=== PATIENT | male | born 1950 ===

== ENCOUNTER 2017-06-14 20:45 | Inpatient (IN) | payer OTHER ==
[2017-06-14 20:45] VITALS: BMI 34.4
--- NOTE | 2017-06-14 21:20 | C.PDOC ---
History Of Present Illness Patient presents to the ER with a complaint of intermittent abdominal pain for the past 3-4 days with no bowel movements in 3 days. Patient initially stated he has not voided all day but was able to void 250cc of clear urine in the ER. Patient is currently on narcotics for back and leg pain and uses a walker to ambulate. Denies fever, chills, nausea, or vomiting. Time Seen by Provider: 06/14/17 21:19 Chief Complaint (Nursing): Abdominal Pain History Per: Patient History/Exam Limitations: no limitations Onset/Duration Of Symptoms: Days, Intermittent Episodes Current Symptoms Are (Timing): Still Present Severity: Mild Pain Scale Rating Of: 4 Location Of Pain/Discomfort: Diffuse Radiation Of Pain To:: None Quality Of Discomfort: Unable To Describe Associated Symptoms: Constipation. denies: Fever, Chills, Nausea, Vomiting Exacerbating Factors: None Alleviating Factors: None Recent travel outside of the [place]: No Additional History Per: Family Past Medical History Reviewed: Historical Data, Nursing Documentation, Vital Signs Vital Signs: Last Vital Signs Temp 98.4 F 06/14/17 20:53 Pulse 108 H 06/14/17 20:53 Resp 16 06/14/17 20:53 BP Pulse Ox 98 06/14/17 21:53 - Medical History PMH: Diabetes, HTN, Hypercholesterolemia, Hypothyroidism, Chronic Kidney Disease Surgical History: No Surg Hx - [facility] Procedures INSERT INDWELLING CATH (01/23/13) Family History: States: Unknown Family Hx - Social History Hx Tobacco Use: No Hx Alcohol Use: No Hx Substance Use: No - Immunization History Hx Tetanus Toxoid Vaccination: No Hx Influenza Vaccination: Yes Hx Pneumococcal Vaccination: Yes Review Of Systems Constitutional: Negative for: Fever, Chills ENT: Negative for: Throat Pain Cardiovascular: Negative for: Chest Pain Respiratory: Negative for: Shortness of Breath Gastrointestinal: Positive for: Abdominal Pain, Constipation. Negative for: Nausea, Vomiting Genitourinary: Negative for: Dysuria Musculoskeletal: Negative for: Back Pain Skin: Negative for: Rash, Lesions, Jaundice Neurological: Negative for: Weakness Psych: Negative for: Anxiety Physical Exam - Physical Exam Appears: Non-toxic, No Acute Distress Skin: Warm, Dry Head: Normacephalic Eye(s): bilateral: Normal Inspection Oral Mucosa: Moist Neck: Supple Chest: Symmetrical Cardiovascular: Rhythm Regular Respiratory: No Rales, No Rhonchi, No Wheezing Gastrointestinal/Abdominal: Soft, No Tenderness, Other (Tympanic to percussion) Back: Normal Inspection Extremity: No Pedal Edema Extremity: Bilateral: Atraumatic Pulses: Left Dorsalis Pedis: Normal, Right Dorsalis Pedis: Normal Neurological/Psych: Oriented x3, Normal Speech, Normal Cognition Gait: With Assistance ED Course And Treatment - Laboratory Results Result Diagrams: 06/14/17 21:50 06/14/17 21:50 O2 Sat by Pulse Oximetry: 98 (Room air) Pulse Ox Interpretation: Normal Progress Note: Blood work, EKG, obstructive series x-ray, and urinalysis ordered. IV fluids and toradol administered. Disposition Discussed With Dr.: Vick Escobar Comment: accepted the pt on his service and took over the care at 11:11PM Doctor Will See Patient In The: Hospital Counseled Patient/Family Regarding: Studies Performed, Diagnosis - Disposition Disposition: HOSPITALIZED Disposition Time: 21:19 Condition: FAIR Forms: [facility] (Niuean) - POA Present On Arrival: Poor Glycemic Control - Clinical Impression Clinical Impression: Abdominal pain, Constipation, Renal insufficiency, Hyperglycemia, HHNC ( hyperglycemic hyperosmolar nonketotic coma) - Scribe Statement The provider has reviewed the documentation as recorded by the Scribe Weston Shelby All medical record entries made by the Scribe were at my direction and personally dictated by me. I have reviewed the chart and agree that the record accurately reflects my personal performance of the history, physical exam, medical decision making, and the department course for this patient. I have also personally directed, reviewed, and agree with the discharge instructions and disposition. Decision To Admit - Pt Status Changed To: Hospital Disposition Of: Inpatient - Admit Certification Admit to Inpatient:: After my assessment, the patient will require hospitalization for at least two midnights. This is because of the severity of symptoms shown, intensity of services needed, and/or the medical risk in this patient being treated as an outpatient. - InPatient: Physician Admission Certification:: After my assessment, the patient will require hospitalization for at least two midnights. This is because of the severity of symptoms shown, intensity of services needed, and/or the medical risk in this patient being treated as an outpatient. - . Bed Request Type: Regular Admitting Physician: Vick Escobar Patient Diagnosis: Abdominal pain, Constipation, Renal insufficiency, Hyperglycemia, HHNC ( hyperglycemic hyperosmolar nonketotic coma)
[2017-06-14] MEDS ORDERED: Sodium Chloride 0.9% 1,000 ML IV ONE ×2 (21:41→22:56)
[2017-06-14 21:56] LABS: BASO # 0.1 K/uL (0.0-0.2); EOS # 0.1 K/uL (0.0-0.7); EOS % 1.1 % (0.0-4.0); MONO # 0.9 K/uL (0.0-0.8); RED CELL DISTRIBUTION WIDTH 14.1 % (11.5-14.5)
[2017-06-14 22:02] LABS: BASO % 0.8 % (0.0-2.0); HEMATOCRIT 40.9 % (35.0-51.0); LYMPH % 10.3 % (20.0-40.0); MEAN CELL VOLUME 91.1 fL (80.0-94.0); MEAN CORPUSCULAR HEMOGLOBIN 29.4 pg (27.0-31.0); MEAN CORPUSCULAR HGB CONC 32.3 g/dL (33.0-37.0); MEAN PLATELET VOLUME 9.3 fL (7.2-11.7); WHITE BLOOD COUNT 9.5 K/uL (4.8-10.8)
[2017-06-14 22:04] LABS: CHLORIDE 90 mmol/L (98-107)
[2017-06-14 22:05] LABS: POTASSIUM 5.2 mmol/L (3.6-5.2); SODIUM 127 mmol/L (132-148)
[2017-06-14 22:07] LABS: ALB/GLOB RATIO 1.5 (1.0-2.1); CARBON DIOXIDE 23 mmol/L (22-30); GFR AFRICAN-AMERICAN 30; TOTAL PROTEIN 7.5 g/dL (6.3-8.3)
[2017-06-14 22:08] LABS: ALKALINE PHOSPHATASE 132 U/L (38-126); ALT/SGPT 46 U/L (21-72); AST/SGOT 27 U/L (17-59); BLOOD UREA NITROGEN 48 mg/dL (9-20); CALCIUM 9.3 mg/dl (8.6-10.4); RBC URINE 5 /hpf (0-3); URINE BACTERIA RARE (<OCC); URINE BILIRUBIN NEGATIVE (NEGATIVE); URINE BLOOD 1+ (NEGATIVE); URINE COLOR Straw (YELLOW); URINE GLUCOSE (UA) 3+ mg/dL (Normal); URINE KETONE TRACE mg/dL (NEGATIVE); URINE LEUKOCYTE ESTERASE NEG Leu/uL (Negative); URINE PROTEIN 2+ mg/dL (NEGATIVE); URINE UROBILINOGEN NORMAL mg/dL (0.2-1.0); WBC URINE < 1 /hpf (0-5)
[2017-06-14 22:09] LABS: INR 0.9
[2017-06-14 22:22] LABS: GLUCOSE,RANDOM 801 mg/dL (75-110)
[2017-06-14] MEDS ORDERED: (Novolin R) Insulin Human Regular 100 units/ml vial IV STA ×2 (22:23→23:35)
[2017-06-14] MEDS ORDERED: (Novolin R) Insulin Human Regular 100 units/ml vial ONE (22:32)
[2017-06-14 22:41] LABS: VENOUS BLOOD GAS PCO2 47 mmHg (40-60); VENOUS BLOOD PH 7.38 (7.32-7.43)
[2017-06-14] MEDS ORDERED: HYDROmorphone 0.5 mg/0.5 ml ISec IVP STA (22:58)
[2017-06-14] MEDS ORDERED: HYDROmorphone 0.5 mg/0.5 ml ISec ONE (23:04)
--- NOTE | 2017-06-14 23:38 | CP.PCM.HP ---
History of Present Illness - History of Present Illness History of Present Illness: A 67-year-old male with PMHdiabetes, HTN, hypercholesterolemia, hypothyroidism and CKD presents to the ER with C/Oabdominal pain. C/Oabdominal pain for 2-4 days. Insidious in onset, progressive, diffuse, generalized, all over the abdomen, vague, dull aching type, intensity of 3/10, not associated with meals, nonradiating, no aggravating or relieving factors. C/Oconstipation for 3 days. Patient has not passed stool since last 3 days. C/Oinability to pass urine for 1 day. In the ER patient passed around 150 mL of urine. Patient is currently on narcotic medication for back and neck pain. No C/Ofever, abdominal distention, yellowish discoloration of urine sclera, hematemesis, melena, hiccups. Present on Admission - Present on Admission Any Indicators Present on Admission: No Past Patient History - Infectious Disease Hx of Infectious Diseases: None - Past Social History Smoking Status: Never Smoked - CARDIAC Hx Hypercholesterolemia: Yes Hx Hypertension: Yes - RENAL Hx Chronic Kidney Disease: Yes - ENDOCRINE/METABOLIC Hx Hypothyroidism: Yes - HEMATOLOGICAL/ONCOLOGICAL Hx Blood Disorders: Yes Hx Cancer: Yes (prostatic 7 yrs ago) - GENITOURINARY/GYNECOLOGICAL Hx Genitourinary Disorders: Yes Hx Prostate Cancer: Yes (7 years ago) - PSYCHIATRIC Hx Substance Use: No - SURGICAL HISTORY Hx Surgeries: No - ANESTHESIA Hx Anesthesia: No Meds Allergies/Adverse Reactions: Allergies Allergy/AdvReac Type Severity Reaction Status Date / Time No Known Allergies Allergy Verified 06/14/17 21:01 Results - Vital Signs Recent Vital Signs: Last Vital Signs Temp 98.4 F 06/14/17 20:53 Pulse 108 H 06/14/17 20:53 Resp 16 06/14/17 20:53 BP Pulse Ox 98 06/14/17 23:13 - Labs Result Diagrams: 06/20/17 07:57 06/20/17 07:57 Labs: Laboratory Results - last 24 hr 06/14/17 06/14/17 06/14/17 21:45 21:50 21:50 WBC 9.5 RBC 4.49 Hgb 13.2 Hct 40.9 MCV 91.1 MCH 29.4 MCHC 32.3 L RDW 14.1 Plt Count 245 MPV 9.3 Neut % (Auto) 78.8 H Lymph % (Auto) 10.3 L Dale % (Auto) 9.0 Eos % (Auto) 1.1 Baso % (Auto) 0.8 Neut # 7.5 H Lymph # 1.0 Dale # 0.9 H Eos # 0.1 Baso # 0.1 PT 10.4 INR 0.9 pO2 VBG pH VBG pCO2 VBG HCO3 VBG Total CO2 VBG O2 Sat (Calc) VBG Base Excess VBG Potassium Glucose Lactate Crit Value Called To Crit Value Called By Crit Value Read Back Blood Gas Notified Time Sodium Potassium Chloride Carbon Dioxide Anion Gap BUN Creatinine Est GFR ( Amer) Est GFR (Non-Af Amer) POC Glucose (mg/dL) > 500 H* Random Glucose Calcium Total Bilirubin AST ALT Alkaline Phosphatase Total Protein Albumin Globulin Albumin/Globulin Ratio Lipase Venous Blood Potassium Urine Color Urine Clarity Urine pH Ur Specific [place] Urine Protein Urine Glucose (UA) Urine Ketones Urine Blood Urine Nitrate Urine Bilirubin Urine Urobilinogen Ur Leukocyte Esterase Urine WBC (Auto) Urine RBC (Auto) Ur Squamous Epith Cells Urine Bacteria Serum Ketones 06/14/17 06/14/17 06/14/17 21:50 21:50 22:35 WBC RBC Hgb Hct MCV MCH MCHC RDW Plt Count MPV Neut % (Auto) Lymph % (Auto) Dale % (Auto) Eos % (Auto) Baso % (Auto) Neut # Lymph # Dale # Eos # Baso # PT INR pO2 19 L VBG pH 7.38 VBG pCO2 47 VBG HCO3 24.6 VBG Total CO2 29.2 H VBG O2 Sat (Calc) 32.8 L VBG Base Excess 2.0 VBG Potassium 6.6 H* Glucose 681 H* Lactate 2.3 H Crit Value Called To Dr. torres Crit Value Called By Amy montiel rcp Crit Value Read Back Y Blood Gas Notified Time 2240 Sodium 127 L 130.0 L Potassium 5.2 Chloride 90 L 98.0 Carbon Dioxide 23 Anion Gap 19 BUN 48 H Creatinine 2.6 H Est GFR ( Amer) 30 Est GFR (Non-Af Amer) 25 POC Glucose (mg/dL) Random Glucose 801 H* D Calcium 9.3 Total Bilirubin 1.0 AST 27 ALT 46 Alkaline Phosphatase 132 H D Total Protein 7.5 Albumin 4.5 Globulin 3.0 Albumin/Globulin Ratio 1.5 Lipase 251 Venous Blood Potassium 6.6 H* Urine Color Straw Urine Clarity Clear Urine pH 6.0 Ur Specific [place] 1.021 Urine Protein 2+ H Urine Glucose (UA) 3+ H Urine Ketones Trace Urine Blood 1+ H Urine Nitrate Negative Urine Bilirubin Negative Urine Urobilinogen Normal Ur Leukocyte Esterase Neg Urine WBC (Auto) < 1 Urine RBC (Auto) 5 H Ur Squamous Epith Cells < 1 Urine Bacteria Rare Serum Ketones Small 06/14/17 23:18 WBC RBC Hgb Hct MCV MCH MCHC RDW Plt Count MPV Neut % (Auto) Lymph % (Auto) Dale % (Auto) Eos % (Auto) Baso % (Auto) Neut # Lymph # Dale # Eos # Baso # PT INR pO2 VBG pH VBG pCO2 VBG HCO3 VBG Total CO2 VBG O2 Sat (Calc) VBG Base Excess VBG Potassium Glucose Lactate Crit Value Called To Crit Value Called By Crit Value Read Back Blood Gas Notified Time Sodium Potassium Chloride Carbon Dioxide Anion Gap BUN Creatinine Est GFR ( Amer) Est GFR (Non-Af Amer) POC Glucose (mg/dL) > 500 H* Random Glucose Calcium Total Bilirubin AST ALT Alkaline Phosphatase Total Protein Albumin Globulin Albumin/Globulin Ratio Lipase Venous Blood Potassium Urine Color Urine Clarity Urine pH Ur Specific [place] Urine Protein Urine Glucose (UA) Urine Ketones Urine Blood Urine Nitrate Urine Bilirubin Urine Urobilinogen Ur Leukocyte Esterase Urine WBC (Auto) Urine RBC (Auto) Ur Squamous Epith Cells Urine Bacteria Serum Ketones
[2017-06-15] MEDS: Sodium Chloride 0.9% 1,000 ML IV SCH ×3 (00:03→19:00)
[2017-06-15] MEDS ORDERED: (Novolin R) Insulin Human Regular 100 units/ml vial IV STA (00:21)
[2017-06-15] MEDS: Oxycodone/Acetaminophen 5/325 mg Tab PO PRN ×3 (01:11→22:21)
[2017-06-15] MEDS ORDERED: (Novolin R) Insulin Human Regular 100 units/ml vial ONE (02:23)
[2017-06-15] MEDS: Levothyroxine 175 MCG TAB PO SCH (06:31)
[2017-06-15 06:45] LABS: BASO # 0.1 K/uL (0.0-0.2); EOS # 0.3 K/uL (0.0-0.7); EOS % 2.8 % (0.0-4.0); MONO # 1.1 K/uL (0.0-0.8)
[2017-06-15 06:51] LABS: HEMATOCRIT 32.4 % (35.0-51.0); LYMPH # 1.4 K/uL (1.0-4.3); LYMPH % 15.2 % (20.0-40.0); MEAN CELL VOLUME 89.5 fL (80.0-94.0); MEAN CORPUSCULAR HGB CONC 33.5 g/dL (33.0-37.0); MEAN PLATELET VOLUME 9.5 fL (7.2-11.7); RED CELL DISTRIBUTION WIDTH 13.9 % (11.5-14.5); WHITE BLOOD COUNT 9.1 K/uL (4.8-10.8)
[2017-06-15 07:01] LABS: MAGNESIUM 1.9 mg/dL (1.6-2.3); PHOSPHOROUS 2.9 mg/dL (2.5-4.5)
--- NOTE | 2017-06-15 07:24 | RAD ---
PROCEDURE: Radiographs of the chest and abdomen (obstructive series) HISTORY: abd pain COMPARISON: Abdomen obstructive series dated 06/20/2014 TECHNIQUE: AP radiograph of the chest, with upright and supine radiographs of the abdomen. FINDINGS: CHEST: Lungs: Clear. Cardiovascular: Normal size heart. No pulmonary vascular congestion. Pleura: No pleural fluid. No pneumothorax. Other findings: None. ABDOMEN AND PELVIS: Bowel: There is a nonobstructive bowel gas pattern appreciated. No air-fluid levels are identified. Relatively prominent retained fecal material is identified at the large-bowel though also mild volume is seen in the rectum. Free air: None. Bones: Unremarkable. Other findings: No abnormal intra-abdominal calcifications identified. Instill note is made of radiation seed implants in the region of prostate gland once again. IMPRESSION: Nonobstructive bowel gas pattern. Potential constipation. No abnormal intra-abdominal calcifications. No interval acute cardiopulmonary findings.
[2017-06-15] MEDS ORDERED: Bisacodyl 5mg EC Tab PO ONE (08:00)
[2017-06-15] MEDS: (Novolin R) Insulin Human Regular 100 units/ml vial SC SCH ×4 (08:07→22:38)
[2017-06-15] MEDS: POLYETHYLENE GLYCOL 3350 17 GM/Dose PACKET PO SCH ×2 (09:28→17:43)
[2017-06-15] MEDS: Pantoprazole 40 mg EC Tab PO SCH (09:28)
[2017-06-15] MEDS: (Lantus) Insulin Glargine, Recombinant SC SCH ×2 (09:31→17:43)
[2017-06-15] MEDS ORDERED: HYDROCHLOROTHIAZIDE PO SCH (10:00)
[2017-06-15] MEDS ORDERED: Home Med 1 UNIT (Sitagliptin Phos/Metformin Hcl [Janumet 50-1,000 Mg Tablet] 1 EACH) PO SCH (10:00)
[2017-06-15] MEDS ORDERED: VALSARTAN PO SCH (10:00)
--- NOTE | 2017-06-15 10:27 | CP.PCM.PN ---
<BuzzDanitza H - Last Filed: 06/15/17 10:20> Subjective - Date & Time of Evaluation Date of Evaluation: 06/15/17 Time of Evaluation: 08:30 - Subjective Subjective: PGY3 Medicine Note - Dr. Santana Escobar's service: Patient seen and examined at bedside this AM. Patient reports no BM for 4 days. He says this is causing abdominal pain. Patient also reports intermittent knee pain for over a year. Patient denies fever, chills, chest pain, nausea, vomiting. Objective - Vital Signs/Intake and Output Vital Signs (last 24 hours): Temp Pulse Resp BP Pulse Ox 98.4 F 101 H 20 164/85 H 99 06/15/17 00:45 06/15/17 00:45 06/15/17 00:45 06/15/17 00:45 06/15/17 00:45 Intake and Output: 06/15/17 06/15/17 06:59 18:59 Output Total 250 Balance -250 - Medications Medications: Current Medications Amlodipine Besylate (Norvasc) 5 mg PO DAILY [facility] Last Admin: 06/15/17 09:25 Dose: 5 mg Apixaban (Eliquis) 5 mg PO BID [facility] Last Admin: 06/15/17 09:34 Dose: 5 mg Hydrochlorothiazide (Hydrodiuril) 25 mg PO DAILY [facility] Last Admin: 06/15/17 09:25 Dose: 25 mg Sodium Chloride (Sodium Chloride 0.9%) 1,000 mls @ 100 mls/hr IV .Q10H [facility] Last Admin: 06/15/17 00:03 Dose: 100 mls/hr Insulin Glargine (Lantus) 20 unit SC BID [facility] Last Admin: 06/15/17 09:31 Dose: 20 units Insulin Human Regular (Novolin R) 0 unit SC ACHS [facility] PRN Reason: Protocol Last Admin: 06/15/17 08:07 Dose: 6 unit Levothyroxine Sodium (Synthroid) 175 mcg PO DAILY@0630 [facility] Last Admin: 06/15/17 06:31 Dose: 175 mcg Losartan Potassium (Cozaar) 100 mg PO DAILY [facility] Last Admin: 06/15/17 09:28 Dose: 100 mg Metformin HCl (Glucophage) 1,000 mg PO BIDCC [facility] Last Admin: 06/15/17 08:05 Dose: 1,000 mg Oxycodone/Acetaminophen (Percocet 5/325 Mg Tab) 1 tab PO Q6 PRN PRN Reason: Pain, moderate (4-7) Stop: 06/17/17 23:42 Last Admin: 06/15/17 09:25 Dose: 1 tab Pantoprazole Sodium (Protonix Ec Tab) 40 mg PO DAILY [facility] Last Admin: 06/15/17 09:28 Dose: 40 mg Polyethylene Glycol (Miralax) 17 gm PO BID [facility] Last Admin: 06/15/17 09:28 Dose: 17 gm Rosuvastatin Calcium (Crestor) 10 mg PO HS [facility] Sitagliptin Phosphate (Januvia) 50 mg PO BID [facility] Last Admin: 06/15/17 09:28 Dose: 50 mg - Labs Labs: 06/15/17 06:37 06/14/17 23:53 PT 10.4 SECONDS (9.7-12.2) 06/14/17 21:50 INR 0.9 06/14/17 21:50 - Constitutional Appears: Non-toxic, No Acute Distress - Head Exam Head Exam: NORMAL INSPECTION - Eye Exam Eye Exam: EOMI - ENT Exam ENT Exam: Mucous Membranes Moist - Respiratory Exam Respiratory Exam: Clear to Ausculation Bilateral, NORMAL BREATHING PATTERN. absent: Rales, Rhonchi, Wheezes - Cardiovascular Exam Cardiovascular Exam: REGULAR RHYTHM, +S1, +S2. absent: Gallop, Rubs - GI/Abdominal Exam GI & Abdominal Exam: Distended, Soft, Normal Bowel Sounds. absent: Firm, Guarding, Tenderness - Extremities Exam Extremities Exam: absent: Pedal Edema Additional comments: right quadriceps tenderness - Neurological Exam Neurological Exam: Alert, Awake, Oriented x3 - Psychiatric Exam Psychiatric exam: Normal Affect, Normal Mood - Skin Skin Exam: Normal Color, Warm Assessment and Plan - Assessment and Plan (Free Text) Assessment: Uncontrolled DM Patient does not take insulin at home Lantus 20 U SC BID RISS Continue home Metformin 1000mg PO BIDCC and Januvia 50mg PO BID Monitor accuchecks (improving) Constipation Abdominal Obstructive series: nonobstructive bowel gas pattern. potential constipation (please see full report) GI consult - Dr. Liz - help appreciated Enema planned for today Miralax 17gm PO BID Right Knee Pain Ibuprofen 600mg PO TID PRN pain, mild Percocet 5/325mg PO Q6 PRN pain, moderate Warm compresses No DVT on work up in May 2017 05/27/17 Knee X ray - moderate tricompartmental degenerative osteoarthritis, worse in the medial compartment. (please see full report) F/U outpatient History of DVT 2-3 years ago Eliquis 5mg PO BID HTN Cozaar 100mg PO caily Norvasc 5mg PO daily HCTZ 25mg PO daily Hyperlipidemia Crestor 10mg PO HS Hypothyroidism Synthroid 175 mcg PO daily F/U TSH Acute on chronic CKD Monitor F/U outpatient Prophylaxis Protonix 40mg PO daily Eliquid 5mg PO BID All medical management per Dr. Santana Escobar <Vick Escobar S - Last Filed: 06/21/17 13:21> Objective - Vital Signs/Intake and Output Vital Signs (last 24 hours): Temp Pulse Resp BP Pulse Ox 98.7 F 105 H 20 172/98 H 99 06/20/17 15:00 06/20/17 15:00 06/20/17 15:00 06/20/17 15:00 06/20/17 15:00 - Labs Labs: 06/20/17 07:57 06/20/17 07:57 PT 10.4 SECONDS (9.7-12.2) 06/14/17 21:50 INR 0.9 06/14/17 21:50 Attending/Attestation - Attestation I have personally seen and examined this patient.: Yes I have fully participated in the care of the patient.: Yes I have reviewed all pertinent clinical information, including history, physical exam and plan: Yes Notes (Text): 06/21/17 13:21 Patient examined. No bowel movement still today. Abdominal pain patient. EKG done was normal. Abdominal x-ray obstructive pattern was done. It was suggestive of nonobstructive bowel gas pattern. Constipation. Laboratory investigation shows raised blood glucose, increased potassium. Serum ketones to be trace. Continue apixaban. Continue insulin sliding scale Continue antihypertensive, antidiabetic medications and levothyroxine. Continue supportive care.
--- NOTE | 2017-06-15 10:57 | CP.PCM.CON ---
<Jorge Reed - Last Filed: 06/15/17 10:33> History of Present Illness - History of Present Illness History of Present Illness: Jorge Reed DO PGY1 - GI Consult Note for Dr. Arellano Consultation for abdominal pain and constipation 67 yo M with PMH of DM and hypothyroidism presents complaining of 3 days of right leg pain, 3 days of constipation, and 1 day of difficulty urinating. Patient was able to urinate normally while in the ER. He reportedly has had intermittent right leg pain for the past three years, lasts days-months at a time, and has had multiple visits to the ER for that problem. Patient denies taking any narcotic pain medications, and reportedly only takes naproxen for pain relief. Though chart review shows that the patient takes oxycontin at home for back and leg pain. He does not take a bowel regimen at home. His abdominal pain is intermittent, only when he feels the urge to defecate. He denies diarrhea, hematochezia, melena, weight loss, fevers, chills, night sweats, dysuria. He endorses a normal appetite. He reports that he previously had constipation, and had an enema which helped, and is now requesting the same. Throughout the encounter, patient appeared uncomfortable and was irritated that we were not directly addressing his leg pain, and were instead focused on his constipation. Patient reportedly had colonoscopy 5 years ago, and was advised to have repeat colonoscopy after 5 years, but did not recall the findings 12-point ROS was obtained and was negative except as in HPI PMH: DM, HTN, Hypercholesterolemia, Hypothyroidism, CKD, BPH, DVT (Per chart review; patient only endorsed DM and hypothyroidism during encounter) PSH: None Soc: Denies tobacco, alcohol, or illicits FHx: Unknown All: NKDA Past Patient History - Infectious Disease Hx of Infectious Diseases: None - Past Medical History & Family History Past Medical History?: Yes - Past Social History Smoking Status: Never Smoked - CARDIAC Hx Hypercholesterolemia: Yes Hx Hypertension: Yes - RENAL Hx Chronic Kidney Disease: Yes - ENDOCRINE/METABOLIC Hx Hypothyroidism: Yes - HEMATOLOGICAL/ONCOLOGICAL Hx Blood Disorders: Yes Hx Cancer: Yes (prostatic 7 yrs ago) - MUSCULOSKELETAL/RHEUMATOLOGICAL Hx Falls: No - GENITOURINARY/GYNECOLOGICAL Hx Genitourinary Disorders: Yes Hx Prostate Cancer: Yes (7 years ago) - PSYCHIATRIC Hx Substance Use: No - SURGICAL HISTORY Hx Surgeries: No - ANESTHESIA Hx Anesthesia: No Meds Allergies/Adverse Reactions: Allergies Allergy/AdvReac Type Severity Reaction Status Date / Time No Known Allergies Allergy Verified 06/14/17 21:01 - Medications Medications: Current Medications Albuterol/Ipratropium (Duoneb 3 Mg/0.5 Mg (3 Ml) Ud) [address] [facility] Amlodipine Besylate (Norvasc) [address] [facility] Last Admin: 06/15/17 09:25 Dose: 5 mg Apixaban (Eliquis) [address] [facility] Last Admin: 06/15/17 09:34 Dose: 5 mg Hydrochlorothiazide (Hydrodiuril) [address] [facility] Last Admin: 06/15/17 09:25 Dose: 25 mg Sodium Chloride (Sodium Chloride 0.9%) 1,000 mls @ 100 mls/hr IV .Q10H [facility] Last Admin: 06/15/17 00:03 Dose: 100 mls/hr Ibuprofen (Motrin Tab) 600 mg PO TID PRN PRN Reason: Pain, MILD(1-3) Insulin Glargine (Lantus) [address] [facility] Last Admin: 06/15/17 09:31 Dose: 20 units Insulin Human Regular (Novolin R) [address] [facility] PRN Reason: Protocol Last Admin: 06/15/17 08:07 Dose: 6 unit Levothyroxine Sodium (Synthroid) 175 mcg PO DAILY@0630 [facility] Last Admin: 06/15/17 06:31 Dose: 175 mcg Losartan Potassium (Cozaar) [address] [facility] Last Admin: 06/15/17 09:28 Dose: 100 mg [facility] Last Admin: 06/15/17 08:05 Dose: 1,000 mg Oxycodone/Acetaminophen (Percocet 5/325 Mg Tab) 1 tab PO Q6 PRN PRN Reason: Pain, moderate (4-7) Stop: 06/17/17 23:42 Last Admin: 06/15/17 09:25 Dose: 1 tab Pantoprazole Sodium (Protonix Ec Tab) [address] [facility] Last Admin: 06/15/17 09:28 Dose: 40 mg Polyethylene Glycol (Miralax) [address] [facility] Last Admin: 06/15/17 09:28 Dose: 17 gm Rosuvastatin Calcium (Crestor) [address] [facility] Sitagliptin Phosphate (Januvia) [address] [facility] Last Admin: 06/15/17 09:28 Dose: 50 mg Physical Exam - Constitutional Appears: Non-toxic, No Acute Distress - Head Exam Head Exam: ATRAUMATIC, NORMOCEPHALIC - Eye Exam Eye Exam: EOMI, Normal appearance. absent: Scleral icterus - ENT Exam ENT Exam: Mucous Membranes Moist - Neck Exam Neck exam: Positive for: Normal Inspection - Respiratory Exam Respiratory Exam: Clear to Auscultation Bilateral, NORMAL BREATHING PATTERN - Cardiovascular Exam Cardiovascular Exam: RRR, +S1, +S2 - GI/Abdominal Exam GI & Abdominal Exam: Normal Bowel Sounds, Soft. absent: Distended, Firm, Guarding, Rebound, Rigid, Tenderness - Rectal Exam Additional comments: Small hard stool deep in rectal vault. No impaction. No hemorrhoids. No melena or daniela blood. - Extremities Exam Extremities exam: Positive for: normal inspection. Negative for: calf tenderness, pedal edema - Neurological Exam Neurological exam: Alert, Oriented x3 - Psychiatric Exam Psychiatric exam: Agitated, Normal Affect, Normal Mood - Skin Skin Exam: Dry, Intact, Normal Color Results - Vital Signs Recent Vital Signs: Last Vital Signs Temp 98.4 F 06/15/17 00:45 Pulse 101 H 06/15/17 00:45 Resp 20 06/15/17 00:45 BP 164/85 H 06/15/17 00:45 Pulse Ox 99 06/15/17 00:45 - Labs Result Diagrams: 06/15/17 06:37 06/14/17 23:53 Labs: Laboratory Results - last 24 hr 06/14/17 06/14/17 06/14/17 21:45 21:50 21:50 WBC 9.5 RBC 4.49 Hgb 13.2 Hct 40.9 MCV 91.1 MCH 29.4 MCHC 32.3 L RDW 14.1 Plt Count 245 MPV 9.3 Neut % (Auto) 78.8 H Lymph % (Auto) 10.3 L [place] % (Auto) 9.0 Eos % (Auto) 1.1 Baso % (Auto) 0.8 Neut # 7.5 H Lymph # 1.0 [place] # 0.9 H Eos # 0.1 Baso # 0.1 PT 10.4 INR 0.9 pO2 VBG pH VBG pCO2 VBG HCO3 VBG Total CO2 VBG O2 Sat (Calc) VBG Base Excess VBG Potassium Glucose Lactate Crit Value Called To Crit Value Called By Crit Value Read Back Blood Gas Notified Time Sodium Potassium Chloride Carbon Dioxide Anion Gap BUN Creatinine Est GFR ( Amer) Est GFR (Non-Af Amer) POC Glucose (mg/dL) > 500 H* Random Glucose Calcium Phosphorus Magnesium Total Bilirubin AST ALT Alkaline Phosphatase Total Protein Albumin Globulin Albumin/Globulin Ratio Lipase Venous Blood Potassium Urine Color Urine Clarity Urine pH Ur Specific [place] Urine Protein Urine Glucose (UA) Urine Ketones Urine Blood Urine Nitrate Urine Bilirubin Urine Urobilinogen Ur Leukocyte Esterase Urine WBC (Auto) Urine RBC (Auto) Ur Squamous Epith Cells Urine Bacteria Serum Ketones 06/14/17 06/14/17 06/14/17 21:50 21:50 22:35 WBC RBC Hgb Hct MCV MCH MCHC RDW Plt Count MPV Neut % (Auto) Lymph % (Auto) [place] % (Auto) Eos % (Auto) Baso % (Auto) Neut # Lymph # [place] # Eos # Baso # PT INR pO2 19 L VBG pH 7.38 VBG pCO2 47 VBG HCO3 24.6 VBG Total CO2 29.2 H VBG O2 Sat (Calc) 32.8 L VBG Base Excess 2.0 VBG Potassium 6.6 H* Glucose 681 H* Lactate 2.3 H Crit Value Called To Dr. torres Crit Value Called By Amy montiel rcp Crit Value Read Back Y Blood Gas Notified Time 2240 Sodium 127 L 130.0 L Potassium 5.2 Chloride 90 L 98.0 Carbon Dioxide 23 Anion Gap 19 BUN 48 H Creatinine 2.6 H Est GFR ( Amer) 30 Est GFR (Non-Af Amer) 25 POC Glucose (mg/dL) Random Glucose 801 H* D Calcium 9.3 Phosphorus Magnesium Total Bilirubin 1.0 AST 27 ALT 46 Alkaline Phosphatase 132 H D Total Protein 7.5 Albumin 4.5 Globulin 3.0 Albumin/Globulin Ratio 1.5 Lipase 251 Venous Blood Potassium 6.6 H* Urine Color Straw Urine Clarity Clear Urine pH 6.0 Ur Specific [place] 1.021 Urine Protein 2+ H Urine Glucose (UA) 3+ H Urine Ketones Trace Urine Blood 1+ H Urine Nitrate Negative Urine Bilirubin Negative Urine Urobilinogen Normal Ur Leukocyte Esterase Neg Urine WBC (Auto) < 1 Urine RBC (Auto) 5 H Ur Squamous Epith Cells < 1 Urine Bacteria Rare Serum Ketones Small 06/14/17 06/14/17 06/15/17 23:18 23:53 01:04 WBC RBC Hgb Hct MCV MCH MCHC RDW Plt Count MPV Neut % (Auto) Lymph % (Auto) [place] % (Auto) Eos % (Auto) Baso % (Auto) Neut # Lymph # [place] # Eos # Baso # PT INR pO2 VBG pH VBG pCO2 VBG HCO3 VBG Total CO2 VBG O2 Sat (Calc) VBG Base Excess VBG Potassium Glucose Lactate Crit Value Called To Crit Value Called By Crit Value Read Back Blood Gas Notified Time Sodium Potassium Chloride Carbon Dioxide Anion Gap BUN Creatinine Est GFR ( Amer) Est GFR (Non-Af Amer) POC Glucose (mg/dL) > 500 H* 325 H Random Glucose 482 H* D Calcium Phosphorus Magnesium Total Bilirubin AST ALT Alkaline Phosphatase Total Protein Albumin Globulin Albumin/Globulin Ratio Lipase Venous Blood Potassium Urine Color Urine Clarity Urine pH Ur Specific [place] Urine Protein Urine Glucose (UA) Urine Ketones Urine Blood Urine Nitrate Urine Bilirubin Urine Urobilinogen Ur Leukocyte Esterase Urine WBC (Auto) Urine RBC (Auto) Ur Squamous Epith Cells Urine Bacteria Serum Ketones 06/15/17 06/15/17 06/15/17 01:04 06:35 06:37 WBC 9.1 RBC 3.62 L Hgb 10.9 L D Hct 32.4 L MCV 89.5 MCH 30.0 MCHC 33.5 RDW 13.9 Plt Count 184 MPV 9.5 Neut % (Auto) 69.0 Lymph % (Auto) 15.2 L [place] % (Auto) 12.0 H Eos % (Auto) 2.8 Baso % (Auto) 1.0 Neut # 6.3 Lymph # 1.4 [place] # 1.1 H Eos # 0.3 Baso # 0.1 PT INR pO2 VBG pH VBG pCO2 VBG HCO3 VBG Total CO2 VBG O2 Sat (Calc) VBG Base Excess VBG Potassium Glucose Lactate Crit Value Called To Crit Value Called By Crit Value Read Back Blood Gas Notified Time Sodium Potassium Chloride Carbon Dioxide Anion Gap BUN Creatinine Est GFR ( Amer) Est GFR (Non-Af Amer) POC Glucose (mg/dL) 325 H Random Glucose Calcium Phosphorus 2.9 Magnesium 1.9 Total Bilirubin AST ALT Alkaline Phosphatase Total Protein Albumin Globulin Albumin/Globulin Ratio Lipase Venous Blood Potassium Urine Color Urine Clarity Urine pH Ur Specific [place] Urine Protein Urine Glucose (UA) Urine Ketones Urine Blood Urine Nitrate Urine Bilirubin Urine Urobilinogen Ur Leukocyte Esterase Urine WBC (Auto) Urine RBC (Auto) Ur Squamous Epith Cells Urine Bacteria Serum Ketones 06/15/17 07:09 WBC RBC Hgb Hct MCV MCH MCHC RDW Plt Count MPV Neut % (Auto) Lymph % (Auto) [place] % (Auto) Eos % (Auto) Baso % (Auto) Neut # Lymph # [place] # Eos # Baso # PT INR pO2 VBG pH VBG pCO2 VBG HCO3 VBG Total CO2 VBG O2 Sat (Calc) VBG Base Excess VBG Potassium Glucose Lactate Crit Value Called To Crit Value Called By Crit Value Read Back Blood Gas Notified Time Sodium Potassium Chloride Carbon Dioxide Anion Gap BUN Creatinine Est GFR ( Amer) Est GFR (Non-Af Amer) POC Glucose (mg/dL) 297 H Random Glucose Calcium Phosphorus Magnesium Total Bilirubin AST ALT Alkaline Phosphatase Total Protein Albumin Globulin Albumin/Globulin Ratio Lipase Venous Blood Potassium Urine Color Urine Clarity Urine pH Ur Specific [place] Urine Protein Urine Glucose (UA) Urine Ketones Urine Blood Urine Nitrate Urine Bilirubin Urine Urobilinogen Ur Leukocyte Esterase Urine WBC (Auto) Urine RBC (Auto) Ur Squamous Epith Cells Urine Bacteria Serum Ketones Assessment & Plan - Assessment and Plan (Free Text) Assessment: 67 yo M with PMH of DM, HTN, Hypercholesterolemia, Hypothyroidism, CKD, BPH, prior DVT, complaining of abdominal pain and constipation, as well as right leg pain >Patient with constipation, without impaction, last BM 4 days ago >Abdominal obstructive series shows nonobstructive gas pattern, possible constipation >Start bowel regimen including dulcolax x1, miralax BID, and tap water enema >Ordered urine tox panel on original urine sample to confirm whether or not patient has been taking opoids >Ordered TSH to r/o hypothyroidism as etiology of constipation >Uncontrolled diabetes/HHS, primary team managing >Vitals stable; mild drop in H/H, likely dilutional, no signs of active bleeding ; continue to monitor >YOVANY on CKD, possibly postobstructive in patient with BPH; primary team managing >Will continue to monitor clinical course Patient seen, discussed, and reviewed with attending <Mateus Arellano - Last Filed: 06/15/17 15:36> Meds - Medications Medications: Current Medications Albuterol/Ipratropium (Duoneb 3 Mg/0.5 Mg (3 Ml) Ud) [address] [facility] Last Admin: 06/15/17 13:14 Dose: Not Given Amlodipine Besylate (Norvasc) [address] [facility] Last Admin: 06/15/17 09:25 Dose: 5 mg Apixaban (Eliquis) [address] [facility] Last Admin: 06/15/17 09:34 Dose: 5 mg Hydrochlorothiazide (Hydrodiuril) [address] [facility] Last Admin: 06/15/17 09:25 Dose: 25 mg Sodium Chloride (Sodium Chloride 0.9%) 1,000 mls @ 100 mls/hr IV .Q10H [facility] Last Admin: 06/15/17 11:57 Dose: Not Given Ibuprofen (Motrin Tab) 600 mg PO TID PRN PRN Reason: Pain, MILD(1-3) Insulin Glargine (Lantus) [address] [facility] Last Admin: 06/15/17 09:31 Dose: 20 units Insulin Human Regular (Novolin R) [address] [facility] PRN Reason: Protocol Last Admin: 06/15/17 12:05 Dose: 6 unit Levothyroxine Sodium (Synthroid) 175 mcg PO DAILY@0630 [facility] Last Admin: 06/15/17 06:31 Dose: 175 mcg Losartan Potassium (Cozaar) [address] [facility] Last Admin: 06/15/17 09:28 Dose: 100 mg Metformin HCl (Glucophage) 1,[address] [facility] Last Admin: 06/15/17 08:05 Dose: 1,000 mg Oxycodone/Acetaminophen (Percocet 5/325 Mg Tab) 1 tab PO Q6 PRN PRN Reason: Pain, moderate (4-7) Stop: 06/17/17 23:42 Last Admin: 06/15/17 09:25 Dose: 1 tab Pantoprazole Sodium (Protonix Ec Tab) [address] [facility] Last Admin: 06/15/17 09:28 Dose: 40 mg Polyethylene Glycol (Miralax) [address] [facility] Last Admin: 06/15/17 09:28 Dose: 17 gm Rosuvastatin Calcium (Crestor) [address] [facility] Sitagliptin Phosphate (Januvia) [address] [facility] Last Admin: 06/15/17 09:28 Dose: 50 mg Results - Vital Signs Recent Vital Signs: Last Vital Signs Temp 98.4 F 06/15/17 00:45 Pulse 101 H 06/15/17 00:45 Resp 20 06/15/17 00:45 BP 164/85 H 06/15/17 00:45 Pulse Ox 99 06/15/17 00:45 - Labs Result Diagrams: 06/15/17 06:37 06/15/17 11:33 Labs: Laboratory Results - last 24 hr 06/14/17 06/14/17 06/14/17 21:45 21:50 21:50 WBC 9.5 RBC 4.49 Hgb 13.2 Hct 40.9 MCV 91.1 MCH 29.4 MCHC 32.3 L RDW 14.1 Plt Count 245 MPV 9.3 Neut % (Auto) 78.8 H Lymph % (Auto) 10.3 L [place] % (Auto) 9.0 Eos % (Auto) 1.1 Baso % (Auto) 0.8 Neut # 7.5 H Lymph # 1.0 [place] # 0.9 H Eos # 0.1 Baso # 0.1 PT 10.4 INR 0.9 pO2 VBG pH VBG pCO2 VBG HCO3 VBG Total CO2 VBG O2 Sat (Calc) VBG Base Excess VBG Potassium Glucose Lactate Crit Value Called To Crit Value Called By Crit Value Read Back Blood Gas Notified Time Sodium Potassium Chloride Carbon Dioxide Anion Gap BUN Creatinine Est GFR ( Amer) Est GFR (Non-Af Amer) POC Glucose (mg/dL) > 500 H* Random Glucose Calcium Phosphorus Magnesium Total Bilirubin AST ALT Alkaline Phosphatase Total Protein Albumin Globulin Albumin/Globulin Ratio Lipase TSH 3rd Generation Venous Blood Potassium Urine Color Urine Clarity Urine pH Ur Specific [place] Urine Protein Urine Glucose (UA) Urine Ketones Urine Blood Urine Nitrate Urine Bilirubin Urine Urobilinogen Ur Leukocyte Esterase Urine WBC (Auto) Urine RBC (Auto) Ur Squamous Epith Cells Urine Bacteria Urine Opiates Screen Urine Methadone Screen Ur Barbiturates Screen Ur Phencyclidine Scrn Ur Amphetamines Screen U Benzodiazepines Scrn U Oth Cocaine Metabols U Cannabinoids Screen Serum Ketones 06/14/17 06/14/17 06/14/17 21:50 21:50 22:35 WBC RBC Hgb Hct MCV MCH MCHC RDW Plt Count MPV Neut % (Auto) Lymph % (Auto) [place] % (Auto) Eos % (Auto) Baso % (Auto) Neut # Lymph # [place] # Eos # Baso # PT INR pO2 19 L VBG pH 7.38 VBG pCO2 47 VBG HCO3 24.6 VBG Total CO2 29.2 H VBG O2 Sat (Calc) 32.8 L VBG Base Excess 2.0 VBG Potassium 6.6 H* Glucose 681 H* Lactate 2.3 H Crit Value Called To Dr. torres Crit Value Called By Amy montiel rcp Crit Value Read Back Y Blood Gas Notified Time 2240 Sodium 127 L 130.0 L Potassium 5.2 Chloride 90 L 98.0 Carbon Dioxide 23 Anion Gap 19 BUN 48 H Creatinine 2.6 H Est GFR ( Amer) 30 Est GFR (Non-Af Amer) 25 POC Glucose (mg/dL) Random Glucose 801 H* D Calcium 9.3 Phosphorus Magnesium Total Bilirubin 1.0 AST 27 ALT 46 Alkaline Phosphatase 132 H D Total Protein 7.5 Albumin 4.5 Globulin 3.0 Albumin/Globulin Ratio 1.5 Lipase 251 TSH 3rd Generation Venous Blood Potassium 6.6 H* Urine Color Straw Urine Clarity Clear Urine pH 6.0 Ur Specific [place] 1.021 Urine Protein 2+ H Urine Glucose (UA) 3+ H Urine Ketones Trace Urine Blood 1+ H Urine Nitrate Negative Urine Bilirubin Negative Urine Urobilinogen Normal Ur Leukocyte Esterase Neg Urine WBC (Auto) < 1 Urine RBC (Auto) 5 H Ur Squamous Epith Cells < 1 Urine Bacteria Rare Urine Opiates Screen Urine Methadone Screen Ur Barbiturates Screen Ur Phencyclidine Scrn Ur Amphetamines Screen U Benzodiazepines Scrn U Oth Cocaine Metabols U Cannabinoids Screen Serum Ketones Small 06/14/17 06/14/17 06/15/17 23:18 23:53 01:04 WBC RBC Hgb Hct MCV MCH MCHC RDW Plt Count MPV Neut % (Auto) Lymph % (Auto) [place] % (Auto) Eos % (Auto) Baso % (Auto) Neut # Lymph # [place] # Eos # Baso # PT INR pO2 VBG pH VBG pCO2 VBG HCO3 VBG Total CO2 VBG O2 Sat (Calc) VBG Base Excess VBG Potassium Glucose Lactate Crit Value Called To Crit Value Called By Crit Value Read Back Blood Gas Notified Time Sodium Potassium Chloride Carbon Dioxide Anion Gap BUN Creatinine Est GFR ( Amer) Est GFR (Non-Af Amer) POC Glucose (mg/dL) > 500 H* 325 H Random Glucose 482 H* D Calcium Phosphorus Magnesium Total Bilirubin AST ALT Alkaline Phosphatase Total Protein Albumin Globulin Albumin/Globulin Ratio Lipase TSH 3rd Generation Venous Blood Potassium Urine Color Urine Clarity Urine pH Ur Specific [place] Urine Protein Urine Glucose (UA) Urine Ketones Urine Blood Urine Nitrate Urine Bilirubin Urine Urobilinogen Ur Leukocyte Esterase Urine WBC (Auto) Urine RBC (Auto) Ur Squamous Epith Cells Urine Bacteria Urine Opiates Screen Urine Methadone Screen Ur Barbiturates Screen Ur Phencyclidine Scrn Ur Amphetamines Screen U Benzodiazepines Scrn U Oth Cocaine Metabols U Cannabinoids Screen Serum Ketones 06/15/17 06/15/17 06/15/17 01:04 06:35 06:37 WBC 9.1 RBC 3.62 L Hgb 10.9 L D Hct 32.4 L MCV 89.5 MCH 30.0 MCHC 33.5 RDW 13.9 Plt Count 184 MPV 9.5 Neut % (Auto) 69.0 Lymph % (Auto) 15.2 L [place] % (Auto) 12.0 H Eos % (Auto) 2.8 Baso % (Auto) 1.0 Neut # 6.3 Lymph # 1.4 [place] # 1.1 H Eos # 0.3 Baso # 0.1 PT INR pO2 VBG pH VBG pCO2 VBG HCO3 VBG Total CO2 VBG O2 Sat (Calc) VBG Base Excess VBG Potassium Glucose Lactate Crit Value Called To Crit Value Called By Crit Value Read Back Blood Gas Notified Time Sodium Potassium Chloride Carbon Dioxide Anion Gap BUN Creatinine Est GFR ( Amer) Est GFR (Non-Af Amer) POC Glucose (mg/dL) 325 H Random Glucose Calcium Phosphorus 2.9 Magnesium 1.9 Total Bilirubin AST ALT Alkaline Phosphatase Total Protein Albumin Globulin Albumin/Globulin Ratio Lipase TSH 3rd Generation Venous Blood Potassium Urine Color Urine Clarity Urine pH Ur Specific [place] Urine Protein Urine Glucose (UA) Urine Ketones Urine Blood Urine Nitrate Urine Bilirubin Urine Urobilinogen Ur Leukocyte Esterase Urine WBC (Auto) Urine RBC (Auto) Ur Squamous Epith Cells Urine Bacteria Urine Opiates Screen Urine Methadone Screen Ur Barbiturates Screen Ur Phencyclidine Scrn Ur Amphetamines Screen U Benzodiazepines Scrn U Oth Cocaine Metabols U Cannabinoids Screen Serum Ketones 06/15/17 06/15/17 06/15/17 07:09 10:54 11:13 WBC RBC Hgb Hct MCV MCH MCHC RDW Plt Count MPV Neut % (Auto) Lymph % (Auto) [place] % (Auto) Eos % (Auto) Baso % (Auto) Neut # Lymph # [place] # Eos # Baso # PT INR pO2 VBG pH VBG pCO2 VBG HCO3 VBG Total CO2 VBG O2 Sat (Calc) VBG Base Excess VBG Potassium Glucose Lactate Crit Value Called To Crit Value Called By Crit Value Read Back Blood Gas Notified Time Sodium Potassium Chloride Carbon Dioxide Anion Gap BUN Creatinine Est GFR ( Amer) Est GFR (Non-Af Amer) POC Glucose (mg/dL) 297 H 295 H Random Glucose Calcium Phosphorus Magnesium Total Bilirubin AST ALT Alkaline Phosphatase Total Protein Albumin Globulin Albumin/Globulin Ratio Lipase TSH 3rd Generation Venous Blood Potassium Urine Color Urine Clarity Urine pH Ur Specific [place] Urine Protein Urine Glucose (UA) Urine Ketones Urine Blood Urine Nitrate Urine Bilirubin Urine Urobilinogen Ur Leukocyte Esterase Urine WBC (Auto) Urine RBC (Auto) Ur Squamous Epith Cells Urine Bacteria Urine Opiates Screen Negative Urine Methadone Screen Negative Ur Barbiturates Screen Negative Ur Phencyclidine Scrn Negative Ur Amphetamines Screen Negative U Benzodiazepines Scrn Negative U Oth Cocaine Metabols Positive U Cannabinoids Screen Negative Serum Ketones 06/15/17 11:33 WBC RBC Hgb Hct MCV MCH MCHC RDW Plt Count MPV Neut % (Auto) Lymph % (Auto) [place] % (Auto) Eos % (Auto) Baso % (Auto) Neut # Lymph # [place] # Eos # Baso # PT INR pO2 VBG pH VBG pCO2 VBG HCO3 VBG Total CO2 VBG O2 Sat (Calc) VBG Base Excess VBG Potassium Glucose Lactate Crit Value Called To Crit Value Called By Crit Value Read Back Blood Gas Notified Time Sodium 134 Potassium 3.7 Chloride 100 Carbon Dioxide 25 Anion Gap 13 BUN 38 H Creatinine 2.2 H Est GFR ( Amer) 37 Est GFR (Non-Af Amer) 30 POC Glucose (mg/dL) Random Glucose 253 H Calcium 8.7 Phosphorus Magnesium Total Bilirubin 0.7 AST 27 ALT 41 Alkaline Phosphatase 97 Total Protein 6.3 Albumin 3.8 Globulin 2.6 Albumin/Globulin Ratio 1.5 Lipase TSH 3rd Generation 1.99 Venous Blood Potassium Urine Color Urine Clarity Urine pH Ur Specific [place] Urine Protein Urine Glucose (UA) Urine Ketones Urine Blood Urine Nitrate Urine Bilirubin Urine Urobilinogen Ur Leukocyte Esterase Urine WBC (Auto) Urine RBC (Auto) Ur Squamous Epith Cells Urine Bacteria Urine Opiates Screen Urine Methadone Screen Ur Barbiturates Screen Ur Phencyclidine Scrn Ur Amphetamines Screen U Benzodiazepines Scrn U Oth Cocaine Metabols U Cannabinoids Screen Serum Ketones Attending/Attestation - Attestation I have personally seen and examined this patient.: Yes I have fully participated in the care of the patient.: Yes I have reviewed all pertinent clinical information: Yes Notes (Text): 06/15/17 15:34 67 year old male with h/o DM, HTN, HLD, CKD, BPH, DVT a/w leg pain, also with constipation. 1. Chronic constipation 2. Abdominal pain Plan: -recommend bowel regimen as above -obstructive series unremarkable -enemas and oral laxatives ordered -diet as tolerated
[2017-06-15] MEDS: Albuterol-Ipratrop 3 mg / 0.5 (3 ml) UD INH SCH ×3 (11:00→20:07)
[2017-06-15 12:04] LABS: POTASSIUM 3.7 mmol/L (3.6-5.2)
[2017-06-15 12:06] LABS: ALB/GLOB RATIO 1.5 (1.0-2.1); BILIRUBIN,TOTAL 0.7 mg/dL (0.2-1.3); TOTAL PROTEIN 6.3 g/dL (6.3-8.3)
[2017-06-15 12:07] LABS: CALCIUM 8.7 mg/dl (8.6-10.4)
[2017-06-15 12:36] LABS: THYROID STIMULATING HORMONE 1.99 mIU/L (0.46-4.68)
--- NOTE | 2017-06-15 20:05 | CP.PCM.PN ---
Subjective - Date & Time of Evaluation Date of Evaluation: 06/15/17 Time of Evaluation: 08:00 - Subjective Subjective: clinically same Objective - Vital Signs/Intake and Output Vital Signs (last 24 hours): Temp Pulse Resp BP Pulse Ox 98.2 F 81 18 157/74 H 97 06/15/17 16:00 06/15/17 16:00 06/15/17 16:00 06/15/17 16:00 06/15/17 16:00 Intake and Output: 06/15/17 06/16/17 18:59 06:59 Intake Total 400 Balance 400 - Medications Medications: Current Medications Albuterol/Ipratropium (Duoneb 3 Mg/0.5 Mg (3 Ml) Ud) 3 ml INH RQ6 [facility] Last Admin: 06/15/17 13:14 Dose: Not Given Amlodipine Besylate (Norvasc) 5 mg PO DAILY [facility] Last Admin: 06/15/17 09:25 Dose: 5 mg Apixaban (Eliquis) 5 mg PO BID [facility] Last Admin: 06/15/17 17:43 Dose: 5 mg Hydrochlorothiazide (Hydrodiuril) 25 mg PO DAILY [facility] Last Admin: 06/15/17 09:25 Dose: 25 mg Sodium Chloride (Sodium Chloride 0.9%) 1,000 mls @ 100 mls/hr IV .Q10H [facility] Last Admin: 06/15/17 11:57 Dose: Not Given Ibuprofen (Motrin Tab) 600 mg PO TID PRN PRN Reason: Pain, MILD(1-3) Insulin Glargine (Lantus) 20 unit SC BID [facility] Last Admin: 06/15/17 17:43 Dose: 20 units Insulin Human Regular (Novolin R) 0 unit SC ACHS [facility] PRN Reason: Protocol Last Admin: 06/15/17 17:30 Dose: 6 unit Levothyroxine Sodium (Synthroid) 175 mcg PO DAILY@0630 [facility] Last Admin: 06/15/17 06:31 Dose: 175 mcg Losartan Potassium (Cozaar) 100 mg PO DAILY [facility] Last Admin: 06/15/17 09:28 Dose: 100 mg Metformin HCl (Glucophage) 1,000 mg PO BIDCC [facility] Last Admin: 06/15/17 16:32 Dose: 1,000 mg Oxycodone/Acetaminophen (Percocet 5/325 Mg Tab) 1 tab PO Q6 PRN PRN Reason: Pain, moderate (4-7) Stop: 06/17/17 23:42 Last Admin: 06/15/17 09:25 Dose: 1 tab Pantoprazole Sodium (Protonix Ec Tab) 40 mg PO DAILY [facility] Last Admin: 06/15/17 09:28 Dose: 40 mg Polyethylene Glycol (Miralax) 17 gm PO BID [facility] Last Admin: 06/15/17 17:43 Dose: 17 gm Rosuvastatin Calcium (Crestor) 10 mg PO [facility] Sitagliptin Phosphate (Januvia) 50 mg PO BID [facility] Last Admin: 06/15/17 17:43 Dose: 50 mg - Labs Labs: 06/15/17 06:37 06/15/17 11:33 PT 10.4 SECONDS (9.7-12.2) 06/14/17 21:50 INR 0.9 06/14/17 21:50 - Constitutional Appears: Well - Head Exam Head Exam: ATRAUMATIC, NORMAL INSPECTION, NORMOCEPHALIC - Eye Exam Eye Exam: EOMI, Normal appearance, PERRL Pupil Exam: NORMAL ACCOMODATION, PERRL - ENT Exam ENT Exam: Mucous Membranes Moist, Normal Exam - Neck Exam Neck Exam: Full ROM, Normal Inspection. absent: Lymphadenopathy - Respiratory Exam Respiratory Exam: Decreased Breath Sounds - Cardiovascular Exam Cardiovascular Exam: REGULAR RHYTHM, +S1, +S2 - GI/Abdominal Exam GI & Abdominal Exam: Soft, Diminished Bowel Sounds - Rectal Exam Rectal Exam: Deferred Assessment and Plan (1) Abdominal pain Status: Acute (2) Constipation Status: Acute (3) HHNC (hyperglycemic hyperosmolar nonketotic coma) Status: Acute (4) Hyperglycemia Status: Acute (5) Hypertension Status: Acute (6) Knee pain, chronic Status: Acute (7) Renal insufficiency Status: Acute (8) Sciatica Status: Acute (9) Uncontrolled hypertension Status: Acute - Assessment and Plan (Free Text) Plan: Patient examined. Patient clinically the same. Continue apixaban. Continue antidiabetic, antihypertensive and levothyroxine medications. Continue supportive care. Bronchodilators.
[2017-06-16 00:05] VITALS: RESP 20
[2017-06-16] MEDS: Albuterol-Ipratrop 3 mg / 0.5 (3 ml) UD INH SCH ×4 (01:22→19:41)
[2017-06-16] MEDS: Oxycodone/Acetaminophen 5/325 mg Tab PO PRN ×2 (05:41→22:52)
[2017-06-16] MEDS: Levothyroxine 175 MCG TAB PO SCH (05:41)
[2017-06-16] MEDS: Sodium Chloride 0.9% 1,000 ML IV SCH ×2 (06:41→16:09)
[2017-06-16] MEDS: (Novolin R) Insulin Human Regular 100 units/ml vial SC SCH ×4 (08:04→21:34)
[2017-06-16 08:40] LABS: BASO # 0.1 K/uL (0.0-0.2); BASO % 0.7 % (0.0-2.0); EOS # 0.3 K/uL (0.0-0.7); EOS % 3.5 % (0.0-4.0); HEMATOCRIT 32.8 % (35.0-51.0); LYMPH % 11.3 % (20.0-40.0); MEAN CELL VOLUME 90.2 fL (80.0-94.0); MEAN CORPUSCULAR HEMOGLOBIN 30.8 pg (27.0-31.0); MEAN CORPUSCULAR HGB CONC 34.2 g/dL (33.0-37.0); MEAN PLATELET VOLUME 9.5 fL (7.2-11.7); MONO # 0.9 K/uL (0.0-0.8); MONO % 9.5 % (0.0-10.0); WHITE BLOOD COUNT 9.2 K/uL (4.8-10.8)
[2017-06-16 09:02] LABS: POTASSIUM 3.8 mmol/L (3.6-5.2)
[2017-06-16 09:05] LABS: ALB/GLOB RATIO 1.4 (1.0-2.1); BILIRUBIN,TOTAL 0.6 mg/dL (0.2-1.3); TOTAL PROTEIN 5.8 g/dL (6.3-8.3)
[2017-06-16 09:06] LABS: CALCIUM 8.3 mg/dl (8.6-10.4)
--- NOTE | 2017-06-16 09:22 | CP.PCM.PN ---
<Jorge Reed - Last Filed: 06/16/17 09:20> Subjective - Date & Time of Evaluation Date of Evaluation: 06/16/17 Time of Evaluation: 07:30 - Subjective Subjective: Jorge Rede DO PGY1 - GI Progress Note for Dr. Liz Patient seen and examined at bedside. No events overnight. Patient reports feeling better overall. Reports 2 bowel movements yesterday (EMR shows 3 BM documented), with resolution of his abdominal discomfort and constipation. He endorses a normal appetite, and denies nausea, vomiting, diarrhea, hematochezia , melena. Objective - Vital Signs/Intake and Output Vital Signs (last 24 hours): Temp Pulse Resp BP Pulse Ox 98 F 87 20 173/83 H 98 06/16/17 08:00 06/16/17 08:00 06/16/17 08:00 06/16/17 08:00 06/16/17 08:00 Intake and Output: 06/16/17 06/16/17 06:59 18:59 Intake Total 1920 Output Total 300 Balance 1620 - Medications Medications: Current Medications Albuterol/Ipratropium (Duoneb 3 Mg/0.5 Mg (3 Ml) Ud) 3 ml INH RQ6 [facility] Last Admin: 06/16/17 07:16 Dose: 3 ml Amlodipine Besylate (Norvasc) 5 mg PO DAILY [facility] Last Admin: 06/15/17 09:25 Dose: 5 mg Apixaban (Eliquis) 5 mg PO BID [facility] Last Admin: 06/15/17 17:43 Dose: 5 mg Hydrochlorothiazide (Hydrodiuril) 25 mg PO DAILY [facility] Last Admin: 06/15/17 09:25 Dose: 25 mg Sodium Chloride (Sodium Chloride 0.9%) 1,000 mls @ 100 mls/hr IV .Q10H [facility] Last Admin: 06/16/17 06:41 Dose: Not Given Ibuprofen (Motrin Tab) 600 mg PO TID PRN PRN Reason: Pain, MILD(1-3) Insulin Glargine (Lantus) 20 unit SC BID [facility] Last Admin: 06/15/17 17:43 Dose: 20 units Insulin Human Regular (Novolin R) 0 unit SC ACHS [facility] PRN Reason: Protocol Last Admin: 06/16/17 08:04 Dose: 6 unit Levothyroxine Sodium (Synthroid) 175 mcg PO DAILY@0630 [facility] Last Admin: 06/16/17 05:41 Dose: 175 mcg Losartan Potassium (Cozaar) 100 mg PO DAILY [facility] Last Admin: 06/15/17 09:28 Dose: 100 mg [facility] Last Admin: 06/16/17 08:06 Dose: 1,000 mg Oxycodone/Acetaminophen (Percocet 5/325 Mg Tab) 1 tab PO Q6 PRN PRN Reason: Pain, moderate (4-7) Stop: 06/17/17 23:42 Last Admin: 06/16/17 05:41 Dose: 1 tab Pantoprazole Sodium (Protonix Ec Tab) 40 mg PO DAILY [facility] Last Admin: 06/15/17 09:28 Dose: 40 mg Polyethylene Glycol (Miralax) 17 gm PO BID [facility] Last Admin: 06/15/17 17:43 Dose: 17 gm Rosuvastatin Calcium (Crestor) 10 mg PO HS [facility] Last Admin: 06/15/17 21:35 Dose: 10 mg Sitagliptin Phosphate (Januvia) 50 mg PO BID [facility] Last Admin: 06/15/17 17:43 Dose: 50 mg - Labs Labs: 06/16/17 08:27 06/16/17 08:27 PT 10.4 SECONDS (9.7-12.2) 06/14/17 21:50 INR 0.9 06/14/17 21:50 - Constitutional Appears: Non-toxic, No Acute Distress - Head Exam Head Exam: ATRAUMATIC, NORMOCEPHALIC - Eye Exam Eye Exam: EOMI, Normal appearance - Neck Exam Neck Exam: Normal Inspection - Respiratory Exam Respiratory Exam: Clear to Ausculation Bilateral, NORMAL BREATHING PATTERN - Cardiovascular Exam Cardiovascular Exam: RRR, +S1, +S2 - GI/Abdominal Exam GI & Abdominal Exam: Soft, Normal Bowel Sounds. absent: Distended, Firm, Guarding, Rigid, Tenderness, Organomegaly, Rebound - Extremities Exam Extremities Exam: absent: Calf Tenderness, Pedal Edema - Neurological Exam Neurological Exam: Alert, Awake, Oriented x3 - Psychiatric Exam Psychiatric exam: Normal Affect, Normal Mood - Skin Skin Exam: Dry, Intact, Normal Color Assessment and Plan - Assessment and Plan (Free Text) Assessment: 67 yo M with PMH of DM, HTN, Hypercholesterolemia, Hypothyroidism, CKD, BPH, prior DVT, complaining of abdominal pain and constipation, as well as right leg pain; on bowel regimen, with resolution of constipation >Patient had 3 documented bowel movements yesterday >Continue miralax BID as routine bowel regimen to avoid chronic constipation >Utox negative for opioids; TSH normal >Uncontrolled diabetes/HHS, primary team managing >Vitals stable; H/H improved on AM labs, initial drop likely dilutional >YOVANY on CKD, improving; primary team managing >Patient reportedly had screening colonoscopy 5 years ago which was normal, but was advised to repeat in 5 years; patient should follow up with us, or with his established fan engine engineer for routine screening colonoscopy after resolution of acute symptoms Patient seen, discussed, and reviewed with attending <Toan Liz - Last Filed: 06/16/17 11:12> Objective - Vital Signs/Intake and Output Vital Signs (last 24 hours): Temp Pulse Resp BP Pulse Ox 98 F 87 20 173/83 H 98 06/16/17 08:00 06/16/17 08:00 06/16/17 08:00 06/16/17 08:00 06/16/17 08:00 Intake and Output: 06/16/17 06/16/17 06:59 18:59 Intake Total 1920 Output Total 300 Balance 1620 - Medications Medications: Current Medications Albuterol/Ipratropium (Duoneb 3 Mg/0.5 Mg (3 Ml) Ud) 3 ml INH RQ6 [facility] Last Admin: 06/16/17 07:16 Dose: 3 ml Amlodipine Besylate (Norvasc) 5 mg PO DAILY [facility] Last Admin: 06/16/17 09:48 Dose: 5 mg Apixaban (Eliquis) 5 mg PO BID [facility] Last Admin: 06/16/17 09:49 Dose: 5 mg Hydrochlorothiazide (Hydrodiuril) 25 mg PO DAILY [facility] Last Admin: 06/16/17 09:48 Dose: 25 mg Sodium Chloride (Sodium Chloride 0.9%) 1,000 mls @ 100 mls/hr IV .Q10H [facility] Last Admin: 06/16/17 06:41 Dose: Not Given Ibuprofen (Motrin Tab) 600 mg PO TID PRN PRN Reason: Pain, MILD(1-3) Insulin Glargine (Lantus) 20 unit SC BID [facility] Last Admin: 06/16/17 09:48 Dose: 20 units Insulin Human Regular (Novolin R) 0 unit SC ACHS [facility] PRN Reason: Protocol Last Admin: 06/16/17 08:04 Dose: 6 unit Levothyroxine Sodium (Synthroid) 175 mcg PO DAILY@0630 [facility] Last Admin: 06/16/17 05:41 Dose: 175 mcg Losartan Potassium (Cozaar) 100 mg PO DAILY [facility] Last Admin: 06/16/17 09:48 Dose: 100 mg Metformin HCl (Glucophage) 1,000 mg PO BIDCC [facility] Last Admin: 06/16/17 08:06 Dose: 1,000 mg Oxycodone/Acetaminophen (Percocet 5/325 Mg Tab) 1 tab PO Q6 PRN PRN Reason: Pain, moderate (4-7) Stop: 06/17/17 23:42 Last Admin: 06/16/17 05:41 Dose: 1 tab Pantoprazole Sodium (Protonix Ec Tab) 40 mg PO DAILY [facility] Last Admin: 06/16/17 09:48 Dose: 40 mg Polyethylene Glycol (Miralax) 17 gm PO BID [facility] Last Admin: 06/16/17 09:49 Dose: 17 gm Rosuvastatin Calcium (Crestor) 10 mg PO HS [facility] Last Admin: 06/15/17 21:35 Dose: 10 mg Sitagliptin Phosphate (Januvia) 50 mg PO BID [facility] Last Admin: 06/16/17 09:48 Dose: 50 mg - Labs Labs: 06/16/17 08:27 06/16/17 08:27 PT 10.4 SECONDS (9.7-12.2) 06/14/17 21:50 INR 0.9 06/14/17 21:50 Attending/Attestation - Attestation I have personally seen and examined this patient.: Yes I have fully participated in the care of the patient.: Yes I have reviewed all pertinent clinical information, including history, physical exam and plan: Yes Notes (Text): 06/16/17 11:09 I have seen and examined patient with GI fellow and medical scientific officer. No acute events overnight, he is seen sitting at bedside eating breakfast, appears quite comfortable. He denies abdominal pain, nausea, vomiting, fever/chills. He had two bowel movements following enema use yesterday. Review of vitals from today shows elevated BP. DM / HTN CKD Abdominal pain - resolved Chronic constipation - Diet as tolerated - Maintain bowel regimen in order to prevent recurrent constipation - Counseled patient regarding importance of increased PO water and fiber intake - Patient would benefit from elective outpatient colonoscopy - From GI standpoint ok to discharge patient home with subsequent outpatient follow up. Will sign off case, please reconsult as necessary, thank you.
[2017-06-16] MEDS: Pantoprazole 40 mg EC Tab PO SCH (09:48)
[2017-06-16] MEDS: (Lantus) Insulin Glargine, Recombinant SC SCH ×2 (09:48→17:37)
[2017-06-16] MEDS: POLYETHYLENE GLYCOL 3350 17 GM/Dose PACKET PO SCH ×2 (09:49→17:37)
--- NOTE | 2017-06-16 14:55 | CP.PCM.PN ---
Subjective - Date & Time of Evaluation Date of Evaluation: 06/16/17 Time of Evaluation: 07:20 - Subjective Subjective: clinically same Objective - Vital Signs/Intake and Output Vital Signs (last 24 hours): Temp Pulse Resp BP Pulse Ox 98 F 87 20 163/83 H 98 06/16/17 08:00 06/16/17 13:30 06/16/17 08:00 06/16/17 13:30 06/16/17 13:30 Intake and Output: 06/16/17 06/16/17 06:59 18:59 Intake Total 1920 Output Total 300 Balance 1620 - Medications Medications: Current Medications Albuterol/Ipratropium (Duoneb 3 Mg/0.5 Mg (3 Ml) Ud) 3 ml INH RQ6 [facility] Last Admin: 06/16/17 13:14 Dose: Not Given Amlodipine Besylate (Norvasc) 5 mg PO DAILY [facility] Last Admin: 06/16/17 09:48 Dose: 5 mg Apixaban (Eliquis) 5 mg PO BID [facility] Last Admin: 06/16/17 09:49 Dose: 5 mg Hydrochlorothiazide (Hydrodiuril) 25 mg PO DAILY [facility] Last Admin: 06/16/17 09:48 Dose: 25 mg Sodium Chloride (Sodium Chloride 0.9%) 1,000 mls @ 100 mls/hr IV .Q10H [facility] Last Admin: 06/16/17 06:41 Dose: Not Given Ibuprofen (Motrin Tab) 600 mg PO TID PRN PRN Reason: Pain, MILD(1-3) Last Admin: 06/16/17 11:47 Dose: 600 mg Insulin Glargine (Lantus) 20 unit SC BID [facility] Last Admin: 06/16/17 09:48 Dose: 20 units Insulin Human Regular (Novolin R) 0 unit SC ACHS [facility] PRN Reason: Protocol Last Admin: 06/16/17 11:44 Dose: 10 unit Levothyroxine Sodium (Synthroid) 175 mcg PO DAILY@0630 [facility] Last Admin: 06/16/17 05:41 Dose: 175 mcg Losartan Potassium (Cozaar) 100 mg PO DAILY [facility] Last Admin: 06/16/17 09:48 Dose: 100 mg Metformin HCl (Glucophage) 1,000 mg PO BIDCC [facility] Last Admin: 06/16/17 08:06 Dose: 1,000 mg Oxycodone/Acetaminophen (Percocet 5/325 Mg Tab) 1 tab PO Q6 PRN PRN Reason: Pain, moderate (4-7) Stop: 06/17/17 23:42 Last Admin: 06/16/17 05:41 Dose: 1 tab Pantoprazole Sodium (Protonix Ec Tab) 40 mg PO DAILY [facility] Last Admin: 06/16/17 09:48 Dose: 40 mg Polyethylene Glycol (Miralax) 17 gm PO BID [facility] Last Admin: 06/16/17 09:49 Dose: 17 gm Rosuvastatin Calcium (Crestor) 10 mg PO HS [facility] Last Admin: 06/15/17 21:35 Dose: 10 mg Sitagliptin Phosphate (Januvia) 50 mg PO BID [facility] Last Admin: 06/16/17 09:48 Dose: 50 mg - Labs Labs: 06/16/17 08:27 06/16/17 08:27 PT 10.4 SECONDS (9.7-12.2) 06/14/17 21:50 INR 0.9 06/14/17 21:50 - Constitutional Appears: Well - Head Exam Head Exam: ATRAUMATIC, NORMAL INSPECTION, NORMOCEPHALIC - Eye Exam Eye Exam: EOMI, Normal appearance, PERRL Pupil Exam: NORMAL ACCOMODATION, PERRL - ENT Exam ENT Exam: Mucous Membranes Moist, Normal Exam - Neck Exam Neck Exam: Full ROM, Normal Inspection. absent: Lymphadenopathy - Respiratory Exam Respiratory Exam: Decreased Breath Sounds - Cardiovascular Exam Cardiovascular Exam: REGULAR RHYTHM, +S1, +S2 - GI/Abdominal Exam GI & Abdominal Exam: Soft, Diminished Bowel Sounds - Rectal Exam Rectal Exam: Deferred Assessment and Plan (1) Abdominal pain Status: Acute (2) Constipation Status: Acute (3) HHNC (hyperglycemic hyperosmolar nonketotic coma) Status: Acute (4) Hyperglycemia Status: Acute (5) Hypertension Status: Acute (6) Knee pain, chronic Status: Acute (7) Renal insufficiency Status: Acute (8) Sciatica Status: Acute (9) Uncontrolled hypertension Status: Acute - Assessment and Plan (Free Text) Plan: Patient examined. Patient had 2 bowel movements yesterday. Abdominal pain constipation resolved. GI consult done. Potassium reduced to 3.8. Continue apixaban. Continue antihypertensive, antidiabetic medications and levothyroxine. Continue supportive care.
--- NOTE | 2017-06-16 15:10 | CP.PCM.PN ---
<Gerry Fisher - Last Filed: 06/16/17 15:16> Subjective - Date & Time of Evaluation Date of Evaluation: 06/16/17 Time of Evaluation: 15:00 - Subjective Subjective: Progress note. Attending: Dr. Escobar Pt seen and examined at bedside. No acute distress. No events overnight. No fevers, chills, vomiting, diarrhea. Had BM yesterday with use of enema. Objective - Vital Signs/Intake and Output Vital Signs (last 24 hours): Temp Pulse Resp BP Pulse Ox 98 F 87 20 163/83 H 98 06/16/17 08:00 06/16/17 13:30 06/16/17 08:00 06/16/17 13:30 06/16/17 13:30 Intake and Output: 06/16/17 06/16/17 06:59 18:59 Intake Total 1920 Output Total 300 Balance 1620 - Medications Medications: Current Medications Albuterol/Ipratropium (Duoneb 3 Mg/0.5 Mg (3 Ml) Ud) 3 ml INH RQ6 [facility] Last Admin: 06/16/17 13:14 Dose: Not Given Amlodipine Besylate (Norvasc) 5 mg PO DAILY [facility] Last Admin: 06/16/17 09:48 Dose: 5 mg Apixaban (Eliquis) 5 mg PO BID [facility] Last Admin: 06/16/17 09:49 Dose: 5 mg Hydrochlorothiazide (Hydrodiuril) 25 mg PO DAILY [facility] Last Admin: 06/16/17 09:48 Dose: 25 mg Sodium Chloride (Sodium Chloride 0.9%) 1,000 mls @ 100 mls/hr IV .Q10H [facility] Last Admin: 06/16/17 06:41 Dose: Not Given Ibuprofen (Motrin Tab) 600 mg PO TID PRN PRN Reason: Pain, MILD(1-3) Last Admin: 06/16/17 11:47 Dose: 600 mg Insulin Glargine (Lantus) 20 unit SC BID [facility] Last Admin: 06/16/17 09:48 Dose: 20 units Insulin Human Regular (Novolin R) 0 unit SC ACHS [facility] PRN Reason: Protocol Last Admin: 06/16/17 11:44 Dose: 10 unit Levothyroxine Sodium (Synthroid) 175 mcg PO DAILY@0630 [facility] Last Admin: 06/16/17 05:41 Dose: 175 mcg Losartan Potassium (Cozaar) 100 mg PO DAILY [facility] Last Admin: 06/16/17 09:48 Dose: 100 mg Metformin HCl (Glucophage) 1,000 mg PO BIDCC [facility] Last Admin: 06/16/17 08:06 Dose: 1,000 mg Oxycodone/Acetaminophen (Percocet 5/325 Mg Tab) 1 tab PO Q6 PRN PRN Reason: Pain, moderate (4-7) Stop: 06/17/17 23:42 Last Admin: 06/16/17 05:41 Dose: 1 tab Pantoprazole Sodium (Protonix Ec Tab) 40 mg PO DAILY [facility] Last Admin: 06/16/17 09:48 Dose: 40 mg Polyethylene Glycol (Miralax) 17 gm PO BID [facility] Last Admin: 06/16/17 09:49 Dose: 17 gm Rosuvastatin Calcium (Crestor) 10 mg PO HS [facility] Last Admin: 06/15/17 21:35 Dose: 10 mg Sitagliptin Phosphate (Januvia) 50 mg PO BID [facility] Last Admin: 06/16/17 09:48 Dose: 50 mg - Labs Labs: 06/16/17 08:27 06/16/17 08:27 PT 10.4 SECONDS (9.7-12.2) 06/14/17 21:50 INR 0.9 06/14/17 21:50 - Constitutional Appears: Non-toxic, No Acute Distress - Head Exam Head Exam: ATRAUMATIC, NORMAL INSPECTION, NORMOCEPHALIC - Eye Exam Eye Exam: EOMI - ENT Exam ENT Exam: Mucous Membranes Moist - Neck Exam Neck Exam: Full ROM, Normal Inspection - Respiratory Exam Respiratory Exam: NORMAL BREATHING PATTERN. absent: Respiratory Distress - Cardiovascular Exam Cardiovascular Exam: +S1, +S2 - GI/Abdominal Exam GI & Abdominal Exam: Soft, Normal Bowel Sounds. absent: Tenderness - Extremities Exam Extremities Exam: Full ROM, Normal Inspection - Neurological Exam Neurological Exam: Alert, Awake, Oriented x3 - Psychiatric Exam Psychiatric exam: Normal Affect, Normal Mood - Skin Skin Exam: Dry, Intact, Normal Color, Warm Assessment and Plan - Assessment and Plan (Free Text) Assessment: This is a 67 yo male with past medical hx of DM and hypothyroidism presenting with abdominal pain, constipation, difficulty urinating 1. Uncontrolled DM -patient is not on any home insulin -Lantus 20 U SC BID -Insulin sliding scale -Continue home Metformin 1000mg PO BIDCC -continue Januvia 50mg PO BID -accuchecks -will order HGB a1C 2. hx of constipation -Abdominal Obstructive series: nonobstructive bowel gas pattern. potential constipation (please see full report) -GI consult - Dr. Liz - help appreciated -pt did have BM yesterday -GI has signed off -Miralax 17gm PO BID 3. Right Knee Pain - Ibuprofen 600 mg PO TID PRN pain, mild - Percocet 5/325mg PO Q6 PRN pain, moderate - Warm compresses - No DVT on work up in May 2017 -05/27/17 Knee X ray - moderate tricompartmental degenerative osteoarthritis, worse in the medial compartment. (please see full report) -will most likely need outpatient follow up. 3. History of DVT -continue eliquis 5 mg PO BID 4. HTN -Cozaar 100 mg PO caily - Norvasc 5mg PO daily - HCTZ 25mg PO daily 5. Hx of Hyperlipidemia Crestor 10mg PO HS 6. Hypothyroidism Synthroid 175 mcg PO daily TSH 1.99 within normal limits 7. Acute on chronic CKD -avoid nephrotoxic agents -continue to monitor 8. GI/DVT ppx -Protonix 40mg PO daily -eliquis 5 mg po bid All medical management per Dr. Santana Escobar <Vick Escobar S - Last Filed: 06/21/17 13:24> Objective - Vital Signs/Intake and Output Vital Signs (last 24 hours): Temp Pulse Resp BP Pulse Ox 98.7 F 105 H 20 172/98 H 99 06/20/17 15:00 06/20/17 15:00 06/20/17 15:00 06/20/17 15:00 06/20/17 15:00 - Labs Labs: 06/20/17 07:57 06/20/17 07:57 PT 10.4 SECONDS (9.7-12.2) 06/14/17 21:50 INR 0.9 06/14/17 21:50 Assessment and Plan (1) Abdominal pain Status: Acute (2) Constipation Status: Acute (3) HHNC (hyperglycemic hyperosmolar nonketotic coma) Status: Acute (4) Hyperglycemia Status: Acute (5) Hypertension Status: Acute (6) Knee pain, chronic Status: Acute (7) Renal insufficiency Status: Acute (8) Sciatica Status: Acute (9) Uncontrolled hypertension Status: Acute Attending/Attestation - Attestation I have personally seen and examined this patient.: Yes I have fully participated in the care of the patient.: Yes I have reviewed all pertinent clinical information, including history, physical exam and plan: Yes Notes (Text): Patient examined. No acute distress. Patient had a bowel movements with edema. Continue apixaban. Continue antihypertensive, antidiabetic and thyroxine medications. Continue supportive care.
[2017-06-17] MEDS: Sodium Chloride 0.9% 1,000 ML IV SCH ×3 (01:09→22:36)
[2017-06-17] MEDS: Albuterol-Ipratrop 3 mg / 0.5 (3 ml) UD INH SCH ×4 (02:00→19:28)
[2017-06-17] MEDS: Levothyroxine 175 MCG TAB PO SCH (05:56)
[2017-06-17 07:05] LABS: BILIRUBIN,TOTAL 0.3 mg/dL (0.2-1.3); CALCIUM 8.1 mg/dl (8.6-10.4); MAGNESIUM 1.6 mg/dL (1.6-2.3); PHOSPHOROUS 2.9 mg/dL (2.5-4.5); POTASSIUM 3.8 mmol/L (3.6-5.2); TOTAL PROTEIN 6.8 g/dL (6.3-8.3)
[2017-06-17 07:21] LABS: BASO # 0.1 K/uL (0.0-0.2); EOS # 0.4 K/uL (0.0-0.7); EOS % 4.7 % (0.0-4.0); HEMATOCRIT 32.2 % (35.0-51.0); LYMPH # 1.3 K/uL (1.0-4.3); LYMPH % 16.6 % (20.0-40.0); MEAN CELL VOLUME 89.9 fL (80.0-94.0); MEAN CORPUSCULAR HGB CONC 33.3 g/dL (33.0-37.0); MEAN PLATELET VOLUME 9.3 fL (7.2-11.7); MONO % 12.6 % (0.0-10.0); RED CELL DISTRIBUTION WIDTH 14.3 % (11.5-14.5); WHITE BLOOD COUNT 8.1 K/uL (4.8-10.8)
[2017-06-17] MEDS: (Novolin R) Insulin Human Regular 100 units/ml vial SC SCH ×4 (08:09→21:45)
[2017-06-17] MEDS: Pantoprazole 40 mg EC Tab PO SCH (09:00)
[2017-06-17] MEDS: POLYETHYLENE GLYCOL 3350 17 GM/Dose PACKET PO SCH ×2 (09:00→17:21)
[2017-06-17] MEDS: Oxycodone/Acetaminophen 5/325 mg Tab PO PRN (11:08)
[2017-06-17] MEDS: (Lantus) Insulin Glargine, Recombinant SC SCH ×2 (11:08→17:21)
--- NOTE | 2017-06-17 11:23 | CP.PCM.PN ---
<Gerry Fisher - Last Filed: 06/17/17 11:26> Subjective - Date & Time of Evaluation Date of Evaluation: 06/17/17 Time of Evaluation: 11:20 - Subjective Subjective: Progress note. Attending: Dr. Escobar Pt seen and examined at bedside. No acute distress. No events overnight. GI has signed off. No fevers, chills, vomiting, diarrhea. Objective - Vital Signs/Intake and Output Vital Signs (last 24 hours): Temp Pulse Resp BP Pulse Ox 98.4 F 74 20 137/79 98 06/17/17 07:58 06/17/17 07:58 06/17/17 07:58 06/17/17 07:58 06/17/17 07:58 Intake and Output: 06/17/17 06/17/17 06:59 18:59 Intake Total 2290 Output Total 700 Balance 1590 - Medications Medications: Current Medications Albuterol/Ipratropium (Duoneb 3 Mg/0.5 Mg (3 Ml) Ud) 3 ml INH RQ6 [facility] Last Admin: 06/17/17 08:15 Dose: 3 ml Amlodipine Besylate (Norvasc) 5 mg PO DAILY [facility] Last Admin: 06/17/17 09:00 Dose: 5 mg Apixaban (Eliquis) 5 mg PO BID [facility] Last Admin: 06/17/17 11:08 Dose: 5 mg Hydrochlorothiazide (Hydrodiuril) 25 mg PO DAILY [facility] Last Admin: 06/17/17 09:00 Dose: 25 mg Sodium Chloride (Sodium Chloride 0.9%) 1,000 mls @ 100 mls/hr IV .Q10H [facility] Last Admin: 06/17/17 01:09 Dose: 100 mls/hr Ibuprofen (Motrin Tab) 600 mg PO TID PRN PRN Reason: Pain, MILD(1-3) Last Admin: 06/16/17 11:47 Dose: 600 mg Insulin Glargine (Lantus) 20 unit SC BID [facility] Last Admin: 06/17/17 11:08 Dose: 20 units Insulin Human Regular (Novolin R) 0 unit SC ACHS [facility] PRN Reason: Protocol Last Admin: 06/17/17 08:09 Dose: 2 unit Levothyroxine Sodium (Synthroid) 175 mcg PO DAILY@0630 [facility] Last Admin: 06/17/17 05:56 Dose: 175 mcg Losartan Potassium (Cozaar) 100 mg PO DAILY [facility] Last Admin: 06/17/17 09:00 Dose: 100 mg Metformin HCl (Glucophage) 1,000 mg PO BIDCC [facility] Last Admin: 06/17/17 08:09 Dose: 1,000 mg Oxycodone/Acetaminophen (Percocet 5/325 Mg Tab) 1 tab PO Q6 PRN PRN Reason: Pain, moderate (4-7) Stop: 06/17/17 23:42 Last Admin: 06/17/17 11:08 Dose: 1 tab Pantoprazole Sodium (Protonix Ec Tab) 40 mg PO DAILY [facility] Last Admin: 06/17/17 09:00 Dose: 40 mg Polyethylene Glycol (Miralax) 17 gm PO BID [facility] Last Admin: 06/17/17 09:00 Dose: 17 gm Rosuvastatin Calcium (Crestor) 10 mg PO HS [facility] Last Admin: 06/16/17 21:32 Dose: 10 mg Sitagliptin Phosphate (Januvia) 50 mg PO BID [facility] Last Admin: 06/17/17 09:00 Dose: 50 mg - Labs Labs: 06/17/17 06:31 06/17/17 06:31 PT 10.4 SECONDS (9.7-12.2) 06/14/17 21:50 INR 0.9 06/14/17 21:50 - Constitutional Appears: Non-toxic, No Acute Distress - Head Exam Head Exam: ATRAUMATIC, NORMAL INSPECTION, NORMOCEPHALIC - Eye Exam Eye Exam: EOMI - ENT Exam ENT Exam: Mucous Membranes Moist - Neck Exam Neck Exam: Full ROM, Normal Inspection - Respiratory Exam Respiratory Exam: NORMAL BREATHING PATTERN. absent: Respiratory Distress - Cardiovascular Exam Cardiovascular Exam: +S1, +S2 - GI/Abdominal Exam GI & Abdominal Exam: Soft, Normal Bowel Sounds. absent: Tenderness - Extremities Exam Extremities Exam: Full ROM, Normal Inspection - Neurological Exam Neurological Exam: Alert, Awake, Oriented x3 - Psychiatric Exam Psychiatric exam: Normal Affect, Normal Mood - Skin Skin Exam: Dry, Intact, Normal Color, Warm Assessment and Plan - Assessment and Plan (Free Text) Assessment: This is a 67 yo male, originally from [place], with past medical hx of DM and hypothyroidism, presenting with abdominal pain, constipation, difficulty urinating 1. Uncontrolled DM -patient is not on any home insulin -Lantus 20 U SC BID -Insulin sliding scale -Continue home Metformin 1000mg PO BIDCC -continue sitagliptin 50mg PO BID -accuchecks -HGB A1C 10 2. hx of constipation -Abdominal Obstructive series: nonobstructive bowel gas pattern. potential constipation (please see full report) -GI consult - Dr. Liz - help appreciated -pt has been having bowel movement -GI has signed off -Miralax 17gm PO BID 3. Right Knee Pain - Ibuprofen 600 mg PO TID PRN pain, mild - Percocet 5/325mg PO Q6 PRN pain, moderate - Warm compresses - No DVT on work up in May 2017 -05/27/17 Knee X ray - moderate tricompartmental degenerative osteoarthritis, worse in the medial compartment. (please see full report) -will most likely need outpatient follow up. 3. History of DVT -continue eliquis 5 mg PO BID 4. HTN -losartan 100 mg PO caily - Norvasc 5mg PO daily - HCTZ 25mg PO daily 5. Hx of Hyperlipidemia Crestor 10mg PO HS 6. Hypothyroidism Synthroid 175 mcg PO daily TSH 1.99 within normal limits 7. Acute on chronic CKD -avoid nephrotoxic agents -continue to monitor 8. GI/DVT ppx -Protonix 40mg PO daily -eliquis 5 mg po bid Dispo: PT is recommending TCU. In progress. All medical management per Dr. Santana Escobar <Vick Escobar - Last Filed: 06/21/17 13:25> Objective - Vital Signs/Intake and Output Vital Signs (last 24 hours): Temp Pulse Resp BP Pulse Ox 98.7 F 105 H 20 172/98 H 99 06/20/17 15:00 06/20/17 15:00 06/20/17 15:00 06/20/17 15:00 06/20/17 15:00 - Labs Labs: 06/20/17 07:57 06/20/17 07:57 PT 10.4 SECONDS (9.7-12.2) 06/14/17 21:50 INR 0.9 06/14/17 21:50 Assessment and Plan (1) Abdominal pain Status: Acute (2) Constipation Status: Acute (3) HHNC (hyperglycemic hyperosmolar nonketotic coma) Status: Acute (4) Hyperglycemia Status: Acute (5) Hypertension Status: Acute (6) Knee pain, chronic Status: Acute (7) Renal insufficiency Status: Acute (8) Sciatica Status: Acute (9) Uncontrolled hypertension Status: Acute Attending/Attestation - Attestation I have personally seen and examined this patient.: Yes I have fully participated in the care of the patient.: Yes I have reviewed all pertinent clinical information, including history, physical exam and plan: Yes Notes (Text): Patient examined. No acute distress. Continue up examined. Continue antidiabetic, antihypertensive and levothyroxine medications. Continue supportive care.
--- NOTE | 2017-06-17 21:06 | CP.PCM.PN ---
Subjective - Date & Time of Evaluation Date of Evaluation: 06/17/17 Time of Evaluation: 21:30 - Subjective Subjective: clinically same. Objective - Vital Signs/Intake and Output Vital Signs (last 24 hours): Temp Pulse Resp BP Pulse Ox 98.0 F 74 20 135/70 98 06/17/17 15:00 06/17/17 15:37 06/17/17 15:00 06/17/17 15:37 06/17/17 15:37 Intake and Output: 06/17/17 06/18/17 18:59 06:59 Intake Total 600 Output Total 600 Balance 0 - Medications Medications: Current Medications Albuterol/Ipratropium (Duoneb 3 Mg/0.5 Mg (3 Ml) Ud) 3 ml INH RQ6 [facility] Last Admin: 06/17/17 19:28 Dose: 3 ml Amlodipine Besylate (Norvasc) 5 mg PO DAILY [facility] Last Admin: 06/17/17 09:00 Dose: 5 mg Apixaban (Eliquis) 5 mg PO BID [facility] Last Admin: 06/17/17 18:25 Dose: 5 mg Hydrochlorothiazide (Hydrodiuril) 25 mg PO DAILY [facility] Last Admin: 06/17/17 09:00 Dose: 25 mg Sodium Chloride (Sodium Chloride 0.9%) 1,000 mls @ 100 mls/hr IV .Q10H [facility] Last Admin: 06/17/17 12:37 Dose: 100 mls/hr Ibuprofen (Motrin Tab) 600 mg PO TID PRN PRN Reason: Pain, MILD(1-3) Last Admin: 06/17/17 18:30 Dose: 600 mg Insulin Glargine (Lantus) 20 unit SC BID [facility] Last Admin: 06/17/17 17:21 Dose: 20 units Insulin Human Regular (Novolin R) 0 unit SC ACHS [facility] PRN Reason: Protocol Last Admin: 06/17/17 17:23 Dose: 4 unit Levothyroxine Sodium (Synthroid) 175 mcg PO DAILY@0630 [facility] Last Admin: 06/17/17 05:56 Dose: 175 mcg Losartan Potassium (Cozaar) 100 mg PO DAILY [facility] Last Admin: 06/17/17 09:00 Dose: 100 mg Metformin HCl (Glucophage) 1,000 mg PO BIDCC [facility] Last Admin: 06/17/17 18:25 Dose: 1,000 mg Oxycodone/Acetaminophen (Percocet 5/325 Mg Tab) 1 tab PO Q6 PRN PRN Reason: Pain, moderate (4-7) Stop: 06/17/17 23:42 Last Admin: 06/17/17 11:08 Dose: 1 tab Pantoprazole Sodium (Protonix Ec Tab) 40 mg PO DAILY [facility] Last Admin: 06/17/17 09:00 Dose: 40 mg Polyethylene Glycol (Miralax) 17 gm PO BID [facility] Last Admin: 06/17/17 17:21 Dose: 17 gm Rosuvastatin Calcium (Crestor) 10 mg PO HS [facility] Last Admin: 06/16/17 21:32 Dose: 10 mg Sitagliptin Phosphate (Januvia) 50 mg PO BID [facility] Last Admin: 06/17/17 17:21 Dose: 50 mg - Labs Labs: 06/17/17 06:31 06/17/17 06:31 PT 10.4 SECONDS (9.7-12.2) 06/14/17 21:50 INR 0.9 06/14/17 21:50 - Constitutional Appears: Well - Head Exam Head Exam: ATRAUMATIC, NORMAL INSPECTION, NORMOCEPHALIC - Eye Exam Eye Exam: EOMI, Normal appearance, PERRL Pupil Exam: NORMAL ACCOMODATION, PERRL - ENT Exam ENT Exam: Mucous Membranes Moist, Normal Exam - Neck Exam Neck Exam: Full ROM, Normal Inspection. absent: Lymphadenopathy - Respiratory Exam Respiratory Exam: Decreased Breath Sounds - Cardiovascular Exam Cardiovascular Exam: REGULAR RHYTHM, +S1, +S2. absent: Murmur - GI/Abdominal Exam GI & Abdominal Exam: Soft, Normal Bowel Sounds. absent: Tenderness - Rectal Exam Rectal Exam: Deferred Assessment and Plan (1) Abdominal pain Status: Acute (2) Constipation Status: Acute (3) HHNC (hyperglycemic hyperosmolar nonketotic coma) Status: Acute (4) Hyperglycemia Status: Acute (5) Hypertension Status: Acute (6) Knee pain, chronic Status: Acute (7) Renal insufficiency Status: Acute (8) Sciatica Status: Acute (9) Uncontrolled hypertension Status: Acute - Assessment and Plan (Free Text) Plan: Patient examined. Patient clinically better. Continue up examined. Continue antidiabetic antihypertensive and levothyroxine medications. Continue supportive care.
[2017-06-18] MEDS: Albuterol-Ipratrop 3 mg / 0.5 (3 ml) UD INH SCH ×4 (01:31→19:25)
[2017-06-18] MEDS: Levothyroxine 175 MCG TAB PO SCH (06:52)
[2017-06-18 07:46] LABS: BASO # 0.1 K/uL (0.0-0.2); BASO % 0.6 % (0.0-2.0); EOS # 0.2 K/uL (0.0-0.7); EOS % 2.4 % (0.0-4.0); HEMATOCRIT 33.9 % (35.0-51.0); LYMPH # 1.6 K/uL (1.0-4.3); LYMPH % 16.7 % (20.0-40.0); MEAN CELL VOLUME 89.8 fL (80.0-94.0); MEAN CORPUSCULAR HEMOGLOBIN 30.4 pg (27.0-31.0); MEAN CORPUSCULAR HGB CONC 33.9 g/dL (33.0-37.0); MONO # 1.2 K/uL (0.0-0.8); MONO % 11.8 % (0.0-10.0); RED CELL DISTRIBUTION WIDTH 14.2 % (11.5-14.5); WHITE BLOOD COUNT 9.8 K/uL (4.8-10.8)
[2017-06-18] MEDS: (Novolin R) Insulin Human Regular 100 units/ml vial SC SCH ×4 (08:27→21:23)
--- NOTE | 2017-06-18 08:28 | CARD ---
APPROVED REPORT EKG Measurement Heart [id number] MA [id number] <Conclusion> Sinus tachycardia Possible Left atrial enlargement Inferior infarct, age undetermined Abnormal ECG
[2017-06-18 08:39] LABS: POTASSIUM 3.8 mmol/L (3.6-5.2)
[2017-06-18 08:41] LABS: ALB/GLOB RATIO 1.3 (1.0-2.1); BILIRUBIN,TOTAL 0.6 mg/dL (0.2-1.3); TOTAL PROTEIN 6.7 g/dL (6.3-8.3)
[2017-06-18 08:42] LABS: CALCIUM 8.7 mg/dl (8.6-10.4); MAGNESIUM 1.7 mg/dL (1.6-2.3); PHOSPHOROUS 2.8 mg/dL (2.5-4.5)
[2017-06-18] MEDS: Pantoprazole 40 mg EC Tab PO SCH (10:21)
[2017-06-18] MEDS: (Lantus) Insulin Glargine, Recombinant SC SCH ×2 (10:22→17:57)
[2017-06-18] MEDS: POLYETHYLENE GLYCOL 3350 17 GM/Dose PACKET PO SCH ×2 (10:22→17:46)
--- NOTE | 2017-06-18 18:04 | CP.PCM.CON ---
Past Patient History - Infectious Disease Hx of Infectious Diseases: None - Past Medical History & Family History Past Medical History?: Yes - Past Social History Smoking Status: Never Smoked - CARDIAC Hx Hypercholesterolemia: Yes Hx Hypertension: Yes - RENAL Hx Chronic Kidney Disease: Yes - ENDOCRINE/METABOLIC Hx Hypothyroidism: Yes - HEMATOLOGICAL/ONCOLOGICAL Hx Blood Disorders: Yes Hx Cancer: Yes (prostatic 7 yrs ago) - MUSCULOSKELETAL/RHEUMATOLOGICAL Hx Arthritis: Yes (back pain, r knee pain) - GENITOURINARY/GYNECOLOGICAL Hx Genitourinary Disorders: Yes Hx Prostate Cancer: Yes (7 years ago) - PSYCHIATRIC Hx Substance Use: No - SURGICAL HISTORY Hx Surgeries: No - ANESTHESIA Hx Anesthesia: No Meds Allergies/Adverse Reactions: Allergies Allergy/AdvReac Type Severity Reaction Status Date / Time No Known Allergies Allergy Verified 06/14/17 21:01 - Medications Medications: Current Medications Albuterol/Ipratropium (Duoneb 3 Mg/0.5 Mg (3 Ml) Ud) 3 ml INH RQ6 [facility] Last Admin: 06/18/17 13:33 Dose: Not Given Amlodipine Besylate (Norvasc) 5 mg PO DAILY [facility] Last Admin: 06/18/17 10:21 Dose: 5 mg Apixaban (Eliquis) 5 mg PO BID [facility] Last Admin: 06/18/17 17:46 Dose: 5 mg Bisacodyl (Dulcolax) 5 mg PO [facility] Hydrochlorothiazide (Hydrodiuril) 25 mg PO DAILY [facility] Last Admin: 06/17/17 09:00 Dose: 25 mg Ibuprofen (Motrin Tab) 600 mg PO TID PRN PRN Reason: Pain, MILD(1-3) Last Admin: 06/18/17 14:12 Dose: 600 mg Insulin Glargine (Lantus) 20 unit SC BID [facility] Last Admin: 06/18/17 17:57 Dose: 20 units Insulin Human Regular (Novolin R) 0 unit SC ACHS [facility] PRN Reason: Protocol Last Admin: 06/18/17 17:47 Dose: 4 unit Levothyroxine Sodium (Synthroid) 175 mcg PO DAILY@0630 [facility] Last Admin: 06/18/17 06:52 Dose: 175 mcg Losartan Potassium (Cozaar) 100 mg PO DAILY [facility] Last Admin: 06/18/17 10:21 Dose: 100 mg Metformin HCl (Glucophage) 1,000 mg PO BIDCC [facility] Last Admin: 06/18/17 17:46 Dose: 1,000 mg Pantoprazole Sodium (Protonix Ec Tab) 40 mg PO DAILY [facility] Last Admin: 06/18/17 10:21 Dose: 40 mg Polyethylene Glycol (Miralax) 17 gm PO BID [facility] Last Admin: 06/18/17 17:46 Dose: 17 gm Rosuvastatin Calcium (Crestor) 10 mg PO HS [facility] Last Admin: 06/17/17 21:41 Dose: 10 mg Sitagliptin Phosphate (Januvia) 50 mg PO BID [facility] Last Admin: 06/18/17 17:46 Dose: 50 mg Results - Vital Signs Recent Vital Signs: Last Vital Signs Temp 98.3 F 06/18/17 15:15 Pulse 90 06/18/17 15:15 Resp 20 06/18/17 15:15 BP 154/89 H 06/18/17 15:15 Pulse Ox 96 06/18/17 15:15 - Labs Result Diagrams: 06/18/17 07:14 06/18/17 07:14 Labs: Laboratory Results - last 24 hr 06/17/17 06/18/17 06/18/17 21:01 07:03 07:14 WBC 9.8 RBC 3.77 L Hgb 11.5 L Hct 33.9 L MCV 89.8 MCH 30.4 MCHC 33.9 RDW 14.2 Plt Count 235 MPV 9.0 Neut % (Auto) 68.5 Lymph % (Auto) 16.7 L [place] % (Auto) 11.8 H Eos % (Auto) 2.4 Baso % (Auto) 0.6 Neut # 6.7 Lymph # 1.6 [place] # 1.2 H Eos # 0.2 Baso # 0.1 Sodium Potassium Chloride Carbon Dioxide Anion Gap BUN Creatinine Est GFR ( Amer) Est GFR (Non-Af Amer) POC Glucose (mg/dL) 205 H 75 Random Glucose Calcium Phosphorus Magnesium Total Bilirubin AST ALT Alkaline Phosphatase Total Protein Albumin Globulin Albumin/Globulin Ratio 06/18/17 06/18/17 06/18/17 07:14 11:07 16:10 WBC RBC Hgb Hct MCV MCH MCHC RDW Plt Count MPV Neut % (Auto) Lymph % (Auto) [place] % (Auto) Eos % (Auto) Baso % (Auto) Neut # Lymph # [place] # Eos # Baso # Sodium 138 Potassium 3.8 Chloride 103 Carbon Dioxide 24 Anion Gap 15 BUN 20 Creatinine 1.8 H Est GFR ( Amer) 46 Est GFR (Non-Af Amer) 38 POC Glucose (mg/dL) 136 H 230 H Random Glucose 75 Calcium 8.7 Phosphorus 2.8 Magnesium 1.7 Total Bilirubin 0.6 AST 37 ALT 45 Alkaline Phosphatase 90 Total Protein 6.7 Albumin 3.8 Globulin 2.9 Albumin/Globulin Ratio 1.3
--- NOTE | 2017-06-18 18:23 | CP.PCM.PN ---
Subjective - Date & Time of Evaluation Date of Evaluation: 06/18/17 Time of Evaluation: 07:40 - Subjective Subjective: clinically same Objective - Vital Signs/Intake and Output Vital Signs (last 24 hours): Temp Pulse Resp BP Pulse Ox 98.3 F 90 20 154/89 H 96 06/18/17 15:15 06/18/17 15:15 06/18/17 15:15 06/18/17 15:15 06/18/17 15:15 Intake and Output: 06/18/17 06/18/17 06:59 18:59 Intake Total 1300 1280 Output Total 1600 Balance 1300 -320 - Medications Medications: Current Medications Albuterol/Ipratropium (Duoneb 3 Mg/0.5 Mg (3 Ml) Ud) 3 ml INH RQ6 [facility] Last Admin: 06/18/17 13:33 Dose: Not Given Amlodipine Besylate (Norvasc) 5 mg PO DAILY [facility] Last Admin: 06/18/17 10:21 Dose: 5 mg Apixaban (Eliquis) 5 mg PO BID [facility] Last Admin: 06/18/17 17:46 Dose: 5 mg Bisacodyl (Dulcolax) 5 mg PO [facility] Hydrochlorothiazide (Hydrodiuril) 25 mg PO DAILY [facility] Last Admin: 06/17/17 09:00 Dose: 25 mg Ibuprofen (Motrin Tab) 600 mg PO TID PRN PRN Reason: Pain, MILD(1-3) Last Admin: 06/18/17 14:12 Dose: 600 mg Insulin Glargine (Lantus) 20 unit SC BID [facility] Last Admin: 06/18/17 17:57 Dose: 20 units Insulin Human Regular (Novolin R) 0 unit SC ACHS [facility] PRN Reason: Protocol Last Admin: 06/18/17 17:47 Dose: 4 unit Levothyroxine Sodium (Synthroid) 175 mcg PO DAILY@0630 [facility] Last Admin: 06/18/17 06:52 Dose: 175 mcg Losartan Potassium (Cozaar) 100 mg PO DAILY [facility] Last Admin: 06/18/17 10:21 Dose: 100 mg Metformin HCl (Glucophage) 1,000 mg PO BIDCC [facility] Last Admin: 06/18/17 17:46 Dose: 1,000 mg Pantoprazole Sodium (Protonix Ec Tab) 40 mg PO DAILY [facility] Last Admin: 06/18/17 10:21 Dose: 40 mg Polyethylene Glycol (Miralax) 17 gm PO BID [facility] Last Admin: 06/18/17 17:46 Dose: 17 gm Rosuvastatin Calcium (Crestor) 10 mg PO HS [facility] Last Admin: 06/17/17 21:41 Dose: 10 mg Sitagliptin Phosphate (Januvia) 50 mg PO BID [facility] Last Admin: 06/18/17 17:46 Dose: 50 mg - Labs Labs: 06/18/17 07:14 06/18/17 07:14 PT 10.4 SECONDS (9.7-12.2) 06/14/17 21:50 INR 0.9 06/14/17 21:50 - Constitutional Appears: Well - Head Exam Head Exam: ATRAUMATIC, NORMAL INSPECTION, NORMOCEPHALIC - Eye Exam Eye Exam: EOMI, Normal appearance, PERRL Pupil Exam: NORMAL ACCOMODATION, PERRL - ENT Exam ENT Exam: Mucous Membranes Moist, Normal Exam - Neck Exam Neck Exam: Full ROM, Normal Inspection. absent: Lymphadenopathy - Respiratory Exam Respiratory Exam: Decreased Breath Sounds - Cardiovascular Exam Cardiovascular Exam: REGULAR RHYTHM, +S1, +S2. absent: Murmur - GI/Abdominal Exam GI & Abdominal Exam: Soft, Normal Bowel Sounds. absent: Tenderness - Rectal Exam Rectal Exam: Deferred Assessment and Plan (1) Abdominal pain Status: Acute (2) Constipation Status: Acute (3) HHNC (hyperglycemic hyperosmolar nonketotic coma) Status: Acute (4) Hyperglycemia Status: Acute (5) Hypertension Status: Acute (6) Knee pain, chronic Status: Acute (7) Renal insufficiency Status: Acute (8) Sciatica Status: Acute (9) Uncontrolled hypertension Status: Acute - Assessment and Plan (Free Text) Plan: Patient examined. Patient clinically better. Continue up examined. Continue antihypertensive, antidiabetic and levothyroxine.
[2017-06-18] MEDS: Bisacodyl 5mg EC Tab PO SCH (21:23)
[2017-06-19] MEDS: Albuterol-Ipratrop 3 mg / 0.5 (3 ml) UD INH SCH ×4 (01:04→20:05)
[2017-06-19] MEDS: Levothyroxine 175 MCG TAB PO SCH (05:43)
[2017-06-19] MEDS: (Novolin R) Insulin Human Regular 100 units/ml vial SC SCH ×4 (08:42→21:40)
[2017-06-19] MEDS: POLYETHYLENE GLYCOL 3350 17 GM/Dose PACKET PO SCH ×2 (11:21→17:24)
[2017-06-19] MEDS: Pantoprazole 40 mg EC Tab PO SCH (11:21)
[2017-06-19] MEDS: (Lantus) Insulin Glargine, Recombinant SC SCH ×2 (11:24→17:29)
--- NOTE | 2017-06-19 13:46 | CP.PCM.PN ---
Subjective - Date & Time of Evaluation Date of Evaluation: 06/19/17 Time of Evaluation: 07:40 - Subjective Subjective: clinically same Objective - Vital Signs/Intake and Output Vital Signs (last 24 hours): Temp Pulse Resp BP Pulse Ox 98.4 F 86 20 153/87 H 98 06/19/17 07:59 06/19/17 07:59 06/19/17 07:59 06/19/17 07:59 06/19/17 07:59 Intake and Output: 06/19/17 06/19/17 06:59 18:59 Intake Total 640 Balance 640 - Medications Medications: Current Medications Albuterol/Ipratropium (Duoneb 3 Mg/0.5 Mg (3 Ml) Ud) 3 ml INH RQ6 [facility] Last Admin: 06/19/17 13:22 Dose: Not Given Amlodipine Besylate (Norvasc) 5 mg PO DAILY [facility] Last Admin: 06/19/17 11:21 Dose: 5 mg Apixaban (Eliquis) 5 mg PO BID [facility] Last Admin: 06/19/17 11:21 Dose: 5 mg Bisacodyl (Dulcolax) 5 mg PO HS [facility] Last Admin: 06/18/17 21:23 Dose: 5 mg Hydrochlorothiazide (Hydrodiuril) 25 mg PO DAILY [facility] Last Admin: 06/17/17 09:00 Dose: 25 mg Ibuprofen (Motrin Tab) 600 mg PO TID PRN PRN Reason: Pain, MILD(1-3) Last Admin: 06/19/17 11:44 Dose: 600 mg Insulin Glargine (Lantus) 20 unit SC BID [facility] Last Admin: 06/19/17 11:24 Dose: Not Given Insulin Human Regular (Novolin R) 0 unit SC ACHS [facility] PRN Reason: Protocol Last Admin: 06/19/17 13:25 Dose: 4 unit Levothyroxine Sodium (Synthroid) 175 mcg PO DAILY@0630 [facility] Last Admin: 06/19/17 05:43 Dose: 175 mcg Losartan Potassium (Cozaar) 100 mg PO DAILY [facility] Last Admin: 06/19/17 11:21 Dose: 100 mg Metformin HCl (Glucophage) 1,000 mg PO BIDCC [facility] Last Admin: 06/19/17 08:43 Dose: Not Given Pantoprazole Sodium (Protonix Ec Tab) 40 mg PO DAILY [facility] Last Admin: 06/19/17 11:21 Dose: 40 mg Polyethylene Glycol (Miralax) 17 gm PO BID [facility] Last Admin: 06/19/17 11:21 Dose: 17 gm Rosuvastatin Calcium (Crestor) 10 mg PO HS [facility] Last Admin: 06/18/17 21:22 Dose: 10 mg Sitagliptin Phosphate (Januvia) 50 mg PO BID [facility] Last Admin: 06/19/17 11:24 Dose: Not Given - Labs Labs: 06/18/17 07:14 06/18/17 07:14 PT 10.4 SECONDS (9.7-12.2) 06/14/17 21:50 INR 0.9 06/14/17 21:50 - Constitutional Appears: Well - Head Exam Head Exam: ATRAUMATIC, NORMAL INSPECTION, NORMOCEPHALIC - Eye Exam Eye Exam: EOMI, Normal appearance, PERRL Pupil Exam: NORMAL ACCOMODATION, PERRL - ENT Exam ENT Exam: Mucous Membranes Moist, Normal Exam - Neck Exam Neck Exam: Full ROM, Normal Inspection. absent: Lymphadenopathy - Respiratory Exam Respiratory Exam: Decreased Breath Sounds - Cardiovascular Exam Cardiovascular Exam: REGULAR RHYTHM, +S1, +S2 - GI/Abdominal Exam GI & Abdominal Exam: Soft, Diminished Bowel Sounds - Rectal Exam Rectal Exam: Deferred Assessment and Plan (1) Abdominal pain Status: Acute (2) Constipation Status: Acute (3) HHNC (hyperglycemic hyperosmolar nonketotic coma) Status: Acute (4) Hyperglycemia Status: Acute (5) Hypertension Status: Acute (6) Knee pain, chronic Status: Acute (7) Renal insufficiency Status: Acute (8) Sciatica Status: Acute (9) Uncontrolled hypertension Status: Acute - Assessment and Plan (Free Text) Plan: Patient examined. Patient clinically better. A second examined. Continue antihypertensive and antidiabetic medications. Continue levothyroxine. Continue supportive care.
[2017-06-19] MEDS: Bisacodyl 5mg EC Tab PO SCH (21:40)
[2017-06-20] MEDS: Albuterol-Ipratrop 3 mg / 0.5 (3 ml) UD INH SCH ×2 (02:03→07:47)
[2017-06-20] MEDS: Levothyroxine 175 MCG TAB PO SCH (05:56)
[2017-06-20] MEDS: (Novolin R) Insulin Human Regular 100 units/ml vial SC SCH ×2 (08:01→11:50)
[2017-06-20 08:07] LABS: BASO # 0.1 K/uL (0.0-0.2); BASO % 1.1 % (0.0-2.0); EOS # 0.3 K/uL (0.0-0.7); EOS % 3.7 % (0.0-4.0); HEMATOCRIT 36.4 % (35.0-51.0); LYMPH # 1.9 K/uL (1.0-4.3); MEAN CELL VOLUME 90.1 fL (80.0-94.0); MEAN CORPUSCULAR HEMOGLOBIN 30.1 pg (27.0-31.0); MEAN CORPUSCULAR HGB CONC 33.4 g/dL (33.0-37.0); MEAN PLATELET VOLUME 8.6 fL (7.2-11.7); MONO % 11.4 % (0.0-10.0); RED CELL DISTRIBUTION WIDTH 13.9 % (11.5-14.5); WHITE BLOOD COUNT 9.2 K/uL (4.8-10.8)
[2017-06-20 08:27] LABS: POTASSIUM 4.1 mmol/L (3.6-5.2)
[2017-06-20 08:29] LABS: ALB/GLOB RATIO 1.4 (1.0-2.1); BILIRUBIN,TOTAL 0.7 mg/dL (0.2-1.3); TOTAL PROTEIN 7.3 g/dL (6.3-8.3)
[2017-06-20 08:30] LABS: CALCIUM 9.1 mg/dl (8.6-10.4)
[2017-06-20] MEDS: Pantoprazole 40 mg EC Tab PO SCH (09:47)
[2017-06-20] MEDS: POLYETHYLENE GLYCOL 3350 17 GM/Dose PACKET PO SCH (09:48)
[2017-06-20] MEDS: (Lantus) Insulin Glargine, Recombinant SC SCH (09:51)
--- NOTE | 2017-06-20 11:41 | CP.PCM.PN ---
Addendum entered and electronically signed by Danitza Gerber DO 06/20/17 15: 24: Patient left against medical advice. Patient was made aware of risks of falling , truama, cancer, respiratory failure and . I had a long discussion with patient about how he would benefit from getting the MRI and chest CT and staying here one more night. Patient refused to stay. I also discussed going to rehab with the patient. Patient says he wants to sleep in his own bed with his family at his house. Patient was AAOx3, aware of all the risks and signed out against medical advice. Patient was not given any prescriptions. The plan was to get a Chest CT with and without contrast to see how the scattered lung nodules on a [place] Chest CT from March 2016 have progressed. We also wanted to get a lumbo-sacral MRI with and without contrast to see if the spinal stenosis had worsened or if he had any spread of prostate cancer into his back causing his knee pain and decreased ability to walk. Original Note: <Danitza Gerber - Last Filed: 06/20/17 11:38> Subjective - Date & Time of Evaluation Date of Evaluation: 06/20/17 Time of Evaluation: 08:50 - Subjective Subjective: PGY3 Medicine Note - Dr. Santana Escobar's service: Patient seen and examined at bedside this AM. Patient reports constant right knee pain. Patient denies fever, chills, chest pain, SOB, abdominal pain, nausea, vomiting, diarrhea, constipation. Patient has no knowledge of having a lung nodule. Objective - Vital Signs/Intake and Output Vital Signs (last 24 hours): Temp Pulse Resp BP Pulse Ox 98.3 F 82 20 156/82 H 98 06/20/17 07:36 06/20/17 07:36 06/20/17 07:36 06/20/17 07:36 06/20/17 07:36 Intake and Output: 06/20/17 06/20/17 06:59 18:59 Intake Total 640 Output Total 400 Balance 240 - Medications Medications: Current Medications Albuterol/Ipratropium (Duoneb 3 Mg/0.5 Mg (3 Ml) Ud) 3 ml INH RQ6 [facility] Last Admin: 06/20/17 07:47 Dose: Not Given Amlodipine Besylate (Norvasc) 10 mg PO DAILY [facility] Last Admin: 06/20/17 09:48 Dose: 10 mg Apixaban (Eliquis) 5 mg PO BID [facility] Last Admin: 06/20/17 09:47 Dose: 5 mg Bisacodyl (Dulcolax) 5 mg PO HS [facility] Last Admin: 06/19/17 21:40 Dose: 5 mg Hydrochlorothiazide (Hydrodiuril) 25 mg PO DAILY [facility] Last Admin: 06/17/17 09:00 Dose: 25 mg Ibuprofen (Motrin Tab) 600 mg PO TID PRN PRN Reason: Pain, MILD(1-3) Last Admin: 06/20/17 08:05 Dose: 600 mg Insulin Glargine (Lantus) 20 unit SC BID [facility] Last Admin: 06/20/17 09:51 Dose: 20 units Insulin Human Regular (Novolin R) 0 unit SC ACHS [facility] PRN Reason: Protocol Last Admin: 06/20/17 08:01 Dose: 4 unit Levothyroxine Sodium (Synthroid) 175 mcg PO DAILY@0630 [facility] Last Admin: 06/20/17 05:56 Dose: 175 mcg Losartan Potassium (Cozaar) 100 mg PO DAILY [facility] Last Admin: 06/20/17 09:48 Dose: 100 mg Metformin HCl (Glucophage) 1,000 mg PO BIDCC [facility] Last Admin: 06/20/17 08:01 Dose: 1,000 mg Pantoprazole Sodium (Protonix Ec Tab) 40 mg PO DAILY [facility] Last Admin: 06/20/17 09:47 Dose: 40 mg Polyethylene Glycol (Miralax) 17 gm PO BID [facility] Last Admin: 06/20/17 09:48 Dose: 17 gm Rosuvastatin Calcium (Crestor) 10 mg PO HS [facility] Last Admin: 06/19/17 21:40 Dose: 10 mg Sitagliptin Phosphate (Januvia) 50 mg PO BID [facility] Last Admin: 06/20/17 09:47 Dose: 50 mg - Labs Labs: 06/20/17 07:57 06/20/17 07:57 PT 10.4 SECONDS (9.7-12.2) 06/14/17 21:50 INR 0.9 06/14/17 21:50 - Constitutional Appears: Non-toxic, No Acute Distress - Head Exam Head Exam: NORMAL INSPECTION - Eye Exam Eye Exam: EOMI - ENT Exam ENT Exam: Mucous Membranes Moist - Respiratory Exam Respiratory Exam: Clear to Ausculation Bilateral, NORMAL BREATHING PATTERN. absent: Rales, Rhonchi, Wheezes - Cardiovascular Exam Cardiovascular Exam: REGULAR RHYTHM, +S1, +S2. absent: Gallop, Rubs, Murmur - GI/Abdominal Exam GI & Abdominal Exam: Soft, Normal Bowel Sounds. absent: Tenderness - Extremities Exam Extremities Exam: absent: Pedal Edema Additional comments: jones right knee - Neurological Exam Neurological Exam: Alert, Awake, Oriented x3 - Skin Skin Exam: Normal Color, Warm Assessment and Plan - Assessment and Plan (Free Text) Assessment: 1. Uncontrolled DM -patient is not on any home insulin -Lantus 20 U SC BID -Insulin sliding scale -Continue home Metformin 1000mg PO BIDCC -continue sitagliptin 50mg PO BID -accuchecks -HGB A1C 10 2. hx of constipation -Abdominal Obstructive series: nonobstructive bowel gas pattern. potential constipation (please see full report) -GI consult - Dr. Liz - help appreciated -pt has been having bowel movement -GI has signed off -Miralax 17gm PO BID 3. Right Knee Pain - Ibuprofen 600 mg PO TID PRN pain, mild - Percocet 5/325mg PO Q6 PRN pain, moderate - Warm compresses - No DVT on work up in May 2017 -05/27/17 Knee X ray - moderate tricompartmental degenerative osteoarthritis, worse in the medial compartment. (please see full report) -will most likely need outpatient follow up. 3. History of DVT -continue eliquis 5 mg PO BID 4. HTN -losartan 100 mg PO caily - Norvasc 5mg PO daily - HCTZ 25mg PO daily 5. Hx of Hyperlipidemia Crestor 10mg PO HS 6. Hypothyroidism Synthroid 175 mcg PO daily TSH 1.99 within normal limits 7. Acute on chronic CKD -avoid nephrotoxic agents -continue to monitor 8. GI/DVT ppx -Protonix 40mg PO daily -eliquis 5 mg po bid Dispo: PT is recommending TCU. Patient wants to go home. Will get [facility]. Dr. Watt and Dr. Mejias were consulted for a lung nodule I do not see any record of. Will follow up on this with Dr. Santana Escobar All medical management per Dr. Santana Escobar <Vick Escobar - Last Filed: 06/21/17 13:29> Objective - Vital Signs/Intake and Output Vital Signs (last 24 hours): Temp Pulse Resp BP Pulse Ox 98.7 F 105 H 20 172/98 H 99 06/20/17 15:00 06/20/17 15:00 06/20/17 15:00 06/20/17 15:00 06/20/17 15:00 - Labs Labs: 06/20/17 07:57 06/20/17 07:57 PT 10.4 SECONDS (9.7-12.2) 06/14/17 21:50 INR 0.9 06/14/17 21:50 Assessment and Plan (1) Abdominal pain Status: Acute (2) Constipation Status: Acute (3) HHNC (hyperglycemic hyperosmolar nonketotic coma) Status: Acute (4) Hyperglycemia Status: Acute (5) Hypertension Status: Acute (6) Knee pain, chronic Status: Acute (7) Renal insufficiency Status: Acute (8) Sciatica Status: Acute (9) Uncontrolled hypertension Status: Acute Attending/Attestation - Attestation I have personally seen and examined this patient.: Yes I have fully participated in the care of the patient.: Yes I have reviewed all pertinent clinical information, including history, physical exam and plan: Yes Notes (Text): Patient examined. Patient has right knee pain. Continue apixaban. Continue antidiabetic, antihypertensive and chemotherapy medications. Continue supportive care.
[2017-06-20] MEDS ORDERED: Lidocaine 5% Patch TD SCH (13:30)
[2017-06-20 16:46] VITALS: BP 172/98; PULSE 105; TEMP 98.7; O2SAT 99
== END 2017-06-20 16:45 | disposition left against medical advice (07) | DRG 689 ==
LOC: C.ER 20:45 → C.9E 23:10 → C.3T 23:43
PROVIDERS: ADMIT Internal Medicine Nephrology; ATTEND Internal Medicine Nephrology
DX: N39.0 Urinary tract infection, site not specified (principal); E11.00 Type 2 diabetes mellitus with hyperosmolarity without nonketotic hyperglycemic-hyperosmolar coma (NKHHC); N17.9 Acute kidney failure, unspecified; E11.22 Type 2 diabetes mellitus with diabetic chronic kidney disease; E03.9 Hypothyroidism, unspecified; E78.00 Pure hypercholesterolemia, unspecified; E78.5 Hyperlipidemia, unspecified; G89.29 Other chronic pain; I12.9 Hypertensive chronic kidney disease with stage 1 through stage 4 chronic kidney disease, or unspecified chronic kidney disease; M19.90 Unspecified osteoarthritis, unspecified site; K59.09 Other constipation; M54.30 Sciatica, unspecified side; N18.9 Chronic kidney disease, unspecified; N40.0 Benign prostatic hyperplasia without lower urinary tract symptoms; Z79.01 Long term (current) use of anticoagulants; Z79.4 Long term (current) use of insulin; Z85.46 Personal history of malignant neoplasm of prostate; Z86.718 Personal history of other venous thrombosis and embolism

== ENCOUNTER 2017-12-30 10:10 | Inpatient (IN) | payer MEDICARE, OTHER ==
[2017-12-30 10:10] VITALS: BMI 34.4
[2017-12-30] MEDS ORDERED: Dextrose 50% SYRINGE Inj (50 ml) IVP STA (10:42)
--- NOTE | 2017-12-30 10:45 | C.PDOC ---
Time Seen by Provider: 12/30/17 10:30 Chief Complaint (Nursing): Back Pain Past Medical History Vital Signs: Last Vital Signs Temp 97.9 F 12/30/17 10:21 Pulse 103 H 12/30/17 10:21 Resp 18 12/30/17 10:21 BP 152/65 H 12/30/17 10:21 Pulse Ox 99 12/30/17 10:21 - Medical History PMH: Anemia, Arthritis, Diabetes, Deep Vein Thrombosis, HTN, Hypercholesterolemia, Hypothyroidism, Chronic Kidney Disease Denies: HIV Surgical History: Hernia Repair - [facility] Procedures INSERT INDWELLING CATH (01/23/13) INTRODUCTION OF SERUM/TOX/VACCINE INTO MUSCLE, PERC APPROACH (11/18/17) MAGNETIC RESONANCE IMAGING (MRI) OF SPINAL CORD (11/18/17) Family History: States: Unknown Family Hx - Social History Hx Tobacco Use: No Hx Alcohol Use: No Hx Substance Use: No - Immunization History Hx Tetanus Toxoid Vaccination: No Hx Influenza Vaccination: Yes Hx Pneumococcal Vaccination: Yes ED Course And Treatment O2 Sat by Pulse Oximetry: 99 Disposition - Disposition
--- NOTE | 2017-12-30 10:46 | C.PDOC ---
History Of Present Illness 67 y/o male with history of DM, CKD, Chronic back pain and Prostate cancer brought to ED by BLS with complaints of worsening back pain for 2 months. As per daughter at bedside patient has been "saying things that done make sense" for two months. Or example pt would where the bathroom is in his own home. Also notes patient has not had bowel movement for 5 days. Pt is wheel chair bound. Pt was evaluated 2 weeks ago, diagnosed with UTI and discharged home the following day. Denies fever, chills, chest pain, sob, vomiting, headache, change in sensation or any other complaints at this time. Time Seen by Provider: 12/30/17 10:30 Chief Complaint (Nursing): Back Pain History Per: Patient History/Exam Limitations: no limitations Onset/Duration Of Symptoms: Days Current Symptoms Are (Timing): Still Present Quality Of Discomfort: "Pain" Past Medical History Reviewed: Historical Data, Nursing Documentation, Vital Signs Vital Signs: Last Vital Signs Temp 97.2 F L 01/03/18 15:00 Pulse 110 H 01/03/18 15:00 Resp 20 01/03/18 15:00 BP 156/86 H 01/03/18 15:00 Pulse Ox 99 01/03/18 16:42 - Medical History PMH: Anemia, Arthritis, Diabetes, Deep Vein Thrombosis, HTN, Hypercholesterolemia, Hypothyroidism, Chronic Kidney Disease Surgical History: Hernia Repair - [facility] Procedures INSERT INDWELLING CATH (01/23/13) INTRODUCTION OF SERUM/TOX/VACCINE INTO MUSCLE, PERC APPROACH (11/18/17) MAGNETIC RESONANCE IMAGING (MRI) OF SPINAL CORD (11/18/17) Family History: States: No Known Family Hx - Social History Hx Tobacco Use: No Hx Alcohol Use: No Hx Substance Use: No - Immunization History Hx Tetanus Toxoid Vaccination: No Hx Influenza Vaccination: Yes Hx Pneumococcal Vaccination: Yes Review Of Systems Constitutional: Negative for: Fever, Chills Gastrointestinal: Positive for: Constipation. Negative for: Nausea, Vomiting Musculoskeletal: Positive for: Back Pain Skin: Negative for: Rash Physical Exam - Physical Exam Appears: Non-toxic, No Acute Distress (pt is smiling and talkative) Skin: Warm, Dry, No Rash Head: Atraumatic, Normacephalic Eye(s): bilateral: Normal Inspection, EOMI Nose: Normal Oral Mucosa: Moist Neck: Normal ROM, Supple Chest: Symmetrical Cardiovascular: Rhythm Regular Respiratory: Decreased Breath Sounds, No Rales, No Rhonchi, No Wheezing Gastrointestinal/Abdominal: No Bowel Sounds (diminished bowel sounds), No Tenderness, Distention, No Guarding, No Rebound, Hernia (umbilical) Back: No Paraspinal Tenderness, Other (right sided paralumbar tenderness) Extremity: Pedal Edema, No Deformity Neurological/Psych: No Oriented x3 (AAOx2), Normal Speech, Normal Motor, Normal Sensation Gait: With Assistance (wheel chair) ED Course And Treatment - Laboratory Results Result Diagrams: 01/03/18 07:25 01/03/18 07:25 Lab Interpretation: No Changes Compared To Prior Results Interpretation Of Abnormal: H&H: 9 & 28 - baseline Anemia. BUN: 37 and Creatinine: 2 - baseline CKD ECG: Interpreted By Me, Viewed By Me ECG Rhythm: Sinus Tachycardia, PVC Rate From EC (BPM) O2 Sat by Pulse Oximetry: 99 (RA) Pulse Ox Interpretation: Normal Progress Note: CT head w/o contrast, Blood work and UA ordered. Dextrose administered. CT Head cancelled, patient seen at [place] on 12/23 for AMS and had negative CT head. CAse discussed with Dr Escobar, agreed upon plan and admission. Disposition - Disposition Disposition: HOSPITALIZED Disposition Time: 17:00 Condition: STABLE - Clinical Impression Clinical Impression: Constipation, Hyperglycemia, Prostate cancer metastatic to bone, Intractable low back pain, Change in mental state - PA / SOIL SCIENTIST / Resident Statement MD/DO has reviewed & agrees with the documentation as recorded. - Scribe Statement The provider has reviewed the documentation as recorded by the Gallo Gomez All medical record entries made by the Gallo were at my direction and personally dictated by me. I have reviewed the chart and agree that the record accurately reflects my personal performance of the history, physical exam, medical decision making, and the department course for this patient. I have also personally directed, reviewed, and agree with the discharge instructions and disposition.
[2017-12-30] MEDS ORDERED: Dextrose 50% SYRINGE Inj (50 ml) ONE (11:07)
[2017-12-30 11:10] LABS: VENOUS BLOOD GAS BASE EXCESS 2.8 mmol/L (0.0-2.0); VENOUS BLOOD GAS PCO2 47 mmHg (40-60); VENOUS BLOOD GAS PO2 17 mm/Hg (30-55); VENOUS BLOOD PH 7.39 (7.32-7.43)
[2017-12-30 11:11] LABS: BASO # 0.1 K/uL (0.0-0.2); BASO % 0.6 % (0.0-2.0); EOS # 0.1 K/uL (0.0-0.7); EOS % 1.2 % (0.0-4.0); HEMOGLOBIN 9.6 g/dL (12.0-18.0); LYMPH # 0.6 K/uL (1.0-4.3); LYMPH % 6.8 % (20.0-40.0); MEAN CELL VOLUME 89.3 fL (80.0-94.0); MEAN CORPUSCULAR HEMOGLOBIN 29.8 pg (27.0-31.0); MEAN CORPUSCULAR HGB CONC 33.4 g/dL (33.0-37.0); MONO # 1.1 K/uL (0.0-0.8); MONO % 13.6 % (0.0-10.0); NEUT # 6.5 K/uL (1.8-7.0); NEUT % 77.8 % (50.0-75.0); NRBC % 0.1 % (0.0-2.0); PLATELET COUNT 309 K/uL (130-400); RED CELL DISTRIBUTION WIDTH 16.4 % (11.5-14.5); WHITE BLOOD COUNT 8.3 K/uL (4.8-10.8)
[2017-12-30 11:19] LABS: INR 1.4; PROTHROMBIN TIME 15.3 SECONDS (9.7-12.2)
[2017-12-30 11:20] LABS: ALBUMIN 3.6 g/dL (3.5-5.0); CALCIUM 9.4 mg/dl (8.6-10.4)
[2017-12-30 11:36] LABS: ANISOCYTOSIS SLIGHT; BANDS 3 % (0-2); EOSINOPHIL 1 % (0-4); LYMPHOCYTE 5 % (20-40); MONOCYTE 12 % (0-10); NEUTROPHIL 79 % (50-75); PLATELET ESTIMATE NORMAL (NORMAL); TOTAL CELLS COUNTED 100
[2017-12-30 11:37] LABS: HYPOCHROMIC SLIGHT; POLYCHROMIC SLIGHT; TOXIC GRANULATION PRESENT
[2017-12-30 12:15] LABS: SQUAMOUS EPITHIAL < 1 /hpf (0-5); URINE BACTERIA OCC (<OCC); URINE BILIRUBIN NEGATIVE (NEGATIVE); URINE BLOOD 2+ (NEGATIVE); URINE CLARITY Clear (Clear); URINE COLOR Yellow (YELLOW); URINE GLUCOSE (UA) NORMAL (Normal); URINE LEUKOCYTE ESTERASE 2+ Leu/uL (Negative); URINE PROTEIN 2+ mg/dL (NEGATIVE); URINE UROBILINOGEN NORMAL mg/dL (0.2-1.0)
[2017-12-30] MEDS ORDERED: Morphine 4 MG/ML VIAL ONE (12:16)
--- NOTE | 2017-12-30 12:40 | RAD ---
PROCEDURE: Radiographs of the chest and abdomen (obstructive series) HISTORY: pain COMPARISON: No prior. TECHNIQUE: AP radiograph of the chest, with upright and supine radiographs of the abdomen. FINDINGS: CHEST: Lungs: Clear. Cardiovascular: Normal size heart. No pulmonary vascular congestion. Pleura: Possible small right pleural effusion. No left pleural effusion. No pneumothorax. Other findings: None. ABDOMEN AND PELVIS: Bowel: Unremarkable bowel gas pattern. No evidence of mechanical obstruction. Free air: None. Bones: Unremarkable. Other findings: None. IMPRESSION: Possible small right pleural effusion. No infiltrate. No evidence of bowel obstruction.
[2017-12-30] MEDS: Sodium Chloride 0.9% 1,000 ML IV SCH (16:05)
--- NOTE | 2017-12-30 18:11 | CP.PCM.HP ---
Past Patient History - Infectious Disease Hx of Infectious Diseases: None - Past Medical History & Family History Past Medical History?: Yes - Past Social History Smoking Status: Never Smoked - CARDIAC Hx Hypercholesterolemia: Yes Hx Hypertension: Yes - PULMONARY Hx Respiratory Disorders: No - NEUROLOGICAL Hx Neurological Disorder: No - HEENT Hx HEENT Problems: No - RENAL Hx Chronic Kidney Disease: Yes - ENDOCRINE/METABOLIC Hx Hypothyroidism: Yes - HEMATOLOGICAL/ONCOLOGICAL Hx Anemia: Yes - INTEGUMENTARY Hx Dermatological Problems: No - MUSCULOSKELETAL/RHEUMATOLOGICAL Hx Arthritis: Yes - GASTROINTESTINAL Hx Gastrointestinal Disorders: No - GENITOURINARY/GYNECOLOGICAL Hx Genitourinary Disorders: Yes (prostate ca) Hx Prostate Cancer: Yes Other/Comment: Renal Cancer. Spinal Cancer - PSYCHIATRIC Hx Substance Use: No - SURGICAL HISTORY Hx Surgeries: No Other/Comment: Umbilical hernia repair - ANESTHESIA Hx Anesthesia: Yes Hx Anesthesia Reactions: No Meds Allergies/Adverse Reactions: Allergies Allergy/AdvReac Type Severity Reaction Status Date / Time No Known Allergies Allergy Verified 12/30/17 10:30 Physical Exam - Constitutional Appears: Well - Head Exam Head Exam: ATRAUMATIC, NORMAL INSPECTION, NORMOCEPHALIC - Eye Exam Eye Exam: EOMI, Normal appearance, PERRL Pupil Exam: NORMAL ACCOMODATION, PERRL - ENT Exam ENT Exam: Mucous Membranes Moist, Normal Exam - Neck Exam Neck exam: Positive for: Normal Inspection - Respiratory Exam Respiratory Exam: Decreased Breath Sounds - Cardiovascular Exam Cardiovascular Exam: REGULAR RHYTHM, +S1, +S2 - GI/Abdominal Exam GI & Abdominal Exam: Diminished Bowel Sounds, Soft - Rectal Exam Rectal Exam: Deferred Results - Vital Signs Recent Vital Signs: Last Vital Signs Temp 98.6 F 12/30/17 16:16 Pulse 109 H 12/30/17 16:16 Resp 20 12/30/17 16:16 BP 149/80 12/30/17 16:16 Pulse Ox 98 12/30/17 16:16 - Labs Result Diagrams: 12/30/17 11:04 12/30/17 11:04 Labs: Laboratory Results - last 24 hr 12/30/17 12/30/17 12/30/17 10:36 10:39 11:02 WBC RBC Hgb Hct MCV MCH MCHC RDW Plt Count MPV Neut % (Auto) Lymph % (Auto) [place] % (Auto) Eos % (Auto) Baso % (Auto) Neut # (Auto) Lymph # (Auto) [place] # (Auto) Eos # (Auto) Baso # (Auto) Neutrophils % (Manual) Band Neutrophils % Lymphocytes % (Manual) Monocytes % (Manual) Eosinophils % (Manual) Toxic Granulation Platelet Estimate Polychromasia Hypochromasia (manual) Anisocytosis (manual) PT INR APTT pO2 VBG pH VBG pCO2 VBG HCO3 VBG Total CO2 VBG O2 Sat (Calc) VBG Base Excess VBG Potassium Sodium Chloride Glucose Lactate Crit Value Called To Crit Value Called By Crit Value Read Back Blood Gas Notified Time Potassium Carbon Dioxide Anion Gap BUN Creatinine Est GFR ( Amer) Est GFR (Non-Af Amer) POC Glucose (mg/dL) 43 L 52 L 46 L Random Glucose Calcium Total Bilirubin AST ALT Alkaline Phosphatase Ammonia NT-Pro-B Natriuret Pep Total Protein Albumin Globulin Albumin/Globulin Ratio Venous Blood Potassium Urine Color Urine Clarity Urine pH Ur Specific [place] Urine Protein Urine Glucose (UA) Urine Ketones Urine Blood Urine Nitrate Urine Bilirubin Urine Urobilinogen Ur Leukocyte Esterase Urine WBC (Auto) Urine RBC (Auto) Ur Squamous Epith Cells Urine Bacteria 12/30/17 12/30/17 12/30/17 11:03 11:04 11:04 WBC 8.3 RBC 3.20 L Hgb 9.6 L D Hct 28.6 L MCV 89.3 MCH 29.8 MCHC 33.4 RDW 16.4 H Plt Count 309 MPV 8.0 Neut % (Auto) 77.8 H Lymph % (Auto) 6.8 L [place] % (Auto) 13.6 H Eos % (Auto) 1.2 Baso % (Auto) 0.6 Neut # (Auto) 6.5 Lymph # (Auto) 0.6 L [place] # (Auto) 1.1 H Eos # (Auto) 0.1 Baso # (Auto) 0.1 Neutrophils % (Manual) 79 H Band Neutrophils % 3 H Lymphocytes % (Manual) 5 L Monocytes % (Manual) 12 H Eosinophils % (Manual) 1 Toxic Granulation Present Platelet Estimate Normal Polychromasia Slight Hypochromasia (manual) Slight Anisocytosis (manual) Slight PT 15.3 H INR 1.4 APTT 29 pO2 17 L VBG pH 7.39 VBG pCO2 47 VBG HCO3 25.1 VBG Total CO2 29.9 H VBG O2 Sat (Calc) 31.7 L VBG Base Excess 2.8 H VBG Potassium 4.5 Sodium 138.0 Chloride 106.0 Glucose 40 L D Lactate 0.9 Crit Value Called To Dr moody Crit Value Called By [facility] Crit Value Read Back Y Blood Gas Notified Time 1110 Potassium Carbon Dioxide Anion Gap BUN Creatinine Est GFR ( Amer) Est GFR (Non-Af Amer) POC Glucose (mg/dL) Random Glucose Calcium Total Bilirubin AST ALT Alkaline Phosphatase Ammonia NT-Pro-B Natriuret Pep Total Protein Albumin Globulin Albumin/Globulin Ratio Venous Blood Potassium 4.5 Urine Color Urine Clarity Urine pH Ur Specific [place] Urine Protein Urine Glucose (UA) Urine Ketones Urine Blood Urine Nitrate Urine Bilirubin Urine Urobilinogen Ur Leukocyte Esterase Urine WBC (Auto) Urine RBC (Auto) Ur Squamous Epith Cells Urine Bacteria 12/30/17 12/30/17 12/30/17 11:04 11:04 11:51 WBC RBC Hgb Hct MCV MCH MCHC RDW Plt Count MPV Neut % (Auto) Lymph % (Auto) [place] % (Auto) Eos % (Auto) Baso % (Auto) Neut # (Auto) Lymph # (Auto) [place] # (Auto) Eos # (Auto) Baso # (Auto) Neutrophils % (Manual) Band Neutrophils % Lymphocytes % (Manual) Monocytes % (Manual) Eosinophils % (Manual) Toxic Granulation Platelet Estimate Polychromasia Hypochromasia (manual) Anisocytosis (manual) PT INR APTT pO2 VBG pH VBG pCO2 VBG HCO3 VBG Total CO2 VBG O2 Sat (Calc) VBG Base Excess VBG Potassium Sodium 139 Chloride 101 Glucose Lactate Crit Value Called To Crit Value Called By Crit Value Read Back Blood Gas Notified Time Potassium 4.9 Carbon Dioxide 28 Anion Gap 15 BUN 37 H Creatinine 2.0 H Est GFR ( Amer) 41 Est GFR (Non-Af Amer) 34 POC Glucose (mg/dL) 89 Random Glucose 42 L Calcium 9.4 Total Bilirubin 0.5 AST 46 ALT 34 Alkaline Phosphatase 114 Ammonia < 9 L NT-Pro-B Natriuret Pep 224 Total Protein 7.3 Albumin 3.6 Globulin 3.7 Albumin/Globulin Ratio 1.0 Venous Blood Potassium Urine Color Urine Clarity Urine pH Ur Specific [place] Urine Protein Urine Glucose (UA) Urine Ketones Urine Blood Urine Nitrate Urine Bilirubin Urine Urobilinogen Ur Leukocyte Esterase Urine WBC (Auto) Urine RBC (Auto) Ur Squamous Epith Cells Urine Bacteria 12/30/17 12:00 WBC RBC Hgb Hct MCV MCH MCHC RDW Plt Count MPV Neut % (Auto) Lymph % (Auto) [place] % (Auto) Eos % (Auto) Baso % (Auto) Neut # (Auto) Lymph # (Auto) [place] # (Auto) Eos # (Auto) Baso # (Auto) Neutrophils % (Manual) Band Neutrophils % Lymphocytes % (Manual) Monocytes % (Manual) Eosinophils % (Manual) Toxic Granulation Platelet Estimate Polychromasia Hypochromasia (manual) Anisocytosis (manual) PT INR APTT pO2 VBG pH VBG pCO2 VBG HCO3 VBG Total CO2 VBG O2 Sat (Calc) VBG Base Excess VBG Potassium Sodium Chloride Glucose Lactate Crit Value Called To Crit Value Called By Crit Value Read Back Blood Gas Notified Time Potassium Carbon Dioxide Anion Gap BUN Creatinine Est GFR ( Amer) Est GFR (Non-Af Amer) POC Glucose (mg/dL) Random Glucose Calcium Total Bilirubin AST ALT Alkaline Phosphatase Ammonia NT-Pro-B Natriuret Pep Total Protein Albumin Globulin Albumin/Globulin Ratio Venous Blood Potassium Urine Color Yellow Urine Clarity Clear Urine pH 7.0 Ur Specific [place] 1.011 Urine Protein 2+ H Urine Glucose (UA) Normal Urine Ketones Negative Urine Blood 2+ H Urine Nitrate Negative Urine Bilirubin Negative Urine Urobilinogen Normal Ur Leukocyte Esterase 2+ H Urine WBC (Auto) 13 H Urine RBC (Auto) 44 H Ur Squamous Epith Cells < 1 Urine Bacteria Occ H
[2017-12-31] MEDS: Sodium Chloride 0.9% 1,000 ML IV SCH ×3 (05:10→17:46)
[2017-12-31 08:44] LABS: BASO % 0.4 % (0.0-2.0); EOS # 0.1 K/uL (0.0-0.7); EOS % 0.8 % (0.0-4.0); HEMOGLOBIN 9.5 g/dL (12.0-18.0); LYMPH # 1.3 K/uL (1.0-4.3); LYMPH % 12.1 % (20.0-40.0); MEAN CELL VOLUME 88.2 fL (80.0-94.0); MEAN PLATELET VOLUME 7.6 fL (7.2-11.7); MONO # 1.6 K/uL (0.0-0.8); MONO % 14.7 % (0.0-10.0); NEUT # 7.6 K/uL (1.8-7.0); RBC 3.18 Mil/uL (4.40-5.90); RED CELL DISTRIBUTION WIDTH 15.7 % (11.5-14.5); WHITE BLOOD COUNT 10.6 K/uL (4.8-10.8)
[2017-12-31 09:00] LABS: ALBUMIN 3.7 g/dL (3.5-5.0); ALT/SGPT 19 U/L (21-72); AST/SGOT 40 U/L (17-59); BLOOD UREA NITROGEN 30 mg/dL (9-20); CALCIUM 8.8 mg/dl (8.6-10.4); GFR AFRICAN-AMERICAN 43; GFR NON-AFRICAN AMERICAN 36
[2017-12-31] MEDS: Enoxaparin 40 mg Syringe SC SCH (09:29)
[2017-12-31] MEDS: POLYETHYLENE GLYCOL 3350 17 GM/Dose PACKET PO SCH ×3 (09:29→17:46)
[2017-12-31] MEDS: Levothyroxine 175 MCG TAB PO SCH (10:00)
[2017-12-31] MEDS: Ciprofloxacin 200mg/100ml D5W 100 ML IVPB SCH ×2 (10:11→21:39)
[2017-12-31] MEDS: (Novolin R) Insulin Human Regular 100 units/ml vial SC SCH ×3 (11:30→21:43)
--- NOTE | 2017-12-31 15:43 | CP.PCM.PN ---
Subjective - Date & Time of Evaluation Date of Evaluation: 12/31/17 Time of Evaluation: 09:20 - Subjective Subjective: clinically same Objective - Vital Signs/Intake and Output Vital Signs (last 24 hours): Temp Pulse Resp BP Pulse Ox 98.6 F 121 H 20 139/74 97 12/31/17 07:05 12/31/17 07:05 12/31/17 07:05 12/31/17 07:05 12/31/17 07:05 Intake and Output: 12/31/17 12/31/17 06:59 18:59 Intake Total 1400 Balance 1400 - Medications Medications: Current Medications Amlodipine Besylate (Norvasc) 5 mg PO DAILY [facility] Last Admin: 12/31/17 09:29 Dose: 5 mg Enoxaparin Sodium (Lovenox) 40 mg SC DAILY [facility] Last Admin: 12/31/17 09:29 Dose: 40 mg Gabapentin (Neurontin) 300 mg PO TID [facility] Last Admin: 12/31/17 13:55 Dose: 300 mg Sodium Chloride (Sodium Chloride 0.9%) 1,000 mls @ 80 mls/hr IV .[id number] [facility] Last Admin: 12/31/17 05:34 Dose: 80 mls/hr Ciprofloxacin (Cipro 200mg/100ml D5w) 100 mls @ 67 mls/hr IVPB Q12H [facility] PRN Reason: Protocol Last Admin: 12/31/17 10:11 Dose: 67 mls/hr Insulin Human Regular (Novolin R) 0 unit SC ACHS [facility] PRN Reason: Protocol Last Admin: 12/31/17 11:30 Dose: Not Given Lactulose (Enulose) 20 gm PO BID [facility] Last Admin: 12/31/17 09:29 Dose: 20 gm Levothyroxine Sodium (Synthroid) 175 mcg PO DAILY@0630 [facility] Lorazepam (Ativan) 0.5 mg IVP Q6H PRN PRN Reason: Anxiety Last Admin: 12/31/17 10:42 Dose: 0.5 mg Oxycodone HCl (Oxycodone Immediate Release Tab) 10 mg PO Q12 PRN PRN Reason: Pain, severe (8-10) Polyethylene Glycol (Miralax) 17 gm PO TID [facility] Last Admin: 12/31/17 13:55 Dose: 17 gm Rosuvastatin Calcium (Crestor) 10 mg PO HS [facility] Tamsulosin HCl (Flomax) 0.4 mg PO DAILY [facility] Last Admin: 12/31/17 09:29 Dose: 0.4 mg - Labs Labs: 12/31/17 08:33 12/31/17 08:33 PT 15.3 SECONDS (9.7-12.2) H 12/30/17 11:04 INR 1.4 12/30/17 11:04 APTT 29 SECONDS (21-34) 12/30/17 11:04 - Constitutional Appears: Well - Head Exam Head Exam: ATRAUMATIC, NORMAL INSPECTION, NORMOCEPHALIC - Eye Exam Eye Exam: EOMI, Normal appearance, PERRL Pupil Exam: NORMAL ACCOMODATION, PERRL - ENT Exam ENT Exam: Mucous Membranes Moist, Normal Exam - Neck Exam Neck Exam: Full ROM, Normal Inspection. absent: Lymphadenopathy - Respiratory Exam Respiratory Exam: Decreased Breath Sounds - Cardiovascular Exam Cardiovascular Exam: REGULAR RHYTHM, +S1, +S2 - GI/Abdominal Exam GI & Abdominal Exam: Soft, Diminished Bowel Sounds - Rectal Exam Rectal Exam: Deferred
--- NOTE | 2017-12-31 16:39 | NM ---
PROCEDURE: Whole Body Bone Scan HISTORY: r/o mets COMPARISON: None available. TECHNIQUE: Following administration of 26.2 mCi of Tc MDP multiplanar whole body images were obtained. FINDINGS: Evidence for bony metastatic disease: Widespread metastases are identified throughout the thoracolumbar spine multiple left greater than right ribs, bilateral shoulders the left ischium, right lesser trochanter and potentially the inferior cervical spine as well. Degenerative uptake: Right knee, left foot Physiologic uptake: Normal physiologic activity in the kidneys. Other findings: None. IMPRESSION: Right spared axial and upper appendicular metastases identified.
[2017-12-31] MEDS: oxyCODONE 10 mg Immediate Release Tab PO PRN (17:52)
[2018-01-01] MEDS: Sodium Chloride 0.9% 1,000 ML IV SCH ×2 (06:15→17:54)
[2018-01-01] MEDS: Levothyroxine 175 MCG TAB PO SCH (06:18)
[2018-01-01 08:18] LABS: BASO % 0.4 % (0.0-2.0); EOS # 0.2 K/uL (0.0-0.7); EOS % 1.6 % (0.0-4.0); HEMOGLOBIN 9.2 g/dL (12.0-18.0); LYMPH # 1.5 K/uL (1.0-4.3); LYMPH % 14.6 % (20.0-40.0); MEAN CELL VOLUME 89.1 fL (80.0-94.0); MEAN CORPUSCULAR HGB CONC 33.7 g/dL (33.0-37.0); MEAN PLATELET VOLUME 7.8 fL (7.2-11.7); MONO # 1.5 K/uL (0.0-0.8); MONO % 14.3 % (0.0-10.0); NEUT # 7.2 K/uL (1.8-7.0); NEUT % 69.1 % (50.0-75.0); RBC 3.06 Mil/uL (4.40-5.90); RED CELL DISTRIBUTION WIDTH 16.3 % (11.5-14.5); WHITE BLOOD COUNT 10.5 K/uL (4.8-10.8)
[2018-01-01] MEDS: (Novolin R) Insulin Human Regular 100 units/ml vial SC SCH ×4 (08:23→21:24)
[2018-01-01 08:29] LABS: ALBUMIN 3.5 g/dL (3.5-5.0); CALCIUM 8.5 mg/dl (8.6-10.4)
[2018-01-01] MEDS: Ciprofloxacin 200mg/100ml D5W 100 ML IVPB SCH ×2 (11:00→21:24)
[2018-01-01] MEDS: oxyCODONE 10 mg Immediate Release Tab PO PRN (11:07)
[2018-01-01] MEDS: Enoxaparin 40 mg Syringe SC SCH (11:11)
[2018-01-01] MEDS: POLYETHYLENE GLYCOL 3350 17 GM/Dose PACKET PO SCH ×3 (11:13→17:54)
--- NOTE | 2018-01-01 18:09 | CP.PCM.PN ---
Subjective - Date & Time of Evaluation Date of Evaluation: 01/01/18 Time of Evaluation: 09:20 - Subjective Subjective: clinically same Objective - Vital Signs/Intake and Output Vital Signs (last 24 hours): Temp Pulse Resp BP Pulse Ox 97.3 F L 105 H 20 160/82 H 96 01/01/18 15:42 01/01/18 15:42 01/01/18 15:42 01/01/18 15:42 01/01/18 15:42 Intake and Output: 01/01/18 01/01/18 06:59 18:59 Intake Total 740 Balance 740 - Medications Medications: Current Medications Amlodipine Besylate (Norvasc) 5 mg PO DAILY [facility] Last Admin: 01/01/18 11:08 Dose: 5 mg Enoxaparin Sodium (Lovenox) 40 mg SC DAILY [facility] Last Admin: 01/01/18 11:11 Dose: 40 mg Gabapentin (Neurontin) 300 mg PO TID [facility] Last Admin: 01/01/18 17:54 Dose: 300 mg Sodium Chloride (Sodium Chloride 0.9%) 1,000 mls @ 80 mls/hr IV .[id number] [facility] Last Admin: 01/01/18 17:54 Dose: 80 mls/hr Ciprofloxacin (Cipro 200mg/100ml D5w) 100 mls @ 67 mls/hr IVPB Q12H [facility] PRN Reason: Protocol Last Admin: 01/01/18 11:00 Dose: 67 mls/hr Insulin Human Regular (Novolin R) 0 unit SC ACHS [facility] PRN Reason: Protocol Last Admin: 01/01/18 17:54 Dose: 5 unit Lactulose (Enulose) 20 gm PO BID [facility] Last Admin: 01/01/18 17:54 Dose: 20 gm Levothyroxine Sodium (Synthroid) 175 mcg PO DAILY@0630 [facility] Last Admin: 01/01/18 06:18 Dose: 175 mcg Lorazepam (Ativan) 0.5 mg IVP Q6H PRN PRN Reason: Anxiety Last Admin: 01/01/18 07:45 Dose: 0.5 mg Oxycodone HCl (Oxycodone Immediate Release Tab) 10 mg PO Q12 PRN PRN Reason: Pain, severe (8-10) Last Admin: 01/01/18 11:07 Dose: 10 mg Polyethylene Glycol (Miralax) 17 gm PO TID [facility] Last Admin: 01/01/18 17:54 Dose: 17 gm Rosuvastatin Calcium (Crestor) 10 mg PO HS [facility] Last Admin: 12/31/17 21:39 Dose: 10 mg Tamsulosin HCl (Flomax) 0.4 mg PO DAILY [facility] Last Admin: 01/01/18 11:09 Dose: 0.4 mg - Labs Labs: 01/01/18 08:01 01/01/18 08:01 PT 15.3 SECONDS (9.7-12.2) H 12/30/17 11:04 INR 1.4 12/30/17 11:04 APTT 29 SECONDS (21-34) 12/30/17 11:04 - Constitutional Appears: Well - Head Exam Head Exam: ATRAUMATIC, NORMAL INSPECTION, NORMOCEPHALIC - Eye Exam Eye Exam: EOMI, Normal appearance, PERRL Pupil Exam: NORMAL ACCOMODATION, PERRL - ENT Exam ENT Exam: Mucous Membranes Moist, Normal Exam - Neck Exam Neck Exam: Full ROM, Normal Inspection. absent: Lymphadenopathy - Respiratory Exam Respiratory Exam: Decreased Breath Sounds - Cardiovascular Exam Cardiovascular Exam: REGULAR RHYTHM, +S1, +S2 - GI/Abdominal Exam GI & Abdominal Exam: Soft, Diminished Bowel Sounds - Rectal Exam Rectal Exam: Deferred Assessment and Plan (1) ARF (acute renal failure) Status: Acute (2) Abdominal pain Status: Acute (3) Acute on chronic renal failure Status: Acute (4) Anasarca Status: Acute (5) Bone lesion Status: Acute (6) Constipation Status: Acute (7) Fecal impaction Status: Acute (8) HHNC (hyperglycemic hyperosmolar nonketotic coma) Status: Acute (9) History of prostate cancer Status: Acute (10) Hyperglycemia Status: Acute (11) Hyperkalemia Status: Acute (12) Knee pain, chronic Status: Acute (13) Lactic acidosis Status: Acute (14) Lung nodule Status: Acute (15) Obstructive uropathy Status: Acute (16) Prostate cancer Status: Acute (17) Prostate cancer metastatic to bone Status: Acute (18) Renal insufficiency Status: Acute (19) Sciatica Status: Acute (20) Tachycardia Status: Acute (21) UTI (urinary tract infection) Status: Acute (22) Uncontrolled hypertension Status: Acute (23) Anemia Status: Chronic (24) DM type 2 (diabetes mellitus, type 2) Status: Chronic (25) History of DVT (deep vein thrombosis) Status: Chronic (26) Hypertension Status: Chronic (27) Intractable low back pain Status: Chronic (28) Renal mass Status: Suspected - Assessment and Plan (Free Text) Plan: Patient is a pain patient is getting a pain medicine patient is a toxic metabolic encephalopathy Continue IV Cipro Continue gabapentin Continue Percocet Blood culture negative Urine culture no growth Follow-up with urology for prostate cancer Continue same
[2018-01-02] MEDS: Levothyroxine 175 MCG TAB PO SCH (06:47)
[2018-01-02] MEDS: Sodium Chloride 0.9% 1,000 ML IV SCH (06:55)
--- NOTE | 2018-01-02 07:28 | PCM.URO ---
Urology Progress Note - Objective Lab Studies: Reviewed (gu dx; uti gu plans: to be discussed and full note to be dictated thanks for gu consult) Lab Results Last 24 Hours: Laboratory Results - last 24 hr 01/01/18 01/01/18 01/01/18 06:43 08:01 08:01 WBC 10.5 RBC 3.06 L Hgb 9.2 L Hct 27.2 L MCV 89.1 MCH 30.0 MCHC 33.7 RDW 16.3 H Plt Count 386 MPV 7.8 Neut % (Auto) 69.1 Lymph % (Auto) 14.6 L [place] % (Auto) 14.3 H Eos % (Auto) 1.6 Baso % (Auto) 0.4 Neut # (Auto) 7.2 H Lymph # (Auto) 1.5 [place] # (Auto) 1.5 H Eos # (Auto) 0.2 Baso # (Auto) 0.0 Sodium 143 Potassium 4.6 Chloride 106 Carbon Dioxide 22 Anion Gap 20 BUN 31 H Creatinine 1.8 H Est GFR ( Amer) 46 Est GFR (Non-Af Amer) 38 POC Glucose (mg/dL) 271 H Random Glucose 268 H Calcium 8.5 L Total Bilirubin 0.5 AST 27 ALT 17 L Alkaline Phosphatase 108 Total Protein 7.0 Albumin 3.5 Globulin 3.5 Albumin/Globulin Ratio 1.0 01/01/18 01/01/18 01/01/18 11:40 16:08 21:07 WBC RBC Hgb Hct MCV MCH MCHC RDW Plt Count MPV Neut % (Auto) Lymph % (Auto) [place] % (Auto) Eos % (Auto) Baso % (Auto) Neut # (Auto) Lymph # (Auto) [place] # (Auto) Eos # (Auto) Baso # (Auto) Sodium Potassium Chloride Carbon Dioxide Anion Gap BUN Creatinine Est GFR ( Amer) Est GFR (Non-Af Amer) POC Glucose (mg/dL) 367 H 357 H 433 H* Random Glucose Calcium Total Bilirubin AST ALT Alkaline Phosphatase Total Protein Albumin Globulin Albumin/Globulin Ratio 01/01/18 01/02/18 01/02/18 22:40 02:32 06:19 WBC RBC Hgb Hct MCV MCH MCHC RDW Plt Count MPV Neut % (Auto) Lymph % (Auto) [place] % (Auto) Eos % (Auto) Baso % (Auto) Neut # (Auto) Lymph # (Auto) [place] # (Auto) Eos # (Auto) Baso # (Auto) Sodium Potassium Chloride Carbon Dioxide Anion Gap BUN Creatinine Est GFR ( Amer) Est GFR (Non-Af Amer) POC Glucose (mg/dL) 381 H 364 H 385 H Random Glucose Calcium Total Bilirubin AST ALT Alkaline Phosphatase Total Protein Albumin Globulin Albumin/Globulin Ratio Intake & Output: Intake & Output 01/01/18 01/02/18 01/02/18 18:59 06:59 18:59 Intake Total 1680 Balance 1680 Intake: Intake, IV Amount 1280 Right Antecubital 1280 Oral 400 Other: # Bowel Movements 0 Vital Signs: Vital Signs - 24 hr 01/01/18 01/01/18 01/02/18 08:53 15:42 00:23 Temperature 97.3 F L 98.6 F Pulse Rate 105 H 100 H Respiratory 20 20 Rate Blood Pressure 160/82 H 150/82 O2 Sat by Pulse 97 96 97 Oximetry
[2018-01-02] MEDS: (Novolin R) Insulin Human Regular 100 units/ml vial SC SCH ×4 (07:48→21:46)
[2018-01-02 08:06] LABS: BASO # 0.1 K/uL (0.0-0.2); BASO % 0.7 % (0.0-2.0); EOS # 0.4 K/uL (0.0-0.7); EOS % 4.1 % (0.0-4.0); HEMOGLOBIN 9.1 g/dL (12.0-18.0); LYMPH # 1.4 K/uL (1.0-4.3); MEAN CELL VOLUME 90.1 fL (80.0-94.0); MEAN CORPUSCULAR HEMOGLOBIN 29.9 pg (27.0-31.0); MEAN CORPUSCULAR HGB CONC 33.2 g/dL (33.0-37.0); MONO # 1.1 K/uL (0.0-0.8); MONO % 13.1 % (0.0-10.0); NEUT # 5.7 K/uL (1.8-7.0); NEUT % 66.1 % (50.0-75.0); NRBC % 0.1 % (0.0-2.0); RBC 3.04 Mil/uL (4.40-5.90); RED CELL DISTRIBUTION WIDTH 15.9 % (11.5-14.5); WHITE BLOOD COUNT 8.7 K/uL (4.8-10.8)
[2018-01-02 08:17] LABS: ALB/GLOB RATIO 0.9 (1.0-2.1); ALBUMIN 3.3 g/dL (3.5-5.0); CALCIUM 8.5 mg/dl (8.6-10.4)
[2018-01-02] MEDS: Enoxaparin 40 mg Syringe SC SCH ×2 (09:13→09:25)
[2018-01-02] MEDS: POLYETHYLENE GLYCOL 3350 17 GM/Dose PACKET PO SCH ×3 (09:13→17:35)
[2018-01-02] MEDS: Ciprofloxacin 200mg/100ml D5W 100 ML IVPB SCH ×2 (09:56→20:59)
[2018-01-02] MEDS: oxyCODONE 10 mg Immediate Release Tab PO PRN (11:17)
--- NOTE | 2018-01-02 13:46 | CP.PCM.PN ---
Subjective - Date & Time of Evaluation Date of Evaluation: 01/02/18 Time of Evaluation: 09:20 - Subjective Subjective: clinically same Objective - Vital Signs/Intake and Output Vital Signs (last 24 hours): Temp Pulse Resp BP Pulse Ox 99.0 F 138 H 20 124/90 96 01/02/18 07:20 01/02/18 07:20 01/02/18 07:20 01/02/18 07:20 01/02/18 08:00 Intake and Output: 01/02/18 01/02/18 06:59 18:59 Intake Total 1680 Balance 1680 - Medications Medications: Current Medications Amlodipine Besylate (Norvasc) 5 mg PO DAILY [facility] Last Admin: 01/02/18 09:14 Dose: Not Given Enoxaparin Sodium (Lovenox) 40 mg SC DAILY [facility] Last Admin: 01/02/18 09:25 Dose: Not Given Gabapentin (Neurontin) 300 mg PO TID [facility] Last Admin: 01/02/18 09:13 Dose: 300 mg Sodium Chloride (Sodium Chloride 0.9%) 1,000 mls @ 80 mls/hr IV .[id number] [facility] Last Admin: 01/02/18 06:55 Dose: Not Given Ciprofloxacin (Cipro 200mg/100ml D5w) 100 mls @ 67 mls/hr IVPB Q12H [facility] PRN Reason: Protocol Last Admin: 01/02/18 09:56 Dose: 67 mls/hr Insulin Human Regular (Novolin R) 0 unit SC ACHS [facility] PRN Reason: Protocol Last Admin: 01/02/18 12:51 Dose: 4 unit Lactulose (Enulose) 20 gm PO BID [facility] Last Admin: 01/02/18 09:13 Dose: 20 gm Levothyroxine Sodium (Synthroid) 175 mcg PO DAILY@0630 [facility] Last Admin: 01/02/18 06:47 Dose: 175 mcg Lorazepam (Ativan) 0.5 mg IVP Q6H PRN PRN Reason: Anxiety Last Admin: 01/01/18 07:45 Dose: 0.5 mg Oxycodone HCl (Oxycodone Immediate Release Tab) 10 mg PO Q12 PRN PRN Reason: Pain, severe (8-10) Last Admin: 01/02/18 11:17 Dose: 10 mg Polyethylene Glycol (Miralax) 17 gm PO TID [facility] Last Admin: 01/02/18 09:13 Dose: 17 gm Rosuvastatin Calcium (Crestor) 10 mg PO HS [facility] Last Admin: 01/01/18 21:24 Dose: 10 mg Tamsulosin HCl (Flomax) 0.4 mg PO DAILY [facility] Last Admin: 01/02/18 09:13 Dose: 0.4 mg - Labs Labs: 01/02/18 07:50 01/02/18 07:50 PT 15.3 SECONDS (9.7-12.2) H 12/30/17 11:04 INR 1.4 12/30/17 11:04 APTT 29 SECONDS (21-34) 12/30/17 11:04 - Constitutional Appears: Well - Head Exam Head Exam: ATRAUMATIC, NORMAL INSPECTION, NORMOCEPHALIC - Eye Exam Eye Exam: EOMI, Normal appearance, PERRL Pupil Exam: NORMAL ACCOMODATION, PERRL - ENT Exam ENT Exam: Mucous Membranes Moist, Normal Exam - Neck Exam Neck Exam: Full ROM, Normal Inspection. absent: Lymphadenopathy - Respiratory Exam Respiratory Exam: Decreased Breath Sounds - Cardiovascular Exam Cardiovascular Exam: REGULAR RHYTHM, +S1, +S2 - GI/Abdominal Exam GI & Abdominal Exam: Soft, Diminished Bowel Sounds - Rectal Exam Rectal Exam: Deferred Assessment and Plan (1) ARF (acute renal failure) Status: Acute (2) Abdominal pain Status: Acute (3) Acute on chronic renal failure Status: Acute (4) Anasarca Status: Acute (5) Bone lesion Status: Acute (6) Constipation Status: Acute (7) Fecal impaction Status: Acute (8) HHNC (hyperglycemic hyperosmolar nonketotic coma) Status: Acute (9) History of prostate cancer Status: Acute (10) Hyperglycemia Status: Acute (11) Hyperkalemia Status: Acute (12) Knee pain, chronic Status: Acute (13) Lactic acidosis Status: Acute (14) Lung nodule Status: Acute (15) Obstructive uropathy Status: Acute (16) Prostate cancer Status: Acute (17) Prostate cancer metastatic to bone Status: Acute (18) Renal insufficiency Status: Acute (19) Sciatica Status: Acute (20) Tachycardia Status: Acute (21) UTI (urinary tract infection) Status: Acute (22) Uncontrolled hypertension Status: Acute (23) Anemia Status: Chronic (24) DM type 2 (diabetes mellitus, type 2) Status: Chronic (25) History of DVT (deep vein thrombosis) Status: Chronic (26) Hypertension Status: Chronic (27) Intractable low back pain Status: Chronic (28) Renal mass Status: Suspected
[2018-01-03] MEDS: Levothyroxine 175 MCG TAB PO SCH (05:55)
--- NOTE | 2018-01-03 07:10 | CON ---
DATE: REQUESTING PHYSICIAN: Dr. Escobar. HISTORY OF PRESENT ILLNESS: UTI. See below urine cultures. Mr. Sanchez is about to be 68-year-old gentleman who is admitted to the hospital under GI doctor, Dr. Escobar. He has metastatic cancer. He is also complaining of abdominal pain. Urology is consulted for further recommendations. PAST MEDICAL AND SURGICAL HISTORY: As listed on the chart. MEDICATIONS: See chart. ALLERGIES: SEE CHART. PHYSICAL EXAMINATION: GENERAL: A well-nourished male currently resting comfortably. ABDOMEN: Difficult to evaluate secondary to body habitus. See the plan listed below. RECTAL: Deferred at this point. LABORATORY DATA: See chart. Urine cultures noted to be negative. The bone scan with metastatic disease noted. 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 PLAN: The plan will be as follows: We will order a bladder scan and further plans will follow depending on the findings clinically and then we will discuss other recommendations. Thank you for the urology consultation. Justin Brown MD
[2018-01-03 07:40] LABS: BASO % 0.6 % (0.0-2.0); EOS # 0.4 K/uL (0.0-0.7); EOS % 5.2 % (0.0-4.0); HEMOGLOBIN 8.7 g/dL (12.0-18.0); LYMPH # 0.9 K/uL (1.0-4.3); LYMPH % 11.1 % (20.0-40.0); MEAN CELL VOLUME 88.5 fL (80.0-94.0); MEAN CORPUSCULAR HEMOGLOBIN 30.2 pg (27.0-31.0); MEAN CORPUSCULAR HGB CONC 34.2 g/dL (33.0-37.0); MEAN PLATELET VOLUME 7.6 fL (7.2-11.7); MONO # 1.1 K/uL (0.0-0.8); MONO % 13.6 % (0.0-10.0); NEUT # 5.5 K/uL (1.8-7.0); NEUT % 69.5 % (50.0-75.0); RBC 2.87 Mil/uL (4.40-5.90); RED CELL DISTRIBUTION WIDTH 15.6 % (11.5-14.5)
[2018-01-03] MEDS: (Novolin R) Insulin Human Regular 100 units/ml vial SC SCH ×4 (07:47→21:30)
[2018-01-03 07:57] LABS: ALBUMIN 3.3 g/dL (3.5-5.0); CALCIUM 8.6 mg/dl (8.6-10.4)
[2018-01-03] MEDS: POLYETHYLENE GLYCOL 3350 17 GM/Dose PACKET PO SCH ×3 (10:14→17:20)
[2018-01-03] MEDS: Enoxaparin 40 mg Syringe SC SCH (10:14)
[2018-01-03] MEDS: Ciprofloxacin 200mg/100ml D5W 100 ML IVPB SCH ×2 (10:15→21:24)
--- NOTE | 2018-01-03 14:37 | CARD ---
APPROVED REPORT EKG Measurement Heart [id number] CT [id number] <Conclusion> Sinus tachycardia Possible Left atrial enlargement Inferior infarct, age undetermined Abnormal ECG
--- NOTE | 2018-01-03 15:08 | CP.PCM.CON ---
History of Present Illness - History of Present Illness History of Present Illness: Reason for Consult - Lung Nodule Patient is a 67 year old male with a past medical history of diabetes mellitus, CKD, prostate cancer and chronic back pain who presented to [facility] on 12/30 with complaints of worsening low back pain and constipation without bowel movement for 5 days. Bone scan done 12/30 due to history of prostate cancer and revealed widely disseminated metastatic disease throughout the spine, ribs, bilateral shoulder and left ischium. Abdominal obstructive x- ray series ordered due to constipation revealed a small right pleural effusion incidentally. Patient denies shortness of breath, cough and chest pain and is saturating at 95% on room air. Assessment/Plan 1. Lung nodule No evidence of lung nodule on most recent CXR ordered during a previous admission at [facility] on 12/13/17. Follow-up with CT scan of chest. Past Patient History - Infectious Disease Hx of Infectious Diseases: None - Past Medical History & Family History Past Medical History?: Yes - Past Social History Smoking Status: Never Smoked - CARDIAC Hx Hypercholesterolemia: Yes Hx Hypertension: Yes - PULMONARY Hx Respiratory Disorders: No - NEUROLOGICAL Hx Neurological Disorder: No - HEENT Hx HEENT Problems: No - RENAL Hx Chronic Kidney Disease: Yes - ENDOCRINE/METABOLIC Hx Hypothyroidism: Yes - HEMATOLOGICAL/ONCOLOGICAL Hx Blood Disorders: Yes Hx Anemia: Yes - INTEGUMENTARY Hx Dermatological Problems: No - MUSCULOSKELETAL/RHEUMATOLOGICAL Hx Arthritis: Yes - GASTROINTESTINAL Hx Gastrointestinal Disorders: No - GENITOURINARY/GYNECOLOGICAL Hx Genitourinary Disorders: Yes (prostate ca) Hx Prostate Cancer: Yes Other/Comment: Renal Cancer. Spinal Cancer - PSYCHIATRIC Hx Psychophysiologic Disorder: No Hx Substance Use: No - SURGICAL HISTORY Hx Surgeries: Yes Other/Comment: Umbilical hernia repair - ANESTHESIA Hx Anesthesia: Yes Hx Anesthesia Reactions: No Meds Allergies/Adverse Reactions: Allergies Allergy/AdvReac Type Severity Reaction Status Date / Time No Known Allergies Allergy Verified 12/30/17 10:30 - Medications Medications: Current Medications Amlodipine Besylate (Norvasc) 5 mg PO DAILY [facility] Last Admin: 01/03/18 10:14 Dose: 5 mg Enoxaparin Sodium (Lovenox) 40 mg SC DAILY [facility] Last Admin: 01/03/18 10:14 Dose: 40 mg Gabapentin (Neurontin) 300 mg PO TID [facility] Last Admin: 01/03/18 14:26 Dose: 300 mg Ciprofloxacin (Cipro 200mg/100ml D5w) 100 mls @ 67 mls/hr IVPB Q12H [facility] PRN Reason: Protocol Last Admin: 01/03/18 10:15 Dose: 67 mls/hr Insulin Human Regular (Novolin R) 0 unit SC ACHS [facility] PRN Reason: Protocol Last Admin: 01/03/18 12:12 Dose: 5 unit Lactulose (Enulose) 20 gm PO BID [facility] Last Admin: 01/03/18 10:14 Dose: 20 gm Levothyroxine Sodium (Synthroid) 175 mcg PO DAILY@0630 [facility] Last Admin: 01/03/18 05:55 Dose: Not Given Lorazepam (Ativan) 0.5 mg IVP Q6H PRN PRN Reason: Anxiety Last Admin: 01/03/18 14:37 Dose: 0.5 mg Oxycodone HCl (Oxycodone Immediate Release Tab) 10 mg PO Q12 PRN PRN Reason: Pain, severe (8-10) Last Admin: 01/02/18 11:17 Dose: 10 mg Polyethylene Glycol (Miralax) 17 gm PO TID [facility] Last Admin: 01/03/18 14:26 Dose: 17 gm Rosuvastatin Calcium (Crestor) 10 mg PO HS [facility] Last Admin: 01/02/18 20:59 Dose: 10 mg Tamsulosin HCl (Flomax) 0.4 mg PO DAILY [facility] Last Admin: 01/03/18 10:14 Dose: 0.4 mg Results - Vital Signs Recent Vital Signs: Last Vital Signs Temp 98.2 F 01/03/18 08:00 Pulse 107 H 01/03/18 08:00 Resp 20 01/03/18 08:00 BP 152/87 H 01/03/18 08:00 Pulse Ox 95 01/03/18 13:35 - Labs Result Diagrams: 01/03/18 07:25 01/03/18 07:25 Labs: Laboratory Results - last 24 hr 01/02/18 01/02/18 01/03/18 15:59 21:34 03:26 WBC RBC Hgb Hct MCV MCH MCHC RDW Plt Count MPV Neut % (Auto) Lymph % (Auto) [place] % (Auto) Eos % (Auto) Baso % (Auto) Neut # (Auto) Lymph # (Auto) [place] # (Auto) Eos # (Auto) Baso # (Auto) Sodium Potassium Chloride Carbon Dioxide Anion Gap BUN Creatinine Est GFR ( Amer) Est GFR (Non-Af Amer) POC Glucose (mg/dL) 343 H 379 H 295 H Random Glucose Calcium Total Bilirubin AST ALT Alkaline Phosphatase Total Protein Albumin Globulin Albumin/Globulin Ratio 01/03/18 01/03/18 01/03/18 06:24 07:25 07:25 WBC 8.0 RBC 2.87 L Hgb 8.7 L Hct 25.4 L MCV 88.5 MCH 30.2 MCHC 34.2 RDW 15.6 H Plt Count 433 H MPV 7.6 Neut % (Auto) 69.5 Lymph % (Auto) 11.1 L [place] % (Auto) 13.6 H Eos % (Auto) 5.2 H Baso % (Auto) 0.6 Neut # (Auto) 5.5 Lymph # (Auto) 0.9 L [place] # (Auto) 1.1 H Eos # (Auto) 0.4 Baso # (Auto) 0.0 Sodium 144 Potassium 4.4 Chloride 109 H Carbon Dioxide 27 Anion Gap 13 BUN 21 H Creatinine 1.5 Est GFR ( Amer) 57 Est GFR (Non-Af Amer) 47 POC Glucose (mg/dL) 268 H Random Glucose 240 H Calcium 8.6 Total Bilirubin 0.4 AST 23 ALT 14 L D Alkaline Phosphatase 114 Total Protein 6.7 Albumin 3.3 L Globulin 3.4 Albumin/Globulin Ratio 1.0 01/03/18 11:33 WBC RBC Hgb Hct MCV MCH MCHC RDW Plt Count MPV Neut % (Auto) Lymph % (Auto) [place] % (Auto) Eos % (Auto) Baso % (Auto) Neut # (Auto) Lymph # (Auto) [place] # (Auto) Eos # (Auto) Baso # (Auto) Sodium Potassium Chloride Carbon Dioxide Anion Gap BUN Creatinine Est GFR ( Amer) Est GFR (Non-Af Amer) POC Glucose (mg/dL) 360 H Random Glucose Calcium Total Bilirubin AST ALT Alkaline Phosphatase Total Protein Albumin Globulin Albumin/Globulin Ratio
--- NOTE | 2018-01-03 15:15 | CP.PCM.PN ---
Subjective - Date & Time of Evaluation Date of Evaluation: 01/03/18 Time of Evaluation: 09:00 - Subjective Subjective: clinically same Objective - Vital Signs/Intake and Output Vital Signs (last 24 hours): Temp Pulse Resp BP Pulse Ox 98.2 F 107 H 20 152/87 H 95 01/03/18 08:00 01/03/18 08:00 01/03/18 08:00 01/03/18 08:00 01/03/18 13:35 Intake and Output: 01/03/18 01/03/18 06:59 18:59 Intake Total 600 Balance 600 - Medications Medications: Current Medications Amlodipine Besylate (Norvasc) 5 mg PO DAILY [facility] Last Admin: 01/03/18 10:14 Dose: 5 mg Enoxaparin Sodium (Lovenox) 40 mg SC DAILY [facility] Last Admin: 01/03/18 10:14 Dose: 40 mg Gabapentin (Neurontin) 300 mg PO TID [facility] Last Admin: 01/03/18 14:26 Dose: 300 mg Ciprofloxacin (Cipro 200mg/100ml D5w) 100 mls @ 67 mls/hr IVPB Q12H [facility] PRN Reason: Protocol Last Admin: 01/03/18 10:15 Dose: 67 mls/hr Insulin Human Regular (Novolin R) 0 unit SC ACHS [facility] PRN Reason: Protocol Last Admin: 01/03/18 12:12 Dose: 5 unit Lactulose (Enulose) 20 gm PO BID [facility] Last Admin: 01/03/18 10:14 Dose: 20 gm Levothyroxine Sodium (Synthroid) 175 mcg PO DAILY@0630 [facility] Last Admin: 01/03/18 05:55 Dose: Not Given Lorazepam (Ativan) 0.5 mg IVP Q6H PRN PRN Reason: Anxiety Last Admin: 01/03/18 14:37 Dose: 0.5 mg Oxycodone HCl (Oxycodone Immediate Release Tab) 10 mg PO Q12 PRN PRN Reason: Pain, severe (8-10) Last Admin: 01/02/18 11:17 Dose: 10 mg Polyethylene Glycol (Miralax) 17 gm PO TID [facility] Last Admin: 01/03/18 14:26 Dose: 17 gm Rosuvastatin Calcium (Crestor) 10 mg PO HS [facility] Last Admin: 01/02/18 20:59 Dose: 10 mg Tamsulosin HCl (Flomax) 0.4 mg PO DAILY [facility] Last Admin: 01/03/18 10:14 Dose: 0.4 mg - Labs Labs: 01/03/18 07:25 01/03/18 07:25 PT 15.3 SECONDS (9.7-12.2) H 12/30/17 11:04 INR 1.4 12/30/17 11:04 APTT 29 SECONDS (21-34) 12/30/17 11:04 - Constitutional Appears: Well - Head Exam Head Exam: ATRAUMATIC, NORMAL INSPECTION, NORMOCEPHALIC - Eye Exam Eye Exam: EOMI, Normal appearance, PERRL Pupil Exam: NORMAL ACCOMODATION, PERRL - ENT Exam ENT Exam: Mucous Membranes Moist, Normal Exam - Neck Exam Neck Exam: Full ROM, Normal Inspection. absent: Lymphadenopathy - Respiratory Exam Respiratory Exam: Decreased Breath Sounds - Cardiovascular Exam Cardiovascular Exam: REGULAR RHYTHM, +S1, +S2 - GI/Abdominal Exam GI & Abdominal Exam: Soft, Diminished Bowel Sounds - Rectal Exam Rectal Exam: Deferred Assessment and Plan (1) ARF (acute renal failure) Status: Acute (2) Abdominal pain Status: Acute (3) Acute on chronic renal failure Status: Acute (4) Anasarca Status: Acute (5) Bone lesion Status: Acute (6) Constipation Status: Acute (7) Fecal impaction Status: Acute (8) HHNC (hyperglycemic hyperosmolar nonketotic coma) Status: Acute (9) History of prostate cancer Status: Acute (10) Hyperglycemia Status: Acute (11) Hyperkalemia Status: Acute (12) Knee pain, chronic Status: Acute (13) Lactic acidosis Status: Acute (14) Lung nodule Status: Acute (15) Obstructive uropathy Status: Acute (16) Prostate cancer Status: Acute (17) Prostate cancer metastatic to bone Status: Acute (18) Renal insufficiency Status: Acute (19) Sciatica Status: Acute (20) Tachycardia Status: Acute (21) UTI (urinary tract infection) Status: Acute (22) Uncontrolled hypertension Status: Acute (23) Anemia Status: Chronic (24) DM type 2 (diabetes mellitus, type 2) Status: Chronic (25) History of DVT (deep vein thrombosis) Status: Chronic (26) Hypertension Status: Chronic (27) Intractable low back pain Status: Chronic (28) Renal mass Status: Suspected
--- NOTE | 2018-01-03 17:00 | CT ---
PROCEDURE: CT Chest without contrast HISTORY: POSS LUNG NODULE COMPARISON: None. TECHNIQUE: Contiguous axial images were obtained through the chest without intravenous contrast enhancement. Sagittal and coronal reconstructions were performed. Radiation dose (DLP): 627.43 mGy-cm. This CT exam was performed using one or more of the following dose reduction techniques: Automated exposure control, adjustment of the mA and/or kV according to patient size, and/or use of iterative reconstruction technique. FINDINGS: LUNGS: There are numerous scattered bilateral upper and lower lobe pulmonary nodules, the vast majority of which are under 1 cm size. Nonenlarged and the largest appears to measure at the right apex subpleural laterally measuring 1.3 cm with an additional subpleural nodule at the upper right upper lobe and image 45 series 3 measuring 1.3 cm. Bilateral basilar dependent and compression atelectasis identified which may obscure other lesions. The central airways appear clear. The appearance these nodules nonspecific within apparent ptosis broadly consisting of infectious or inflammatory or neoplastic etiologies. However, given bony findings for described below which may indicate bony metastasis, neoplasm is favored. MEDIASTINUM: The thoracic inlet is unremarkable with the thoracic aorta normal in caliber. The main pulmonary artery appears normal in caliber. Cardiomegaly is mild with relatively extensive coronary artery atherosclerosis appreciated. Trace pericardial thickening or effusion is identified. No pulmonary vascular congestion. Mild mediastinal lymphadenopathy is appreciate including an aortopulmonary window lymph node measure 1.8 x 2.4 cm. No gross hilar adenopathy. PLEURA: Mild bilateral pleural effusion identified greater the right than left sides. BONES: Sclerotic foci are seen at the right humeral head, left 5th rib and multiple thoracic vertebral bodies suspicious for metastatic disease. UPPER ABDOMEN: Grossly unremarkable. OTHER FINDINGS: Bilateral gynecomastia. IMPRESSION: Evidence suggesting metastatic disease in the lungs, mediastinum and bony thorax. Given sclerotic foci, consider prostate cancer. Further clinical correlation is advised. Mild bilateral pleural effusions [id number].
[2018-01-04] MEDS: oxyCODONE 10 mg Immediate Release Tab PO PRN (03:20)
[2018-01-04] MEDS: Levothyroxine 175 MCG TAB PO SCH (05:41)
--- NOTE | 2018-01-04 07:29 | CP.PCM.CON ---
History of Present Illness - History of Present Illness History of Present Illness: consult dictated ENCEPHALOPATHY TOXIC/ELECTROLYTES/MELEGNANT PROCESS/ICTAL PROCESS PARAPARESIS R/O CORD COMPRESSION MRI/BLADDER SONO EEG CONTINUE PER ORDERS Past Patient History - Infectious Disease Hx of Infectious Diseases: None - Past Medical History & Family History Past Medical History?: Yes - Past Social History Smoking Status: Never Smoked - CARDIAC Hx Hypercholesterolemia: Yes Hx Hypertension: Yes - PULMONARY Hx Respiratory Disorders: No - NEUROLOGICAL Hx Neurological Disorder: No - HEENT Hx HEENT Problems: No - RENAL Hx Chronic Kidney Disease: Yes - ENDOCRINE/METABOLIC Hx Hypothyroidism: Yes - HEMATOLOGICAL/ONCOLOGICAL Hx Anemia: Yes - INTEGUMENTARY Hx Dermatological Problems: No - MUSCULOSKELETAL/RHEUMATOLOGICAL Hx Arthritis: Yes - GASTROINTESTINAL Hx Gastrointestinal Disorders: No - GENITOURINARY/GYNECOLOGICAL Hx Genitourinary Disorders: Yes (prostate ca) Hx Prostate Cancer: Yes Other/Comment: Renal Cancer. Spinal Cancer - PSYCHIATRIC Hx Substance Use: No - SURGICAL HISTORY Hx Surgeries: Yes Other/Comment: Umbilical hernia repair - ANESTHESIA Hx Anesthesia: Yes Hx Anesthesia Reactions: No Meds Allergies/Adverse Reactions: Allergies Allergy/AdvReac Type Severity Reaction Status Date / Time No Known Allergies Allergy Verified 12/30/17 10:30 - Medications Medications: Current Medications Amlodipine Besylate (Norvasc) 5 mg PO DAILY [facility] Last Admin: 01/03/18 10:14 Dose: 5 mg Enoxaparin Sodium (Lovenox) 40 mg SC DAILY [facility] Last Admin: 01/03/18 10:14 Dose: 40 mg Gabapentin (Neurontin) 300 mg PO TID [facility] Last Admin: 01/03/18 17:20 Dose: 300 mg Ciprofloxacin (Cipro 200mg/100ml D5w) 100 mls @ 67 mls/hr IVPB Q12H [facility] PRN Reason: Protocol Last Admin: 01/03/18 21:24 Dose: 67 mls/hr Insulin Human Regular (Novolin R) 0 unit SC ACHS [facility] PRN Reason: Protocol Last Admin: 01/03/18 21:30 Dose: Not Given Lactulose (Enulose) 20 gm PO BID [facility] Last Admin: 01/03/18 17:20 Dose: 20 gm Levothyroxine Sodium (Synthroid) 175 mcg PO DAILY@0630 [facility] Last Admin: 01/04/18 05:41 Dose: 175 mcg Lorazepam (Ativan) 0.5 mg IVP Q6H PRN PRN Reason: Anxiety Last Admin: 01/03/18 21:23 Dose: 0.5 mg Oxycodone HCl (Oxycodone Immediate Release Tab) 10 mg PO Q12 PRN PRN Reason: Pain, severe (8-10) Last Admin: 01/04/18 03:20 Dose: 10 mg Polyethylene Glycol (Miralax) 17 gm PO TID [facility] Last Admin: 01/03/18 17:20 Dose: 17 gm Rosuvastatin Calcium (Crestor) 10 mg PO HS [facility] Last Admin: 01/03/18 21:24 Dose: 10 mg Sodium Phosphate (Fleet Enema) 135 ml [place] ONCE PRN PRN Reason: Constipation Last Admin: 01/03/18 19:51 Dose: 135 ml Tamsulosin HCl (Flomax) 0.4 mg PO DAILY [facility] Last Admin: 01/03/18 10:14 Dose: 0.4 mg Results - Vital Signs Recent Vital Signs: Last Vital Signs Temp 98.1 F 01/03/18 23:05 Pulse 118 H 01/03/18 23:05 Resp 20 01/03/18 23:05 BP 164/94 H 01/03/18 23:05 Pulse Ox 97 01/03/18 23:05 - Labs Result Diagrams: 01/03/18 07:25 01/03/18 07:25 Labs: Laboratory Results - last 24 hr 01/03/18 01/03/18 01/03/18 07:25 07:25 11:33 WBC 8.0 RBC 2.87 L Hgb 8.7 L Hct 25.4 L MCV 88.5 MCH 30.2 MCHC 34.2 RDW 15.6 H Plt Count 433 H MPV 7.6 Neut % (Auto) 69.5 Lymph % (Auto) 11.1 L [place] % (Auto) 13.6 H Eos % (Auto) 5.2 H Baso % (Auto) 0.6 Neut # (Auto) 5.5 Lymph # (Auto) 0.9 L [place] # (Auto) 1.1 H Eos # (Auto) 0.4 Baso # (Auto) 0.0 Sodium 144 Potassium 4.4 Chloride 109 H Carbon Dioxide 27 Anion Gap 13 BUN 21 H Creatinine 1.5 Est GFR ( Amer) 57 Est GFR (Non-Af Amer) 47 POC Glucose (mg/dL) 360 H Random Glucose 240 H Calcium 8.6 Total Bilirubin 0.4 AST 23 ALT 14 L D Alkaline Phosphatase 114 Total Protein 6.7 Albumin 3.3 L Globulin 3.4 Albumin/Globulin Ratio 1.0 01/03/18 01/03/18 01/04/18 15:59 21:30 06:19 WBC RBC Hgb Hct MCV MCH MCHC RDW Plt Count MPV Neut % (Auto) Lymph % (Auto) [place] % (Auto) Eos % (Auto) Baso % (Auto) Neut # (Auto) Lymph # (Auto) [place] # (Auto) Eos # (Auto) Baso # (Auto) Sodium Potassium Chloride Carbon Dioxide Anion Gap BUN Creatinine Est GFR ( Amer) Est GFR (Non-Af Amer) POC Glucose (mg/dL) 378 H 230 H 328 H Random Glucose Calcium Total Bilirubin AST ALT Alkaline Phosphatase Total Protein Albumin Globulin Albumin/Globulin Ratio
[2018-01-04 08:10] LABS: BASO # 0.1 K/uL (0.0-0.2); BASO % 0.7 % (0.0-2.0); EOS # 0.4 K/uL (0.0-0.7); EOS % 3.3 % (0.0-4.0); HEMOGLOBIN 9.4 g/dL (12.0-18.0); LYMPH % 18.9 % (20.0-40.0); MEAN CELL VOLUME 88.8 fL (80.0-94.0); MEAN CORPUSCULAR HEMOGLOBIN 29.9 pg (27.0-31.0); MEAN CORPUSCULAR HGB CONC 33.6 g/dL (33.0-37.0); MEAN PLATELET VOLUME 7.6 fL (7.2-11.7); MONO # 1.1 K/uL (0.0-0.8); MONO % 10.3 % (0.0-10.0); NEUT # 7.1 K/uL (1.8-7.0); NEUT % 66.8 % (50.0-75.0); NRBC % 0.1 % (0.0-2.0); RBC 3.13 Mil/uL (4.40-5.90); RED CELL DISTRIBUTION WIDTH 16.1 % (11.5-14.5); WHITE BLOOD COUNT 10.6 K/uL (4.8-10.8)
[2018-01-04 08:33] LABS: ALB/GLOB RATIO 0.9 (1.0-2.1); ALBUMIN 3.2 g/dL (3.5-5.0); ALT/SGPT 15 U/L (21-72); AST/SGOT 26 U/L (17-59); BLOOD UREA NITROGEN 17 mg/dL (9-20); CALCIUM 9.1 mg/dl (8.6-10.4); GFR AFRICAN-AMERICAN > 60; GFR NON-AFRICAN AMERICAN 51
[2018-01-04 08:40] LABS: FREE T4 2.29 ng/dL (0.78-2.19)
[2018-01-04] MEDS: (Novolin R) Insulin Human Regular 100 units/ml vial SC SCH ×4 (08:46→22:15)
[2018-01-04] MEDS: Ciprofloxacin 200mg/100ml D5W 100 ML IVPB SCH ×2 (10:03→22:13)
[2018-01-04] MEDS: Enoxaparin 40 mg Syringe SC SCH (10:04)
[2018-01-04] MEDS: POLYETHYLENE GLYCOL 3350 17 GM/Dose PACKET PO SCH ×3 (10:04→18:30)
--- NOTE | 2018-01-04 10:49 | PCM.URO ---
Urology Progress Note - General General: Tolerating Diet - Subjective Abdominal Pain: Yes Flank Pain: No Nausea: No Vomiting: No Voiding Well: No (urinary retention this AM) Hematuria: No Weak Stream: Yes Chest Pain: No Fever & Chills: No - Objective Lab Results Last 24 Hours: Laboratory Results - last 24 hr 01/03/18 01/03/18 01/03/18 11:33 15:59 21:30 WBC RBC Hgb Hct MCV MCH MCHC RDW Plt Count MPV Neut % (Auto) Lymph % (Auto) [place] % (Auto) Eos % (Auto) Baso % (Auto) Neut # (Auto) Lymph # (Auto) [place] # (Auto) Eos # (Auto) Baso # (Auto) ESR Sodium Potassium Chloride Carbon Dioxide Anion Gap BUN Creatinine Est GFR ( Amer) Est GFR (Non-Af Amer) POC Glucose (mg/dL) 360 H 378 H 230 H Random Glucose Hemoglobin A1c Calcium Total Bilirubin AST ALT Alkaline Phosphatase Ammonia C-React Prot High Sens Total Protein Albumin Globulin Albumin/Globulin Ratio Prostate Specific Ag Free T4 TSH 3rd Generation 01/04/18 01/04/18 01/04/18 06:19 08:02 08:02 WBC 10.6 RBC 3.13 L Hgb 9.4 L Hct 27.8 L MCV 88.8 MCH 29.9 MCHC 33.6 RDW 16.1 H Plt Count 492 H MPV 7.6 Neut % (Auto) 66.8 Lymph % (Auto) 18.9 L [place] % (Auto) 10.3 H Eos % (Auto) 3.3 Baso % (Auto) 0.7 Neut # (Auto) 7.1 H Lymph # (Auto) 2.0 [place] # (Auto) 1.1 H Eos # (Auto) 0.4 Baso # (Auto) 0.1 ESR Sodium 143 Potassium 4.5 Chloride 105 Carbon Dioxide 27 Anion Gap 16 BUN 17 Creatinine 1.4 Est GFR ( Amer) > 60 Est GFR (Non-Af Amer) 51 POC Glucose (mg/dL) 328 H Random Glucose 317 H Hemoglobin A1c Calcium 9.1 Total Bilirubin 0.5 AST 26 ALT 15 L Alkaline Phosphatase 145 H D Ammonia C-React Prot High Sens Total Protein 6.9 Albumin 3.2 L Globulin 3.7 Albumin/Globulin Ratio 0.9 L Prostate Specific Ag Free T4 TSH 3rd Generation 01/04/18 01/04/18 01/04/18 08:02 08:02 08:02 WBC RBC Hgb Hct MCV MCH MCHC RDW Plt Count MPV Neut % (Auto) Lymph % (Auto) [place] % (Auto) Eos % (Auto) Baso % (Auto) Neut # (Auto) Lymph # (Auto) [place] # (Auto) Eos # (Auto) Baso # (Auto) ESR 116 H Sodium Potassium Chloride Carbon Dioxide Anion Gap BUN Creatinine Est GFR ( Amer) Est GFR (Non-Af Amer) POC Glucose (mg/dL) Random Glucose Hemoglobin A1c Calcium Total Bilirubin AST ALT Alkaline Phosphatase 147 H Ammonia < 9 L C-React Prot High Sens Total Protein Albumin Globulin Albumin/Globulin Ratio Prostate Specific Ag > 1000 H Free T4 TSH 3rd Generation 01/04/18 01/04/18 08:02 08:02 WBC RBC Hgb Hct MCV MCH MCHC RDW Plt Count MPV Neut % (Auto) Lymph % (Auto) [place] % (Auto) Eos % (Auto) Baso % (Auto) Neut # (Auto) Lymph # (Auto) [place] # (Auto) Eos # (Auto) Baso # (Auto) ESR Sodium Potassium Chloride Carbon Dioxide Anion Gap BUN Creatinine Est GFR ( Amer) Est GFR (Non-Af Amer) POC Glucose (mg/dL) Random Glucose Hemoglobin A1c 8.8 H Calcium Total Bilirubin AST ALT Alkaline Phosphatase Ammonia C-React Prot High Sens > 15.00 H Total Protein Albumin Globulin Albumin/Globulin Ratio Prostate Specific Ag Free T4 2.29 H TSH 3rd Generation 5.68 H Intake & Output: Intake & Output 01/03/18 01/04/18 01/04/18 18:59 06:59 18:59 Output Total 1700 Balance -1700 Output: Urine 1700 Urethral ([place]) 1200 Urine, Voided 500 Other: # Voids Urine, Voided 3 # Bowel Movements 1 Vital Signs: Vital Signs - 24 hr 01/03/18 01/03/18 01/03/18 13:35 15:00 16:45 Temperature 97.2 F L Pulse Rate 110 H Respiratory 20 Rate Blood Pressure 156/86 H O2 Sat by Pulse 95 96 99 Oximetry 01/03/18 01/04/18 23:05 07:20 Temperature 98.1 F 97.6 F Pulse Rate 118 H 105 H Respiratory 20 20 Rate Blood Pressure 164/94 H 149/83 O2 Sat by Pulse 97 97 Oximetry - Physical Exam Abdominal Exam: Soft, Non-Tender. absent: Non-Distended Back: No CVA Tenderness Genitalia: Without Inflammation Urinary Catheter Draining Well: Yes Urine Color: Clear, Yellow - Male Phallus: Normal - Plan Catheter Care: Yes Intake & Output: Yes Additional Information: IMP: prostate cancer. urinary retention. Rec: PSA, Testosterone. Catheter in place. Poss further rx t/f - Date & Time of Note Date: 01/04/18 Time: 10:49
[2018-01-04] MEDS ORDERED: DiphenhydrAMINE 50 mg/ml Inj IVP STA (13:30)
--- NOTE | 2018-01-04 14:15 | CP.PCM.PN ---
Subjective - Date & Time of Evaluation Date of Evaluation: 01/04/18 Time of Evaluation: 09:40 - Subjective Subjective: clinically same Objective - Vital Signs/Intake and Output Vital Signs (last 24 hours): Temp Pulse Resp BP Pulse Ox 97.6 F 105 H 20 149/83 97 01/04/18 07:20 01/04/18 07:20 01/04/18 07:20 01/04/18 07:20 01/04/18 07:20 Intake and Output: 01/04/18 01/04/18 06:59 18:59 Output Total 1700 Balance -1700 - Medications Medications: Current Medications Amlodipine Besylate (Norvasc) 5 mg PO DAILY [facility] Last Admin: 01/04/18 10:02 Dose: 5 mg Enoxaparin Sodium (Lovenox) 40 mg SC DAILY [facility] Last Admin: 01/04/18 10:04 Dose: 40 mg Gabapentin (Neurontin) 300 mg PO TID [facility] Last Admin: 01/04/18 13:18 Dose: 300 mg Ciprofloxacin (Cipro 200mg/100ml D5w) 100 mls @ 67 mls/hr IVPB Q12H [facility] [place] PRN Reason: Protocol Last Admin: 01/04/18 10:03 Dose: 67 mls/hr Insulin Human Regular (Novolin R) 0 unit SC ACHS [facility] [place] PRN Reason: Protocol Last Admin: 01/04/18 12:44 Dose: 6 unit Lactulose (Enulose) 20 gm PO BID [facility] Last Admin: 01/04/18 10:02 Dose: 20 gm Levothyroxine Sodium (Synthroid) 175 mcg PO DAILY@0630 [facility] [place] Last Admin: 01/04/18 05:41 Dose: 175 mcg Lorazepam (Ativan) 0.5 mg IVP Q6H PRN PRN Reason: Anxiety Last Admin: 01/03/18 21:23 Dose: 0.5 mg Polyethylene Glycol (Miralax) 17 gm PO TID [facility] Last Admin: 01/04/18 13:18 Dose: 17 gm Rosuvastatin Calcium (Crestor) 10 mg PO HS [facility] Last Admin: 01/03/18 21:24 Dose: 10 mg Sodium Phosphate (Fleet Enema) 135 ml [place] ONCE PRN PRN Reason: Constipation Last Admin: 01/03/18 19:51 Dose: 135 ml Tamsulosin HCl (Flomax) 0.4 mg PO DAILY [facility] [place] Last Admin: 01/04/18 10:08 Dose: 0.4 mg - Labs Labs: 01/04/18 08:02 01/04/18 08:02 PT 15.3 SECONDS (9.7-12.2) H 12/30/17 11:04 INR 1.4 12/30/17 11:04 APTT 29 SECONDS (21-34) 12/30/17 11:04 - Constitutional Appears: Well - Head Exam Head Exam: ATRAUMATIC, NORMAL INSPECTION, NORMOCEPHALIC - Eye Exam Eye Exam: EOMI, Normal appearance, PERRL Pupil Exam: NORMAL ACCOMODATION, PERRL - ENT Exam ENT Exam: Mucous Membranes Moist, Normal Exam - Neck Exam Neck Exam: Full ROM, Normal Inspection. absent: Lymphadenopathy - Respiratory Exam Respiratory Exam: Decreased Breath Sounds - Cardiovascular Exam Cardiovascular Exam: REGULAR RHYTHM, +S1, +S2 - GI/Abdominal Exam GI & Abdominal Exam: Soft, Diminished Bowel Sounds - Rectal Exam Rectal Exam: Deferred Assessment and Plan (1) ARF (acute renal failure) Status: Acute (2) Abdominal pain Status: Acute (3) Acute on chronic renal failure Status: Acute (4) Anasarca Status: Acute (5) Bone lesion Status: Acute (6) Constipation Status: Acute (7) Fecal impaction Status: Acute (8) HHNC (hyperglycemic hyperosmolar nonketotic coma) Status: Acute (9) History of prostate cancer Status: Acute (10) Hyperglycemia Status: Acute (11) Hyperkalemia Status: Acute (12) Knee pain, chronic Status: Acute (13) Lactic acidosis Status: Acute (14) Lung nodule Status: Acute (15) Obstructive uropathy Status: Acute (16) Prostate cancer Status: Acute (17) Prostate cancer metastatic to bone Status: Acute (18) Renal insufficiency Status: Acute (19) Sciatica Status: Acute (20) Tachycardia Status: Acute (21) UTI (urinary tract infection) Status: Acute (22) Uncontrolled hypertension Status: Acute (23) Anemia Status: Chronic (24) DM type 2 (diabetes mellitus, type 2) Status: Chronic (25) History of DVT (deep vein thrombosis) Status: Chronic (26) Hypertension Status: Chronic (27) Intractable low back pain Status: Chronic (28) Renal mass Status: Suspected
--- NOTE | 2018-01-04 16:44 | MRI ---
PROCEDURE: MRI BRAIN WITHOUT CONTRAST HISTORY: Metastasis. COMPARISON: None. TECHNIQUE: Multiplanar, multisequence MR images of the brain were obtained without intravenous contrast enhancement. Note the examination is limited by motion artifact. FINDINGS: HEMORRHAGE: No acute parenchymal, subarachnoid or extra-axial hemorrhage. . There is a discrete rounded focus of very dark T2 signal in the left posterior frontal cortex at ingested above the level of the lateral ventricles which could represent a calcification or possibly a hemosiderin deposit. Followup noncontrast CT scan of the brain could be performed to further characterize this area. DWI: No evidence of an acute or early subacute infarction seen on diffusion imaging. BRAIN PARENCHYMA: . No obvious parenchymal nor extra-axial mass or collection seen on this limited noncontrast study further degraded by motion artifact. Suspect minor chronic periventricular white matter ischemic changes. Moderate generalized volume loss. VENTRICLES: No obstructive hydrocephalus. CRANIUM: No definitive evidence of skull metastases so far as can be seen on this very limited study. ORBITS: Orbits and contents grossly unremarkable. PARANASAL SINUSES/MASTOIDS: Mild mucosal thickening within the sphenoid sinus with minimal mucosal thickening within several ethmoid air cells. VASCULAR SYSTEM: The visualized major vascular flow voids at skull base patent. OTHER FINDINGS: None. IMPRESSION: Very limited motion degraded study. No evidence of acute intracranial hemorrhage. Questionable cortical calcification and/or hemosiderin deposit left posterior frontal region. Followup CT scan recommended. . Suspect minor chronic periventricular white matter ischemic changes. Moderate generalized volume loss. No obvious on parenchymal nor extra-axial masses or collections seen on this limited noncontrast study further degraded by motion artifact.
--- NOTE | 2018-01-04 16:53 | MRI ---
PROCEDURE: MRI lumbar spine dated 01/04/2018 HISTORY: Cauda equina syndrome. COMPARISON: Correlation made with bone scan 12/31/2017. TECHNIQUE: Multiecho multiplanar sequences were performed through the lumbar spine without the use of intravenous contrast. FINDINGS: The at current study reveals multiple on focal areas of prolonged T1 and T2 signal scattered throughout the lumbar and sacral segments consistent with metastasis. . There is a pathologic fracture of the L3 segment with retropulsion of the posterior cortex that results in very severe canal stenosis and compression of the thecal sac and intrathecal nerve roots of the cauda equina. . There is tumor involvement of the posterior elements of this vertebral body segment and with less significant infiltration changes in additional segments. . There is also a mild canal narrowing at the L2-L3 and L3-L4 disc space levels due to disc space narrowing attributed to the to the aforementioned compression deformity. The remaining vertebral bodies otherwise exhibit normal stature. Mild multilevel degenerative spondylosis. Changes include varying degrees of mild age related disc desiccation. Remaining disc space heights are relatively maintained dome minor broad-based bulging of the posterior annuli seen at several levels extending into the proximal inferior margins of both exit foramina. . The facet joints are mildly hypertrophic. The overall central bony canal at the remaining levels appear adequate. Varying degrees of bilateral foraminal stenosis due to the aforementioned disc bulging and facet overgrowth. IMPRESSION: Diffuse metastatic disease with complete compression fracture of the L3 segment resulting in severe central canal stenosis and compression of the thecal sac/ intrathecal nerve roots of the cauda equina. Note these findings were discussed with Dr. Witt at approximately 4:44 p.m. with written down and read back verification.
--- NOTE | 2018-01-04 17:01 | MRI ---
PROCEDURE: MRI thoracic spine dated 01/04/2018 HISTORY: Cord compression COMPARISON: Comparison made with CT scan of the chest 01/03/2018 which also imaged the thoracic spine in 3 planes. TECHNIQUE: Multiecho multiplanar sequences were performed through the thoracic spine without the use of intravenous contrast. . Examination is limited by motion artifact FINDINGS: The current study re- demonstrates multiple metastatic lesions throughout the thoracic spine. There are no acute compression fractures the nor retropulsed fragments. No evidence of obvious epidural tumor extension seen on this limited noncontrast on motion degraded study. Multilevel degenerative spondylosis. Changes include disc desiccation, disc space narrowing and varying degrees of disc bulge disc herniation complexes throughout though on more notably involving the mid to lower thoracic segments and the most significant of which occurs at the T9-T10 level where there is mild compression of the ventral surface of the thecal sac and spinal cord. Mild compressive effects along the anterolateral borders of the thecal sac seen at the remaining levels with no other significant cord compression identified. . No definitive intrinsic signal changes are seen within the visualized spinal cord so far as can be seen though the exam is quite limited by motion artifact. OTHER FINDINGS: Note made of bilateral effusions which were described on prior exam. IMPRESSION: There are multiple metastatic lesions throughout the thoracic spine with no definitive evidence of acute compression fractures no retropulsed fragments. No obvious epidural tumor extension seen at this time. Multilevel degenerative spondylosis most notably affecting the T9-T10 level where there is mild focal cord compression by a central and bilateral disc herniation. .
--- NOTE | 2018-01-04 17:54 | CP.PCM.PN ---
Subjective - Date & Time of Evaluation Date of Evaluation: 01/04/18 Time of Evaluation: 11:20 - Subjective Subjective: Reason for Consult - Lung nodule Patient seen and examined at bedside and was in no apparent distress, but markedly confused compared to yesterday. Patient moved to new room with one-to- one monitoring and with head restraints on. Patient not agitated at the time of visit. CT done yesterday (01/03) showed numerous upper/lower lobe pulmonary nodules, likely metastatic from the primary prostate cancer. Patient is still saturating well at 97% on room air. Patient denies chest pain and shortness of breath. Assessment/Plan 1. Lung metastases/Pleural effusion Patient currently without pulmonary complaints. Follow-up with oncology recommendations thoracentesis by IR Objective - Vital Signs/Intake and Output Vital Signs (last 24 hours): Temp Pulse Resp BP Pulse Ox 98.1 F 91 H 21 166/95 H 97 01/04/18 16:00 01/04/18 16:00 01/04/18 16:00 01/04/18 16:00 01/04/18 16:00 Intake and Output: 01/04/18 01/04/18 06:59 18:59 Output Total 1700 Balance -1700 - Medications Medications: Current Medications Amlodipine Besylate (Norvasc) 5 mg PO DAILY [facility] Last Admin: 01/04/18 10:02 Dose: 5 mg Enoxaparin Sodium (Lovenox) 40 mg SC DAILY [facility] Last Admin: 01/04/18 10:04 Dose: 40 mg Gabapentin (Neurontin) 300 mg PO TID [facility] Last Admin: 01/04/18 13:18 Dose: 300 mg Ciprofloxacin (Cipro 200mg/100ml D5w) 100 mls @ 67 mls/hr IVPB Q12H [facility] PRN Reason: Protocol Last Admin: 01/04/18 10:03 Dose: 67 mls/hr Insulin Human Regular (Novolin R) 0 unit SC ACHS [facility] PRN Reason: Protocol Last Admin: 01/04/18 12:44 Dose: 6 unit Lactulose (Enulose) 20 gm PO BID [facility] Last Admin: 01/04/18 10:02 Dose: 20 gm Levothyroxine Sodium (Synthroid) 175 mcg PO DAILY@0630 [facility] Last Admin: 01/04/18 05:41 Dose: 175 mcg Lorazepam (Ativan) 0.5 mg IVP Q6H PRN PRN Reason: Anxiety Last Admin: 01/03/18 21:23 Dose: 0.5 mg Pantoprazole Sodium (Protonix Inj) 40 mg IVP DAILY [facility] Polyethylene Glycol (Miralax) 17 gm PO TID [facility] Last Admin: 01/04/18 13:18 Dose: 17 gm Rosuvastatin Calcium (Crestor) 10 mg PO HS [facility] Last Admin: 01/03/18 21:24 Dose: 10 mg Sodium Phosphate (Fleet Enema) [address] ONCE PRN PRN Reason: Constipation Last Admin: 01/03/18 19:51 Dose: 135 ml Tamsulosin HCl (Flomax) 0.4 mg PO DAILY [facility] Last Admin: 01/04/18 10:08 Dose: 0.4 mg - Labs Labs: 01/04/18 08:02 01/04/18 08:02 PT 15.3 SECONDS (9.7-12.2) H 12/30/17 11:04 INR 1.4 12/30/17 11:04 APTT 29 SECONDS (21-34) 12/30/17 11:04
[2018-01-04] MEDS: SODIUM CHLORIDE 0.9% IV SCH (18:29)
[2018-01-04] MEDS: DEXAMETHASONE IV SCH (18:29)
--- NOTE | 2018-01-04 18:57 | CON ---
DATE: 01/04/2018 The patient was admitted with lower back pain, being found with change in mental status. From neurological point of view, I was called in to evaluate him for further management. HISTORY OF PRESENT ILLNESS: Mr. aBkari Sanchez is a 67-year-old right-handed obese male being admitted for his lower back pain, being found with change in mental status. No history of fall. No history of trauma to his head. No history of involuntary movements or loss of consciousness as per the documentation or witness. However, he has a urinary incontinence, being placed with a Escamilla catheter at present. No clear history of baseline activities at home. From the history, the patient was found to be having lower back pain for the last more than two months. No history of headache. No history of visual or bulbar dysfunction, or focal weakness. The patient was found to have urinary tract infection and history of metastatic prostate cancer. PAST MEDICAL HISTORY: Anemia, arthritis, diabetes, deep vein thrombosis, hypertension, hypercholesterolemia, hypothyroidism, chronic kidney disease. PERSONAL HISTORY: He uses alcohol. No history of smoking history. REVIEW OF SYSTEMS: A 12-point system being reviewed from neuro, change in mental status. MEDICATIONS: Cipro, Crestor, , Flomax, Lovenox, Neurontin, MiraLAX, Novolin, and Synthroid. PHYSICAL EXAMINATION: VITAL SIGNS: Blood pressure 164/94, mean artery pressure of 117, respiratory rate 18, temperature 98.1, with a pulse rate of 118. NECK: Supple with no carotid bruits. HEART: Heart sounds tachycardic. EXTREMITIES: 1+ pitting edema on both sides. The left leg is externally rotated. NEUROLOGIC EXAMINATION: The patient is awake, alert, oriented to person only. He follows one-step command, significant right and left confusion. Speech is fluent, at times make no sense. He moves all four extremities, arm more than his legs. Cranial nerve examination: Visual field respond to visual threat. Pupils reactive to light. Extraocular movements intact. No facial sensory deficit. No facial asymmetry. Hearing seems to be intact. Tongue is moist. Motor examination: He moves all four extremities, arms more than his legs. Left leg is externally rotated. Deep tendon reflexes absent. Plantars are equivocal response on the right side, left side was upgoing. Sensory examination: He could appreciate pain on both sides equally and position sense is intact. Coordination: He is uncooperative to assess his coordination and gait is deferred at this time because of leg weakness. WORKUP: CT of the chest showed pulmonary nodules with pleural effusion. Bone scan showed multiple bony mets including throughout the spine, pelvis, and scapula. Blood workup; WBC 8, hemoglobin 8.7, hematocrit 25.4, platelets 433. Sodium 144, potassium 4.4, chloride 109, bicarbonate 27, BUN 21, creatinine 1.5, GFR is 47, glucose 328, calcium 8.6, ALT 14. Urinalysis not available. CONCLUSION: 1. Mr. Bakari Sanchez has been as per neurological examination presenting with global cerebral dysfunction manifesting with possible toxic encephalopathy secondary to his underlying malignant process. This could be central nervous system process, rule out any bony metastasis as well as brain metastasis. 2. 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 3. 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 4. Significant peripheral neuropathy related to his underlying diabetes mellitus and kidney disease. RECOMMENDATIONS: 1. Fall precaution, seizure precaution. 2. Proper hydration. 3. Blood workup as per the order. 4. MRI of the brain to rule out any space-occupying lesion. 5. Electroencephalogram to rule out any paroxysmal activities. 6. The patient should have a bladder sonogram to rule out any residual urine. 7. The patient should have MRI of the spine to rule out spinal cord compression. 8. The patient will be given Ativan on a p.r.n. basis with low dose of Haldol for his change in mental status, for combativeness as well as agitation on a p.r.n. basis. The patient will be followed closely with you. Rafal Witt MD
--- NOTE | 2018-01-04 20:00 | CP.PCM.CON ---
History of Present Illness - History of Present Illness History of Present Illness: History from my old records- 68 yo man with a history of prostate cancer, treated with seed implants and ? EBRT several years ago, presented to my office in 2016 with c/o severe pain in the lower back, radiating down left leg, weight loss of 30 lbs, work up including labs, MRI spine and PET scan revealing metastatic prostate cancer to spine, retroperitoneal LN, L3 vertebral body, increased PSa. The patient had difficulty accepting his diagnosis, became paranoid about involvement of family in his care, but eventually agreed to start hormonal therapy with Lupron, Casodex, iv Zometa, with significant and rapid improvement in pain, improved appetite, weight gain and decreased PSA. After 3 months of treatment, he declined any more treatments, said he felt better and wanted to go back to work. There was no follow up since until 2 weeks ago when his and sister came to the office with the patient in a wheelchair after a lengthy hospitalization in [facility], where work up showed severe compression deformity of L3, progressive, extensive bone mets, increased retroperitoneal lymph nodes and a renal mass as well. He also developed a DVT and has been on Eliquis and Decadron along with his other meds. The patient was discharged with the recommendation that he get radiation therapy. Janelle had a lengthy discussion with the patient and family regarding treatments - radiation, hormonal, chemo/antiandrogen therapy, patient initially said he was scared to start any treatment, then agreed. Unclear if the patient has a clear understanding of the advanced/terminal nature of the cancer and that treatments while palliative can prolong survival. Unfortunately because of the most likely irreversible nature of the paraparesis , the QOL from any treatment is poor. Doubt that local RT(no mass lesion) or decompression surgery at this late stage will add any benefit. Past Patient History - Infectious Disease Hx of Infectious Diseases: None - Past Medical History & Family History Past Medical History?: Yes - Past Social History Smoking Status: Never Smoked - CARDIAC Hx Hypercholesterolemia: Yes Hx Hypertension: Yes - PULMONARY Hx Respiratory Disorders: No - NEUROLOGICAL Hx Neurological Disorder: No - HEENT Hx HEENT Problems: No - RENAL Hx Chronic Kidney Disease: Yes - ENDOCRINE/METABOLIC Hx Hypothyroidism: Yes - HEMATOLOGICAL/ONCOLOGICAL Hx Anemia: Yes - INTEGUMENTARY Hx Dermatological Problems: No - MUSCULOSKELETAL/RHEUMATOLOGICAL Hx Arthritis: Yes - GASTROINTESTINAL Hx Gastrointestinal Disorders: No - GENITOURINARY/GYNECOLOGICAL Hx Genitourinary Disorders: Yes (prostate ca) Hx Prostate Cancer: Yes Other/Comment: Renal Cancer. Spinal Cancer - PSYCHIATRIC Hx Substance Use: No - SURGICAL HISTORY Hx Surgeries: Yes Other/Comment: Umbilical hernia repair - ANESTHESIA Hx Anesthesia: Yes Hx Anesthesia Reactions: No Meds Allergies/Adverse Reactions: Allergies Allergy/AdvReac Type Severity Reaction Status Date / Time No Known Allergies Allergy Verified 12/30/17 10:30 - Medications Medications: Current Medications Amlodipine Besylate (Norvasc) 5 mg PO DAILY [facility] Last Admin: 01/04/18 10:02 Dose: 5 mg Dexamethasone (Decadron Inj) 8 mg IV Q6H [facility] Enoxaparin Sodium (Lovenox) 40 mg SC DAILY [facility] Last Admin: 01/04/18 10:04 Dose: 40 mg Gabapentin (Neurontin) 300 mg PO TID [facility] Last Admin: 01/04/18 18:30 Dose: 300 mg Ciprofloxacin (Cipro 200mg/100ml D5w) 100 mls @ 67 mls/hr IVPB Q12H [facility] PRN Reason: Protocol Last Admin: 01/04/18 10:03 Dose: 67 mls/hr Dexamethasone 25 mg/ Sodium (Chloride) 52.5 mls @ 100 mls/hr IV Q6H [facility] Stop: 01/05/18 06:32 Last Admin: 01/04/18 18:29 Dose: 100 mls/hr Insulin Human Regular (Novolin R) 0 unit SC ACHS [facility] PRN Reason: Protocol Last Admin: 01/04/18 18:30 Dose: 3 unit Lactulose (Enulose) 20 gm PO BID [facility] Last Admin: 01/04/18 18:30 Dose: 20 gm Levothyroxine Sodium (Synthroid) 175 mcg PO DAILY@0630 [facility] Last Admin: 01/04/18 05:41 Dose: 175 mcg Lorazepam (Ativan) 0.5 mg IVP Q6H PRN PRN Reason: Anxiety Last Admin: 01/03/18 21:23 Dose: 0.5 mg Pantoprazole Sodium (Protonix Inj) 40 mg IVP DAILY [facility] Polyethylene Glycol (Miralax) 17 gm PO TID [facility] Last Admin: 01/04/18 18:30 Dose: 17 gm Rosuvastatin Calcium (Crestor) 10 mg PO HS [facility] Last Admin: 01/03/18 21:24 Dose: 10 mg Sodium Phosphate (Fleet Enema) 135 ml [place] ONCE PRN PRN Reason: Constipation Last Admin: 01/03/18 19:51 Dose: 135 ml Tamsulosin HCl (Flomax) 0.4 mg PO DAILY [facility] Last Admin: 01/04/18 10:08 Dose: 0.4 mg Results - Vital Signs Recent Vital Signs: Last Vital Signs Temp 98.1 F 01/04/18 16:00 Pulse 91 H 01/04/18 16:00 Resp 21 01/04/18 16:00 BP 166/95 H 01/04/18 16:00 Pulse Ox 97 01/04/18 16:00 - Labs Result Diagrams: 01/04/18 08:02 01/04/18 08:02 Labs: Laboratory Results - last 24 hr 01/03/18 01/04/18 01/04/18 21:30 06:19 08:02 WBC 10.6 RBC 3.13 L Hgb 9.4 L Hct 27.8 L MCV 88.8 MCH 29.9 MCHC 33.6 RDW 16.1 H Plt Count 492 H MPV 7.6 Neut % (Auto) 66.8 Lymph % (Auto) 18.9 L [place] % (Auto) 10.3 H Eos % (Auto) 3.3 Baso % (Auto) 0.7 Neut # (Auto) 7.1 H Lymph # (Auto) 2.0 [place] # (Auto) 1.1 H Eos # (Auto) 0.4 Baso # (Auto) 0.1 ESR Sodium Potassium Chloride Carbon Dioxide Anion Gap BUN Creatinine Est GFR ( Amer) Est GFR (Non-Af Amer) POC Glucose (mg/dL) 230 H 328 H Random Glucose Hemoglobin A1c Calcium Total Bilirubin AST ALT Alkaline Phosphatase Ammonia C-React Prot High Sens Total Protein Albumin Globulin Albumin/Globulin Ratio Prostate Specific Ag Free T4 TSH 3rd Generation RPR 01/04/18 01/04/18 01/04/18 08:02 08:02 08:02 WBC RBC Hgb Hct MCV MCH MCHC RDW Plt Count MPV Neut % (Auto) Lymph % (Auto) [place] % (Auto) Eos % (Auto) Baso % (Auto) Neut # (Auto) Lymph # (Auto) [place] # (Auto) Eos # (Auto) Baso # (Auto) ESR 116 H Sodium 143 Potassium 4.5 Chloride 105 Carbon Dioxide 27 Anion Gap 16 BUN 17 Creatinine 1.4 Est GFR ( Amer) > 60 Est GFR (Non-Af Amer) 51 POC Glucose (mg/dL) Random Glucose 317 H Hemoglobin A1c Calcium 9.1 Total Bilirubin 0.5 AST 26 ALT 15 L Alkaline Phosphatase 145 H D 147 H Ammonia C-React Prot High Sens Total Protein 6.9 Albumin 3.2 L Globulin 3.7 Albumin/Globulin Ratio 0.9 L Prostate Specific Ag > 1000 H Free T4 TSH 3rd Generation RPR 01/04/18 01/04/18 01/04/18 08:02 08:02 08:02 WBC RBC Hgb Hct MCV MCH MCHC RDW Plt Count MPV Neut % (Auto) Lymph % (Auto) [place] % (Auto) Eos % (Auto) Baso % (Auto) Neut # (Auto) Lymph # (Auto) [place] # (Auto) Eos # (Auto) Baso # (Auto) ESR Sodium Potassium Chloride Carbon Dioxide Anion Gap BUN Creatinine Est GFR ( Amer) Est GFR (Non-Af Amer) POC Glucose (mg/dL) Random Glucose Hemoglobin A1c 8.8 H Calcium Total Bilirubin AST ALT Alkaline Phosphatase Ammonia < 9 L C-React Prot High Sens > 15.00 H Total Protein Albumin Globulin Albumin/Globulin Ratio Prostate Specific Ag Free T4 2.29 H TSH 3rd Generation 5.68 H RPR 01/04/18 01/04/18 01/04/18 08:02 11:13 17:14 WBC RBC Hgb Hct MCV MCH MCHC RDW Plt Count MPV Neut % (Auto) Lymph % (Auto) [place] % (Auto) Eos % (Auto) Baso % (Auto) Neut # (Auto) Lymph # (Auto) [place] # (Auto) Eos # (Auto) Baso # (Auto) ESR Sodium Potassium Chloride Carbon Dioxide Anion Gap BUN Creatinine Est GFR ( Amer) Est GFR (Non-Af Amer) POC Glucose (mg/dL) 426 H* 276 H Random Glucose Hemoglobin A1c Calcium Total Bilirubin AST ALT Alkaline Phosphatase Ammonia C-React Prot High Sens Total Protein Albumin Globulin Albumin/Globulin Ratio Prostate Specific Ag Free T4 TSH 3rd Generation RPR Nonreactive
[2018-01-05] MEDS: DEXAMETHASONE IV SCH ×2 (00:02→06:04)
[2018-01-05] MEDS: SODIUM CHLORIDE 0.9% IV SCH ×2 (00:02→06:04)
[2018-01-05] MEDS: Nitroglycerin 2% Ointment Foilpak UD TOP SCH ×5 (00:46→21:44)
[2018-01-05] MEDS ORDERED: Nitroglycerin 2% Ointment Foilpak UD TOP SCH (06:00)
[2018-01-05] MEDS: Levothyroxine 175 MCG TAB PO SCH (06:22)
[2018-01-05 07:09] LABS: EOS # 0.2 K/uL (0.0-0.7); EOS % 1.9 % (0.0-4.0); HEMOGLOBIN 9.6 g/dL (12.0-18.0); LYMPH # 0.7 K/uL (1.0-4.3); LYMPH % 6.9 % (20.0-40.0); MEAN CELL VOLUME 89.2 fL (80.0-94.0); MEAN CORPUSCULAR HEMOGLOBIN 29.4 pg (27.0-31.0); MEAN PLATELET VOLUME 7.5 fL (7.2-11.7); MONO # 0.1 K/uL (0.0-0.8); MONO % 0.8 % (0.0-10.0); NEUT # 9.2 K/uL (1.8-7.0); NEUT % 90.4 % (50.0-75.0); PLATELET COUNT 504 K/uL (130-400); RBC 3.27 Mil/uL (4.40-5.90); RED CELL DISTRIBUTION WIDTH 16.3 % (11.5-14.5); WHITE BLOOD COUNT 10.2 K/uL (4.8-10.8)
[2018-01-05 07:34] LABS: BLOOD UREA NITROGEN 21 mg/dL (9-20); CALCIUM 8.9 mg/dl (8.6-10.4); GFR AFRICAN-AMERICAN > 60; GFR NON-AFRICAN AMERICAN 51
[2018-01-05 07:35] LABS: ALB/GLOB RATIO 0.9 (1.0-2.1); ALT/SGPT 24 U/L (21-72); AST/SGOT 28 U/L (17-59)
[2018-01-05] MEDS: (Novolin R) Insulin Human Regular 100 units/ml vial SC SCH ×4 (08:03→21:42)
[2018-01-05 08:39] LABS: BANDS 4 % (0-2); LYMPHOCYTE 7 % (20-40); MONOCYTE 1 % (0-10); NEUTROPHIL 88 % (50-75); PLATELET ESTIMATE INCREASED (NORMAL); TOTAL CELLS COUNTED 100
[2018-01-05 08:40] LABS: ANISOCYTOSIS SLIGHT; HYPOCHROMIC SLIGHT; POIKILOCYTOSIS SLIGHT; TARGET CELLS SLIGHT
[2018-01-05 08:41] LABS: LARGE PLATELETS PRESENT
--- NOTE | 2018-01-05 09:24 | CP.PCM.PN ---
Subjective - Date & Time of Evaluation Date of Evaluation: 01/05/18 Time of Evaluation: 09:23 - Subjective Subjective: pt sent to [facility] ? returning By EMR has longstanding paresis unlikely to improve with an y tx will f/u tmw if returns Objective - Vital Signs/Intake and Output Vital Signs (last 24 hours): Temp Pulse Resp BP Pulse Ox 98.2 F 104 H 20 165/94 H 97 01/05/18 07:09 01/05/18 07:09 01/05/18 07:09 01/05/18 07:09 01/05/18 07:09 Intake and Output: 01/05/18 01/05/18 06:59 18:59 Intake Total 720 Output Total 900 Balance -180 - Medications Medications: Current Medications Amlodipine Besylate (Norvasc) 5 mg PO DAILY [facility] Last Admin: 01/04/18 10:02 Dose: 5 mg Dexamethasone (Decadron Inj) 8 mg IV Q6H [facility] Enoxaparin Sodium (Lovenox) 40 mg SC DAILY [facility] Last Admin: 01/04/18 10:04 Dose: 40 mg Gabapentin (Neurontin) 300 mg PO TID [facility] Last Admin: 01/04/18 18:30 Dose: 300 mg Ciprofloxacin (Cipro 200mg/100ml D5w) 100 mls @ 67 mls/hr IVPB Q12H [facility] PRN Reason: Protocol Last Admin: 01/04/18 22:13 Dose: 67 mls/hr Insulin Human Regular (Novolin R) 0 unit SC ACHS [facility] PRN Reason: Protocol Last Admin: 01/05/18 08:03 Dose: 8 unit Lactulose (Enulose) 20 gm PO BID [facility] Last Admin: 01/04/18 18:30 Dose: 20 gm Levothyroxine Sodium (Synthroid) 175 mcg PO DAILY@0630 [facility] Last Admin: 01/05/18 06:22 Dose: 175 mcg Lorazepam (Ativan) 0.5 mg IVP Q6H PRN PRN Reason: Anxiety Last Admin: 01/03/18 21:23 Dose: 0.5 mg Nitroglycerin (Nitro-Bid 2% Oint) 1 ea TOP Q6 [facility] Last Admin: 01/05/18 06:16 Dose: 1 ea Pantoprazole Sodium (Protonix Inj) 40 mg IVP DAILY [facility] Last Admin: 01/04/18 22:15 Dose: 40 mg Polyethylene Glycol (Miralax) 17 gm PO TID [facility] Last Admin: 01/04/18 18:30 Dose: 17 gm Rosuvastatin Calcium (Crestor) 10 mg PO HS [facility] Last Admin: 01/04/18 22:14 Dose: Not Given Sodium Phosphate (Fleet Enema) 135 ml [place] ONCE PRN PRN Reason: Constipation Last Admin: 01/03/18 19:51 Dose: 135 ml Tamsulosin HCl (Flomax) 0.4 mg PO DAILY [facility] Last Admin: 01/04/18 10:08 Dose: 0.4 mg - Labs Labs: 01/05/18 07:02 01/05/18 07:02 PT 15.3 SECONDS (9.7-12.2) H 12/30/17 11:04 INR 1.4 12/30/17 11:04 APTT 29 SECONDS (21-34) 12/30/17 11:04
--- NOTE | 2018-01-05 10:43 | CP.PCM.CON ---
History of Present Illness - History of Present Illness History of Present Illness: Mr Sanchez is a 68 year old male with metastatic prostate cancer. He was admitted on December 30, 2017 with increasing lower back pain for 2 months as well as constipation. He is currently wheelchair bound. He had recently been admitted a week prior for similar issues. Of note, he had a CT of the abdomen and pelvis on December 23, 2017 which revealed bulky adenopathy consistent with metastases as well as diffuse bone metastases along with pulmonary metastases. There were multiple seeds in the prostate consistent with his prostate brachytherapy. A bone scan on December 30, 2017 revealed widespread metastases. A CT of the chest on January 03, 2018 revealed metastases to the lung, mediastinum and thorax. There was a right humeral head, left 5 th rib and multiple thoracic vertebral body lesions. A MRI of the brain on January 04, 2018 revealed no intracranial metastases. A MRI of the thoracic and lumbar spine on January 04, 2018 revealed diffuse metastases with compression fracture at L3 resulting in severe canal stenosis. There were multiple thoracic metastases with no fracture or epidural disease. His most recent PSA is >1000ng/ml. Of note, he was last under your care in 2015 when he presented with back pain and increasing PSA. At that point in time, he was started on zometa and ADT. He only received 3 months because after that he declined further therapy. Review of Systems - Constitutional Constitutional: Weakness - Gastrointestinal Gastrointestinal: Constipation - Musculoskeletal Musculoskeletal: Back Pain, Muscle Weakness Past Patient History - Infectious Disease Hx of Infectious Diseases: None - Past Medical History & Family History Past Medical History?: Yes - Past Social History Smoking Status: Never Smoked - CARDIAC Hx Hypercholesterolemia: Yes Hx Hypertension: Yes - PULMONARY Hx Respiratory Disorders: No - NEUROLOGICAL Hx Neurological Disorder: No - HEENT Hx HEENT Problems: No - RENAL Hx Chronic Kidney Disease: Yes - ENDOCRINE/METABOLIC Hx Hypothyroidism: Yes - HEMATOLOGICAL/ONCOLOGICAL Hx Anemia: Yes - INTEGUMENTARY Hx Dermatological Problems: No - MUSCULOSKELETAL/RHEUMATOLOGICAL Hx Arthritis: Yes - GASTROINTESTINAL Hx Gastrointestinal Disorders: No - GENITOURINARY/GYNECOLOGICAL Hx Genitourinary Disorders: Yes (prostate ca) Hx Prostate Cancer: Yes Other/Comment: Renal Cancer. Spinal Cancer - PSYCHIATRIC Hx Substance Use: No - SURGICAL HISTORY Hx Surgeries: Yes Other/Comment: Umbilical hernia repair - ANESTHESIA Hx Anesthesia: Yes Hx Anesthesia Reactions: No Meds Allergies/Adverse Reactions: Allergies Allergy/AdvReac Type Severity Reaction Status Date / Time No Known Allergies Allergy Verified 12/30/17 10:30 - Medications Medications: Current Medications Amlodipine Besylate (Norvasc) 5 mg PO DAILY [facility] Last Admin: 01/04/18 10:02 Dose: 5 mg Dexamethasone (Decadron Inj) 8 mg IV Q6H [facility] Enoxaparin Sodium (Lovenox) 40 mg SC DAILY [facility] Last Admin: 01/04/18 10:04 Dose: 40 mg Gabapentin (Neurontin) 300 mg PO TID [facility] Last Admin: 01/04/18 18:30 Dose: 300 mg Insulin Human Regular (Novolin R) 0 unit SC ACHS [facility] PRN Reason: Protocol Last Admin: 01/05/18 08:03 Dose: 8 unit Lactulose (Enulose) 20 gm PO BID [facility] Last Admin: 01/04/18 18:30 Dose: 20 gm Levothyroxine Sodium (Synthroid) 175 mcg PO DAILY@0630 [facility] Last Admin: 01/05/18 06:22 Dose: 175 mcg Lorazepam (Ativan) 0.5 mg IVP Q6H PRN PRN Reason: Anxiety Last Admin: 01/03/18 21:23 Dose: 0.5 mg Nitroglycerin (Nitro-Bid 2% Oint) 1 ea TOP Q6 [facility] Last Admin: 01/05/18 06:16 Dose: 1 ea Pantoprazole Sodium (Protonix Inj) 40 mg IVP DAILY [facility] Last Admin: 01/04/18 22:15 Dose: 40 mg Polyethylene Glycol (Miralax) 17 gm PO TID [facility] Last Admin: 01/04/18 18:30 Dose: 17 gm Rosuvastatin Calcium (Crestor) 10 mg PO HS [facility] Last Admin: 01/04/18 22:14 Dose: Not Given Sodium Phosphate (Fleet Enema) 135 ml [place] ONCE PRN PRN Reason: Constipation Last Admin: 01/03/18 19:51 Dose: 135 ml Tamsulosin HCl (Flomax) 0.4 mg PO DAILY [facility] Last Admin: 01/04/18 10:08 Dose: 0.4 mg Physical Exam - Eye Exam Eye Exam: EOMI - ENT Exam ENT Exam: Mucous Membranes Moist - Respiratory Exam Respiratory Exam: Clear to Auscultation Bilateral - Cardiovascular Exam Cardiovascular Exam: REGULAR RHYTHM - GI/Abdominal Exam GI & Abdominal Exam: Normal Bowel Sounds - Neurological Exam Neurological exam: Alert, Motor Sensory Deficit Additional comments: confused - not oriented to place and person, lower extremity strength is 4/5 Results - Vital Signs Recent Vital Signs: Last Vital Signs Temp 98.2 F 01/05/18 07:09 Pulse 104 H 01/05/18 07:09 Resp 20 01/05/18 07:09 BP 165/94 H 01/05/18 07:09 Pulse Ox 97 01/05/18 07:09 - Labs Result Diagrams: 01/05/18 07:02 01/05/18 07:02 Labs: Laboratory Results - last 24 hr 01/04/18 01/04/18 01/04/18 08:02 11:13 17:14 WBC RBC Hgb Hct MCV MCH MCHC RDW Plt Count MPV Neut % (Auto) Lymph % (Auto) [place] % (Auto) Eos % (Auto) Baso % (Auto) Neut # (Auto) Lymph # (Auto) [place] # (Auto) Eos # (Auto) Baso # (Auto) Neutrophils % (Manual) Band Neutrophils % Lymphocytes % (Manual) Monocytes % (Manual) Platelet Estimate Large Platelets Hypochromasia (manual) Poikilocytosis (manual Anisocytosis (manual) Target Cells Sodium Potassium Chloride Carbon Dioxide Anion Gap BUN Creatinine Est GFR ( Amer) Est GFR (Non-Af Amer) POC Glucose (mg/dL) 426 H* 276 H Random Glucose Calcium Total Bilirubin AST ALT Alkaline Phosphatase Total Protein Albumin Globulin Albumin/Globulin Ratio RPR Nonreactive 01/04/18 01/05/18 01/05/18 21:22 07:02 07:02 WBC 10.2 RBC 3.27 L Hgb 9.6 L Hct 29.2 L MCV 89.2 MCH 29.4 MCHC 33.0 RDW 16.3 H Plt Count 504 H MPV 7.5 Neut % (Auto) 90.4 H Lymph % (Auto) 6.9 L [place] % (Auto) 0.8 Eos % (Auto) 1.9 Baso % (Auto) 0.0 Neut # (Auto) 9.2 H Lymph # (Auto) 0.7 L [place] # (Auto) 0.1 Eos # (Auto) 0.2 Baso # (Auto) 0.0 Neutrophils % (Manual) 88 H Band Neutrophils % 4 H Lymphocytes % (Manual) 7 L Monocytes % (Manual) 1 Platelet Estimate Increased H Large Platelets Present Hypochromasia (manual) Slight Poikilocytosis (manual Slight Anisocytosis (manual) Slight Target Cells Slight Sodium 141 Potassium 4.9 Chloride 105 Carbon Dioxide 24 Anion Gap 17 BUN 21 H Creatinine 1.4 Est GFR ( Amer) > 60 Est GFR (Non-Af Amer) 51 POC Glucose (mg/dL) 270 H Random Glucose 370 H Calcium 8.9 Total Bilirubin 0.4 AST 28 ALT 24 Alkaline Phosphatase 143 H Total Protein 6.4 Albumin 3.0 L Globulin 3.4 Albumin/Globulin Ratio 0.9 L RPR 01/05/18 07:41 WBC RBC Hgb Hct MCV MCH MCHC RDW Plt Count MPV Neut % (Auto) Lymph % (Auto) [place] % (Auto) Eos % (Auto) Baso % (Auto) Neut # (Auto) Lymph # (Auto) [place] # (Auto) Eos # (Auto) Baso # (Auto) Neutrophils % (Manual) Band Neutrophils % Lymphocytes % (Manual) Monocytes % (Manual) Platelet Estimate Large Platelets Hypochromasia (manual) Poikilocytosis (manual Anisocytosis (manual) Target Cells Sodium Potassium Chloride Carbon Dioxide Anion Gap BUN Creatinine Est GFR ( Amer) Est GFR (Non-Af Amer) POC Glucose (mg/dL) 390 H Random Glucose Calcium Total Bilirubin AST ALT Alkaline Phosphatase Total Protein Albumin Globulin Albumin/Globulin Ratio RPR Assessment & Plan - Assessment and Plan (Free Text) Assessment: Mr Sanchez is a 68 year old male with metastatic prostate cancer with retroperitoneal adenopathy as well as L3 compression fracture. He has been noncompliant with ADT. He has worsening progression of his disease. We would recommend palliative radiation to the spine for pain relief. We spoke to his and daughter about the radiation. They would like to proceed if possible. As we explained to them, there is an issue about feasibility because of his confusion. In our conversation with Dr Haines, she will consider decreasing/stopping the decadron in case this is exacerbating his confusion. We will reschedule the CT sim for tomorrow and will arrange for premedication
[2018-01-05] MEDS: POLYETHYLENE GLYCOL 3350 17 GM/Dose PACKET PO SCH ×3 (11:36→21:46)
[2018-01-05] MEDS: Enoxaparin 40 mg Syringe SC SCH (11:48)
[2018-01-05] MEDS ORDERED: Dexamethasone 4 mg/1 ml IV SCH (12:00)
[2018-01-05] MEDS: Ciprofloxacin 200mg/100ml D5W 100 ML IVPB SCH (12:10)
[2018-01-05] MEDS ORDERED: (Novolin R) Insulin Human Regular 100 units/ml vial SC ONE (15:21)
--- NOTE | 2018-01-05 18:17 | CP.PCM.PN ---
Subjective - Date & Time of Evaluation Date of Evaluation: 01/05/18 Time of Evaluation: 07:40 - Subjective Subjective: clinically same Objective - Vital Signs/Intake and Output Vital Signs (last 24 hours): Temp Pulse Resp BP Pulse Ox 99.2 F 108 H 20 148/81 98 01/05/18 15:30 01/05/18 15:30 01/05/18 15:30 01/05/18 15:30 01/05/18 15:30 Intake and Output: 01/05/18 01/05/18 06:59 18:59 Intake Total 720 Output Total 900 Balance -180 - Medications Medications: Current Medications Amlodipine Besylate (Norvasc) 5 mg PO DAILY [facility] Last Admin: 01/05/18 11:49 Dose: 5 mg Dexamethasone (Decadron Inj) 4 mg IV BID [facility] Enoxaparin Sodium (Lovenox) 40 mg SC DAILY [facility] Last Admin: 01/05/18 11:48 Dose: 40 mg Gabapentin (Neurontin) 300 mg PO TID [facility] Last Admin: 01/05/18 13:37 Dose: 300 mg Insulin Human Regular (Novolin R) 0 unit SC [facility] PRN Reason: Protocol Last Admin: 01/05/18 16:53 Dose: 12 unit Ketorolac Tromethamine (Toradol) 15 mg IVP Q8 PRN PRN Reason: Pain, moderate (4-7) Lactulose (Enulose) 20 gm PO BID [facility] Last Admin: 01/05/18 11:49 Dose: 20 gm Levothyroxine Sodium (Synthroid) 175 mcg PO DAILY@0630 [facility] Last Admin: 01/05/18 06:22 Dose: 175 mcg Lorazepam (Ativan) 0.5 mg IVP Q6H PRN PRN Reason: Anxiety Last Admin: 01/05/18 13:38 Dose: 0.5 mg Lorazepam (Ativan) 1 mg IVP ONCE PRN PRN Reason: Agitation Nitroglycerin (Nitro-Bid 2% Oint) 1 ea TOP Q6 [facility] Last Admin: 01/05/18 12:12 Dose: Not Given Pantoprazole Sodium (Protonix Inj) 40 mg IVP DAILY [facility] Last Admin: 01/05/18 11:49 Dose: 40 mg Polyethylene Glycol (Miralax) 17 gm PO TID [facility] Last Admin: 01/05/18 13:55 Dose: Not Given Rosuvastatin Calcium (Crestor) 10 mg PO HS [facility] Last Admin: 01/04/18 22:14 Dose: Not Given Sodium Phosphate (Fleet Enema) 135 ml [place] ONCE PRN PRN Reason: Constipation Last Admin: 01/03/18 19:51 Dose: 135 ml Tamsulosin HCl (Flomax) 0.4 mg PO DAILY [facility] Last Admin: 01/05/18 11:49 Dose: 0.4 mg - Labs Labs: 01/05/18 07:02 01/05/18 07:02 PT 15.3 SECONDS (9.7-12.2) H 12/30/17 11:04 INR 1.4 12/30/17 11:04 APTT 29 SECONDS (21-34) 12/30/17 11:04 - Constitutional Appears: Well - Head Exam Head Exam: ATRAUMATIC, NORMAL INSPECTION, NORMOCEPHALIC - Eye Exam Eye Exam: EOMI, Normal appearance, PERRL Pupil Exam: NORMAL ACCOMODATION, PERRL - ENT Exam ENT Exam: Mucous Membranes Moist, Normal Exam - Neck Exam Neck Exam: Full ROM, Normal Inspection. absent: Lymphadenopathy - Respiratory Exam Respiratory Exam: Decreased Breath Sounds - Cardiovascular Exam Cardiovascular Exam: REGULAR RHYTHM, +S1, +S2 - GI/Abdominal Exam GI & Abdominal Exam: Soft, Diminished Bowel Sounds - Rectal Exam Rectal Exam: Deferred Assessment and Plan (1) ARF (acute renal failure) Status: Acute (2) Abdominal pain Status: Acute (3) Acute on chronic renal failure Status: Acute (4) Anasarca Status: Acute (5) Bone lesion Status: Acute (6) Constipation Status: Acute (7) Fecal impaction Status: Acute (8) HHNC (hyperglycemic hyperosmolar nonketotic coma) Status: Acute (9) History of prostate cancer Status: Acute (10) Hyperglycemia Status: Acute (11) Hyperkalemia Status: Acute (12) Knee pain, chronic Status: Acute (13) Lactic acidosis Status: Acute (14) Lung nodule Status: Acute (15) Obstructive uropathy Status: Acute (16) Prostate cancer Status: Acute (17) Prostate cancer metastatic to bone Status: Acute (18) Renal insufficiency Status: Acute (19) Sciatica Status: Acute (20) Tachycardia Status: Acute (21) UTI (urinary tract infection) Status: Acute (22) Uncontrolled hypertension Status: Acute (23) Anemia Status: Chronic (24) DM type 2 (diabetes mellitus, type 2) Status: Chronic (25) History of DVT (deep vein thrombosis) Status: Chronic (26) Hypertension Status: Chronic (27) Intractable low back pain Status: Chronic (28) Renal mass Status: Suspected
[2018-01-05] MEDS: Dexamethasone 4 mg/1 ml IV SCH (21:44)
[2018-01-06] MEDS: Nitroglycerin 2% Ointment Foilpak UD TOP SCH ×5 (00:41→23:53)
[2018-01-06] MEDS: Levothyroxine 175 MCG TAB PO SCH (05:53)
[2018-01-06 06:55] LABS: BASO % 0.2 % (0.0-2.0); HEMOGLOBIN 9.2 g/dL (12.0-18.0); MEAN CELL VOLUME 87.4 fL (80.0-94.0); MEAN CORPUSCULAR HEMOGLOBIN 29.3 pg (27.0-31.0); MEAN CORPUSCULAR HGB CONC 33.5 g/dL (33.0-37.0); MEAN PLATELET VOLUME 7.7 fL (7.2-11.7); MONO # 1.3 K/uL (0.0-0.8); MONO % 8.3 % (0.0-10.0); NEUT # 13.8 K/uL (1.8-7.0); NEUT % 85.5 % (50.0-75.0); PLATELET COUNT 525 K/uL (130-400); RBC 3.14 Mil/uL (4.40-5.90); RED CELL DISTRIBUTION WIDTH 16.3 % (11.5-14.5); WHITE BLOOD COUNT 16.1 K/uL (4.8-10.8)
[2018-01-06] MEDS: (Novolin R) Insulin Human Regular 100 units/ml vial SC SCH ×4 (07:42→22:24)
[2018-01-06 08:13] LABS: ALB/GLOB RATIO 0.8 (1.0-2.1); ALBUMIN 2.8 g/dL (3.5-5.0); CALCIUM 8.7 mg/dl (8.6-10.4)
[2018-01-06 08:31] LABS: LYMPHOCYTE 5 % (20-40); MONOCYTE 5 % (0-10); NEUTROPHIL 90 % (50-75); TOTAL CELLS COUNTED 100
[2018-01-06 08:32] LABS: ANISOCYTOSIS SLIGHT; HYPOCHROMIC SLIGHT; PLATELET ESTIMATE INCREASED (NORMAL)
--- NOTE | 2018-01-06 10:23 | PN ---
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 VITAL SIGNS: Blood pressure 164/91, mean arterial pressure of 115, respiratory rate 18, temperature afebrile, pulse rate 84. The patient is more awake, alert, pleasurable to exam. He is on Escamilla catheter. He could able to lift his left leg against gravity with strength of 4/5, right leg is 3/5. He could not able to sustain lifting his leg against the gravity. Rest of the examination is unchanged. The patient has been getting radiation therapy at [facility]. The patient is not a surgical candidate as per the neurosurgical evaluation because of significant distant metastatic process. Continue the present management. The patient can be benefited with SSRI for his underlying depression. DVT prophylaxis should be continued and bedside physical therapy should be given. The patient will be followed while he is in the hospital. Rafal Witt MD
[2018-01-06] MEDS: POLYETHYLENE GLYCOL 3350 17 GM/Dose PACKET PO SCH ×3 (10:53→17:19)
[2018-01-06] MEDS: Enoxaparin 40 mg Syringe SC SCH (10:55)
[2018-01-06] MEDS: Dexamethasone 4 mg/1 ml IV SCH ×2 (10:56→17:17)
--- NOTE | 2018-01-06 11:34 | CP.PCM.PN ---
Subjective - Date & Time of Evaluation Date of Evaluation: 01/06/18 Time of Evaluation: 11:31 - Subjective Subjective: Pt started RT his strength is at least 3+ in L iliopsoas and 3- in Right rest of LE strenth is about 4 to 4+ At this point consider continuing RT and holding off surgery Pt hasn't walked in weeks and unlikly to do so even with surgery We will eval after RT is complete Objective - Vital Signs/Intake and Output Vital Signs (last 24 hours): Temp Pulse Resp BP Pulse Ox 98.4 F 82 19 147/83 98 01/06/18 10:50 01/06/18 10:50 01/06/18 10:50 01/06/18 10:50 01/06/18 10:50 Intake and Output: 01/06/18 01/06/18 06:59 18:59 Intake Total 120 Output Total 1200 Balance -1080 - Medications Medications: Current Medications Amlodipine Besylate (Norvasc) 5 mg PO DAILY [facility] Last Admin: 01/06/18 10:56 Dose: 5 mg Dexamethasone (Decadron Inj) 4 mg IV BID [facility] Last Admin: 01/06/18 10:56 Dose: 4 mg Enoxaparin Sodium (Lovenox) 40 mg SC DAILY [facility] Last Admin: 01/06/18 10:55 Dose: 40 mg Gabapentin (Neurontin) 300 mg PO TID [facility] Last Admin: 01/06/18 10:56 Dose: 300 mg Insulin Human Regular (Novolin R) 0 unit SC [facility] PRN Reason: Protocol Last Admin: 01/06/18 07:42 Dose: 10 unit Ketorolac Tromethamine (Toradol) 15 mg IVP Q8 PRN PRN Reason: Pain, moderate (4-7) Lactulose (Enulose) 20 gm PO BID [facility] Last Admin: 01/06/18 10:57 Dose: 20 gm Levothyroxine Sodium (Synthroid) 175 mcg PO DAILY@0630 [facility] Last Admin: 01/06/18 05:53 Dose: 175 mcg Lorazepam (Ativan) 0.5 mg IVP Q6H PRN PRN Reason: Anxiety Last Admin: 01/06/18 07:35 Dose: 0.5 mg Lorazepam (Ativan) 1 mg IVP ONCE PRN PRN Reason: Agitation Nitroglycerin (Nitro-Bid 2% Oint) 1 ea TOP Q6 [facility] Last Admin: 01/06/18 05:53 Dose: 1 ea Pantoprazole Sodium (Protonix Inj) 40 mg IVP DAILY [facility] Last Admin: 01/06/18 10:56 Dose: 40 mg Polyethylene Glycol (Miralax) 17 gm PO TID [facility] Last Admin: 01/06/18 10:53 Dose: 17 gm Rosuvastatin Calcium (Crestor) 10 mg PO HS [facility] Last Admin: 01/05/18 21:45 Dose: Not Given Sodium Phosphate (Fleet Enema) 135 ml [place] ONCE PRN PRN Reason: Constipation Last Admin: 01/03/18 19:51 Dose: 135 ml Tamsulosin HCl (Flomax) 0.4 mg PO DAILY [facility] Last Admin: 01/06/18 10:55 Dose: 0.4 mg - Labs Labs: 01/06/18 06:44 01/06/18 06:44 PT 15.3 SECONDS (9.7-12.2) H 12/30/17 11:04 INR 1.4 12/30/17 11:04 APTT 29 SECONDS (21-34) 12/30/17 11:04
--- NOTE | 2018-01-06 18:56 | CP.PCM.PN ---
Subjective - Date & Time of Evaluation Date of Evaluation: 01/06/18 Time of Evaluation: 07:20 - Subjective Subjective: clinically same Objective - Vital Signs/Intake and Output Vital Signs (last 24 hours): Temp Pulse Resp BP Pulse Ox 99.0 F 118 H 20 158/82 H 95 01/06/18 16:57 01/06/18 16:57 01/06/18 16:57 01/06/18 16:57 01/06/18 16:57 Intake and Output: 01/06/18 01/06/18 06:59 18:59 Intake Total 120 Output Total 1200 550 Balance -1080 -550 - Medications Medications: Current Medications Amlodipine Besylate (Norvasc) 5 mg PO DAILY [facility] Last Admin: 01/06/18 10:56 Dose: 5 mg Dexamethasone (Decadron Inj) 4 mg IV BID [facility] Last Admin: 01/06/18 17:17 Dose: 4 mg Enoxaparin Sodium (Lovenox) 40 mg SC DAILY [facility] Last Admin: 01/06/18 10:55 Dose: 40 mg Gabapentin (Neurontin) 300 mg PO TID [facility] Last Admin: 01/06/18 17:18 Dose: 300 mg Insulin Human Regular (Novolin R) 0 unit SC [facility] PRN Reason: Protocol Last Admin: 01/06/18 17:20 Dose: 12 unit Ketorolac Tromethamine (Toradol) 15 mg IVP Q8 PRN PRN Reason: Pain, moderate (4-7) Lactulose (Enulose) 20 gm PO BID [facility] Last Admin: 01/06/18 17:18 Dose: 20 gm Levothyroxine Sodium (Synthroid) 175 mcg PO DAILY@0630 [facility] Last Admin: 01/06/18 05:53 Dose: 175 mcg Lorazepam (Ativan) 0.5 mg IVP Q6H PRN PRN Reason: Anxiety Last Admin: 01/06/18 07:35 Dose: 0.5 mg Lorazepam (Ativan) 1 mg IVP ONCE PRN PRN Reason: Agitation Nitroglycerin (Nitro-Bid 2% Oint) 1 ea TOP Q6 [facility] Last Admin: 01/06/18 17:19 Dose: Not Given Pantoprazole Sodium (Protonix Inj) 40 mg IVP DAILY [facility] Last Admin: 01/06/18 10:56 Dose: 40 mg Polyethylene Glycol (Miralax) 17 gm PO TID [facility] Last Admin: 01/06/18 17:19 Dose: Not Given Rosuvastatin Calcium (Crestor) 10 mg PO HS [facility] Last Admin: 01/05/18 21:45 Dose: Not Given Sodium Phosphate (Fleet Enema) 135 ml [place] ONCE PRN PRN Reason: Constipation Last Admin: 01/03/18 19:51 Dose: 135 ml Tamsulosin HCl (Flomax) 0.4 mg PO DAILY [facility] Last Admin: 01/06/18 10:55 Dose: 0.4 mg - Labs Labs: 01/06/18 06:44 01/06/18 06:44 PT 15.3 SECONDS (9.7-12.2) H 12/30/17 11:04 INR 1.4 12/30/17 11:04 APTT 29 SECONDS (21-34) 12/30/17 11:04 - Constitutional Appears: Well - Head Exam Head Exam: ATRAUMATIC, NORMAL INSPECTION, NORMOCEPHALIC - Eye Exam Eye Exam: EOMI, Normal appearance, PERRL Pupil Exam: NORMAL ACCOMODATION, PERRL - ENT Exam ENT Exam: Mucous Membranes Moist, Normal Exam - Neck Exam Neck Exam: Full ROM, Normal Inspection. absent: Lymphadenopathy - Respiratory Exam Respiratory Exam: Decreased Breath Sounds - Cardiovascular Exam Cardiovascular Exam: REGULAR RHYTHM, +S1, +S2 - GI/Abdominal Exam GI & Abdominal Exam: Soft, Diminished Bowel Sounds - Rectal Exam Rectal Exam: Deferred Assessment and Plan (1) ARF (acute renal failure) Status: Acute (2) Abdominal pain Status: Acute (3) Acute on chronic renal failure Status: Acute (4) Anasarca Status: Acute (5) Bone lesion Status: Acute (6) Constipation Status: Acute (7) Fecal impaction Status: Acute (8) HHNC (hyperglycemic hyperosmolar nonketotic coma) Status: Acute (9) History of prostate cancer Status: Acute (10) Hyperglycemia Status: Acute (11) Hyperkalemia Status: Acute (12) Knee pain, chronic Status: Acute (13) Lactic acidosis Status: Acute (14) Lung nodule Status: Acute (15) Obstructive uropathy Status: Acute (16) Prostate cancer Status: Acute (17) Prostate cancer metastatic to bone Status: Acute (18) Renal insufficiency Status: Acute (19) Sciatica Status: Acute (20) Tachycardia Status: Acute (21) UTI (urinary tract infection) Status: Acute (22) Uncontrolled hypertension Status: Acute (23) Anemia Status: Chronic (24) DM type 2 (diabetes mellitus, type 2) Status: Chronic (25) History of DVT (deep vein thrombosis) Status: Chronic (26) Hypertension Status: Chronic (27) Intractable low back pain Status: Chronic (28) Renal mass Status: Suspected
[2018-01-07] MEDS: Nitroglycerin 2% Ointment Foilpak UD TOP SCH ×3 (06:01→21:37)
[2018-01-07] MEDS: Levothyroxine 175 MCG TAB PO SCH (06:02)
[2018-01-07 06:46] LABS: BASO % 0.1 % (0.0-2.0); EOS % 0.1 % (0.0-4.0); HEMOGLOBIN 10.3 g/dL (12.0-18.0); LYMPH # 1.5 K/uL (1.0-4.3); LYMPH % 9.8 % (20.0-40.0); MEAN CELL VOLUME 87.4 fL (80.0-94.0); MEAN CORPUSCULAR HEMOGLOBIN 29.3 pg (27.0-31.0); MEAN CORPUSCULAR HGB CONC 33.5 g/dL (33.0-37.0); MEAN PLATELET VOLUME 7.7 fL (7.2-11.7); MONO # 1.7 K/uL (0.0-0.8); MONO % 10.7 % (0.0-10.0); NEUT # 12.4 K/uL (1.8-7.0); NEUT % 79.3 % (50.0-75.0); NRBC % 0.2 % (0.0-2.0); PLATELET COUNT 578 K/uL (130-400); RED CELL DISTRIBUTION WIDTH 16.2 % (11.5-14.5); WHITE BLOOD COUNT 15.6 K/uL (4.8-10.8)
[2018-01-07 07:02] LABS: ALBUMIN 3.5 g/dL (3.5-5.0); ALT/SGPT 20 U/L (21-72); AST/SGOT 35 U/L (17-59); BLOOD UREA NITROGEN 28 mg/dL (9-20); CALCIUM 9.3 mg/dl (8.6-10.4); GFR AFRICAN-AMERICAN > 60; GFR NON-AFRICAN AMERICAN 51
[2018-01-07] MEDS: (Novolin R) Insulin Human Regular 100 units/ml vial SC SCH ×4 (08:18→21:36)
--- NOTE | 2018-01-07 08:18 | PN ---
DATE: 01/05/2018 TIME OF EVALUATION: 7:05 a.m. NEUROLOGICAL PROBLEM: 1. Change in mental status, probably toxic encephalopathy. 2. 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 PHYSICAL EXAMINATION: VITAL SIGNS: Blood pressure 165/94, mean artery pressure of 117, respiratory rate 18, temperature 98.2, pulse rate 104. NEUROLOGIC: The patient is somewhat alert today. He is oriented to person and place. He moves all 4 upper extremities with no problem. Lower extremities with significant weakness, proximally more than distally noted. He needs hand to lift his both thighs. The weakness is similar on both sides. Sensory examination: No sensory level, however, posterior column is intact. Plantars are upgoing on both sides. The patient had MRI of the thoracic spine. It showed severe degenerative disk disease with spondylosis at T9-T10 with mild cord compression, with significant multiple metastatic lesions in the thoracic spine region. MRI of the lumbosacral spine showed pathological fracture at L3 region with significant thecal sac and lumbar root entrapments. There is significant canal stenosis at L3 level. MRI of the brain, no acute pathology or any metastatic process noted in the parenchyma. The radiological reports are being reviewed and discussed with the radiologist. Following this, the patient was advised to get pulsing dose of dexamethasone. In the meantime, I called in for Neurosurgical, Radiation consult, and Heme-Oncology consult. Heme-Oncology consultation has been reviewed and appreciated as per the note. He is not a candidate for radiation as well as decompression because of extensive metastatic process. RECOMMENDATIONS: Continue the present management. Proper dehydration and electrolyte stabilization. The patient should be kept fall precaution and DVT prophylaxis. The patient will be followed closely with you. Rafal Witt MD
[2018-01-07 08:23] LABS: BANDS 2 % (0-2); LYMPHOCYTE 7 % (20-40); MONOCYTE 6 % (0-10); NEUTROPHIL 85 % (50-75); NUCLEATED RED BLOOD CELL 1 % (0-0); TOTAL CELLS COUNTED 100
[2018-01-07 08:24] LABS: ANISOCYTOSIS SLIGHT; HYPOCHROMIC SLIGHT; PLATELET ESTIMATE INCREASED (NORMAL); POLYCHROMIC SLIGHT
[2018-01-07] MEDS: POLYETHYLENE GLYCOL 3350 17 GM/Dose PACKET PO SCH ×3 (09:58→17:37)
[2018-01-07] MEDS: Dexamethasone 4 mg/1 ml IV SCH ×2 (09:58→17:30)
[2018-01-07] MEDS: Enoxaparin 40 mg Syringe SC SCH (10:00)
--- NOTE | 2018-01-07 11:18 | CP.PCM.PN ---
Subjective - Date & Time of Evaluation Date of Evaluation: 01/07/18 Time of Evaluation: 11:18 - Subjective Subjective: ATTEMPTED TO D/C PT TODAY TO [facility] FOR [facility], HOWEVER, PT'S REQUESTING [facility] IS CLOSE TO HER HOME. SW AWARE OF THIS REQUEST AND WILL REFER. POSS D/C ON TUESDAY PENDING ALL ANIL ARRANGEMENTS APPROVED. SEE BELOW FOR D/C INFORMATION. NO FURTHER ORDERS. DR RUIZ AWARE. -PLACE UNDER THE SERVICE OF DR. Santana RUIZ WHILE AT [facility]---CALL DR. RUIZ UPON ARRIVAL FOR ADMITTING ORDERS AND BED ASSIGNMENT. -CONTINUE MEDICATIONS PER THE MED REC FORM---CHANGES CAN BE MADE BY DR. RUIZ. -PLEASE ENSURE THAT MR. KENNEDY IS TRANSPORTED EVERY TUESDAY THROUGH TUESDAY TO [facility] FOR HIS RADIATION TREATMENT. HE MUST BE THERE AT 9:00 AM ON THOSE DAYS. THIS HAS ALREADY BEEN CONFIRMED BY THE CASE MANAGEMENT DEPARTMENT AT [facility]. -PHYSICAL THERAPY TOLERATED. -FALL RISK PER FACILITY PROTOCOL. -FOR FURTHER ORDERS, CONTACT DR. Santana RUIZ'S OFFICE. Objective - Vital Signs/Intake and Output Vital Signs (last 24 hours): Temp Pulse Resp BP Pulse Ox 98.6 F 95 H 20 167/100 H 98 01/06/18 23:49 01/06/18 23:49 01/06/18 23:49 01/07/18 06:00 01/06/18 23:49 Intake and Output: 01/07/18 01/07/18 06:59 18:59 Intake Total 300 100 Output Total 1000 500 Balance -700 -400 - Medications Medications: Current Medications Amlodipine Besylate (Norvasc) 10 mg PO DAILY [facility] Last Admin: 01/07/18 09:57 Dose: 10 mg Dexamethasone (Decadron Inj) 4 mg IV BID [facility] Last Admin: 01/07/18 09:58 Dose: 4 mg Gabapentin (Neurontin) 300 mg PO TID [facility] Last Admin: 01/07/18 09:58 Dose: 300 mg Hydrochlorothiazide (Hydrodiuril) 25 mg PO DAILY [facility] Last Admin: 01/07/18 09:57 Dose: 25 mg Insulin Human Regular (Novolin R) 0 unit SC [facility] PRN Reason: Protocol Last Admin: 01/07/18 08:18 Dose: 12 unit Ketorolac Tromethamine (Toradol) 15 mg IVP Q8 PRN PRN Reason: Pain, moderate (4-7) Lactulose (Enulose) 20 gm PO BID [facility] Last Admin: 01/07/18 09:59 Dose: 20 gm Levothyroxine Sodium (Synthroid) 175 mcg PO DAILY@0630 [facility] Last Admin: 01/07/18 06:02 Dose: 175 mcg Lorazepam (Ativan) 0.5 mg IVP Q6H PRN PRN Reason: Anxiety Last Admin: 01/07/18 02:45 Dose: 0.5 mg Lorazepam (Ativan) 1 mg IVP ONCE PRN PRN Reason: Agitation Nitroglycerin (Nitro-Bid 2% Oint) 1 ea TOP Q6 [facility] Last Admin: 01/07/18 06:01 Dose: 1 ea Pantoprazole Sodium (Protonix Inj) 40 mg IVP DAILY [facility] Last Admin: 01/07/18 09:58 Dose: 40 mg Polyethylene Glycol (Miralax) 17 gm PO TID [facility] Last Admin: 01/07/18 09:58 Dose: 17 gm Rosuvastatin Calcium (Crestor) 10 mg PO HS [facility] Last Admin: 01/06/18 21:24 Dose: 10 mg Sodium Phosphate (Fleet Enema) 135 ml [place] ONCE PRN PRN Reason: Constipation Last Admin: 01/03/18 19:51 Dose: 135 ml Tamsulosin HCl (Flomax) 0.4 mg PO DAILY [facility] Last Admin: 01/07/18 09:58 Dose: 0.4 mg - Labs Labs: 01/07/18 06:39 01/07/18 06:39 PT 15.3 SECONDS (9.7-12.2) H 12/30/17 11:04 INR 1.4 12/30/17 11:04 APTT 29 SECONDS (21-34) 12/30/17 11:04
[2018-01-07 14:27] VITALS: RESP 20
--- NOTE | 2018-01-07 15:01 | CP.PCM.PN ---
Subjective - Date & Time of Evaluation Date of Evaluation: 01/07/18 Time of Evaluation: 07:00 - Subjective Subjective: clinically same Objective - Vital Signs/Intake and Output Vital Signs (last 24 hours): Temp Pulse Resp BP Pulse Ox 98.1 F 105 H 20 164/94 H 95 01/07/18 14:26 01/07/18 14:26 01/07/18 14:26 01/07/18 14:26 01/07/18 14:26 Intake and Output: 01/07/18 01/07/18 06:59 18:59 Intake Total 300 100 Output Total 1000 1200 Balance -700 -1100 - Medications Medications: Current Medications Amlodipine Besylate (Norvasc) 10 mg PO DAILY [facility] Last Admin: 01/07/18 09:57 Dose: 10 mg Dexamethasone (Decadron Inj) 4 mg IV BID [facility] Last Admin: 01/07/18 09:58 Dose: 4 mg Gabapentin (Neurontin) 300 mg PO TID [facility] Last Admin: 01/07/18 14:05 Dose: 300 mg Hydrochlorothiazide (Hydrodiuril) 25 mg PO DAILY [facility] Last Admin: 01/07/18 09:57 Dose: 25 mg Insulin Human Regular (Novolin R) 0 unit SC [facility] PRN Reason: Protocol Last Admin: 01/07/18 11:25 Dose: 10 unit Ketorolac Tromethamine (Toradol) 15 mg IVP Q8 PRN PRN Reason: Pain, moderate (4-7) Last Admin: 01/07/18 10:15 Dose: 15 mg Lactulose (Enulose) 20 gm PO BID [facility] Last Admin: 01/07/18 09:59 Dose: 20 gm Levothyroxine Sodium (Synthroid) 175 mcg PO DAILY@0630 [facility] Last Admin: 01/07/18 06:02 Dose: 175 mcg Lorazepam (Ativan) 0.5 mg IVP Q6H PRN PRN Reason: Anxiety Last Admin: 01/07/18 14:03 Dose: 0.5 mg Lorazepam (Ativan) 1 mg IVP ONCE PRN PRN Reason: Agitation Nitroglycerin (Nitro-Bid 2% Oint) 1 ea TOP Q6 [facility] Last Admin: 01/07/18 11:25 Dose: 1 ea Pantoprazole Sodium (Protonix Inj) 40 mg IVP DAILY [facility] Last Admin: 01/07/18 09:58 Dose: 40 mg Polyethylene Glycol (Miralax) 17 gm PO TID [facility] Last Admin: 01/07/18 14:04 Dose: 17 gm Rosuvastatin Calcium (Crestor) 10 mg PO HS [facility] Last Admin: 01/06/18 21:24 Dose: 10 mg Sodium Phosphate (Fleet Enema) 135 ml [place] ONCE PRN PRN Reason: Constipation Last Admin: 01/03/18 19:51 Dose: 135 ml Tamsulosin HCl (Flomax) 0.4 mg PO DAILY [facility] Last Admin: 01/07/18 09:58 Dose: 0.4 mg - Labs Labs: 01/07/18 06:39 01/07/18 06:39 PT 15.3 SECONDS (9.7-12.2) H 12/30/17 11:04 INR 1.4 12/30/17 11:04 APTT 29 SECONDS (21-34) 12/30/17 11:04 - Constitutional Appears: Well - Head Exam Head Exam: ATRAUMATIC, NORMAL INSPECTION, NORMOCEPHALIC - Eye Exam Eye Exam: EOMI, Normal appearance, PERRL Pupil Exam: NORMAL ACCOMODATION, PERRL - ENT Exam ENT Exam: Mucous Membranes Moist, Normal Exam - Neck Exam Neck Exam: Full ROM, Normal Inspection. absent: Lymphadenopathy - Respiratory Exam Respiratory Exam: Decreased Breath Sounds - Cardiovascular Exam Cardiovascular Exam: REGULAR RHYTHM, +S1, +S2 - GI/Abdominal Exam GI & Abdominal Exam: Soft, Diminished Bowel Sounds - Rectal Exam Rectal Exam: Deferred Assessment and Plan (1) ARF (acute renal failure) Status: Acute (2) Abdominal pain Status: Acute (3) Acute on chronic renal failure Status: Acute (4) Anasarca Status: Acute (5) Bone lesion Status: Acute (6) Constipation Status: Acute (7) Fecal impaction Status: Acute (8) HHNC (hyperglycemic hyperosmolar nonketotic coma) Status: Acute (9) History of prostate cancer Status: Acute (10) Hyperglycemia Status: Acute (11) Hyperkalemia Status: Acute (12) Knee pain, chronic Status: Acute (13) Lactic acidosis Status: Acute (14) Lung nodule Status: Acute (15) Obstructive uropathy Status: Acute (16) Prostate cancer Status: Acute (17) Prostate cancer metastatic to bone Status: Acute (18) Renal insufficiency Status: Acute (19) Sciatica Status: Acute (20) Tachycardia Status: Acute (21) UTI (urinary tract infection) Status: Acute (22) Uncontrolled hypertension Status: Acute (23) Anemia Status: Chronic (24) DM type 2 (diabetes mellitus, type 2) Status: Chronic (25) History of DVT (deep vein thrombosis) Status: Chronic (26) Hypertension Status: Chronic (27) Intractable low back pain Status: Chronic (28) Renal mass Status: Suspected - Assessment and Plan (Free Text) Plan: The patient eats well patient is more alert and awake patient still has a mittens on the hand medication reviewed lab reviewed continue same awaiting a discharge to the [place]
[2018-01-08] MEDS: Nitroglycerin 2% Ointment Foilpak UD TOP SCH ×4 (05:58→18:09)
[2018-01-08] MEDS: Levothyroxine 175 MCG TAB PO SCH (06:18)
[2018-01-08] MEDS: (Novolin R) Insulin Human Regular 100 units/ml vial SC SCH ×5 (07:43→21:25)
--- NOTE | 2018-01-08 09:34 | CP.PCM.PN ---
Subjective - Date & Time of Evaluation Date of Evaluation: 01/08/18 Time of Evaluation: : - Subjective Subjective: Pulmonary Folow up, Covering Dr. Mejias The patient was Seen and examined by me at the bedside, Events reviewed 68 Years old Male with PMHx of diabetes mellitus, CKD, chronic back pain and history of prostate cancer, treated with seed implants and ? EBRT several years ago, Who presented to [facility] on 12/30 with complaints of worsening low back pain and constipation for 5 days Bone scan done 12/30 due to history of prostate cancer and revealed widely disseminated metastatic disease throughout the spine, ribs, bilateral shoulder and left ischium. Chest CT done (01/03) showed numerous upper/lower lobe pulmonary nodules, likely metastatic from the primary prostate cancer. Today he looks comfortable and no apparent distress, saturating well at 97% on room air. Pt markedly confused and on 1:1 constant observation And PRN Ativan (Will change to Q 4H PRN) Patient denies chest pain and shortness of breath. This morning labs revealed Leucocytosis slightly down to 15.6L (Patient on Decadrone ), improved renal function BUN/Cr down to 28/1.4 Patient afebrile Objective - Vital Signs/Intake and Output Vital Signs (last 24 hours): Temp Pulse Resp BP Pulse Ox 98.5 F 106 H 20 171/92 H 96 01/08/18 00:15 01/08/18 05:57 01/08/18 05:57 01/08/18 05:57 01/08/18 05:57 Intake and Output: 01/08/18 01/08/18 06:59 18:59 Intake Total 490 Output Total 1400 Balance -910 - Medications Medications: Current Medications Amlodipine Besylate (Norvasc) 10 mg PO DAILY [facility] Last Admin: 01/07/18 09:57 Dose: 10 mg Dexamethasone (Decadron Inj) 4 mg IV BID [facility] Last Admin: 01/07/18 17:30 Dose: 4 mg Gabapentin (Neurontin) 300 mg PO TID [facility] Last Admin: 01/07/18 17:31 Dose: 300 mg Hydrochlorothiazide (Hydrodiuril) 25 mg PO DAILY [facility] Last Admin: 01/07/18 09:57 Dose: 25 mg Insulin Human Regular (Novolin R) 0 unit SC ACHS [facility] PRN Reason: Protocol Last Admin: 01/08/18 07:43 Dose: 8 unit Lactulose (Enulose) 20 gm PO BID [facility] Last Admin: 01/07/18 17:31 Dose: 20 gm Levothyroxine Sodium (Synthroid) 175 mcg PO DAILY@0630 [facility] Last Admin: 01/08/18 06:18 Dose: 175 mcg Lorazepam (Ativan) 0.5 mg IVP Q6H PRN PRN Reason: Anxiety Last Admin: 01/08/18 02:45 Dose: 0.5 mg Lorazepam (Ativan) 1 mg IVP ONCE PRN PRN Reason: Agitation Nitroglycerin (Nitro-Bid 2% Oint) 1 ea TOP Q6 [facility] Last Admin: 01/08/18 05:58 Dose: 1 ea Pantoprazole Sodium (Protonix Inj) 40 mg IVP DAILY [facility] Last Admin: 01/07/18 09:58 Dose: 40 mg Polyethylene Glycol (Miralax) 17 gm PO TID [facility] Last Admin: 01/07/18 17:37 Dose: 17 gm Rosuvastatin Calcium (Crestor) 10 mg PO HS [facility] Last Admin: 01/07/18 21:43 Dose: 10 mg Sodium Phosphate (Fleet Enema) 135 ml [place] ONCE PRN PRN Reason: Constipation Last Admin: 01/03/18 19:51 Dose: 135 ml Tamsulosin HCl (Flomax) 0.4 mg PO DAILY [facility] Last Admin: 01/07/18 09:58 Dose: 0.4 mg - Labs Labs: 01/07/18 06:39 01/07/18 06:39 PT 15.3 SECONDS (9.7-12.2) H 12/30/17 11:04 INR 1.4 12/30/17 11:04 APTT 29 SECONDS (21-34) 12/30/17 11:04 Assessment and Plan (1) Lung nodule Assessment & Plan: Chest CT done (01/03) showed numerous upper/lower lobe pulmonary nodules, likely metastatic from the primary prostate cancer. Lung metastases/Pleural effusion from prosatate cancer Today he looks comfortable and no apparent distress, saturating well at 97% on room air. Patient currently without pulmonary complaints. Patient denies chest pain and shortness of breath. Status: Acute (2) Acute on chronic renal failure Status: Acute (3) Change in mental state Assessment & Plan: Pt markedly confused and on 1:1 constant observation Undergooing Radiation therapy And PRN Ativan (Will change to Q 4H PRN) Status: Acute (4) Intractable low back pain Status: Chronic (5) Prostate cancer metastatic to bone Status: Acute (6) History of DVT (deep vein thrombosis) Status: Chronic
[2018-01-08] MEDS: POLYETHYLENE GLYCOL 3350 17 GM/Dose PACKET PO SCH ×3 (11:24→18:08)
[2018-01-08] MEDS: Dexamethasone 4 mg/1 ml IV SCH ×2 (11:50→18:05)
--- NOTE | 2018-01-08 15:44 | CP.PCM.PN ---
Subjective - Date & Time of Evaluation Date of Evaluation: 01/08/18 Time of Evaluation: 07:00 - Subjective Subjective: clinically same Objective - Vital Signs/Intake and Output Vital Signs (last 24 hours): Temp Pulse Resp BP Pulse Ox 98.2 F 105 H 20 172/101 H 95 01/08/18 08:00 01/08/18 08:00 01/08/18 08:00 01/08/18 08:00 01/08/18 08:00 Intake and Output: 01/08/18 01/08/18 06:59 18:59 Intake Total 490 Output Total 1400 1600 Balance -910 -1600 - Medications Medications: Current Medications Amlodipine Besylate (Norvasc) 10 mg PO DAILY [facility] Last Admin: 01/08/18 11:23 Dose: 10 mg Dexamethasone (Decadron Inj) 4 mg IV BID [facility] Last Admin: 01/08/18 11:50 Dose: 4 mg Gabapentin (Neurontin) 300 mg PO TID [facility] Last Admin: 01/08/18 14:28 Dose: 300 mg Hydrochlorothiazide (Hydrodiuril) 25 mg PO DAILY [facility] Last Admin: 01/08/18 11:24 Dose: 25 mg Insulin Human Regular (Novolin R) 0 unit SC ACHS [facility] PRN Reason: Protocol Last Admin: 01/08/18 11:52 Dose: 8 unit Lactulose (Enulose) 20 gm PO BID [facility] Last Admin: 01/08/18 11:25 Dose: 20 gm Levothyroxine Sodium (Synthroid) 175 mcg PO DAILY@0630 [facility] Last Admin: 01/08/18 06:18 Dose: 175 mcg Lorazepam (Ativan) 1 mg IVP ONCE PRN PRN Reason: Agitation Lorazepam (Ativan) 0.5 mg IVP Q4H PRN PRN Reason: Agitation Nitroglycerin (Nitro-Bid 2% Oint) 1 ea TOP Q6 [facility] Last Admin: 01/08/18 11:23 Dose: 1 ea Pantoprazole Sodium (Protonix Inj) 40 mg IVP DAILY [facility] Last Admin: 01/08/18 11:24 Dose: 40 mg Polyethylene Glycol (Miralax) 17 gm PO TID [facility] Last Admin: 01/08/18 14:28 Dose: 17 gm Rosuvastatin Calcium (Crestor) 10 mg PO HS [facility] Last Admin: 01/07/18 21:43 Dose: 10 mg Sodium Phosphate (Fleet Enema) 135 ml [place] ONCE PRN PRN Reason: Constipation Last Admin: 01/03/18 19:51 Dose: 135 ml Tamsulosin HCl (Flomax) 0.4 mg PO DAILY [facility] Last Admin: 01/08/18 11:23 Dose: 0.4 mg - Labs Labs: 01/07/18 06:39 01/07/18 06:39 PT 15.3 SECONDS (9.7-12.2) H 12/30/17 11:04 INR 1.4 12/30/17 11:04 APTT 29 SECONDS (21-34) 12/30/17 11:04 - Constitutional Appears: Well - Head Exam Head Exam: ATRAUMATIC, NORMAL INSPECTION, NORMOCEPHALIC - Eye Exam Eye Exam: EOMI, Normal appearance, PERRL Pupil Exam: NORMAL ACCOMODATION, PERRL - ENT Exam ENT Exam: Mucous Membranes Moist, Normal Exam - Neck Exam Neck Exam: Full ROM, Normal Inspection. absent: Lymphadenopathy - Respiratory Exam Respiratory Exam: Decreased Breath Sounds - Cardiovascular Exam Cardiovascular Exam: REGULAR RHYTHM, +S1, +S2 - GI/Abdominal Exam GI & Abdominal Exam: Soft, Diminished Bowel Sounds - Rectal Exam Rectal Exam: Deferred Assessment and Plan (1) ARF (acute renal failure) Status: Acute (2) Abdominal pain Status: Acute (3) Acute on chronic renal failure Status: Acute (4) Anasarca Status: Acute (5) Bone lesion Status: Acute (6) Constipation Status: Acute (7) Fecal impaction Status: Acute (8) HHNC (hyperglycemic hyperosmolar nonketotic coma) Status: Acute (9) History of prostate cancer Status: Acute (10) Hyperglycemia Status: Acute (11) Hyperkalemia Status: Acute (12) Knee pain, chronic Status: Acute (13) Lactic acidosis Status: Acute (14) Lung nodule Status: Acute (15) Obstructive uropathy Status: Acute (16) Prostate cancer Status: Acute (17) Prostate cancer metastatic to bone Status: Acute (18) Renal insufficiency Status: Acute (19) Sciatica Status: Acute (20) Tachycardia Status: Acute (21) UTI (urinary tract infection) Status: Acute (22) Uncontrolled hypertension Status: Acute (23) Anemia Status: Chronic (24) DM type 2 (diabetes mellitus, type 2) Status: Chronic (25) History of DVT (deep vein thrombosis) Status: Chronic (26) Hypertension Status: Chronic (27) Intractable low back pain Status: Chronic (28) Renal mass Status: Suspected - Assessment and Plan (Free Text) Plan: Brother is bedside 1 Discussed with the family Awaiting discharge to the rehab We will discuss with the delinquency prevention social worker tomorrow Continue same
[2018-01-09] MEDS: Nitroglycerin 2% Ointment Foilpak UD TOP SCH ×4 (00:07→17:47)
[2018-01-09] MEDS: Levothyroxine 175 MCG TAB PO SCH (06:22)
[2018-01-09] MEDS: (Novolin R) Insulin Human Regular 100 units/ml vial SC SCH ×5 (08:07→21:46)
[2018-01-09] MEDS: Dexamethasone 4 mg/1 ml IV SCH ×2 (09:13→17:48)
[2018-01-09] MEDS: POLYETHYLENE GLYCOL 3350 17 GM/Dose PACKET PO SCH ×3 (10:31→18:09)
--- NOTE | 2018-01-09 16:14 | CP.PCM.PN ---
Subjective - Date & Time of Evaluation Date of Evaluation: 01/09/18 Time of Evaluation: 07:00 - Subjective Subjective: clinically same Objective - Vital Signs/Intake and Output Vital Signs (last 24 hours): Temp Pulse Resp BP Pulse Ox 98.5 F 96 H 20 149/90 95 01/09/18 11:30 01/09/18 11:30 01/09/18 11:30 01/09/18 11:30 01/09/18 11:30 Intake and Output: 01/09/18 01/09/18 06:59 18:59 Intake Total 200 350 Output Total 850 1400 Balance -650 -1050 - Medications Medications: Current Medications Amlodipine Besylate (Norvasc) [address] [facility] Last Admin: 01/09/18 09:12 Dose: 10 mg Dexamethasone (Decadron Inj) [address] [facility] Last Admin: 01/09/18 09:13 Dose: 4 mg Gabapentin (Neurontin) [address] [facility] Last Admin: 01/09/18 13:53 Dose: 300 mg Hydrochlorothiazide (Hydrodiuril) [address] [facility] Last Admin: 01/09/18 09:12 Dose: 25 mg Insulin Human Regular (Novolin R) [address] [facility] PRN Reason: Protocol Last Admin: 01/09/18 11:50 Dose: 8 unit Lactulose (Enulose) [address] [facility] Last Admin: 01/09/18 09:21 Dose: 20 gm Levothyroxine Sodium (Synthroid) 175 mcg PO DAILY@0630 [facility] Last Admin: 01/09/18 06:22 Dose: 175 mcg Lorazepam (Ativan) 1 mg IVP ONCE PRN PRN Reason: Agitation Lorazepam (Ativan) 0.5 mg IVP Q4H PRN PRN Reason: Agitation Last Admin: 01/09/18 03:15 Dose: 0.5 mg Nitroglycerin (Nitro-Bid 2% Oint) [address] [facility] Last Admin: 01/09/18 11:28 Dose: 1 ea Pantoprazole Sodium (Protonix Inj) [address] [facility] Last Admin: 01/09/18 11:27 Dose: 40 mg Polyethylene Glycol (Miralax) [address] [facility] Last Admin: 01/09/18 13:39 Dose: 17 gm Rosuvastatin Calcium (Crestor) [address] [facility] Last Admin: 01/07/18 21:43 Dose: 10 mg Sodium Phosphate (Fleet Enema) 135 ml [place] ONCE PRN PRN Reason: Constipation Last Admin: 01/03/18 19:51 Dose: 135 ml Tamsulosin HCl (Flomax) 0.[address] [facility] Last Admin: 01/09/18 09:12 Dose: 0.4 mg - Labs Labs: 01/07/18 06:39 01/07/18 06:39 PT 15.3 SECONDS (9.7-12.2) H 12/30/17 11:04 INR 1.4 12/30/17 11:04 APTT 29 SECONDS (21-34) 12/30/17 11:04 - Constitutional Appears: Well - Head Exam Head Exam: ATRAUMATIC, NORMAL INSPECTION, NORMOCEPHALIC - Eye Exam Eye Exam: EOMI, Normal appearance, PERRL Pupil Exam: NORMAL ACCOMODATION, PERRL - ENT Exam ENT Exam: Mucous Membranes Moist, Normal Exam - Neck Exam Neck Exam: Full ROM, Normal Inspection. absent: Lymphadenopathy - Respiratory Exam Respiratory Exam: Decreased Breath Sounds - Cardiovascular Exam Cardiovascular Exam: REGULAR RHYTHM, +S1, +S2 - GI/Abdominal Exam GI & Abdominal Exam: Soft, Diminished Bowel Sounds - Rectal Exam Rectal Exam: Deferred Assessment and Plan (1) ARF (acute renal failure) Status: Acute (2) Abdominal pain Status: Acute (3) Acute on chronic renal failure Status: Acute (4) Anasarca Status: Acute (5) Bone lesion Status: Acute (6) Constipation Status: Acute (7) Fecal impaction Status: Acute (8) HHNC (hyperglycemic hyperosmolar nonketotic coma) Status: Acute (9) History of prostate cancer Status: Acute (10) Hyperglycemia Status: Acute (11) Hyperkalemia Status: Acute (12) Knee pain, chronic Status: Acute (13) Lactic acidosis Status: Acute (14) Lung nodule Status: Acute (15) Obstructive uropathy Status: Acute (16) Prostate cancer Status: Acute (17) Prostate cancer metastatic to bone Status: Acute (18) Renal insufficiency Status: Acute (19) Sciatica Status: Acute (20) Tachycardia Status: Acute (21) UTI (urinary tract infection) Status: Acute (22) Uncontrolled hypertension Status: Acute (23) Anemia Status: Chronic (24) DM type 2 (diabetes mellitus, type 2) Status: Chronic (25) History of DVT (deep vein thrombosis) Status: Chronic (26) Hypertension Status: Chronic (27) Intractable low back pain Status: Chronic (28) Renal mass Status: Suspected - Assessment and Plan (Free Text) Plan: Discharge planning patient is more awake and alert patient agrees to go to the rehab is bedside History through [facility] Continue same Monitor vital signs and blood pressure Monitor WBC is usually mildly high
[2018-01-10] MEDS: Nitroglycerin 2% Ointment Foilpak UD TOP SCH ×4 (00:28→17:54)
[2018-01-10] MEDS: Levothyroxine 175 MCG TAB PO SCH (05:50)
[2018-01-10] MEDS: (Novolin R) Insulin Human Regular 100 units/ml vial SC SCH ×3 (07:50→16:30)
[2018-01-10 09:05] VITALS: TEMP 98.1
[2018-01-10] MEDS ORDERED: Pantoprazole 40 mg EC Tab PO SCH (10:00)
[2018-01-10] MEDS: Dexamethasone 4 mg/1 ml IV SCH ×2 (10:50→17:46)
[2018-01-10] MEDS: POLYETHYLENE GLYCOL 3350 17 GM/Dose PACKET PO SCH ×3 (10:53→17:45)
[2018-01-10 15:57] VITALS: BP 125/73; PULSE 78; O2SAT 93
--- NOTE | 2018-01-10 16:19 | CP.PCM.PN ---
Subjective - Date & Time of Evaluation Date of Evaluation: 01/10/18 Time of Evaluation: 07:00 - Subjective Subjective: clinically same Objective - Vital Signs/Intake and Output Vital Signs (last 24 hours): Temp Pulse Resp BP Pulse Ox 98.1 F 78 20 125/73 93 L 01/10/18 15:56 01/10/18 15:56 01/10/18 15:56 01/10/18 15:56 01/10/18 15:56 Intake and Output: 01/10/18 01/10/18 06:59 18:59 Intake Total 400 Output Total 1000 Balance -600 - Medications Medications: Current Medications Amlodipine Besylate (Norvasc) 10 mg PO DAILY [facility] Last Admin: 01/10/18 10:49 Dose: 10 mg Dexamethasone (Decadron Inj) 4 mg IV BID [facility] Last Admin: 01/10/18 10:50 Dose: 4 mg Gabapentin (Neurontin) 300 mg PO TID [facility] Last Admin: 01/10/18 13:16 Dose: 300 mg Hydrochlorothiazide (Hydrodiuril) 25 mg PO DAILY [facility] Last Admin: 01/10/18 10:49 Dose: 25 mg Insulin Human Regular (Novolin R) 0 unit SC [facility] PRN Reason: Protocol Last Admin: 01/10/18 11:44 Dose: 6 unit Lactulose (Enulose) 20 gm PO BID [facility] Last Admin: 01/10/18 10:50 Dose: 20 gm Levothyroxine Sodium (Synthroid) 175 mcg PO DAILY@0630 [facility] Last Admin: 01/10/18 05:50 Dose: 175 mcg Lorazepam (Ativan) 1 mg IVP ONCE PRN PRN Reason: Agitation Last Admin: 01/10/18 09:09 Dose: 1 mg Lorazepam (Ativan) 0.5 mg IVP Q4H PRN PRN Reason: Agitation Last Admin: 01/10/18 02:49 Dose: 0.5 mg Nitroglycerin (Nitro-Bid 2% Oint) 1 ea TOP Q6 [facility] Last Admin: 01/10/18 11:45 Dose: 1 ea Pantoprazole Sodium (Protonix Ec Tab) 40 mg PO DAILY [facility] Last Admin: 01/10/18 10:49 Dose: 40 mg Polyethylene Glycol (Miralax) 17 gm PO TID [facility] Last Admin: 01/10/18 13:16 Dose: Not Given Rosuvastatin Calcium (Crestor) 10 mg PO HS [facility] Last Admin: 01/09/18 21:46 Dose: 10 mg Sodium Phosphate (Fleet Enema) 135 ml [place] ONCE PRN PRN Reason: Constipation Last Admin: 01/03/18 19:51 Dose: 135 ml Tamsulosin HCl (Flomax) 0.4 mg PO DAILY [facility] Last Admin: 01/10/18 10:50 Dose: 0.4 mg - Labs Labs: 01/07/18 06:39 01/07/18 06:39 PT 15.3 SECONDS (9.7-12.2) H 12/30/17 11:04 INR 1.4 12/30/17 11:04 APTT 29 SECONDS (21-34) 12/30/17 11:04 - Constitutional Appears: Well - Head Exam Head Exam: ATRAUMATIC, NORMAL INSPECTION, NORMOCEPHALIC - Eye Exam Eye Exam: EOMI, Normal appearance, PERRL Pupil Exam: NORMAL ACCOMODATION, PERRL - ENT Exam ENT Exam: Mucous Membranes Moist, Normal Exam - Neck Exam Neck Exam: Full ROM, Normal Inspection. absent: Lymphadenopathy - Respiratory Exam Respiratory Exam: Decreased Breath Sounds - Cardiovascular Exam Cardiovascular Exam: REGULAR RHYTHM, +S1, +S2 - GI/Abdominal Exam GI & Abdominal Exam: Soft, Diminished Bowel Sounds - Rectal Exam Rectal Exam: Deferred Assessment and Plan (1) ARF (acute renal failure) Status: Acute (2) Abdominal pain Status: Acute (3) Acute on chronic renal failure Status: Acute (4) Anasarca Status: Acute (5) Bone lesion Status: Acute (6) Constipation Status: Acute (7) Fecal impaction Status: Acute (8) HHNC (hyperglycemic hyperosmolar nonketotic coma) Status: Acute (9) History of prostate cancer Status: Acute (10) Hyperglycemia Status: Acute (11) Hyperkalemia Status: Acute (12) Knee pain, chronic Status: Acute (13) Lactic acidosis Status: Acute (14) Lung nodule Status: Acute (15) Obstructive uropathy Status: Acute (16) Prostate cancer Status: Acute (17) Prostate cancer metastatic to bone Status: Acute (18) Renal insufficiency Status: Acute (19) Sciatica Status: Acute (20) Tachycardia Status: Acute (21) UTI (urinary tract infection) Status: Acute (22) Uncontrolled hypertension Status: Acute (23) Anemia Status: Chronic (24) DM type 2 (diabetes mellitus, type 2) Status: Chronic (25) History of DVT (deep vein thrombosis) Status: Chronic (26) Hypertension Status: Chronic (27) Intractable low back pain Status: Chronic (28) Renal mass Status: Suspected
--- NOTE | 2018-01-10 16:24 | CP.PCM.PN ---
Subjective - Date & Time of Evaluation Date of Evaluation: 01/10/18 Time of Evaluation: 16:21 - Subjective Subjective: PT CLEARED FOR D/C TODAY PER DR. RUIZ. PT WAS ACCEPTED TO [facility] PER ; THEY WILL TRANSPORT PT TO [place] FOR RADIATION Q TUE-TUE AT 9 AM. TO ARRANGE TRANSPORTATION TO [facility] TODAY. PT TO BE FOLLOWED BY DR. RUIZ IN [facility]. SEE MY PROGRESS NOTE FROM 01/07/18 FOR FURTHER D/C INSTRUCTIONS. NO FURTHER ORDERS. Objective - Vital Signs/Intake and Output Vital Signs (last 24 hours): Temp Pulse Resp BP Pulse Ox 98.1 F 78 20 125/73 93 L 01/10/18 15:56 01/10/18 15:56 01/10/18 15:56 01/10/18 15:56 01/10/18 15:56 Intake and Output: 01/10/18 01/10/18 06:59 18:59 Intake Total 400 Output Total 1000 Balance -600 - Medications Medications: Current Medications Amlodipine Besylate (Norvasc) 10 mg PO DAILY [facility]S [facility] Last Admin: 01/10/18 10:49 Dose: 10 mg Dexamethasone (Decadron Inj) 4 mg IV BID [facility] Last Admin: 01/10/18 10:50 Dose: 4 mg Gabapentin (Neurontin) 300 mg PO TID [facility] Last Admin: 01/10/18 13:16 Dose: 300 mg Hydrochlorothiazide (Hydrodiuril) 25 mg PO DAILY [facility] Last Admin: 01/10/18 10:49 Dose: 25 mg Insulin Human Regular (Novolin R) 0 unit SC ACHS [facility] PRN Reason: Protocol Last Admin: 01/10/18 11:44 Dose: 6 unit Lactulose (Enulose) 20 gm PO BID [facility] Last Admin: 01/10/18 10:50 Dose: 20 gm Levothyroxine Sodium (Synthroid) 175 mcg PO DAILY@0630 [facility]S [facility] Last Admin: 01/10/18 05:50 Dose: 175 mcg Lorazepam (Ativan) 1 mg IVP ONCE PRN PRN Reason: Agitation Last Admin: 01/10/18 09:09 Dose: 1 mg Lorazepam (Ativan) 0.5 mg IVP Q4H PRN PRN Reason: Agitation Last Admin: 01/10/18 02:49 Dose: 0.5 mg Nitroglycerin (Nitro-Bid 2% Oint) 1 ea TOP Q6 [facility] B[facility]S [facility] Last Admin: 01/10/18 11:45 Dose: 1 ea Pantoprazole Sodium (Protonix Ec Tab) 40 mg PO DAILY [facility] B[facility]S [facility] Last Admin: 01/10/18 10:49 Dose: 40 mg Polyethylene Glycol (Miralax) 17 gm PO TID [facility] 234 B[facility]S [facility] Last Admin: 01/10/18 13:16 Dose: Not Given Rosuvastatin Calcium (Crestor) 10 mg PO HS [facility] 234 BEDS [facility] Last Admin: 01/09/18 21:46 Dose: 10 mg Sodium Phosphate (Fleet Enema) 135 ml [place] ONCE PRN PRN Reason: Constipation Last Admin: 01/03/18 19:51 Dose: 135 ml Tamsulosin HCl (Flomax) 0.4 mg PO DAILY [facility]EDS [facility] Last Admin: 01/10/18 10:50 Dose: 0.4 mg - Labs Labs: 01/07/18 06:39 01/07/18 06:39 PT 15.3 SECONDS (9.7-12.2) H 12/30/17 11:04 INR 1.4 12/30/17 11:04 APTT 29 SECONDS (21-34) 12/30/17 11:04
== END 2018-01-10 19:08 | DRG 542 ==
LOC: C.ER 10:10 → C.9E 12:34 → C.5S 13:28 → OBSVTOIN 01-02 14:47 → C.5S 01-03 06:08 → C.3T 01-04 15:38
PROVIDERS: ADMIT Internal Medicine Nephrology; ATTEND Internal Medicine Nephrology
DX: C79.51 Secondary malignant neoplasm of bone (principal); M48.56XA Collapsed vertebra, not elsewhere classified, lumbar region, initial encounter for fracture; C78.02 Secondary malignant neoplasm of left lung; C78.01 Secondary malignant neoplasm of right lung; E11.01 Type 2 diabetes mellitus with hyperosmolarity with coma; G92 Toxic encephalopathy; J91.0 Malignant pleural effusion; E87.2 Acidosis; G82.20 Paraplegia, unspecified; G83.4 Cauda equina syndrome; N17.9 Acute kidney failure, unspecified; N39.0 Urinary tract infection, site not specified; C61 Malignant neoplasm of prostate; D64.9 Anemia, unspecified; E11.22 Type 2 diabetes mellitus with diabetic chronic kidney disease; E11.42 Type 2 diabetes mellitus with diabetic polyneuropathy; E87.5 Hyperkalemia; G89.29 Other chronic pain; I12.9 Hypertensive chronic kidney disease with stage 1 through stage 4 chronic kidney disease, or unspecified chronic kidney disease; N18.9 Chronic kidney disease, unspecified; N13.9 Obstructive and reflux uropathy, unspecified; E03.9 Hypothyroidism, unspecified; M48.061 Spinal stenosis, lumbar region without neurogenic claudication; M54.42 Lumbago with sciatica, left side; K56.41 Fecal impaction; E78.00 Pure hypercholesterolemia, unspecified; E66.9 Obesity, unspecified; Z85.528 Personal history of other malignant neoplasm of kidney; Z91.19 Patient's noncompliance with other medical treatment and regimen; Z86.718 Personal history of other venous thrombosis and embolism; Z99.3 Dependence on wheelchair; Z79.4 Long term (current) use of insulin

== ENCOUNTER 2018-02-07 12:36 | Inpatient (IN) | payer MEDICARE ==
[2018-02-07 12:39] VITALS: BMI 30.1
--- NOTE | 2018-02-07 13:33 | C.PDOC ---
History Of Present Illness 68 year old male [facility] patient of Dr. Aldo Escobar with a Hx of prostate cancer who was at the hospital for routine chemo when his legs felt weak and gave out. Denies nausea, vomiting, diarrhea, chest pain, SOB, or headache. Time Seen by Provider: 02/07/18 13:16 Chief Complaint (Nursing): Lower Extremity Problem/Injury History Per: Patient History/Exam Limitations: no limitations Onset/Duration Of Symptoms: Hrs Current Symptoms Are (Timing): Still Present Recent travel outside of the [place]: No Past Medical History Reviewed: Historical Data, Nursing Documentation, Vital Signs Vital Signs: Last Vital Signs Temp 99.7 F H 02/07/18 13:08 Pulse 90 02/07/18 15:06 Resp 19 02/07/18 15:06 BP 149/91 H 02/07/18 15:06 Pulse Ox 99 02/07/18 15:26 - Medical History PMH: Anemia, Arthritis, COPD, Diabetes, Deep Vein Thrombosis, Fractures (lower back), HTN, Hypercholesterolemia, Hypothyroidism, Chronic Kidney Disease Surgical History: Hernia Repair - [facility] Procedures INSERT INDWELLING CATH (01/23/13) INTRODUCTION OF SERUM/TOX/VACCINE INTO MUSCLE, PERC APPROACH (11/18/17) MAGNETIC RESONANCE IMAGING (MRI) OF SPINAL CORD (11/18/17) Family History: States: Unknown Family Hx - Social History Hx Tobacco Use: No Hx Alcohol Use: No Hx Substance Use: No - Immunization History Hx Tetanus Toxoid Vaccination: No Hx Influenza Vaccination: Yes Hx Pneumococcal Vaccination: Yes Review Of Systems Except As Marked, All Systems Reviewed And Found Negative. Constitutional: Positive for: Weakness Physical Exam - Physical Exam Appears: Non-toxic Skin: Normal Color, Warm, Dry Head: Atraumatic, Normacephalic Eye(s): bilateral: Conjunctiva Pale Oral Mucosa: Moist Neck: Normal, Supple Chest: Symmetrical, No Tenderness Cardiovascular: Rhythm Regular Respiratory: Normal Breath Sounds, No Rales, No Rhonchi, No Wheezing Gastrointestinal/Abdominal: Soft, No Tenderness, Hernia (Reducible umbilical) Back: No CVA Tenderness Male Genital: Other (Indwelling arnold) Extremity: Normal ROM (x4), No Tenderness, Pedal Edema (3+ pitting), Capillary Refill (<2 seconds) Pulses: Left Dorsalis Pedis: Normal, Right Dorsalis Pedis: Normal Neurological/Psych: Oriented x3, Normal Speech, Normal Motor, Normal Sensation ED Course And Treatment - Laboratory Results Result Diagrams: 02/07/18 14:05 02/07/18 14:05 ECG: Interpreted By Me, Viewed By Me ECG Rhythm: Sinus Rhythm Interpretation Of ECG: Left atrial enlargement, normal interval and axis, no ST/ T wave abnormalities Rate From EC O2 Sat by Pulse Oximetry: 99 (Room air) Pulse Ox Interpretation: Normal - Radiology CXR: Viewed By Me, Read By Radiologist CXR Interpretation: Yes: Other (Prominence of the pulmonary vasculature may be secondary to AP technique and/or pulmonary vascular congestion. No focal consolidation or pleural effusion.) Medical Decision Making Medical Decision Making: Assessment: Weakness Plan: * EKG * Blood work * CXR * Urinalysis Patient admitted to telemetry under Dr. Aldo Escobar's service. Disposition Discussed With : Vick Escobar Doctor Will See Patient In The: Hospital Counseled Patient/Family Regarding: Studies Performed, Diagnosis - Disposition Disposition: HOSPITALIZED Disposition Time: 15:22 Condition: FAIR - Clinical Impression Clinical Impression: CHF (congestive heart failure), UTI (urinary tract infection) - Scribe Statement The provider has reviewed the documentation as recorded by the Scribe Weston Shelby All medical record entries made by the Scribe were at my direction and personally dictated by me. I have reviewed the chart and agree that the record accurately reflects my personal performance of the history, physical exam, medical decision making, and the department course for this patient. I have also personally directed, reviewed, and agree with the discharge instructions and disposition.
--- NOTE | 2018-02-07 14:05 | RAD ---
PROCEDURE: CHEST RADIOGRAPH, 1 VIEW HISTORY: SOB COMPARISON: None available. FINDINGS: LUNGS: Prominence of pulmonary vasculature may be secondary to AP technique and/or pulmonary vascular congestion. No focal consolidation. PLEURA: No pneumothorax or pleural fluid seen. CARDIOVASCULAR: Atherosclerotic aortic calcifications. Cardiomediastinal silhouette enlarged. OSSEOUS STRUCTURES: Degenerative changed. VISUALIZED UPPER ABDOMEN: Normal. OTHER FINDINGS: None. IMPRESSION: Prominence of the pulmonary vasculature may be secondary to AP technique and/or pulmonary vascular congestion. No focal consolidation or pleural effusion.
[2018-02-07 14:15] LABS: BASO # 0.1 K/uL (0.0-0.2); BASO % 0.9 % (0.0-2.0); EOS # 0.3 K/uL (0.0-0.7); HEMOGLOBIN 8.2 g/dL (12.0-18.0); LYMPH # 0.7 K/uL (1.0-4.3); LYMPH % 9.5 % (20.0-40.0); MEAN CELL VOLUME 87.9 fL (80.0-94.0); MEAN CORPUSCULAR HEMOGLOBIN 28.2 pg (27.0-31.0); MEAN CORPUSCULAR HGB CONC 32.1 g/dL (33.0-37.0); MEAN PLATELET VOLUME 7.9 fL (7.2-11.7); MONO % 14.6 % (0.0-10.0); PLATELET COUNT 312 K/uL (130-400); RBC 2.91 Mil/uL (4.40-5.90); RED CELL DISTRIBUTION WIDTH 17.3 % (11.5-14.5)
[2018-02-07 14:25] LABS: URINE BACTERIA MANY (<OCC); URINE BILIRUBIN NEGATIVE (NEGATIVE); URINE BLOOD 3+ (NEGATIVE); URINE CLARITY Hazy (Clear); URINE COLOR Yellow (YELLOW); URINE GLUCOSE (UA) 1+ mg/dL (Normal); URINE LEUKOCYTE ESTERASE 3+ Leu/uL (Negative); URINE PROTEIN 2+ mg/dL (NEGATIVE); URINE UROBILINOGEN NORMAL mg/dL (0.2-1.0); WBC CLUMPS FEW /hpf
[2018-02-07 14:48] LABS: B-TYPE NATRIURETIC PEPTIDE 286 pg/mL (0-900)
[2018-02-07 14:49] LABS: ALB/GLOB RATIO 1.1 (1.0-2.1); ALBUMIN 3.3 g/dL (3.5-5.0); ALT/SGPT 21 U/L (21-72); AST/SGOT 21 U/L (17-59); BLOOD UREA NITROGEN 22 mg/dL (9-20); CALCIUM 8.5 mg/dl (8.6-10.4); GFR AFRICAN-AMERICAN 57; GFR NON-AFRICAN AMERICAN 47
[2018-02-07 15:20] LABS: EOSINOPHIL 4 % (0-4); LYMPHOCYTE 9 % (20-40); MONOCYTE 6 % (0-10); NEUTROPHIL 81 % (50-75); TOTAL CELLS COUNTED 100
[2018-02-07 15:23] LABS: ANISOCYTOSIS SLIGHT; PLATELET ESTIMATE NORMAL (NORMAL)
[2018-02-07 15:24] LABS: HYPOCHROMIC SLIGHT
[2018-02-07] MEDS: (Novolog) Insulin Aspart, Recombinant 100 u/ml 10 ml vial SC SCH (21:40)
[2018-02-08] MEDS: Levothyroxine 175 MCG TAB PO SCH ×2 (05:38→12:30)
[2018-02-08] MEDS: (Novolog) Insulin Aspart, Recombinant 100 u/ml 10 ml vial SC SCH ×4 (07:59→21:38)
--- NOTE | 2018-02-08 09:54 | CP.PCM.CON ---
History of Present Illness - History of Present Illness History of Present Illness: I was asked to see patient by Dr Douglas Christianson Patient is a 68 year old male with PMH HTN who presents with lower extremity edema. The patient has become weak and has fatigue. He was found to be anemic. He is not cooperative with questioning. Review of Systems - Review of Systems Systems not reviewed;Unavailable: Uncooperative Past Patient History - Infectious Disease Hx of Infectious Diseases: None - Past Medical History & Family History Past Medical History?: Yes - Past Social History Smoking Status: Never Smoked - CARDIAC Hx Hypercholesterolemia: Yes Hx Hypertension: Yes - PULMONARY Hx Chronic Obstructive Pulmonary Disease (COPD): Yes - NEUROLOGICAL Hx Neurological Disorder: No - HEENT Hx HEENT Problems: No - RENAL Hx Chronic Kidney Disease: Yes - ENDOCRINE/METABOLIC Hx Hypothyroidism: Yes - HEMATOLOGICAL/ONCOLOGICAL Hx Anemia: Yes - INTEGUMENTARY Hx Dermatological Problems: No - MUSCULOSKELETAL/RHEUMATOLOGICAL Hx Falls: Yes - GASTROINTESTINAL Hx Gastrointestinal Disorders: No - GENITOURINARY/GYNECOLOGICAL Hx Genitourinary Disorders: Yes (prostate ca) Hx Prostate Cancer: Yes Other/Comment: Renal Cancer. Spinal Cancer - PSYCHIATRIC Hx Substance Use: No - SURGICAL HISTORY Hx Surgeries: Yes Hx Herniorrhaphy: Yes Other/Comment: Umbilical hernia repair - ANESTHESIA Hx Anesthesia: Yes Hx Anesthesia Reactions: No Hx Malignant Hyperthermia: No Meds Allergies/Adverse Reactions: Allergies Allergy/AdvReac Type Severity Reaction Status Date / Time No Known Allergies Allergy Verified 02/07/18 13:13 - Medications Medications: Current Medications Amlodipine Besylate (Norvasc) 5 mg PO DAILY [facility] Apixaban (Eliquis) 5 mg PO BID [facility] Cyclobenzaprine HCl (Flexeril) 10 mg PO Q8 PRN PRN Reason: Muscle spasm Last Admin: 02/08/18 04:53 Dose: 10 mg Enoxaparin Sodium (Lovenox) 40 mg SC DAILY [facility] Furosemide (Lasix) 40 mg IVP BID [facility] Gabapentin (Neurontin) 300 mg PO TID [facility] Ceftriaxone Sodium 1 gm/ (Sodium Chloride) 100 mls @ 100 mls/hr IVPB DAILY [facility] PRN Reason: Protocol Azithromycin (Zithromax 500mg In Ns Addvantage) 500 mg in 250 mls @ 167 mls/hr IVPB DAILY [facility] PRN Reason: Protocol Insulin Aspart (Novolog) 0 unit SC ACHS [facility] PRN Reason: Protocol Last Admin: 02/08/18 07:59 Dose: Not Given Levothyroxine Sodium (Synthroid) 175 mcg PO DAILY [facility] Last Admin: 02/08/18 05:38 Dose: 175 mcg Rosuvastatin Calcium (Crestor) 10 mg PO HS [facility] Last Admin: 02/07/18 21:38 Dose: 10 mg Tamsulosin HCl (Flomax) 0.4 mg PO DAILY [facility] Tramadol HCl (Ultram) 50 mg PO Q6H PRN PRN Reason: Pain, severe (8-10) Last Admin: 02/08/18 08:28 Dose: 50 mg Zolpidem Tartrate (Ambien) 5 mg PO HS PRN PRN Reason: Insomnia Physical Exam - Constitutional Appears: Non-toxic - Head Exam Head Exam: NORMAL INSPECTION - Eye Exam Eye Exam: Normal appearance - ENT Exam ENT Exam: Mucous Membranes Moist - Neck Exam Neck exam: Positive for: Full Rom - Respiratory Exam Respiratory Exam: NORMAL BREATHING PATTERN - Cardiovascular Exam Cardiovascular Exam: REGULAR RHYTHM - GI/Abdominal Exam GI & Abdominal Exam: Normal Bowel Sounds - Rectal Exam Rectal Exam: Deferred - Extremities Exam Extremities exam: Positive for: pedal edema - Back Exam Back exam: NORMAL INSPECTION - Neurological Exam Neurological exam: Alert, Oriented x3 - Psychiatric Exam Psychiatric exam: Normal Affect - Skin Skin Exam: Normal Color Results - Vital Signs Recent Vital Signs: Last Vital Signs Temp 99.2 F 02/08/18 07:00 Pulse 95 H 02/08/18 07:00 Resp 20 02/08/18 07:00 BP 179/84 H 02/08/18 07:00 Pulse Ox 99 02/08/18 07:00 - Labs Result Diagrams: 02/07/18 14:05 02/07/18 14:05 Labs: Laboratory Results - last 24 hr 02/07/18 02/07/18 02/07/18 14:05 14:05 14:05 WBC 7.0 RBC 2.91 L Hgb 8.2 L Hct 25.5 L MCV 87.9 MCH 28.2 MCHC 32.1 L RDW 17.3 H Plt Count 312 MPV 7.9 Neut % (Auto) 71.0 Lymph % (Auto) 9.5 L [place] % (Auto) 14.6 H Eos % (Auto) 4.0 Baso % (Auto) 0.9 Neut # (Auto) 5.0 Lymph # (Auto) 0.7 L [place] # (Auto) 1.0 H Eos # (Auto) 0.3 Baso # (Auto) 0.1 Neutrophils % (Manual) 81 H Lymphocytes % (Manual) 9 L Monocytes % (Manual) 6 Eosinophils % (Manual) 4 Platelet Estimate Normal Hypochromasia (manual) Slight Anisocytosis (manual) Slight Sodium 141 Potassium 4.1 Chloride 106 Carbon Dioxide 26 Anion Gap 13 BUN 22 H Creatinine 1.5 Est GFR ( Amer) 57 Est GFR (Non-Af Amer) 47 POC Glucose (mg/dL) Random Glucose 206 H Calcium 8.5 L Magnesium 2.0 Total Bilirubin 0.4 AST 21 ALT 21 D Alkaline Phosphatase 108 Troponin I < 0.0120 NT-Pro-B Natriuret Pep 286 Total Protein 6.5 Albumin 3.3 L Globulin 3.2 Albumin/Globulin Ratio 1.1 TSH 3rd Generation 2.64 Urine Color Yellow Urine Clarity Hazy Urine pH 5.0 Ur Specific [place] 1.014 Urine Protein 2+ H Urine Glucose (UA) 1+ H Urine Ketones Negative Urine Blood 3+ H Urine Nitrate Positive H Urine Bilirubin Negative Urine Urobilinogen Normal Ur Leukocyte Esterase 3+ H Urine WBC (Auto) 683 H Urine RBC (Auto) 755 H Urine WBC Clumps (Auto) Few H Urine Bacteria Many H 02/07/18 21:39 WBC RBC Hgb Hct MCV MCH MCHC RDW Plt Count MPV Neut % (Auto) Lymph % (Auto) [place] % (Auto) Eos % (Auto) Baso % (Auto) Neut # (Auto) Lymph # (Auto) [place] # (Auto) Eos # (Auto) Baso # (Auto) Neutrophils % (Manual) Lymphocytes % (Manual) Monocytes % (Manual) Eosinophils % (Manual) Platelet Estimate Hypochromasia (manual) Anisocytosis (manual) Sodium Potassium Chloride Carbon Dioxide Anion Gap BUN Creatinine Est GFR ( Amer) Est GFR (Non-Af Amer) POC Glucose (mg/dL) 252 H Random Glucose Calcium Magnesium Total Bilirubin AST ALT Alkaline Phosphatase Troponin I NT-Pro-B Natriuret Pep Total Protein Albumin Globulin Albumin/Globulin Ratio TSH 3rd Generation Urine Color Urine Clarity Urine pH Ur Specific [place] Urine Protein Urine Glucose (UA) Urine Ketones Urine Blood Urine Nitrate Urine Bilirubin Urine Urobilinogen Ur Leukocyte Esterase Urine WBC (Auto) Urine RBC (Auto) Urine WBC Clumps (Auto) Urine Bacteria - EKG Data EKG Interpreted by: Myself Assessment & Plan (1) CHF (congestive heart failure) Assessment and Plan: unclear etiology will need echcoardigoram for evaluation of ventricular function. Status: Acute (2) Anemia Assessment and Plan: will monitor. check FOB Status: Chronic (3) Hypertension Assessment and Plan: blood pressure management Status: Chronic
[2018-02-08] MEDS ORDERED: Enoxaparin 40 mg Syringe SC SCH (10:00)
[2018-02-08] MEDS: Azithromycin 500mg/250ML NS 500 MG/250 ML BAG IVPB SCH (10:36)
[2018-02-08 11:44] LABS: HEMOGLOBIN 8.5 g/dL (12.0-18.0); MEAN CORPUSCULAR HEMOGLOBIN 28.9 pg (27.0-31.0); MEAN CORPUSCULAR HGB CONC 33.3 g/dL (33.0-37.0); RBC 2.95 Mil/uL (4.40-5.90); RED CELL DISTRIBUTION WIDTH 17.4 % (11.5-14.5); WHITE BLOOD COUNT 7.1 K/uL (4.8-10.8)
[2018-02-08 12:03] LABS: ALB/GLOB RATIO 1.1 (1.0-2.1); ALBUMIN 3.2 g/dL (3.5-5.0); CALCIUM 8.7 mg/dl (8.6-10.4)
--- NOTE | 2018-02-08 14:42 | CP.PCM.HP ---
Past Patient History - Infectious Disease Hx of Infectious Diseases: None - Past Medical History & Family History Past Medical History?: Yes - Past Social History Smoking Status: Never Smoked - CARDIAC Hx Hypercholesterolemia: Yes Hx Hypertension: Yes - PULMONARY Hx Chronic Obstructive Pulmonary Disease (COPD): Yes - NEUROLOGICAL Hx Neurological Disorder: No - HEENT Hx HEENT Problems: No - RENAL Hx Chronic Kidney Disease: Yes - ENDOCRINE/METABOLIC Hx Hypothyroidism: Yes - HEMATOLOGICAL/ONCOLOGICAL Hx Anemia: Yes - INTEGUMENTARY Hx Dermatological Problems: No - MUSCULOSKELETAL/RHEUMATOLOGICAL Hx Falls: Yes - GASTROINTESTINAL Hx Gastrointestinal Disorders: No - GENITOURINARY/GYNECOLOGICAL Hx Genitourinary Disorders: Yes (prostate ca) Hx Prostate Cancer: Yes Other/Comment: Renal Cancer. Spinal Cancer - PSYCHIATRIC Hx Substance Use: No - SURGICAL HISTORY Hx Surgeries: Yes Hx Herniorrhaphy: Yes Other/Comment: Umbilical hernia repair - ANESTHESIA Hx Anesthesia: Yes Hx Anesthesia Reactions: No Hx Malignant Hyperthermia: No Meds Allergies/Adverse Reactions: Allergies Allergy/AdvReac Type Severity Reaction Status Date / Time No Known Allergies Allergy Verified 02/07/18 13:13 Physical Exam - Constitutional Appears: Well - Head Exam Head Exam: ATRAUMATIC, NORMAL INSPECTION, NORMOCEPHALIC - Eye Exam Eye Exam: EOMI, Normal appearance, PERRL Pupil Exam: NORMAL ACCOMODATION, PERRL - ENT Exam ENT Exam: Mucous Membranes Moist, Normal Exam - Neck Exam Neck exam: Positive for: Normal Inspection - Respiratory Exam Respiratory Exam: Decreased Breath Sounds - Cardiovascular Exam Cardiovascular Exam: REGULAR RHYTHM, +S1, +S2 - GI/Abdominal Exam GI & Abdominal Exam: Diminished Bowel Sounds, Soft - Rectal Exam Rectal Exam: Deferred Results - Vital Signs Recent Vital Signs: Last Vital Signs Temp 99.2 F 02/08/18 07:00 Pulse 82 02/08/18 12:13 Resp 20 02/08/18 07:00 BP 167/88 H 02/08/18 10:17 Pulse Ox 99 02/08/18 07:00 - Labs Result Diagrams: 02/08/18 11:33 02/08/18 11:33 Labs: Laboratory Results - last 24 hr 02/07/18 02/07/18 02/07/18 14:05 14:05 21:39 WBC RBC Hgb Hct MCV MCH MCHC RDW Plt Count MPV Neutrophils % (Manual) 81 H Lymphocytes % (Manual) 9 L Monocytes % (Manual) 6 Eosinophils % (Manual) 4 Platelet Estimate Normal Hypochromasia (manual) Slight Anisocytosis (manual) Slight Sodium 141 Potassium 4.1 Chloride 106 Carbon Dioxide 26 Anion Gap 13 BUN 22 H Creatinine 1.5 Est GFR ( Amer) 57 Est GFR (Non-Af Amer) 47 POC Glucose (mg/dL) 252 H Random Glucose 206 H Calcium 8.5 L Magnesium 2.0 Total Bilirubin 0.4 AST 21 ALT 21 D Alkaline Phosphatase 108 Troponin I < 0.0120 NT-Pro-B Natriuret Pep 286 Total Protein 6.5 Albumin 3.3 L Globulin 3.2 Albumin/Globulin Ratio 1.1 TSH 3rd Generation 2.64 02/08/18 02/08/18 02/08/18 11:15 11:33 11:33 WBC 7.1 RBC 2.95 L Hgb 8.5 L Hct 25.7 L MCV 87.0 MCH 28.9 MCHC 33.3 RDW 17.4 H Plt Count 328 MPV 8.0 Neutrophils % (Manual) Lymphocytes % (Manual) Monocytes % (Manual) Eosinophils % (Manual) Platelet Estimate Hypochromasia (manual) Anisocytosis (manual) Sodium 140 Potassium 4.0 Chloride 105 Carbon Dioxide 28 Anion Gap 12 BUN 18 Creatinine 1.5 Est GFR ( Amer) 57 Est GFR (Non-Af Amer) 47 POC Glucose (mg/dL) 258 H Random Glucose 251 H Calcium 8.7 Magnesium Total Bilirubin 0.3 AST 16 L D ALT 17 L Alkaline Phosphatase 114 Troponin I NT-Pro-B Natriuret Pep Total Protein 6.2 L Albumin 3.2 L Globulin 3.0 Albumin/Globulin Ratio 1.1 TSH 3rd Generation
--- NOTE | 2018-02-08 16:37 | CP.PCM.CON ---
History of Present Illness - History of Present Illness History of Present Illness: History from my old records- 68 yo man with a history of prostate cancer, treated with seed implants and ? EBRT several years ago, presented to my office in 2016 with c/o severe pain in the lower back, radiating down left leg, weight loss of 30 lbs, work up including labs, MRI spine and PET scan revealing metastatic prostate cancer to spine, retroperitoneal LN, L3 vertebral body, increased PSa. The patient had difficulty accepting his diagnosis, became paranoid about involvement of family in his care, but eventually agreed to start hormonal therapy with Lupron, Casodex, iv Zometa, with significant and rapid improvement in pain, improved appetite, weight gain and decreased PSA. After 3 months of treatment, he declined any more treatments, said he felt better and wanted to go back to work. There was no follow up since until 2 weeks ago when his and sister came to the office with the patient in a wheelchair after a lengthy hospitalization in [facility], where work up showed severe compression deformity of L3, progressive, extensive bone mets, increased retroperitoneal lymph nodes and a renal mass as well. He also developed a DVT and has been on Eliquis and Decadron along with his other meds. The patient was discharged with the recommendation that he get radiation therapy. Have had a lengthy discussion with the patient and family regarding treatments- radiation, hormonal, chemo/antiandrogen therapy, patient initially said he was scared to start any treatment, then agreed. Unclear if the patient has a clear understanding of the advanced/terminal nature of the cancer and that treatments while palliative can prolong survival. Unfortunately because of the most likely irreversible nature of the paraparesis , the QOL from any treatment is poor. The patient is currently c/o less pain, admitted from the oncology infusion unit for severe anemia and port insertion, because of lack of venous access and the patient has finally agreed to get chemo. He was given Lupron yesterday. PLan- Port insertion, check labs, PRN transfusion. REcommeng consult for the persistent and increased hematuria Past Patient History - Infectious Disease Hx of Infectious Diseases: None - Past Medical History & Family History Past Medical History?: Yes - Past Social History Smoking Status: Never Smoked - CARDIAC Hx Hypercholesterolemia: Yes Hx Hypertension: Yes - PULMONARY Hx Chronic Obstructive Pulmonary Disease (COPD): Yes - NEUROLOGICAL Hx Neurological Disorder: No - HEENT Hx HEENT Problems: No - RENAL Hx Chronic Kidney Disease: Yes - ENDOCRINE/METABOLIC Hx Hypothyroidism: Yes - HEMATOLOGICAL/ONCOLOGICAL Hx Anemia: Yes - INTEGUMENTARY Hx Dermatological Problems: No - MUSCULOSKELETAL/RHEUMATOLOGICAL Hx Falls: Yes - GASTROINTESTINAL Hx Gastrointestinal Disorders: No - GENITOURINARY/GYNECOLOGICAL Hx Genitourinary Disorders: Yes (prostate ca) Hx Prostate Cancer: Yes Other/Comment: Renal Cancer. Spinal Cancer - PSYCHIATRIC Hx Substance Use: No - SURGICAL HISTORY Hx Surgeries: Yes Hx Herniorrhaphy: Yes Other/Comment: Umbilical hernia repair - ANESTHESIA Hx Anesthesia: Yes Hx Anesthesia Reactions: No Hx Malignant Hyperthermia: No Meds Allergies/Adverse Reactions: Allergies Allergy/AdvReac Type Severity Reaction Status Date / Time No Known Allergies Allergy Verified 02/07/18 13:13 - Medications Medications: Current Medications Amlodipine Besylate (Norvasc) 5 mg PO DAILY [facility] Last Admin: 02/08/18 10:16 Dose: 5 mg Apixaban (Eliquis) 5 mg PO BID [facility] Last Admin: 02/08/18 10:16 Dose: 5 mg Cyclobenzaprine HCl (Flexeril) 10 mg PO Q8 PRN PRN Reason: Muscle spasm Last Admin: 02/08/18 04:53 Dose: 10 mg Furosemide (Lasix) 40 mg IVP BID [facility] Last Admin: 02/08/18 10:17 Dose: 40 mg Gabapentin (Neurontin) 300 mg PO TID [facility] Last Admin: 02/08/18 14:26 Dose: 300 mg Ceftriaxone Sodium 1 gm/ (Sodium Chloride) 100 mls @ 100 mls/hr IVPB DAILY [facility] PRN Reason: Protocol Last Admin: 02/08/18 10:16 Dose: 100 mls/hr Azithromycin (Zithromax 500mg In Ns Addvantage) 500 mg in 250 mls @ 167 mls/hr IVPB DAILY [facility] PRN Reason: Protocol Last Admin: 02/08/18 10:36 Dose: 167 mls/hr Insulin Aspart (Novolog) 0 unit SC ACHS [facility] PRN Reason: Protocol Last Admin: 02/08/18 12:31 Dose: 3 units Levothyroxine Sodium (Synthroid) 175 mcg PO DAILY [facility] Last Admin: 02/08/18 12:30 Dose: Not Given Rosuvastatin Calcium (Crestor) 10 mg PO HS [facility] Last Admin: 07/03/18 21:38 Dose: 10 mg Tamsulosin HCl (Flomax) 0.4 mg PO DAILY [facility] Last Admin: 02/08/18 10:19 Dose: 0.4 mg Tramadol HCl (Ultram) 50 mg PO Q6H PRN PRN Reason: Pain, severe (8-10) Last Admin: 02/08/18 08:28 Dose: 50 mg Zolpidem Tartrate (Ambien) 5 mg PO HS PRN PRN Reason: Insomnia Results - Vital Signs Recent Vital Signs: Last Vital Signs Temp 99.2 F 02/08/18 07:00 Pulse 82 02/08/18 12:13 Resp 20 02/08/18 07:00 BP 167/88 H 02/08/18 10:17 Pulse Ox 99 02/08/18 07:00 - Labs Result Diagrams: 02/08/18 11:33 02/08/18 11:33 Labs: Laboratory Results - last 24 hr 02/07/18 02/08/18 02/08/18 21:39 11:15 11:33 WBC 7.1 RBC 2.95 L Hgb 8.5 L Hct 25.7 L MCV 87.0 MCH 28.9 MCHC 33.3 RDW 17.4 H Plt Count 328 MPV 8.0 Sodium Potassium Chloride Carbon Dioxide Anion Gap BUN Creatinine Est GFR ( Amer) Est GFR (Non-Af Amer) POC Glucose (mg/dL) 252 H 258 H Random Glucose Calcium Total Bilirubin AST ALT Alkaline Phosphatase Total Protein Albumin Globulin Albumin/Globulin Ratio 02/08/18 02/08/18 11:33 16:20 WBC RBC Hgb Hct MCV MCH MCHC RDW Plt Count MPV Sodium 140 Potassium 4.0 Chloride 105 Carbon Dioxide 28 Anion Gap 12 BUN 18 Creatinine 1.5 Est GFR ( Amer) 57 Est GFR (Non-Af Amer) 47 POC Glucose (mg/dL) 278 H Random Glucose 251 H Calcium 8.7 Total Bilirubin 0.3 AST 16 L D ALT 17 L Alkaline Phosphatase 114 Total Protein 6.2 L Albumin 3.2 L Globulin 3.0 Albumin/Globulin Ratio 1.1
[2018-02-09 07:36] LABS: BASO # 0.1 K/uL (0.0-0.2); BASO % 0.9 % (0.0-2.0); EOS # 0.4 K/uL (0.0-0.7); EOS % 6.3 % (0.0-4.0); HEMOGLOBIN 8.6 g/dL (12.0-18.0); LYMPH # 0.7 K/uL (1.0-4.3); LYMPH % 10.3 % (20.0-40.0); MEAN CELL VOLUME 87.1 fL (80.0-94.0); MEAN CORPUSCULAR HEMOGLOBIN 28.9 pg (27.0-31.0); MEAN CORPUSCULAR HGB CONC 33.2 g/dL (33.0-37.0); MEAN PLATELET VOLUME 7.8 fL (7.2-11.7); MONO # 0.9 K/uL (0.0-0.8); MONO % 14.2 % (0.0-10.0); NEUT # 4.4 K/uL (1.8-7.0); NEUT % 68.3 % (50.0-75.0); RBC 2.98 Mil/uL (4.40-5.90); RED CELL DISTRIBUTION WIDTH 16.8 % (11.5-14.5); WHITE BLOOD COUNT 6.4 K/uL (4.8-10.8)
[2018-02-09 08:01] LABS: INR 1.3; PROTHROMBIN TIME 14.1 SECONDS (9.7-12.2)
[2018-02-09] MEDS: (Novolog) Insulin Aspart, Recombinant 100 u/ml 10 ml vial SC SCH ×4 (08:18→22:00)
[2018-02-09] MEDS: Levothyroxine 175 MCG TAB PO SCH (10:48)
[2018-02-09] MEDS: Azithromycin 500mg/250ML NS 500 MG/250 ML BAG IVPB SCH (12:19)
--- NOTE | 2018-02-09 12:47 | CP.PCM.CON ---
History of Present Illness - History of Present Illness History of Present Illness: dictated Past Patient History - Infectious Disease Hx of Infectious Diseases: None - Past Medical History & Family History Past Medical History?: Yes - Past Social History Smoking Status: Never Smoked - CARDIAC Hx Hypercholesterolemia: Yes Hx Hypertension: Yes - PULMONARY Hx Chronic Obstructive Pulmonary Disease (COPD): Yes - NEUROLOGICAL Hx Neurological Disorder: No - HEENT Hx HEENT Problems: No - RENAL Hx Chronic Kidney Disease: Yes - ENDOCRINE/METABOLIC Hx Hypothyroidism: Yes - HEMATOLOGICAL/ONCOLOGICAL Hx Anemia: Yes - INTEGUMENTARY Hx Dermatological Problems: No - MUSCULOSKELETAL/RHEUMATOLOGICAL Hx Falls: Yes - GASTROINTESTINAL Hx Gastrointestinal Disorders: No - GENITOURINARY/GYNECOLOGICAL Hx Genitourinary Disorders: Yes (prostate ca) Hx Prostate Cancer: Yes Other/Comment: Renal Cancer. Spinal Cancer - PSYCHIATRIC Hx Substance Use: No - SURGICAL HISTORY Hx Surgeries: Yes Hx Herniorrhaphy: Yes Other/Comment: Umbilical hernia repair - ANESTHESIA Hx Anesthesia: Yes Hx Anesthesia Reactions: No Hx Malignant Hyperthermia: No Meds Allergies/Adverse Reactions: Allergies Allergy/AdvReac Type Severity Reaction Status Date / Time No Known Allergies Allergy Verified 02/07/18 13:13 - Medications Medications: Current Medications Amlodipine Besylate (Norvasc) 5 mg PO DAILY [facility] Last Admin: 02/09/18 10:49 Dose: 5 mg Apixaban (Eliquis) 5 mg PO BID [facility] Last Admin: 02/09/18 10:49 Dose: 5 mg Cyclobenzaprine HCl (Flexeril) 10 mg PO Q8 PRN PRN Reason: Muscle spasm Last Admin: 02/08/18 21:15 Dose: 10 mg Furosemide (Lasix) 40 mg IVP BID [facility] Last Admin: 02/09/18 10:47 Dose: 40 mg Gabapentin (Neurontin) 300 mg PO TID [facility] Last Admin: 02/09/18 10:48 Dose: 300 mg Meropenem 1 gm/ Sodium (Chloride) 100 mls @ 100 mls/hr IVPB Q12H [facility] PRN Reason: Protocol Insulin Aspart (Novolog) 0 unit SC ACHS [facility] PRN Reason: Protocol Last Admin: 02/09/18 12:19 Dose: 3 units Levothyroxine Sodium (Synthroid) 175 mcg PO DAILY [facility] Last Admin: 02/09/18 10:48 Dose: 175 mcg Rosuvastatin Calcium (Crestor) 10 mg PO HS [facility] Last Admin: 02/08/18 21:15 Dose: 10 mg Tamsulosin HCl (Flomax) 0.4 mg PO DAILY [facility] Last Admin: 02/09/18 10:49 Dose: 0.4 mg Tramadol HCl (Ultram) 50 mg PO Q6H PRN PRN Reason: Pain, severe (8-10) Last Admin: 02/09/18 05:23 Dose: 50 mg Zolpidem Tartrate (Ambien) 5 mg PO HS PRN PRN Reason: Insomnia Results - Vital Signs Recent Vital Signs: Last Vital Signs Temp 99.2 F 02/09/18 08:00 Pulse 84 02/09/18 08:00 Resp 20 02/09/18 08:00 BP 150/87 02/09/18 10:47 Pulse Ox 98 02/09/18 08:00 - Labs Result Diagrams: 02/09/18 07:00 02/08/18 11:33 Labs: Laboratory Results - last 24 hr 02/08/18 02/08/18 02/09/18 16:20 21:20 06:43 WBC RBC Hgb Hct MCV MCH MCHC RDW Plt Count MPV Neut % (Auto) Lymph % (Auto) [place] % (Auto) Eos % (Auto) Baso % (Auto) Neut # (Auto) Lymph # (Auto) [place] # (Auto) Eos # (Auto) Baso # (Auto) PT INR APTT POC Glucose (mg/dL) 278 H 275 H 262 H Prostate Specific Ag 02/09/18 02/09/18 02/09/18 07:00 07:00 07:00 WBC 6.4 RBC 2.98 L Hgb 8.6 L Hct 25.9 L MCV 87.1 MCH 28.9 MCHC 33.2 RDW 16.8 H Plt Count 350 MPV 7.8 Neut % (Auto) 68.3 Lymph % (Auto) 10.3 L [place] % (Auto) 14.2 H Eos % (Auto) 6.3 H Baso % (Auto) 0.9 Neut # (Auto) 4.4 Lymph # (Auto) 0.7 L [place] # (Auto) 0.9 H Eos # (Auto) 0.4 Baso # (Auto) 0.1 PT 14.1 H INR 1.3 APTT 31 D POC Glucose (mg/dL) Prostate Specific Ag > 500 H 02/09/18 11:48 WBC RBC Hgb Hct MCV MCH MCHC RDW Plt Count MPV Neut % (Auto) Lymph % (Auto) [place] % (Auto) Eos % (Auto) Baso % (Auto) Neut # (Auto) Lymph # (Auto) [place] # (Auto) Eos # (Auto) Baso # (Auto) PT INR APTT POC Glucose (mg/dL) 269 H Prostate Specific Ag
--- NOTE | 2018-02-09 13:58 | VASCLAB ---
PROCEDURE: Lower Extremity Venous Duplex Exam. HISTORY: Edema, previous h/o DVT. PRIORS: None. TECHNIQUE: Bilateral common femoral, femoral, popliteal and posterior tibial, peroneal and great saphenous veins were evaluated. Flow was assessed with color Doppler, compressibility, assessment of phasic flow and augmentation response. Report prepared by Weston Holden, JOHN, RVT FINDINGS: RIGHT: 1. Common Femoral Vein: 1.1. Compressibility - Fully compressible: Thrombus - None : Flow - Phasic: Augmentation -Normal: Reflux - None. 2. Femoral Vein: 2.1. Compressibility - Fully compressible: Thrombus - None : Flow - Phasic: Augmentation -Normal: Reflux - None. 3. Popliteal Vein: 3.1. Compressibility - Fully compressible: Thrombus - None : Flow - Phasic: Augmentation -Normal: Reflux - None. 4. Posterior Tibial Vein: 4.1. Compressibility - Fully compressible: Thrombus - None: Flow - Phasic: Augmentation -Normal: Reflux - None. 5. Peroneal Vein: 5.1. Compressibility - Fully compressible: Thrombus - None: Flow - Phasic: Augmentation -Normal: Reflux - None. 6. Great Saphenous Vein: 6.1. Compressibility - Fully compressible: Thrombus - None: Flow - Phasic: Augmentation - Normal: Reflux - None. LEFT: 1. Common Femoral Vein: 1.1. Compressibility - Fully compressible: Thrombus - None: Flow - Phasic: Augmentation -Normal: Reflux - None. 2. Femoral Vein: 2.1. Compressibility - Fully compressible: Thrombus - None: Flow - Phasic: Augmentation -Normal: Reflux - None. 3. Popliteal Vein: 3.1. Compressibility - Fully compressible: Thrombus - None : Flow - Phasic: Augmentation -Normal: Reflux - None. 4. Posterior Tibial Vein: 4.1. Compressibility - Fully compressible: Thrombus - None: Flow - Phasic: Augmentation -Normal: Reflux - None. 5. Peroneal Vein: 5.1. Compressibility - Fully compressible: Thrombus - None: Flow - Phasic: Augmentation -Normal: Reflux - None. 6. Great Saphenous Vein: 6.1. Compressibility - Fully compressible: Thrombus - None: Flow - Phasic: Augmentation - Normal: Reflux - None. OTHER FINDINGS: Right: None significant. Left: None significant. IMPRESSION: Right: No evidence of deep or superficial vein thrombosis of the right lower extremity. Normal valve function noted of the right side. Left: No evidence of deep or superficial vein thrombosis of the left lower extremity. Normal valve function noted of the left side. No color flow detected in the left common iliac vein, possible venous thrombosis. Clinical correlation is recommended. Findings were conveyed to Shiva Lei.
[2018-02-09] MEDS: Meropenem 1 GM in Sodium Chloride 0.9% 100 ML IVPB SCH (15:05)
--- NOTE | 2018-02-09 15:20 | CP.PCM.CON ---
History of Present Illness - History of Present Illness History of Present Illness: Vascular Surgery Consult Note for Dr. Ashford 68M with PMHx of diabetes, HTN, hyperlipidemia, COPD, CKD, hypothyroidism, anemia, and prostate cancer presents with left lower extremity edema - vascular surgical consulted for possible left common iliac vein thrombosis. Patient was hospitalized on 02/07/18 after sustaining a fall while receiving chemo. While at the hospital, patient also developed a GN UTI. He currently experiences no pain in the LLE. PMHx: as stated above PSurgHx: umbilical hernia Fam Hx: non-contributory Allergies: NKDA Meds: MAR reviewed Review of Systems - Review of Systems Review of Systems: 12 pt ROS reviewed, unremarkable, except as stated in HPI Past Patient History - Infectious Disease Hx of Infectious Diseases: None - Past Medical History & Family History Past Medical History?: Yes - Past Social History Smoking Status: Never Smoked - CARDIAC Hx Hypercholesterolemia: Yes Hx Hypertension: Yes - PULMONARY Hx Chronic Obstructive Pulmonary Disease (COPD): Yes - NEUROLOGICAL Hx Neurological Disorder: No - HEENT Hx HEENT Problems: No - RENAL Hx Chronic Kidney Disease: Yes - ENDOCRINE/METABOLIC Hx Hypothyroidism: Yes - HEMATOLOGICAL/ONCOLOGICAL Hx Anemia: Yes - INTEGUMENTARY Hx Dermatological Problems: No - MUSCULOSKELETAL/RHEUMATOLOGICAL Hx Falls: Yes - GASTROINTESTINAL Hx Gastrointestinal Disorders: No - GENITOURINARY/GYNECOLOGICAL Hx Genitourinary Disorders: Yes (prostate ca) Hx Prostate Cancer: Yes Other/Comment: Renal Cancer. Spinal Cancer - PSYCHIATRIC Hx Substance Use: No - SURGICAL HISTORY Hx Surgeries: Yes Hx Herniorrhaphy: Yes Other/Comment: Umbilical hernia repair - ANESTHESIA Hx Anesthesia: Yes Hx Anesthesia Reactions: No Hx Malignant Hyperthermia: No Meds Allergies/Adverse Reactions: Allergies Allergy/AdvReac Type Severity Reaction Status Date / Time No Known Allergies Allergy Verified 02/07/18 13:13 - Medications Medications: Current Medications Amlodipine Besylate (Norvasc) 5 mg PO DAILY [facility] Last Admin: 02/09/18 10:49 Dose: 5 mg Apixaban (Eliquis) 5 mg PO BID [facility] Last Admin: 02/09/18 10:49 Dose: 5 mg Cyclobenzaprine HCl (Flexeril) 10 mg PO Q8 PRN PRN Reason: Muscle spasm Last Admin: 02/08/18 21:15 Dose: 10 mg Furosemide (Lasix) 40 mg IVP BID [facility] Last Admin: 02/09/18 10:47 Dose: 40 mg Gabapentin (Neurontin) 300 mg PO TID [facility] Last Admin: 02/09/18 13:03 Dose: 300 mg Meropenem 1 gm/ Sodium (Chloride) 100 mls @ 100 mls/hr IVPB Q12H SHIKHA PRN Reason: Protocol Last Admin: 02/09/18 15:05 Dose: 100 mls/hr Insulin Aspart (Novolog) 0 unit SC ACHS SHIKHA PRN Reason: Protocol Last Admin: 02/09/18 12:19 Dose: 3 units Levothyroxine Sodium (Synthroid) 175 mcg PO DAILY [facility] Last Admin: 02/09/18 10:48 Dose: 175 mcg Rosuvastatin Calcium (Crestor) 10 mg PO HS [facility] Last Admin: 02/08/18 21:15 Dose: 10 mg Tamsulosin HCl (Flomax) 0.4 mg PO DAILY [facility] Last Admin: 02/09/18 10:49 Dose: 0.4 mg Tramadol HCl (Ultram) 50 mg PO Q6H PRN PRN Reason: Pain, severe (8-10) Last Admin: 02/09/18 05:23 Dose: 50 mg Zolpidem Tartrate (Ambien) 5 mg PO HS PRN PRN Reason: Insomnia Physical Exam - Constitutional Appears: Non-toxic, No Acute Distress - Head Exam Head Exam: NORMOCEPHALIC - Eye Exam Eye Exam: EOMI, Normal appearance - ENT Exam ENT Exam: Mucous Membranes Moist - Respiratory Exam Respiratory Exam: NORMAL BREATHING PATTERN - Cardiovascular Exam Cardiovascular Exam: +S1, +S2 - GI/Abdominal Exam GI & Abdominal Exam: Soft - Extremities Exam Extremities exam: Positive for: pedal edema Additional comments: left lower extremity edema - Neurological Exam Neurological exam: Alert, Oriented x3 - Psychiatric Exam Psychiatric exam: Normal Mood - Skin Skin Exam: Dry, Normal Color, Warm Results - Vital Signs Recent Vital Signs: Last Vital Signs Temp 99.2 F 02/09/18 08:00 Pulse 78 02/09/18 12:00 Resp 20 02/09/18 08:00 BP 150/87 02/09/18 10:47 Pulse Ox 98 02/09/18 08:00 - Labs Result Diagrams: 02/09/18 07:00 02/08/18 11:33 Labs: Laboratory Results - last 24 hr 07/11/2302/08/18 02/09/18 16:20 21:20 06:43 WBC RBC Hgb Hct MCV MCH MCHC RDW Plt Count MPV Neut % (Auto) Lymph % (Auto) Sumner % (Auto) Eos % (Auto) Baso % (Auto) Neut # (Auto) Lymph # (Auto) [place]ner # (Auto) Eos # (Auto) Baso # (Auto) PT INR APTT POC Glucose (mg/dL) 278 H 275 H 262 H Prostate Specific Ag 02/09/18 02/09/18 02/09/18 07:00 07:00 07:00 WBC 6.4 RBC 2.98 L Hgb 8.6 L Hct 25.9 L MCV 87.1 MCH 28.9 MCHC 33.2 RDW 16.8 H Plt Count 350 MPV 7.8 Neut % (Auto) 68.3 Lymph % (Auto) 10.3 L Sumner % (Auto) 14.2 H Eos % (Auto) 6.3 H Baso % (Auto) 0.9 Neut # (Auto) 4.4 Lymph # (Auto) 0.7 L Sumner # (Auto) 0.9 H Eos # (Auto) 0.4 Baso # (Auto) 0.1 PT 14.1 H INR 1.3 APTT 31 D POC Glucose (mg/dL) Prostate Specific Ag > 500 H 02/09/18 11:48 WBC RBC Hgb Hct MCV MCH MCHC RDW Plt Count MPV Neut % (Auto) Lymph % (Auto) Sumner % (Auto) Eos % (Auto) Baso % (Auto) Neut # (Auto) Lymph # (Auto) Sumner # (Auto) Eos # (Auto) Baso # (Auto) PT INR APTT POC Glucose (mg/dL) 269 H Prostate Specific Ag Assessment & Plan - Assessment and Plan (Free Text) Assessment: 68M with left lower extremity edema, possible left common iliac thrombus Plan: -f/u CT angiography with venous phase -c/w Eliquis -Elevate affected leg -Further recs per results of CTA -d/w Dr. Dejon Juárez PGY3
--- NOTE | 2018-02-09 16:52 | CP.PCM.PN ---
Subjective - Date & Time of Evaluation Date of Evaluation: 02/09/18 Time of Evaluation: 11:40 - Subjective Subjective: clinically same Objective - Vital Signs/Intake and Output Vital Signs (last 24 hours): Temp Pulse Resp BP Pulse Ox 99.2 F 78 20 150/87 98 02/09/18 08:00 02/09/18 12:00 02/09/18 08:00 02/09/18 10:47 02/09/18 08:00 Intake and Output: 02/09/18 02/09/18 06:59 18:59 Intake Total 750 Output Total 1950 1000 Balance -1950 -250 - Medications Medications: Current Medications Amlodipine Besylate (Norvasc) 5 mg PO DAILY [facility] Last Admin: 02/09/18 10:49 Dose: 5 mg Apixaban (Eliquis) 5 mg PO BID [facility] Last Admin: 02/09/18 10:49 Dose: 5 mg Cyclobenzaprine HCl (Flexeril) 10 mg PO Q8 PRN PRN Reason: Muscle spasm Last Admin: 02/08/18 21:15 Dose: 10 mg Furosemide (Lasix) 40 mg IVP BID [facility] Last Admin: 02/09/18 10:47 Dose: 40 mg Gabapentin (Neurontin) 300 mg PO TID [facility] Last Admin: 02/09/18 13:03 Dose: 300 mg Meropenem 1 gm/ Sodium (Chloride) 100 mls @ 100 mls/hr IVPB Q12H SHIKHA PRN Reason: Protocol Last Admin: 02/09/18 15:05 Dose: 100 mls/hr Insulin Aspart (Novolog) 0 unit SC ACHS SHIKHA PRN Reason: Protocol Last Admin: 02/09/18 12:19 Dose: 3 units Levothyroxine Sodium (Synthroid) 175 mcg PO DAILY [facility] Last Admin: 02/09/18 10:48 Dose: 175 mcg Rosuvastatin Calcium (Crestor) 10 mg PO HS [facility] Last Admin: 02/08/18 21:15 Dose: 10 mg Tamsulosin HCl (Flomax) 0.4 mg PO DAILY [facility] Last Admin: 02/09/18 10:49 Dose: 0.4 mg Tramadol HCl (Ultram) 50 mg PO Q6H PRN PRN Reason: Pain, severe (8-10) Last Admin: 02/09/18 05:23 Dose: 50 mg Zolpidem Tartrate (Ambien) 5 mg PO HS PRN PRN Reason: Insomnia - Labs Labs: 02/09/18 07:00 02/08/18 11:33 PT 14.1 SECONDS (9.7-12.2) H 02/09/18 07:00 INR 1.3 02/09/18 07:00 APTT 31 SECONDS (21-34) D 02/09/18 07:00 - Constitutional Appears: Well - Head Exam Head Exam: ATRAUMATIC, NORMAL INSPECTION, NORMOCEPHALIC - Eye Exam Eye Exam: EOMI, Normal appearance, PERRL Pupil Exam: NORMAL ACCOMODATION, PERRL - ENT Exam ENT Exam: Mucous Membranes Moist, Normal Exam - Neck Exam Neck Exam: Full ROM, Normal Inspection. absent: Lymphadenopathy - Respiratory Exam Respiratory Exam: Decreased Breath Sounds - Cardiovascular Exam Cardiovascular Exam: REGULAR RHYTHM, +S1, +S2 - GI/Abdominal Exam GI & Abdominal Exam: Soft, Diminished Bowel Sounds - Rectal Exam Rectal Exam: Deferred
[2018-02-09] MEDS ORDERED: Iodixanol 320 MG/ML 100 ML BOTTLE IV ONE (17:19)
--- NOTE | 2018-02-09 18:16 | CT ---
PROCEDURE: CT Venography Chest, Abdomen and Pelvis with intravenous contrast HISTORY: evaluate left iliac vein thrombosis COMPARISON: None. TECHNIQUE: IV dose administered: 100 mL Visipaque 320 Radiation dose: Total exam DLP = 2556.4 mGy-cm. This CT exam was performed using one or more of the following dose reduction techniques: Automated exposure control, adjustment of the mA and/or kV according to patient size, and/or use of iterative reconstruction technique. FINDINGS: LUNGS: Innumerable subpleural pulmonary nodules. MEDIASTINUM: Unremarkable. Normal caliber aorta and pulmonary arterial trunk. No aortic dissection. Cardiomegaly. Coronary arterial and valvular calcifications. LYMPH NODES: Small mediastinal and bilateral hilar lymph nodes. PLEURA: Small bilateral pleural effusion. No pneumothorax. No pleural fluid. LIVER: Unremarkable. No gross lesion or ductal dilatation. GALLBLADDER AND BILE DUCTS: Unremarkable. PANCREAS: Unremarkable. No gross lesion or ductal dilatation. SPLEEN: Unremarkable. ADRENALS: Unremarkable. No mass. KIDNEYS AND URETERS: Small bilateral renal cysts. No hydronephrosis. No solid mass. VASCULATURE: Suboptimal opacification of the entire venous system. No aortic aneurysm. BOWEL: Unremarkable. No obstruction. No gross mural thickening. APPENDIX: Normal appendix. PERITONEUM: Unremarkable. No free fluid. No free air. LYMPH NODES: Multiple enlarged necrotic lymph nodes, the largest at the level of the kidneys measures 6.0 x 3.5 cm. Multiple additional retroperitoneal, mesenteric large necrotic lymph nodes as well as nodes along the left external iliac chain BLADDER: Distended despite presence of Escamilla catheter. REPRODUCTIVE: Prostate radiation seeds. BONES: Diffuse patchy osseous sclerosis. Compression fracture of L3 with severe central canal stenosis. OTHER FINDINGS: Extensive left lower extremity subcutaneous edema. IMPRESSION: Suboptimal opacification of the entire venous system. The left iliac veins cannot be adequately evaluated. Innumerable subpleural pulmonary nodules and osteoblastic metastases. Known pathologic fracture of L3 with severe central canal stenosis. Numerous abdominal pelvic necrotic lymph nodes. Distended urinary bladder despite presence of Escamilla catheter. Additional findings as above.
[2018-02-10] MEDS: Meropenem 1 GM in Sodium Chloride 0.9% 100 ML IVPB SCH ×2 (01:44→13:47)
--- NOTE | 2018-02-10 02:55 | CON ---
DATE: 02/09/2018INFECTIOUS DISEASE CONSULT REQUESTED BY: Cameron Escobar MD HISTORY OF PRESENT ILLNESS: This patient is a 68-year-old male. He has history of prostate cancer, and he has metastatic cancer to the supine and retroperitoneal nodes, and he is not able to ambulate. He said this has been going on for last 3 months, and he has been on treatment for it. He also had DVT, hence he is on Eliquis and Decadron, and I am asked to evaluate him because he has a resistant urine infection. He says he has had infections in the past, and he is not able to ambulate he says, but he has been getting physical therapy in the prison, and now he is here, and was feeling weak, and his legs gave out, and HE IS NOT ALLERGIC TO ANY MEDICINE. He speaks some [place]. PAST MEDICAL HISTORY: Significant for prostate cancer with metastatic disease, COPD, arthritis, diabetes, DVT, history of fractures lower back, hypertension, hypothyroidism, chronic kidney disease, hypertension. FAMILY HISTORY: Noncontributory. SOCIAL HISTORY: Negative for smoking and drinking or any drug abuse. REVIEW OF SYSTEMS: He denied any complaint except weakness and not able to ambulate well; and he did say that he has had urinary infections in the past; and denies any ear, nose, throat problems. No chest pain. No shortness of breath. No abdominal pain. No nausea, no vomiting. He did me that he had a surgery for umbilical hernia in the past, however. MEDICATIONS: His medications I went through are, Norvasc, Eliquis, Flexeril, Lasix, Neurontin, NovoLog, Synthroid, and he is on metformin, Crestor, tamsulosin, tramadol, and Ambien. He was on Zithromax before for pneumonia. PHYSICAL EXAMINATION: VITAL SIGNS: I find his temperature is 99.2 today, pulse 84, blood pressure 157/86, respirations are 20. GENERAL: He is awake and alert. HEENT: Head is atraumatic, normocephalic. He is able to answer questions. Pupils are reacting to light. Tongue is moist. NECK: Supple. JVP is flat. LUNGS: Clear to auscultation. No crackles or rales present. HEART: S1, S2 is regular. No murmurs present. ABDOMEN: Soft, nontender, flabby. Umbilical hernia still present. EXTREMITIES: He has bilateral edema at this time, and he is not able to move them much on the bed even. White count is 6.4, hemoglobin 8.6, hematocrit 25.9, platelet count is 350. His sodium is 140, potassium 4, chloride 105, CO2 is 28. Anion gap is 12, BUN is 18, creatinine is 1.5. These are from yesterday, and micro coker, his culture comes out to be urine culture, came out ESBL which is sensitive to meropenem which I have started him on and is also sensitive to gentamicin and ertapenem, but at this time since he has renal insufficiency, I do not want to give him any other aminoglycosides and we will continue these. IMPRESSION: Impression is that this patient came in with immobility, has prostate cancer with metastasis, and is bedridden, and was seen by Dr. Claire Balderas, and her note is appreciated, and we will continue with the meropenem at this time and follow with all the consultants. Chica Smith MD
[2018-02-10] MEDS: (Novolog) Insulin Aspart, Recombinant 100 u/ml 10 ml vial SC SCH ×4 (09:20→21:47)
--- NOTE | 2018-02-10 09:38 | CP.PCM.PN ---
Subjective - Date & Time of Evaluation Date of Evaluation: 02/10/18 Time of Evaluation: 00:00 - Subjective Subjective: Patient seen and examined this morning. No acute events overnight. Pt. continues with elevation of the LLE with no complaints of pain at rest or with movement of the extremity while stationary. Since he was last evaluated, patient received CTA with venous phase of the LLE. Objective - Vital Signs/Intake and Output Vital Signs (last 24 hours): Temp Pulse Resp BP Pulse Ox 98.0 F 90 20 169/87 H 97 02/10/18 07:35 02/10/18 07:35 02/10/18 07:35 02/10/18 07:35 02/10/18 07:35 Intake and Output: 02/10/18 02/10/18 06:59 18:59 Output Total 1500 Balance -1500 - Medications Medications: Current Medications Amlodipine Besylate (Norvasc) 5 mg PO DAILY [facility] Last Admin: 02/09/18 10:49 Dose: 5 mg Apixaban (Eliquis) 5 mg PO BID [facility] Last Admin: 02/09/18 18:32 Dose: 5 mg Cyclobenzaprine HCl (Flexeril) 10 mg PO Q8 PRN PRN Reason: Muscle spasm Last Admin: 02/09/18 19:00 Dose: 10 mg Dexamethasone (Decadron) 4 mg PO DAILY [facility] Furosemide (Lasix) 40 mg IVP BID [facility] Last Admin: 02/09/18 18:34 Dose: 40 mg Gabapentin (Neurontin) 300 mg PO TID [facility] Last Admin: 02/09/18 18:32 Dose: 300 mg Meropenem 1 gm/ Sodium (Chloride) 100 mls @ 100 mls/hr IVPB Q12H SHIKHA PRN Reason: Protocol Last Admin: 02/10/18 01:44 Dose: 100 mls/hr Insulin Aspart (Novolog) 0 unit SC ACHS SHIKHA PRN Reason: Protocol Last Admin: 02/09/18 22:00 Dose: Not Given Levothyroxine Sodium (Synthroid) 175 mcg PO DAILY@0600 [facility] Rosuvastatin Calcium (Crestor) 10 mg PO HS [facility] Last Admin: 02/09/18 23:00 Dose: 10 mg Tamsulosin HCl (Flomax) 0.4 mg PO DAILY [facility] Last Admin: 02/09/18 10:49 Dose: 0.4 mg Tramadol HCl (Ultram) 50 mg PO Q6H PRN PRN Reason: Pain, severe (8-10) Last Admin: 02/09/18 05:23 Dose: 50 mg Zolpidem Tartrate (Ambien) 5 mg PO HS PRN PRN Reason: Insomnia - Labs Labs: 02/09/18 07:00 02/08/18 11:33 PT 14.1 SECONDS (9.7-12.2) H 02/09/18 07:00 INR 1.3 02/09/18 07:00 APTT 31 SECONDS (21-34) D 02/09/18 07:00 - Constitutional Appears: No Acute Distress - Head Exam Head Exam: NORMOCEPHALIC - Eye Exam Eye Exam: EOMI, Normal appearance - ENT Exam ENT Exam: Mucous Membranes Moist - Respiratory Exam Respiratory Exam: NORMAL BREATHING PATTERN. absent: Accessory Muscle Use - GI/Abdominal Exam GI & Abdominal Exam: Soft - Extremities Exam Additional comments: LLE edema - Neurological Exam Neurological Exam: Alert, Awake, Oriented x3 - Psychiatric Exam Psychiatric exam: Normal Mood - Skin Skin Exam: Dry, Intact, Warm Assessment and Plan - Assessment and Plan (Free Text) Assessment: 68M with LLE edema evaluated for possible left common iliac vein thrombosis CTA with venous phase impression: Suboptimal opacification of the venous system Left Iliac veins cannot be properly evaluated Plan: Continue anticoagulation No acute surgical intervention at this time continue with elevation of LLE D/w Dr. Dejon Juráez PGY3
--- NOTE | 2018-02-10 14:43 | CP.PCM.PN ---
Subjective - Date & Time of Evaluation Date of Evaluation: 02/10/18 Time of Evaluation: 02:10 - Subjective Subjective: dictated Objective - Vital Signs/Intake and Output Vital Signs (last 24 hours): Temp Pulse Resp BP Pulse Ox 98.0 F 90 20 150/81 97 02/10/18 07:35 02/10/18 07:35 02/10/18 07:35 02/10/18 09:21 02/10/18 07:35 Intake and Output: 02/10/18 02/10/18 06:59 18:59 Output Total 1500 Balance -1500 - Medications Medications: Current Medications Amlodipine Besylate (Norvasc) 5 mg PO DAILY [facility] Last Admin: 02/10/18 09:21 Dose: 5 mg Apixaban (Eliquis) 5 mg PO BID [facility] Last Admin: 02/10/18 09:21 Dose: 5 mg Cyclobenzaprine HCl (Flexeril) 10 mg PO Q8 PRN PRN Reason: Muscle spasm Last Admin: 02/10/18 09:21 Dose: 10 mg Dexamethasone (Decadron) 4 mg PO DAILY [facility] Last Admin: 02/10/18 09:21 Dose: 4 mg Furosemide (Lasix) 40 mg IVP BID [facility] Last Admin: 02/10/18 09:21 Dose: 40 mg Gabapentin (Neurontin) 300 mg PO TID [facility] Last Admin: 02/10/18 13:47 Dose: 300 mg Meropenem 1 gm/ Sodium (Chloride) 100 mls @ 100 mls/hr IVPB Q12H SHIKHA PRN Reason: Protocol Last Admin: 02/10/18 13:47 Dose: 100 mls/hr Insulin Aspart (Novolog) 0 unit SC ACHS SHIKHA PRN Reason: Protocol Last Admin: 02/10/18 13:47 Dose: 4 units Levothyroxine Sodium (Synthroid) 175 mcg PO DAILY@0600 [facility] Rosuvastatin Calcium (Crestor) 10 mg PO HS [facility] Last Admin: 02/09/18 23:00 Dose: 10 mg Tamsulosin HCl (Flomax) 0.4 mg PO DAILY [facility] Last Admin: 02/10/18 09:21 Dose: 0.4 mg Tramadol HCl (Ultram) 50 mg PO Q6H PRN PRN Reason: Pain, severe (8-10) Last Admin: 02/09/18 05:23 Dose: 50 mg Zolpidem Tartrate (Ambien) 5 mg PO HS PRN PRN Reason: Insomnia - Labs Labs: 02/09/18 07:00 02/08/18 11:33 PT 14.1 SECONDS (9.7-12.2) H 02/09/18 07:00 INR 1.3 02/09/18 07:00 APTT 31 SECONDS (21-34) D 02/09/18 07:00
--- NOTE | 2018-02-10 19:24 | CP.PCM.PN ---
Subjective - Date & Time of Evaluation Date of Evaluation: 02/10/18 Time of Evaluation: 11:00 - Subjective Subjective: clinically same Objective - Vital Signs/Intake and Output Vital Signs (last 24 hours): Temp Pulse Resp BP Pulse Ox 97.6 F 99 H 18 150/80 96 02/10/18 16:00 02/10/18 16:00 02/10/18 16:00 02/10/18 17:46 02/10/18 16:00 Intake and Output: 02/10/18 02/11/18 18:59 06:59 Intake Total 100 Output Total 400 Balance -300 - Medications Medications: Current Medications Amlodipine Besylate (Norvasc) 5 mg PO DAILY [facility] Last Admin: 02/10/18 09:21 Dose: 5 mg Apixaban (Eliquis) 5 mg PO BID [facility] Last Admin: 02/10/18 17:46 Dose: 5 mg Cyclobenzaprine HCl (Flexeril) 10 mg PO Q8 PRN PRN Reason: Muscle spasm Last Admin: 02/10/18 09:21 Dose: 10 mg Dexamethasone (Decadron) 4 mg PO DAILY [facility] Last Admin: 02/10/18 09:21 Dose: 4 mg Furosemide (Lasix) 40 mg IVP BID [facility] Last Admin: 02/10/18 17:46 Dose: 40 mg Gabapentin (Neurontin) 300 mg PO TID [facility] Last Admin: 02/10/18 17:46 Dose: 300 mg Meropenem 1 gm/ Sodium (Chloride) 100 mls @ 100 mls/hr IVPB Q12H SHIKHA PRN Reason: Protocol Last Admin: 02/10/18 13:47 Dose: 100 mls/hr Insulin Aspart (Novolog) 0 unit SC ACHS [facility] PRN Reason: Protocol Last Admin: 02/10/18 17:45 Dose: 4 units Levothyroxine Sodium (Synthroid) 175 mcg PO DAILY@0600 [facility] Rosuvastatin Calcium (Crestor) 10 mg PO HS [facility] Last Admin: 02/09/18 23:00 Dose: 10 mg Tamsulosin HCl (Flomax) 0.4 mg PO DAILY [facility] Last Admin: 02/10/18 09:21 Dose: 0.4 mg Tramadol HCl (Ultram) 50 mg PO Q6H PRN PRN Reason: Pain, severe (8-10) Last Admin: 02/10/18 18:58 Dose: 50 mg Zolpidem Tartrate (Ambien) 5 mg PO HS PRN PRN Reason: Insomnia - Labs Labs: 02/09/18 07:00 02/08/18 11:33 PT 14.1 SECONDS (9.7-12.2) H 02/09/18 07:00 INR 1.3 02/09/18 07:00 APTT 31 SECONDS (21-34) D 02/09/18 07:00 - Constitutional Appears: Well - Head Exam Head Exam: ATRAUMATIC, NORMAL INSPECTION, NORMOCEPHALIC - Eye Exam Eye Exam: EOMI, Normal appearance, PERRL Pupil Exam: NORMAL ACCOMODATION, PERRL - ENT Exam ENT Exam: Mucous Membranes Moist, Normal Exam - Neck Exam Neck Exam: Full ROM, Normal Inspection. absent: Lymphadenopathy - Respiratory Exam Respiratory Exam: Decreased Breath Sounds - Cardiovascular Exam Cardiovascular Exam: REGULAR RHYTHM, +S1, +S2 - GI/Abdominal Exam GI & Abdominal Exam: Soft, Diminished Bowel Sounds - Rectal Exam Rectal Exam: Deferred
[2018-02-11] MEDS: Meropenem 1 GM in Sodium Chloride 0.9% 100 ML IVPB SCH ×2 (02:21→13:42)
[2018-02-11] MEDS: Levothyroxine 175 MCG TAB PO SCH (05:10)
[2018-02-11] MEDS: (Novolog) Insulin Aspart, Recombinant 100 u/ml 10 ml vial SC SCH ×4 (07:06→22:22)
[2018-02-11] MEDS ORDERED: (Novolog) Insulin Aspart, Recombinant 100 u/ml 10 ml vial SC ONE (12:58)
--- NOTE | 2018-02-11 20:40 | CP.PCM.PN ---
Subjective - Date & Time of Evaluation Date of Evaluation: 02/11/18 Time of Evaluation: 10:40 - Subjective Subjective: clinically same Objective - Vital Signs/Intake and Output Vital Signs (last 24 hours): Temp Pulse Resp BP Pulse Ox 97.5 F L 73 20 124/74 97 02/11/18 07:40 02/11/18 07:40 02/11/18 07:40 02/11/18 19:00 02/11/18 07:40 - Medications Medications: Current Medications Amlodipine Besylate (Norvasc) 5 mg PO DAILY [facility] Last Admin: 02/11/18 10:13 Dose: 5 mg Apixaban (Eliquis) 5 mg PO BID [facility] Last Admin: 02/11/18 19:00 Dose: 5 mg Cyclobenzaprine HCl (Flexeril) 10 mg PO Q8 PRN PRN Reason: Muscle spasm Last Admin: 02/11/18 10:14 Dose: 10 mg Dexamethasone (Decadron) 4 mg PO DAILY [facility] Last Admin: 02/11/18 10:14 Dose: 4 mg Furosemide (Lasix) 40 mg IVP BID [facility] Last Admin: 02/11/18 19:00 Dose: 40 mg Gabapentin (Neurontin) 300 mg PO TID [facility] Last Admin: 02/11/18 19:00 Dose: 300 mg Meropenem 1 gm/ Sodium (Chloride) 100 mls @ 100 mls/hr IVPB Q12H [facility] PRN Reason: Protocol Last Admin: 02/11/18 13:42 Dose: 100 mls/hr Insulin Aspart (Novolog) 0 unit SC ACHS [facility] PRN Reason: Protocol Last Admin: 02/11/18 16:34 Dose: 8 units Levothyroxine Sodium (Synthroid) 175 mcg PO DAILY@0600 [facility] Last Admin: 02/11/18 05:10 Dose: 175 mcg Rosuvastatin Calcium (Crestor) 10 mg PO HS [facility] Last Admin: 02/10/18 21:48 Dose: 10 mg Tamsulosin HCl (Flomax) 0.4 mg PO DAILY [facility] Last Admin: 02/11/18 10:13 Dose: 0.4 mg Tramadol HCl (Ultram) 50 mg PO Q6H PRN PRN Reason: Pain, severe (8-10) Last Admin: 02/10/18 18:58 Dose: 50 mg Zolpidem Tartrate (Ambien) 5 mg PO HS PRN PRN Reason: Insomnia - Labs Labs: 02/09/18 07:00 02/08/18 11:33 PT 14.1 SECONDS (9.7-12.2) H 02/09/18 07:00 INR 1.3 02/09/18 07:00 APTT 31 SECONDS (21-34) D 02/09/18 07:00 - Constitutional Appears: Well - Head Exam Head Exam: ATRAUMATIC, NORMAL INSPECTION, NORMOCEPHALIC - Eye Exam Eye Exam: EOMI, Normal appearance, PERRL Pupil Exam: NORMAL ACCOMODATION, PERRL - ENT Exam ENT Exam: Mucous Membranes Moist, Normal Exam - Neck Exam Neck Exam: Full ROM, Normal Inspection. absent: Lymphadenopathy - Respiratory Exam Respiratory Exam: Decreased Breath Sounds - Cardiovascular Exam Cardiovascular Exam: REGULAR RHYTHM, +S1, +S2 - GI/Abdominal Exam GI & Abdominal Exam: Soft, Diminished Bowel Sounds - Rectal Exam Rectal Exam: Deferred Assessment and Plan - Assessment and Plan (Free Text) Plan: Spoke to the who is bedside Continue same IV meropenem All other medications reviewed Encourage p.o. feeding Lasix 40 mg IV push twice daily
[2018-02-12] MEDS: Meropenem 1 GM in Sodium Chloride 0.9% 100 ML IVPB SCH ×2 (02:51→14:01)
[2018-02-12] MEDS: Levothyroxine 175 MCG TAB PO SCH (05:43)
[2018-02-12] MEDS: (Novolog) Insulin Aspart, Recombinant 100 u/ml 10 ml vial SC SCH ×4 (09:20→22:00)
--- NOTE | 2018-02-12 14:02 | CP.PCM.PN ---
Subjective - Date & Time of Evaluation Date of Evaluation: 02/12/18 Time of Evaluation: 01:00 - Subjective Subjective: dictated Objective - Vital Signs/Intake and Output Vital Signs (last 24 hours): Temp Pulse Resp BP Pulse Ox 98.2 F 80 20 144/80 98 02/12/18 08:58 02/12/18 08:58 02/12/18 08:58 02/12/18 09:20 02/12/18 08:58 Intake and Output: 02/12/18 02/12/18 06:59 18:59 Intake Total 600 Output Total 1700 Balance -1100 - Medications Medications: Current Medications Amlodipine Besylate (Norvasc) 5 mg PO DAILY [facility] Last Admin: 02/12/18 09:21 Dose: 5 mg Apixaban (Eliquis) 5 mg PO BID [facility] Last Admin: 02/12/18 09:21 Dose: 5 mg Cyclobenzaprine HCl (Flexeril) 10 mg PO Q8 PRN PRN Reason: Muscle spasm Last Admin: 02/11/18 10:14 Dose: 10 mg Dexamethasone (Decadron) 4 mg PO DAILY [facility] Last Admin: 02/12/18 09:21 Dose: 4 mg Furosemide (Lasix) 40 mg IVP BID [facility] Last Admin: 02/12/18 09:20 Dose: 40 mg Gabapentin (Neurontin) 300 mg PO TID [facility] Last Admin: 02/12/18 09:21 Dose: 300 mg Meropenem 1 gm/ Sodium (Chloride) 100 mls @ 100 mls/hr IVPB Q12H [facility] PRN Reason: Protocol Last Admin: 02/12/18 14:01 Dose: 100 mls/hr Insulin Aspart (Novolog) 0 unit SC ACHS [facility] PRN Reason: Protocol Last Admin: 02/12/18 09:20 Dose: 10 units Levothyroxine Sodium (Synthroid) 175 mcg PO DAILY@0600 [facility] Last Admin: 02/12/18 05:43 Dose: 175 mcg Rosuvastatin Calcium (Crestor) 10 mg PO HS [facility] Last Admin: 02/11/18 22:22 Dose: 10 mg Tamsulosin HCl (Flomax) 0.4 mg PO DAILY [facility] Last Admin: 02/12/18 09:21 Dose: 0.4 mg Tramadol HCl (Ultram) 50 mg PO Q6H PRN PRN Reason: Pain, severe (8-10) Last Admin: 02/10/18 18:58 Dose: 50 mg Zolpidem Tartrate (Ambien) 5 mg PO HS PRN PRN Reason: Insomnia - Labs Labs: 02/09/18 07:00 02/08/18 11:33 PT 14.1 SECONDS (9.7-12.2) H 02/09/18 07:00 INR 1.3 02/09/18 07:00 APTT 31 SECONDS (21-34) D 02/09/18 07:00
--- NOTE | 2018-02-12 14:33 | CP.PCM.PN ---
Subjective - Date & Time of Evaluation Date of Evaluation: 02/12/18 Time of Evaluation: 11:00 - Subjective Subjective: clinically same Objective - Vital Signs/Intake and Output Vital Signs (last 24 hours): Temp Pulse Resp BP Pulse Ox 98.2 F 80 20 144/80 98 02/12/18 08:58 02/12/18 08:58 02/12/18 08:58 02/12/18 09:20 02/12/18 08:58 Intake and Output: 02/12/18 02/12/18 06:59 18:59 Intake Total 600 Output Total 1700 Balance -1100 - Medications Medications: Current Medications Amlodipine Besylate (Norvasc) 5 mg PO DAILY [facility] Last Admin: 02/12/18 09:21 Dose: 5 mg Apixaban (Eliquis) 5 mg PO BID [facility] Last Admin: 02/12/18 09:21 Dose: 5 mg Cyclobenzaprine HCl (Flexeril) 10 mg PO Q8 PRN PRN Reason: Muscle spasm Last Admin: 02/11/18 10:14 Dose: 10 mg Dexamethasone (Decadron) 4 mg PO DAILY [facility] Last Admin: 02/12/18 09:21 Dose: 4 mg Furosemide (Lasix) 40 mg IVP BID [facility] Last Admin: 02/12/18 09:20 Dose: 40 mg Gabapentin (Neurontin) 300 mg PO TID [facility] Last Admin: 02/12/18 14:06 Dose: 300 mg Meropenem 1 gm/ Sodium (Chloride) 100 mls @ 100 mls/hr IVPB Q12H [facility] PRN Reason: Protocol Last Admin: 02/12/18 14:01 Dose: 100 mls/hr Insulin Aspart (Novolog) 0 unit SC ACHS [facility] PRN Reason: Protocol Last Admin: 02/12/18 12:30 Dose: 8 units Levothyroxine Sodium (Synthroid) 175 mcg PO DAILY@0600 [facility] Last Admin: 02/12/18 05:43 Dose: 175 mcg Rosuvastatin Calcium (Crestor) 10 mg PO HS [facility] Last Admin: 02/11/18 22:22 Dose: 10 mg Tamsulosin HCl (Flomax) 0.4 mg PO DAILY [facility] Last Admin: 02/12/18 09:21 Dose: 0.4 mg Tramadol HCl (Ultram) 50 mg PO Q6H PRN PRN Reason: Pain, severe (8-10) Last Admin: 02/10/18 18:58 Dose: 50 mg Zolpidem Tartrate (Ambien) 5 mg PO HS PRN PRN Reason: Insomnia - Labs Labs: 02/09/18 07:00 02/08/18 11:33 PT 14.1 SECONDS (9.7-12.2) H 02/09/18 07:00 INR 1.3 02/09/18 07:00 APTT 31 SECONDS (21-34) D 02/09/18 07:00 - Constitutional Appears: Well - Head Exam Head Exam: ATRAUMATIC, NORMAL INSPECTION, NORMOCEPHALIC - Eye Exam Eye Exam: EOMI, Normal appearance, PERRL Pupil Exam: NORMAL ACCOMODATION, PERRL - ENT Exam ENT Exam: Mucous Membranes Moist, Normal Exam - Neck Exam Neck Exam: Full ROM, Normal Inspection. absent: Lymphadenopathy - Respiratory Exam Respiratory Exam: Decreased Breath Sounds - Cardiovascular Exam Cardiovascular Exam: REGULAR RHYTHM, +S1, +S2 - GI/Abdominal Exam GI & Abdominal Exam: Soft, Diminished Bowel Sounds - Rectal Exam Rectal Exam: Deferred
[2018-02-12 18:55] LABS: SQUAMOUS EPITHIAL 1 /hpf (0-5); URINE BACTERIA FEW (<OCC); URINE BILIRUBIN NEGATIVE (NEGATIVE); URINE BLOOD 3+ (NEGATIVE); URINE CLARITY Hazy (Clear); URINE COLOR Yellow (YELLOW); URINE GLUCOSE (UA) 3+ mg/dL (Normal); URINE LEUKOCYTE ESTERASE 3+ Leu/uL (Negative); URINE PROTEIN 2+ mg/dL (NEGATIVE); URINE UROBILINOGEN NORMAL mg/dL (0.2-1.0); WBC CLUMPS FEW /hpf
--- NOTE | 2018-02-12 19:21 | PN ---
DATE: 02/12/2018 SUBJECTIVE: The patient is awake and is bedridden. He does say off and on he gets back pain, but at this time, it is controlled with medications. He denies any urinary complaints at this time, and he is on IV antibiotics and he is in isolation. PHYSICAL EXAMINATION: VITAL SIGNS: T-Max is 98.2, pulse 80, blood pressure 144/80, respirations are 20. GENERAL: He is comfortable. He speaks Divehi. HEENT: Head is atraumatic, normocephalic. Tongue is moist. NECK: Supple. LUNGS: Clear. HEART: S1 and S2 regular. ABDOMEN: Soft. Nontender. No guarding. No rigidity present. EXTREMITIES: Have some stasis dermatitis with no edema at this time. LABORATORY DATA: Labs are noted. Labs show white count is 6.4. ASSESSMENT AND PLAN: Chemistry not repeated, since I will repeat the labs tomorrow, and I would order a urinalysis and a urine culture and sensitivity again as he had urine which had extended spectrum beta-lactamase positive Escherichia coli, and he is on meropenem and since he may have cystitis, should get five to seven days of antibiotics. Today, he is on Merrem since 02/09/2018. We will repeat urinalysis and urine culture and sensitivity. I reviewed the old CAT scan he has had recently. Chica Smith MD
[2018-02-13] MEDS: Meropenem 1 GM in Sodium Chloride 0.9% 100 ML IVPB SCH ×2 (02:00→14:51)
[2018-02-13] MEDS: Levothyroxine 175 MCG TAB PO SCH (05:14)
--- NOTE | 2018-02-13 07:39 | PN ---
DATE: 02/10/2018 SUBJECTIVE: The patient is drowsy at this time. He has positive new DVT developed in his lower extremities and was evaluated by the vascular surgeon and on Eliquis, and he also has prostate cancer with mets, and he is complaining of back pain which is in the lower back. He denies any urinary symptoms right now. He is in isolation, and he is getting antibiotics. PHYSICAL EXAMINATION: VITAL SIGNS: T-max is 98, pulse is 90, blood pressure 169/87, respirations 20, saturation was 97%. GENERAL: He is arousable, communicates in [place]. HEENT: Head is atraumatic. NECK: Supple. LUNGS: Clear. HEART: S1 and S2, regular. ABDOMEN: Soft, nontender. No guarding, no rigidity present. EXTREMITIES: Have bilateral mild edema. Edema is less today compared to yesterday. there are no new labs today, but he is anemic, and his PSA was more than 500. He suffers from prostate cancer and has been on chemotherapy. Urine culture showed ESBL which is meropenem sensitive. Hence, I have placed him on meropenem, and his kidney functions we will repeat them tomorrow as there are no new labs today. IMPRESSION: He has extended spectrum beta-lactamase urinary tract infection, has deep venous thrombosis. I wanted to see the report of the angiograph. CT angiography was done on 02/09/2018, which shows extensive left lower opacification of the entire venous system cannot be adequately reevaluated, numerous subpleural pulmonary nodules , pathological fracture of L3 with previous central canal stenosis, numerous abdominopelvic necrotic lymph nodes, distended urinary bladder despite presence of Escamilla catheter. He is retaining urine. He does have spinal stenosis. He was started on Decadron, and he is on Decadron, and I have left him on meropenem. He has thrombosis of the whole left leg and must be seen by Vascular again, with prostate cancer with metastasis to the bone. Prognosis is guarded. Continue meropenem for at least 7 days, and we will follow. Chica Smith MD [facility] # [id number]
[2018-02-13] MEDS: (Novolog) Insulin Aspart, Recombinant 100 u/ml 10 ml vial SC SCH ×4 (08:35→21:08)
[2018-02-13 08:37] LABS: BASO # 0.1 K/uL (0.0-0.2); BASO % 0.6 % (0.0-2.0); EOS # 0.2 K/uL (0.0-0.7); EOS % 1.9 % (0.0-4.0); HEMOGLOBIN 8.9 g/dL (12.0-18.0); LYMPH # 0.8 K/uL (1.0-4.3); LYMPH % 10.2 % (20.0-40.0); MEAN CELL VOLUME 85.5 fL (80.0-94.0); MEAN CORPUSCULAR HEMOGLOBIN 28.9 pg (27.0-31.0); MEAN CORPUSCULAR HGB CONC 33.8 g/dL (33.0-37.0); MEAN PLATELET VOLUME 7.8 fL (7.2-11.7); MONO # 0.9 K/uL (0.0-0.8); MONO % 11.3 % (0.0-10.0); NEUT # 6.3 K/uL (1.8-7.0); NRBC % 0.1 % (0.0-2.0); RBC 3.1 Mil/uL (4.40-5.90); RED CELL DISTRIBUTION WIDTH 16.6 % (11.5-14.5); WHITE BLOOD COUNT 8.3 K/uL (4.8-10.8)
[2018-02-13 08:58] LABS: ALB/GLOB RATIO 1.1 (1.0-2.1); CALCIUM 8.5 mg/dl (8.6-10.4)
[2018-02-13] MEDS: POLYETHYLENE GLYCOL 3350 17 GM/Dose PACKET PO SCH (10:28)
[2018-02-13] MEDS ORDERED: Fluconazole IV 200mg/100 ml NS 100 ML IVPB SCH (14:15)
--- NOTE | 2018-02-13 14:17 | CP.PCM.PN ---
Subjective - Date & Time of Evaluation Date of Evaluation: 02/13/18 Time of Evaluation: 01:40 - Subjective Subjective: dictated Objective - Vital Signs/Intake and Output Vital Signs (last 24 hours): Temp Pulse Resp BP Pulse Ox 98 F 72 18 157/87 H 97 02/13/18 08:07 02/13/18 08:07 02/13/18 08:07 02/13/18 10:28 02/13/18 08:07 Intake and Output: 02/13/18 02/13/18 06:59 18:59 Output Total 2200 Balance -2200 - Medications Medications: Current Medications Amlodipine Besylate (Norvasc) 5 mg PO DAILY [facility] Last Admin: 02/13/18 10:27 Dose: 5 mg Apixaban (Eliquis) 5 mg PO BID [facility] Last Admin: 02/13/18 10:27 Dose: 5 mg Cyclobenzaprine HCl (Flexeril) 10 mg PO Q8 PRN PRN Reason: Muscle spasm Last Admin: 02/13/18 10:27 Dose: 10 mg Dexamethasone (Decadron) 4 mg PO DAILY [facility] Last Admin: 02/13/18 10:27 Dose: 4 mg Furosemide (Lasix) 40 mg IVP BID [facility] Last Admin: 02/13/18 10:28 Dose: 40 mg Gabapentin (Neurontin) 300 mg PO TID [facility] Last Admin: 02/13/18 14:07 Dose: 300 mg Meropenem 1 gm/ Sodium (Chloride) 100 mls @ 100 mls/hr IVPB Q12H [facility] PRN Reason: Protocol Last Admin: 02/13/18 02:00 Dose: 100 mls/hr Fluconazole 100 mg/ (Miscellaneous) 50 mls @ 100 mls/hr IVPB DAILY [facility] PRN Reason: Protocol Insulin Aspart (Novolog) 0 unit SC ACHS [facility] PRN Reason: Protocol Last Admin: 02/13/18 12:30 Dose: 8 units Levothyroxine Sodium (Synthroid) 175 mcg PO DAILY@0600 [facility] Last Admin: 02/13/18 05:14 Dose: 175 mcg Polyethylene Glycol (Miralax) 17 gm PO DAILY [facility] Last Admin: 02/13/18 10:28 Dose: 17 gm Rosuvastatin Calcium (Crestor) 10 mg PO HS [facility] Last Admin: 02/12/18 21:13 Dose: 10 mg Tamsulosin HCl (Flomax) 0.4 mg PO DAILY [facility] Last Admin: 02/13/18 10:27 Dose: 0.4 mg Tramadol HCl (Ultram) 50 mg PO Q6H PRN PRN Reason: Pain, severe (8-10) Last Admin: 02/13/18 05:14 Dose: 50 mg Zolpidem Tartrate (Ambien) 5 mg PO HS PRN PRN Reason: Insomnia Last Admin: 02/12/18 23:57 Dose: 5 mg - Labs Labs: 02/13/18 08:24 02/13/18 08:24 PT 14.1 SECONDS (9.7-12.2) H 02/09/18 07:00 INR 1.3 02/09/18 07:00 APTT 31 SECONDS (21-34) D 02/09/18 07:00
[2018-02-13] MEDS: Fluconazole IV 200mg/100 ml NS 100 ML IVPB SCH (16:33)
--- NOTE | 2018-02-13 21:04 | CP.PCM.PN ---
Subjective - Date & Time of Evaluation Date of Evaluation: 02/13/18 Time of Evaluation: 09:30 - Subjective Subjective: clinically same Objective - Vital Signs/Intake and Output Vital Signs (last 24 hours): Temp Pulse Resp BP Pulse Ox 98.7 F 91 H 21 145/78 97 02/13/18 15:05 02/13/18 15:05 02/13/18 15:05 02/13/18 17:54 02/13/18 15:05 Intake and Output: 02/13/18 02/14/18 18:59 06:59 Intake Total 600 Balance 600 - Medications Medications: Current Medications Amlodipine Besylate (Norvasc) 5 mg PO DAILY [facility] Last Admin: 02/13/18 10:27 Dose: 5 mg Apixaban (Eliquis) 5 mg PO BID [facility] Last Admin: 02/13/18 17:54 Dose: 5 mg Cyclobenzaprine HCl (Flexeril) 10 mg PO Q8 PRN PRN Reason: Muscle spasm Last Admin: 02/13/18 10:27 Dose: 10 mg Dexamethasone (Decadron) 4 mg PO DAILY [facility] Last Admin: 02/13/18 10:27 Dose: 4 mg Furosemide (Lasix) 40 mg IVP BID [facility] Last Admin: 02/13/18 17:54 Dose: 40 mg Gabapentin (Neurontin) 300 mg PO TID [facility] Last Admin: 02/13/18 17:54 Dose: 300 mg Meropenem 1 gm/ Sodium (Chloride) 100 mls @ 100 mls/hr IVPB Q12H [facility] PRN Reason: Protocol Last Admin: 02/13/18 14:51 Dose: 100 mls/hr Fluconazole (Diflucan Iv 200 Mg/100 Ml Ns) 100 mls @ 100 mls/hr IVPB Q24H [facility] PRN Reason: Protocol Last Admin: 02/13/18 16:33 Dose: 100 mls/hr Insulin Aspart (Novolog) 0 unit SC ACHS [facility] PRN Reason: Protocol Last Admin: 02/13/18 17:53 Dose: 10 units Insulin Aspart (Novolog) 6 unit SC ONCE ONE Stop: 02/13/18 22:01 Insulin Glargine (Lantus) 15 unit SC HS [facility] Levothyroxine Sodium (Synthroid) 175 mcg PO DAILY@0600 [facility] Last Admin: 02/13/18 05:14 Dose: 175 mcg Polyethylene Glycol (Miralax) 17 gm PO DAILY [facility] Last Admin: 02/13/18 10:28 Dose: 17 gm Rosuvastatin Calcium (Crestor) 10 mg PO HS [facility] Last Admin: 02/12/18 21:13 Dose: 10 mg Tamsulosin HCl (Flomax) 0.4 mg PO DAILY [facility] Last Admin: 02/13/18 10:27 Dose: 0.4 mg Tramadol HCl (Ultram) 50 mg PO Q6H PRN PRN Reason: Pain, severe (8-10) Last Admin: 02/13/18 05:14 Dose: 50 mg Zolpidem Tartrate (Ambien) 5 mg PO HS PRN PRN Reason: Insomnia Last Admin: 02/12/18 23:57 Dose: 5 mg - Labs Labs: 02/13/18 08:24 02/13/18 08:24 PT 14.1 SECONDS (9.7-12.2) H 02/09/18 07:00 INR 1.3 02/09/18 07:00 APTT 31 SECONDS (21-34) D 02/09/18 07:00
[2018-02-13] MEDS: (Lantus) Insulin Glargine, Recombinant SC SCH (21:09)
[2018-02-13] MEDS ORDERED: (Novolog) Insulin Aspart, Recombinant 100 u/ml 10 ml vial SC ONE (22:00)
--- NOTE | 2018-02-13 23:50 | PN ---
DATE: 02/13/2018 SUBJECTIVE: The patient was seen today. Offered no complaints; however, later on, I came to know that he has been regaining urine, and he will be seen by the urologist again as he was retaining 800-plus residual. PHYSICAL EXAMINATION: VITAL SIGNS: T-max is 98.7, pulse 91, blood pressure 158/78, respirations are 21. GENERAL: He was in good mood. HEENT: Head is atraumatic. NECK: Supple. He is bed-bound. LUNGS: Clear. No crackles or rales present today. HEART: S1 and S2 are regular. ABDOMEN: Soft. Nontender. No guarding. No rigidity present. EXTREMITIES: No edema. He does have stasis dermatitis from before. LABORATORY DATA: White count was 8.3, hemoglobin 8.9, hematocrit 26.5, platelet count is 417. BUN 30, creatinine remains at 2 and urine had yeast from 02/12/2018, so I have added Diflucan and Merrem is going to tomorrow with 5-day treatment; may continue for two more days, but we are going to wait to see what the plan of the urologist is. He does have prostate cancer with metastatic disease and probably that is leading him to have urinary retention and we will follow. Chica Simth MD
[2018-02-14 01:56] VITALS: RESP 20
[2018-02-14] MEDS: Meropenem 1 GM in Sodium Chloride 0.9% 100 ML IVPB SCH ×2 (02:46→13:42)
[2018-02-14] MEDS: Levothyroxine 175 MCG TAB PO SCH (06:10)
[2018-02-14] MEDS: (Novolog) Insulin Aspart, Recombinant 100 u/ml 10 ml vial SC SCH ×4 (08:42→21:07)
[2018-02-14] MEDS: POLYETHYLENE GLYCOL 3350 17 GM/Dose PACKET PO SCH (09:23)
--- NOTE | 2018-02-14 11:47 | CP.PCM.PN ---
Subjective - Date & Time of Evaluation Date of Evaluation: 02/14/18 Time of Evaluation: 10:00 - Subjective Subjective: clinically same Objective - Vital Signs/Intake and Output Vital Signs (last 24 hours): Temp Pulse Resp BP Pulse Ox 98.0 F 72 20 133/72 100 02/14/18 07:00 02/14/18 07:00 02/14/18 07:00 02/14/18 09:23 02/14/18 07:00 - Medications Medications: Current Medications Amlodipine Besylate (Norvasc) 5 mg PO DAILY [facility] Last Admin: 02/14/18 09:22 Dose: 5 mg Apixaban (Eliquis) 5 mg PO BID [facility] Last Admin: 02/14/18 09:23 Dose: 5 mg Cyclobenzaprine HCl (Flexeril) 10 mg PO Q8 PRN PRN Reason: Muscle spasm Last Admin: 02/13/18 10:27 Dose: 10 mg Dexamethasone (Decadron) 4 mg PO DAILY [facility] Last Admin: 02/14/18 09:22 Dose: 4 mg Furosemide (Lasix) 40 mg IVP BID [facility] Last Admin: 02/14/18 09:23 Dose: 40 mg Gabapentin (Neurontin) 300 mg PO TID [facility] Last Admin: 02/14/18 09:23 Dose: 300 mg Meropenem 1 gm/ Sodium (Chloride) 100 mls @ 100 mls/hr IVPB Q12H [facility] PRN Reason: Protocol Last Admin: 02/14/18 02:46 Dose: 100 mls/hr Fluconazole (Diflucan Iv 200 Mg/100 Ml Ns) 100 mls @ 100 mls/hr IVPB Q24H [facility] PRN Reason: Protocol Last Admin: 02/13/18 16:33 Dose: 100 mls/hr Insulin Aspart (Novolog) 0 unit SC ACHS [facility] PRN Reason: Protocol Last Admin: 02/14/18 08:42 Dose: 6 units Insulin Glargine (Lantus) 15 unit SC HS [facility] Last Admin: 02/13/18 21:09 Dose: 15 unit Levothyroxine Sodium (Synthroid) 175 mcg PO DAILY@0600 [facility] Last Admin: 02/14/18 06:10 Dose: 175 mcg Polyethylene Glycol (Miralax) 17 gm PO DAILY [facility] Last Admin: 02/14/18 09:23 Dose: 17 gm Rosuvastatin Calcium (Crestor) 10 mg PO HS [facility] Last Admin: 02/13/18 21:08 Dose: 10 mg Tamsulosin HCl (Flomax) 0.4 mg PO DAILY [facility] Last Admin: 02/14/18 09:24 Dose: 0.4 mg Tramadol HCl (Ultram) 50 mg PO Q6H PRN PRN Reason: Pain, severe (8-10) Last Admin: 02/13/18 05:14 Dose: 50 mg Zolpidem Tartrate (Ambien) 5 mg PO HS PRN PRN Reason: Insomnia Last Admin: 02/12/18 23:57 Dose: 5 mg - Labs Labs: 02/13/18 08:24 02/13/18 08:24 PT 14.1 SECONDS (9.7-12.2) H 02/09/18 07:00 INR 1.3 02/09/18 07:00 APTT 31 SECONDS (21-34) D 02/09/18 07:00 - Constitutional Appears: Well - Head Exam Head Exam: ATRAUMATIC, NORMAL INSPECTION, NORMOCEPHALIC - Eye Exam Eye Exam: EOMI, Normal appearance, PERRL Pupil Exam: NORMAL ACCOMODATION, PERRL - ENT Exam ENT Exam: Mucous Membranes Moist, Normal Exam - Neck Exam Neck Exam: Full ROM, Normal Inspection. absent: Lymphadenopathy - Respiratory Exam Respiratory Exam: Decreased Breath Sounds - Cardiovascular Exam Cardiovascular Exam: REGULAR RHYTHM, +S1, +S2 - GI/Abdominal Exam GI & Abdominal Exam: Soft, Diminished Bowel Sounds - Rectal Exam Rectal Exam: Deferred Assessment and Plan - Assessment and Plan (Free Text) Plan: For discharge Urologist came put a Escamilla catheter We will discharge on 7 days of meropenem 7 days of p.o. Diflucan Continue same Cultures and E. coli Follow-up with Dr. jaylene Goldman as an outpatient for cancer As ordered
--- NOTE | 2018-02-14 12:09 | US ---
Date of service: 02/13/2018 PROCEDURE: Ultrasound of the pelvis HISTORY: retention COMPARISON: None available. TECHNIQUE: Sonographic evaluation of the prostate and bladder was performed. FINDINGS: Unremarkable bladder without wall thickening or intraluminal debris. No calculus or gross mass lesion. No free fluid in pelvis. Bilateral ureteral jets were visualized. Urinary incontinence was noted. Prevoid Volume: 417.8 cc. Post void residual: 13.7 cc. Prostate volume measures 13.7 cc. IMPRESSION: Unremarkable sonogram of the bladder and bladder. No significant postvoid residual.
[2018-02-14] MEDS: Fluconazole IV 200mg/100 ml NS 100 ML IVPB SCH (16:00)
[2018-02-14 16:19] VITALS: TEMP 97.8; O2SAT 99
[2018-02-14 16:42] VITALS: PULSE 74
--- NOTE | 2018-02-14 17:09 | CP.PCM.PN ---
Subjective - Date & Time of Evaluation Date of Evaluation: 02/14/18 Time of Evaluation: 17:09 - Subjective Subjective: Alert, oriented, no acute painor distress. Objective - Vital Signs/Intake and Output Vital Signs (last 24 hours): Temp Pulse Resp BP Pulse Ox 97.8 F 74 20 148/79 99 02/14/18 16:00 02/14/18 16:34 02/14/18 16:00 02/14/18 16:00 02/14/18 16:00 Intake and Output: 02/14/18 02/14/18 06:59 18:59 Intake Total 400 Output Total 1400 Balance -1000 - Medications Medications: Current Medications Amlodipine Besylate (Norvasc) 5 mg PO DAILY [facility] Last Admin: 02/14/18 09:22 Dose: 5 mg Apixaban (Eliquis) 5 mg PO BID [facility] Last Admin: 02/14/18 09:23 Dose: 5 mg Cyclobenzaprine HCl (Flexeril) 10 mg PO Q8 PRN PRN Reason: Muscle spasm Last Admin: 02/13/18 10:27 Dose: 10 mg Dexamethasone (Decadron) 4 mg PO DAILY [facility] Last Admin: 02/14/18 09:22 Dose: 4 mg Furosemide (Lasix) 40 mg IVP BID [facility] Last Admin: 02/14/18 09:23 Dose: 40 mg Gabapentin (Neurontin) 300 mg PO TID [facility] Last Admin: 02/14/18 13:17 Dose: 300 mg Fluconazole (Diflucan Iv 200 Mg/100 Ml Ns) 100 mls @ 100 mls/hr IVPB Q24H [facility] PRN Reason: Protocol Last Admin: 02/13/18 16:33 Dose: 100 mls/hr Insulin Aspart (Novolog) 0 unit SC ACHS [facility] PRN Reason: Protocol Last Admin: 02/14/18 13:21 Dose: 8 units Insulin Glargine (Lantus) 15 unit SC HS [facility] Last Admin: 02/13/18 21:09 Dose: 15 unit Levothyroxine Sodium (Synthroid) 175 mcg PO DAILY@0600 [facility] Last Admin: 02/14/18 06:10 Dose: 175 mcg Polyethylene Glycol (Miralax) 17 gm PO DAILY [facility] Last Admin: 02/14/18 09:23 Dose: 17 gm Rosuvastatin Calcium (Crestor) 10 mg PO HS [facility] Last Admin: 02/13/18 21:08 Dose: 10 mg Tamsulosin HCl (Flomax) 0.4 mg PO DAILY [facility] Last Admin: 02/14/18 09:24 Dose: 0.4 mg Tramadol HCl (Ultram) 50 mg PO Q6H PRN PRN Reason: Pain, severe (8-10) Last Admin: 02/13/18 05:14 Dose: 50 mg Zolpidem Tartrate (Ambien) 5 mg PO HS PRN PRN Reason: Insomnia Last Admin: 02/12/18 23:57 Dose: 5 mg - Labs Labs: 02/13/18 08:24 02/13/18 08:24 PT 14.1 SECONDS (9.7-12.2) H 02/09/18 07:00 INR 1.3 02/09/18 07:00 APTT 31 SECONDS (21-34) D 02/09/18 07:00 Assessment and Plan - Assessment and Plan (Free Text) Assessment: Patient with prostate cancer, urine retention, seen and examined. Alert and orientedx3, NAD. Arnold was inserted this am by DR Brown, output is good but is bloody. Instructed to hold the eliquis and flush the arnold 3-4 times a day. Discussed with DR Douglas Escobar, plan to discharge to [facility] on antibiotics. Patient is comfortable , no acute distress.
[2018-02-14 17:41] VITALS: BP 147/78
[2018-02-14] MEDS: (Lantus) Insulin Glargine, Recombinant SC SCH (21:07)
--- NOTE | 2018-02-14 22:08 | CP.PCM.PN ---
Subjective - Date & Time of Evaluation Date of Evaluation: 02/14/18 Time of Evaluation: 02:45 - Subjective Subjective: dictated Objective - Vital Signs/Intake and Output Vital Signs (last 24 hours): Temp Pulse Resp BP Pulse Ox 97.8 F 74 20 147/78 99 02/14/18 16:00 02/14/18 16:34 02/14/18 16:00 02/14/18 17:39 02/14/18 16:00 Intake and Output: 02/14/18 02/15/18 18:59 06:59 Intake Total 400 100 Output Total 1400 1000 Balance -1000 -900 - Medications Medications: Current Medications Amlodipine Besylate (Norvasc) 5 mg PO DAILY [facility] Last Admin: 02/14/18 09:22 Dose: 5 mg Apixaban (Eliquis) 5 mg PO BID [facility] Last Admin: 02/14/18 09:23 Dose: 5 mg Cyclobenzaprine HCl (Flexeril) 10 mg PO Q8 PRN PRN Reason: Muscle spasm Last Admin: 02/13/18 10:27 Dose: 10 mg Dexamethasone (Decadron) 4 mg PO DAILY [facility] Last Admin: 02/14/18 09:22 Dose: 4 mg Furosemide (Lasix) 40 mg IVP BID [facility] Last Admin: 02/14/18 17:39 Dose: 40 mg Gabapentin (Neurontin) 300 mg PO TID [facility] Last Admin: 02/14/18 17:40 Dose: 300 mg Fluconazole (Diflucan Iv 200 Mg/100 Ml Ns) 100 mls @ 100 mls/hr IVPB Q24H [facility] PRN Reason: Protocol Last Admin: 02/14/18 16:00 Dose: 100 mls/hr Insulin Aspart (Novolog) 0 unit SC ACHS [facility] PRN Reason: Protocol Last Admin: 02/14/18 21:07 Dose: 10 units Insulin Glargine (Lantus) 15 unit SC HS [facility] Last Admin: 02/14/18 21:07 Dose: 15 unit Levothyroxine Sodium (Synthroid) 175 mcg PO DAILY@0600 [facility] Last Admin: 02/14/18 06:10 Dose: 175 mcg Polyethylene Glycol (Miralax) 17 gm PO DAILY [facility] Last Admin: 02/14/18 09:23 Dose: 17 gm Rosuvastatin Calcium (Crestor) 10 mg PO HS [facility] Last Admin: 02/14/18 21:08 Dose: 10 mg Tamsulosin HCl (Flomax) 0.4 mg PO DAILY [facility] Last Admin: 02/14/18 09:24 Dose: 0.4 mg Tramadol HCl (Ultram) 50 mg PO Q6H PRN PRN Reason: Pain, severe (8-10) Last Admin: 02/13/18 05:14 Dose: 50 mg Zolpidem Tartrate (Ambien) 5 mg PO HS PRN PRN Reason: Insomnia Last Admin: 02/12/18 23:57 Dose: 5 mg - Labs Labs: 02/13/18 08:24 02/13/18 08:24 PT 14.1 SECONDS (9.7-12.2) H 02/09/18 07:00 INR 1.3 02/09/18 07:00 APTT 31 SECONDS (21-34) D 02/09/18 07:00
--- NOTE | 2018-02-15 01:47 | PN ---
DATE: 02/14/2018 INFECTIOUS DISEASE FOLLOWUP SUBJECTIVE: The patient today when I went in had a Escamilla catheter with some blood. He was alert, awake. He denied any complaints. He said he was thinking he was going to go back. He has a Escamilla catheter. I told him probably because of his prostate cancer even though he was voiding, he was retaining and that may be the reason that they placed the Escamilla catheter back. PHYSICAL EXAMINATION: VITAL SIGNS: T-max today was 97.8, pulse 75, blood pressure 148/79, respirations are 20. GENERAL: He denied any nausea, vomiting, or abdominal pain. He was alert, awake. He speaks [place]. HEENT: Head is atraumatic. NECK: Supple. LUNGS: Clear. HEART: S1 and S2 are regular. ABDOMEN: Soft, nontender. EXTREMITIES: Have stasis dermatitis and mild edema. LABORATORY DATA: Labs are noted. They only did blood sugars today. We had done labs yesterday. His culture yesterday micro coker had shown yeast and on 02/07/2018 urine had E. coli. ASSESSMENT AND PLAN: We have been treating him with Merrem even though he has renal insufficiency and prostate cancer. The patient probably will be going back to rehab, on Diflucan and nitrofurantoin. Nitrofurantoin for seven days and Diflucan for 3 days when he is discharged. We will follow. Chica Smith MD
== END 2018-02-14 22:21 | DRG 690 ==
LOC: C.ER 12:36 → C.9E 15:21 → C.6T 17:40
PROVIDERS: ADMIT Internal Medicine Nephrology; ATTEND Internal Medicine Nephrology
DX: N39.0 Urinary tract infection, site not specified (principal); C79.51 Secondary malignant neoplasm of bone; G82.20 Paraplegia, unspecified; I13.0 Hypertensive heart and chronic kidney disease with heart failure and stage 1 through stage 4 chronic kidney disease, or unspecified chronic kidney disease; I82.403 Acute embolism and thrombosis of unspecified deep veins of lower extremity, bilateral; M84.58XA Pathological fracture in neoplastic disease, other specified site, initial encounter for fracture; C61 Malignant neoplasm of prostate; D64.9 Anemia, unspecified; E03.9 Hypothyroidism, unspecified; E11.22 Type 2 diabetes mellitus with diabetic chronic kidney disease; E78.00 Pure hypercholesterolemia, unspecified; I50.9 Heart failure, unspecified; J44.9 Chronic obstructive pulmonary disease, unspecified; N18.9 Chronic kidney disease, unspecified; Z74.01 Bed confinement status; Z79.01 Long term (current) use of anticoagulants; B96.20 Unspecified Escherichia coli [E. coli] as the cause of diseases classified elsewhere

== ENCOUNTER 2018-03-23 07:50 | Day surgery (SDC) | payer MEDICARE, MEDICAID ==
[2018-03-23] MEDS ORDERED: ceFAZolin IV 2 gm in Dextrose 2 GM/50 ML BAG IVPB ONE (08:40)
--- NOTE | 2018-03-23 08:40 | CP.SDSHP ---
Same Day Surgery H & P - History Proposed Procedure: Medication port placement. Pre-Op Diagnosis: Prostate ca - Allergies Allergies: Allergies No Known Allergies Allergy (Verified 02/07/18 13:13) - Physical Exam Mental Status: Alert & Oriented x3 Neuro: WNL Heart: WNL Lungs: WNL - Impression Pt. Evaluated Today:Candidate for Anesthesia & Procedure: Yes Short Stay Discharge - Short Stay Discharge Admitting Diagnosis/Reason for Visit: PROSTATE CANCER Disposition: HOME/ ROUTINE
[2018-03-23] MEDS ORDERED: Lidocaine/Epinephrine 1% 1:100000 10 ML IJ ONE (08:45)
[2018-03-23] MEDS ORDERED: Midazolam 2 MG/2 ML VIAL ONE (08:54)
[2018-03-23] MEDS ORDERED: Labetalol 5mg/ml (4ml) ONE (10:02)
--- NOTE | 2018-03-23 10:12 | PCM.SURG1 ---
Surgeon's Initial Post Op Note - Surgeon's Notes Surgeon: Olga Hadoop Analyst: Mir Type of Anesthesia: IV Sedation, Local Pre-Operative Diagnosis: IV access for chemotx Operative Findings: Patent right IJV Post-Operative Diagnosis: IV access for chemotx Operation Performed: Right upper chest medication port placement. Specimen/Specimens Removed: None Estimated Blood Loss: EBL {In ML}: 1 Date of Surgery/Procedure: 03/23/18 Time of Surgery/Procedure: 10:00
== END 2018-03-23 12:10 | disposition home or self-care (01) ==
LOC: C.SPRAD 07:50
PROVIDERS: ATTEND Orthopaedic Surgery Sports Medicine
DX: Z45.2 Encounter for adjustment and management of vascular access device (principal); C61 Malignant neoplasm of prostate
CPT/HCPCS: 36561; 76937; 77001; 82948; C1788; J0690; J1644; J2250; J3010

== ENCOUNTER 2018-03-27 07:01 | Emergency (ER) | payer MEDICARE, MEDICAID ==
[2018-03-27 07:01] VITALS: BMI 30.1
--- NOTE | 2018-03-27 07:26 | C.PDOC ---
History Of Present Illness 68 years old male with Hx of prostate cancer presents to ED for complaints of difficulty urinating that began last night. Patient has a arnold in place and states last arnold change was 3 weeks ago. Patient also reports he feels fullness and pressure to lower abdomen. Denies fever, chills, or any other physical complaints. Time Seen by Provider: 03/27/18 07:08 Chief Complaint (Nursing): Male Genitourinary History Per: Patient History/Exam Limitations: no limitations Onset/Duration Of Symptoms: Hrs Current Symptoms Are (Timing): Still Present Quality Of Discomfort: Pressure, Other (Fullness ) Associated Symptoms: denies: Fever, Chills, Nausea, Vomiting, Diarrhea Alleviating Factors: None Recent travel outside of the [place]: No Past Medical History Reviewed: Historical Data, Nursing Documentation, Vital Signs Vital Signs: Last Vital Signs Temp 97.6 F 03/27/18 07:13 Pulse 75 03/27/18 07:13 Resp 16 03/27/18 07:13 BP 168/80 H 03/27/18 07:13 Pulse Ox 98 03/27/18 08:13 - Medical History PMH: Anemia, Arthritis, COPD, Diabetes, Deep Vein Thrombosis, Fractures (lower back), HTN, Hypercholesterolemia, Hypothyroidism, Chronic Kidney Disease Surgical History: Hernia Repair - [facility] Procedures INSERT INDWELLING CATH (01/23/13) INTRODUCTION OF SERUM/TOX/VACCINE INTO MUSCLE, PERC APPROACH (11/18/17) MAGNETIC RESONANCE IMAGING (MRI) OF SPINAL CORD (11/18/17) Family History: States: Unknown Family Hx - Social History Hx Tobacco Use: No Hx Alcohol Use: No Hx Substance Use: No - Immunization History Hx Tetanus Toxoid Vaccination: No Hx Influenza Vaccination: Yes Hx Pneumococcal Vaccination: Yes Review Of Systems Constitutional: Negative for: Fever, Chills Gastrointestinal: Positive for: Other (Pressure and fullness to lower abdomen ) . Negative for: Nausea, Vomiting, Diarrhea Genitourinary: Positive for: Other (difficulty urinating) Skin: Negative for: Rash Neurological: Negative for: Weakness, Numbness Physical Exam - Physical Exam Appears: Well, Non-toxic, No Acute Distress Skin: Warm, Dry Head: Atraumatic, Normacephalic Eye(s): bilateral: Normal Inspection Oral Mucosa: Moist Neck: Normal ROM Chest: Symmetrical, No Tenderness Cardiovascular: Rhythm Regular, No Murmur Respiratory: No Decreased Breath Sounds, No Rales, No Rhonchi, No Wheezing Gastrointestinal/Abdominal: Bowel Sounds (Active), Soft, Tenderness (Suprapubic) , Distention (Suprapubic ), No Guarding, Hernia (Ventral hernia) Male Genital: Other (Leg bag clear with small amount of urine; arnold in place; no active bleeding ) Extremity: Bilateral: Atraumatic, Normal Color And Temperature, Normal ROM Neurological/Psych: Oriented x3, Normal Speech, Other (No focal deficits ) Gait: Steady ED Course And Treatment O2 Sat by Pulse Oximetry: 98 (RA) Pulse Ox Interpretation: Normal Medical Decision Making Medical Decision Making: Impression: H/o prostate CA, urine retention Prior records reviewed: patient last seen and admitted on 02/14/18 for weakness and CHF Plan: * Bladder scan * Arnold change Progress: Bladder scan shows 600cc urine RN informs me new arnold 12Fr [address] way inserted, clear urine in bag; patient reports feeling better. Upon re-evaluation the patient is resting comfortably and reports feeling better. Patient is stable for discharge. Arrangements made for transportation home. Disposition Counseled Patient/Family Regarding: Diagnosis, Need For Followup - Disposition Referrals: Srini Brown MD [Staff Provider] - Radha Brown MD [Staff Provider] - Disposition: HOME/ ROUTINE Disposition Time: 08:43 Condition: STABLE Additional Instructions: Live un seguimiento con layton urlogo Instructions: Urinary Retention (DC) Print Language: ALBANIAN - POA Present On Arrival: None - Clinical Impression Clinical Impression: Retention of urine, Urinary catheter (Arnold) change required - PA / MATH COACH / Resident Statement MD/DO has reviewed & agrees with the documentation as recorded. - Scribe Statement The provider has reviewed the documentation as recorded by the Deborahibjana Mason All medical record entries made by the Gallo were at my direction and personally dictated by me. I have reviewed the chart and agree that the record accurately reflects my personal performance of the history, physical exam, medical decision making, and the department course for this patient. I have also personally directed, reviewed, and agree with the discharge instructions and disposition.
[2018-03-27 08:58] VITALS: BP 152/80; PULSE 72; RESP 18; TEMP 98.2
[2018-03-27 09:50] VITALS: O2SAT 98
== END 2018-03-27 09:27 | disposition home or self-care (01) ==
LOC: C.ER 07:01
DX: R33.9 Retention of urine, unspecified (principal)

== ENCOUNTER 2018-04-03 01:04 | Emergency (ER) | payer MEDICARE, MEDICAID ==
[2018-04-03 01:04] VITALS: BMI 30.1
[2018-04-03 01:17] VITALS: TEMP 99
--- NOTE | 2018-04-03 01:26 | C.PDOC ---
History Of Present Illness pt presents with abdominal pain, suprapubic fulness and discomfort. Pt has an indwelling arnold catheter, with output. No f/c/n/v Time Seen by Provider: 04/03/18 01:25 Chief Complaint (Nursing): Abdominal Pain History Per: Patient History/Exam Limitations: no limitations Onset/Duration Of Symptoms: Hrs Current Symptoms Are (Timing): Worse Context: Other Severity: Moderate Pain Scale Rating Of: 5 Location Of Pain/Discomfort: Suprapubic Radiation Of Pain To:: None Quality Of Discomfort: Sharp, Cramping, Pressure Associated Symptoms: Urinary Symptoms (retention). denies: Fever, Chills, Nausea, Vomiting Exacerbating Factors: None Alleviating Factors: None Last Bowel Movement: Yesterday Recent travel outside of the [place]: No Additional History Per: Family Past Medical History Reviewed: Historical Data, Nursing Documentation, Vital Signs Vital Signs: Last Vital Signs Temp 99 F 04/03/18 01:10 Pulse 74 04/03/18 01:10 Resp 20 04/03/18 01:10 BP 120/71 04/03/18 01:10 Pulse Ox 94 L 04/03/18 01:59 - Medical History PMH: Anemia, Arthritis, COPD, Diabetes, Deep Vein Thrombosis, Fractures (lower back), HTN, Hypercholesterolemia, Hypothyroidism, Chronic Kidney Disease Denies: HIV Surgical History: Hernia Repair - [facility] Procedures INSERT INDWELLING CATH (01/23/13) INTRODUCTION OF SERUM/TOX/VACCINE INTO MUSCLE, PERC APPROACH (11/18/17) MAGNETIC RESONANCE IMAGING (MRI) OF SPINAL CORD (11/18/17) Family History: States: Unknown Family Hx - Social History Hx Tobacco Use: No Hx Alcohol Use: No Hx Substance Use: No - Immunization History Hx Tetanus Toxoid Vaccination: No Hx Influenza Vaccination: Yes Hx Pneumococcal Vaccination: Yes Review Of Systems Constitutional: Negative for: Fever, Chills Gastrointestinal: Positive for: Abdominal Pain (suprapubic) Genitourinary: Positive for: Other (urinary retention) Musculoskeletal: Negative for: Back Pain Skin: Negative for: Rash Neurological: Negative for: Weakness Psych: Negative for: Anxiety Physical Exam - Physical Exam Appears: Non-toxic, In Acute Distress Skin: Warm, Dry Chest: Symmetrical, Other (small abrassion at the port site right chest) Gastrointestinal/Abdominal: Tenderness (suprapubic), Distention, Hernia (ventral ) Male Genital: No Testicular Tenderness, No Testicular Swelling, Circumcised, Other (indwelling arnold) Neurological/Psych: Oriented x3 Gait: Steady ED Course And Treatment O2 Sat by Pulse Oximetry: 94 Pulse Ox Interpretation: Normal Progress Note: I've changed his 14 fr arnold. I've placed an 18 fr arnold catheter without any dificulty, and draind about 450 cc of clear urine. Pt with instant relief Reevaluation Time: 02:18 Reassessment Condition: Improved Disposition Counseled Patient/Family Regarding: Studies Performed, Diagnosis, Need For Followup - Disposition Referrals: Vick Escobar MD [Staff Provider] - Disposition: HOME/ ROUTINE Disposition Time: 01:26 Condition: FAIR Additional Instructions: Please return if symptoms recur Instructions: How to Care for Your Arnold Catheter, Male, Arnold Catheter, Male, Urinary Retention (DC) Forms: [facility] (Bengali) Print Language: HEBREW - Clinical Impression Clinical Impression: Arnold catheter problem, Retention of urine
[2018-04-03 05:54] VITALS: BP 126/63; PULSE 82; RESP 20; O2SAT 98
== END 2018-04-03 05:55 | disposition home or self-care (01) ==
LOC: C.ER 01:04
DX: T83.098A Other mechanical complication of other urinary catheter, initial encounter (principal); Y84.9 Medical procedure, unspecified as the cause of abnormal reaction of the patient, or of later complication, without mention of misadventure at the time of the procedure; R33.9 Retention of urine, unspecified

== ENCOUNTER 2018-04-12 07:32 | Inpatient (IN) | payer MEDICARE, MEDICAID ==
[2018-04-12 07:32] VITALS: BMI 31.1
[2018-04-12] MEDS ORDERED: Sodium Chloride 0.9% 1,000 ML IV ONE (08:26)
--- NOTE | 2018-04-12 08:40 | RAD ---
Date of service: 04/12/2018 PROCEDURE: CHEST RADIOGRAPH, 1 VIEW HISTORY: SOB COMPARISON: 02/07/2018. FINDINGS: The right PICC line terminates at the cavoatrial junction. LUNGS: The lungs are well inflated. There is mild pulmonary venous congestion. PLEURA: No pneumothorax or pleural fluid seen. CARDIOVASCULAR: Normal. OSSEOUS STRUCTURES: No significant abnormalities. VISUALIZED UPPER ABDOMEN: Normal. OTHER FINDINGS: None. IMPRESSION: Right PICC line terminates at the cavoatrial junction. No acute findings.
[2018-04-12] MEDS ORDERED: Sodium Chloride 0.9% 1,000 ML ONE (08:51)
[2018-04-12 09:28] LABS: BASO % 0.3 % (0.0-2.0); EOS # 0.1 K/uL (0.0-0.7); LYMPH % 7.8 % (20.0-40.0); MEAN CORPUSCULAR HEMOGLOBIN 28.1 pg (27.0-31.0); MEAN CORPUSCULAR HGB CONC 32.7 g/dL (33.0-37.0); MEAN PLATELET VOLUME 8.8 fL (7.2-11.7); MONO % 15.7 % (0.0-10.0); NEUT # 9.4 K/uL (1.8-7.0); NEUT % 75.2 % (50.0-75.0); RBC 3.18 Mil/uL (4.40-5.90); RED CELL DISTRIBUTION WIDTH 19.5 % (11.5-14.5)
[2018-04-12 09:30] LABS: PLATELET COUNT 190 K/uL (130-400); WHITE BLOOD COUNT 12.5 K/uL (4.8-10.8)
--- NOTE | 2018-04-12 09:40 | RAD ---
Date of service: 04/12/2018 PROCEDURE: Right Knee Radiographs. HISTORY: knee pain COMPARISON: None. FINDINGS: BONES: No acute fracture or destructive bony lesion identified. JOINTS: Joint space narrowing, articular cortical sclerosis and osteophyte development are seen all 3 joint compartments with the patellofemoral compartment appearing to be least affected. No subluxation or dislocation. JOINT EFFUSION: Trace suprapatellar bursa effusion evident. Prominent soft edema seen anterior to the patella and patellar tendon region. OTHER FINDINGS: Extensive soft tissue calcifications seen the region of the deep subcutaneous fat at the leg and in the pretibial soft tissues anterior to the proximal diaphysis of the tibia, potentially related to connective tissue disorder or autoimmune process. Clinically correlate further. IMPRESSION: No acute fracture dislocation. Advanced osteoarthritis, tricompartmental. Sequelae related to potential connective tissue disorder or even process as discussed above in local soft tissues of the leg.
[2018-04-12 09:41] LABS: ALB/GLOB RATIO 1.1 (1.0-2.1); ALBUMIN 3.8 g/dL (3.5-5.0); CALCIUM 6.5 mg/dl (8.6-10.4)
[2018-04-12 09:44] LABS: URINE BACTERIA MANY (<OCC); URINE BILIRUBIN NEGATIVE (NEGATIVE); URINE BLOOD 1+ (NEGATIVE); URINE COLOR Yellow (YELLOW); URINE GLUCOSE (UA) NORMAL (Normal); URINE LEUKOCYTE ESTERASE 2+ Leu/uL (Negative); URINE PROTEIN 2+ mg/dL (NEGATIVE); URINE UROBILINOGEN NORMAL mg/dL (0.2-1.0)
[2018-04-12 09:47] LABS: URINE CLARITY SLHAZY (Clear)
--- NOTE | 2018-04-12 09:51 | CT ---
Date of service: 04/12/2018 PROCEDURE: CT HEAD WITHOUT CONTRAST. HISTORY: Headache COMPARISON: None available. TECHNIQUE: Axial computed tomography images were obtained through the head/brain without intravenous contrast. Radiation dose: Total exam DLP = 1134.86 mGy-cm. This CT exam was performed using one or more of the following dose reduction techniques: Automated exposure control, adjustment of the mA and/or kV according to patient size, and/or use of iterative reconstruction technique. FINDINGS: HEMORRHAGE: No intracranial hemorrhage. BRAIN: Arnold-white matter differential is preserved. There is no mass, mass effect or abnormal extra-axial fluid collection. There is no territorial infarction. The midline sagittal structures are normal.There are coarse atherosclerotic calcifications in the cavernous carotid arteries. VENTRICLES: There is mild age-related global parenchymal volume loss and proportionate enlargement of the ventricles and cortical sulci. CALVARIUM: The skull base and calvarium are normal. PARANASAL SINUSES: Predominantly clear. MASTOID AIR CELLS: Predominantly clear. OTHER FINDINGS: None. IMPRESSION: No acute intracranial abnormality. Mild age-related global parenchymal volume loss.
--- NOTE | 2018-04-12 09:52 | RAD ---
Date of service: 04/12/2018 PROCEDURE: Radiographs of the Lumbar Spine. HISTORY: back pain COMPARISON: No prior. FINDINGS: BONES: There is a slight reversal of the mid lumbar curvature with that out to spondylolisthesis identified. Stable moderate to severe compression fracture of L3 is reiterated as compared prior lumbar spine MRI noted above. Moderate multilevel spondylosis again appreciated. Disc height loss is stable at L2-3. Overall bone density is heterogeneous compatible with prior MR pattern of multifocal metastases. DISC SPACES: As above. OTHER FINDINGS: None. IMPRESSION: Stable lumbar spine including a subtle reversal of lumbar curvature, moderate to severe L3 vertebral body compression fracture and relatively diffuse metastatic pattern.
--- NOTE | 2018-04-12 10:04 | C.PDOC ---
History Of Present Illness 68-year-old male, PMHx includes Prostate CA with mets to spine, Diabetes, presents to the emergency department accompanied by with complaints of pain in right knee and right lower back that started this morning. Patients last chemotherapy was one week ago. Pt took his Gabapentin last night. Last radiation was in 01/23. Denies any nausea/vomiting, fever. Time Seen by Provider: 04/12/18 07:47 Chief Complaint (Nursing): Headache History Per: Patient History/Exam Limitations: no limitations Past Medical History Reviewed: Historical Data, Nursing Documentation, Vital Signs Vital Signs: Last Vital Signs Temp Pulse 110 H 04/12/18 08:18 Resp 26 H 04/12/18 08:18 BP 150/89 04/12/18 08:18 Pulse Ox 98 04/12/18 10:15 - Medical History PMH: Anemia, Arthritis, COPD, Diabetes, Deep Vein Thrombosis, Fractures (lower back), HTN, Hypercholesterolemia, Hypothyroidism, Chronic Kidney Disease Denies: HIV Surgical History: Hernia Repair - [facility] Procedures INSERT INDWELLING CATH (01/23/13) INTRODUCTION OF SERUM/TOX/VACCINE INTO MUSCLE, PERC APPROACH (11/18/17) MAGNETIC RESONANCE IMAGING (MRI) OF SPINAL CORD (11/18/17) Family History: States: No Known Family Hx - Social History Hx Tobacco Use: No Hx Alcohol Use: No Hx Substance Use: No - Immunization History Hx Tetanus Toxoid Vaccination: No Hx Influenza Vaccination: Yes Hx Pneumococcal Vaccination: Yes Review Of Systems Constitutional: Negative for: Fever Cardiovascular: Negative for: Chest Pain Respiratory: Negative for: Shortness of Breath Gastrointestinal: Negative for: Vomiting Musculoskeletal: Positive for: Back Pain, Leg Pain Neurological: Positive for: Weakness. Negative for: Headache, Dizziness Physical Exam - Physical Exam Appears: Non-toxic, No Acute Distress Skin: Normal Color, Warm, Dry, No Rash Head: Atraumatic, Normacephalic Eye(s): bilateral: Normal Inspection Nose: Normal Oral Mucosa: Moist Lips: Normal Appearing Neck: Normal ROM Chest: Symmetrical Cardiovascular: Rhythm Regular, No Murmur Respiratory: Normal Breath Sounds, No Accessory Muscle Use Gastrointestinal/Abdominal: Soft, No Tenderness, No Guarding, No Rebound Back: Other (Lidoderm patch in place.) Male Genital: Other (+arnold catheter in place w/ leg bag. ) Extremity: Normal ROM, No Deformity Neurological/Psych: Oriented x3, Normal Speech ED Course And Treatment - Laboratory Results Result Diagrams: 04/12/18 09:21 04/12/18 09:21 ECG: Interpreted By Me, Viewed By Me ECG Rhythm: Sinus Tachycardia ECG Interpretation: No Acute Changes Interpretation Of ECG: PAC's. J point st segment elevation in v1-2-3 and lead 3. No reciprocal T wave changes Rate From EC O2 Sat by Pulse Oximetry: 98 (RA) Pulse Ox Interpretation: Normal Medical Decision Making Medical Decision Making: Plan: * CT Head * EKG * Bloodwork * CHest XR, Knee XR * Rocephin, IVFs, Toradol * Blood/Urine Cultures * XR Spine * Reassess and Disposition Disposition Discussed With Dr.: Vick Escobar Doctor Will See Patient In The: Hospital Counseled Patient/Family Regarding: Studies Performed, Diagnosis - Disposition Disposition: HOSPITALIZED Disposition Time: 10:17 Condition: FAIR Forms: [facility] (Upper Sorbian) - Clinical Impression Clinical Impression: Low back pain, Renal insufficiency, UTI (urinary tract infection), Prostate cancer - Scribe Statement The provider has reviewed the documentation as recorded by the Scribe (Brittanie Weiner) All medical record entries made by the Scribe were at my direction and personally dictated by me. I have reviewed the chart and agree that the record accurately reflects my personal performance of the history, physical exam, medical decision making, and the department course for this patient. I have also personally directed, reviewed, and agree with the discharge instructions and disposition.
[2018-04-12] MEDS ORDERED: cefTRIAXone 1 gm in Water For Injection 2.1 ML IM ONE (10:10)
[2018-04-12 10:13] LABS: ANISOCYTOSIS SLIGHT; EOSINOPHIL 2 % (0-4); HYPOCHROMIC SLIGHT; LYMPHOCYTE 7 % (20-40); MONOCYTE 13 % (0-10); NEUTROPHIL 78 % (50-75); PLATELET ESTIMATE NORMAL (NORMAL); POIKILOCYTOSIS SLIGHT; TOTAL CELLS COUNTED 100
[2018-04-12 10:14] LABS: BURR CELLS SLIGHT; TEARDROP CELLS SLIGHT
[2018-04-12 11:28] VITALS: O2SAT 100
--- NOTE | 2018-04-12 16:26 | CP.PCM.HP ---
History of Present Illness - History of Present Illness History of Present Illness: 68-year-old male with PMH of COPD, anemia, arthritis, DM, DVT, HTN, HLD, hypothyroidism, CKD, prostate CA with metastases to spine presents to ED accompanied by with complaint of right knee pain and right lower back pain started today morning. Last chemotherapy was 1 week ago. Admits to his gabapentin last night. Last radiation was in 01/23. Denies fever, chills, nausea, vomiting, abdominal pain, chest pain, SOB, tingling or numbness. Past Patient History - Infectious Disease Hx of Infectious Diseases: None - Past Medical History & Family History Past Medical History?: Yes - Past Social History Smoking Status: Never Smoked - CARDIAC Hx Hypercholesterolemia: Yes Hx Hypertension: Yes - PULMONARY Hx Chronic Obstructive Pulmonary Disease (COPD): Yes - NEUROLOGICAL Hx Neurological Disorder: No - HEENT Hx HEENT Problems: No - RENAL Hx Chronic Kidney Disease: Yes - ENDOCRINE/METABOLIC Hx Hypothyroidism: Yes - HEMATOLOGICAL/ONCOLOGICAL Hx Anemia: Yes Hx Human Immunodeficiency Virus (HIV): No - INTEGUMENTARY Hx Dermatological Problems: No - MUSCULOSKELETAL/RHEUMATOLOGICAL Hx Arthritis: Yes Hx Fractures: Yes (lower back) - GASTROINTESTINAL Hx Gastrointestinal Disorders: Yes - GENITOURINARY/GYNECOLOGICAL Hx Genitourinary Disorders: Yes - PSYCHIATRIC Hx Substance Use: No - SURGICAL HISTORY Hx Surgeries: Yes Hx Vascular Access Device: Yes - ANESTHESIA Hx Anesthesia: Yes Hx Anesthesia Reactions: No Hx Malignant Hyperthermia: No Meds Allergies/Adverse Reactions: Allergies Allergy/AdvReac Type Severity Reaction Status Date / Time No Known Allergies Allergy Verified 04/12/18 08:03 Results - Vital Signs Recent Vital Signs: Last Vital Signs Temp 98.5 F 04/12/18 13:59 Pulse 92 H 04/12/18 13:59 Resp 18 04/12/18 13:59 BP 120/68 04/12/18 13:59 Pulse Ox 100 04/12/18 13:59 - Labs Result Diagrams: 04/12/18 09:21 04/12/18 09:21 Labs: Laboratory Results - last 24 hr 04/12/18 04/12/18 04/12/18 09:21 09:21 09:23 WBC 12.5 H D RBC 3.18 L Hgb 9.0 L Hct 27.4 L MCV 86.0 MCH 28.1 MCHC 32.7 L RDW 19.5 H Plt Count 190 D MPV 8.8 Neut % (Auto) 75.2 H Lymph % (Auto) 7.8 L [place] % (Auto) 15.7 H Eos % (Auto) 1.0 Baso % (Auto) 0.3 Neut # (Auto) 9.4 H Lymph # (Auto) 1.0 [place] # (Auto) 2.0 H Eos # (Auto) 0.1 Baso # (Auto) 0.0 Neutrophils % (Manual) 78 H Lymphocytes % (Manual) 7 L Monocytes % (Manual) 13 H Eosinophils % (Manual) 2 Platelet Estimate Normal Hypochromasia (manual) Slight Poikilocytosis (manual Slight Anisocytosis (manual) Slight Macrocytosis (manual) Slight Tear Drop Cells Slight [place] Cells Slight Sodium 144 Potassium 4.4 Chloride 107 Carbon Dioxide 23 Anion Gap 18 BUN 48 H Creatinine 2.4 H Est GFR ( Amer) 33 Est GFR (Non-Af Amer) 27 Random Glucose 73 L Calcium 6.5 L Total Bilirubin 0.4 AST 28 ALT 25 Alkaline Phosphatase 112 Total Creatine Kinase 608 H Total Protein 7.2 Albumin 3.8 Globulin 3.3 Albumin/Globulin Ratio 1.1 Urine Color Yellow Urine Clarity [place] Urine pH 7.0 Ur Specific [place] 1.012 Urine Protein 2+ H Urine Glucose (UA) Normal Urine Ketones Negative Urine Blood 1+ H Urine Nitrate Negative Urine Bilirubin Negative Urine Urobilinogen Normal Ur Leukocyte Esterase 2+ H Urine WBC (Auto) 20 H Urine RBC (Auto) 10 H Urine Bacteria Many H
[2018-04-12 18:03] VITALS: BP 109/66; PULSE 89; RESP 20; TEMP 97.8
--- NOTE | 2018-04-13 14:29 | CARD ---
APPROVED REPORT Date of service: 04/12/2018 EKG Measurement Heart [id number] <Conclusion> Sinus tachycardia Otherwise normal ECG
--- NOTE | 2018-04-13 14:29 | CARD ---
APPROVED REPORT Date of service: 04/12/2018 EKG Measurement Heart [id number] <Conclusion> Sinus tachycardia with premature atrial complexes Possible Left atrial enlargement Borderline ECG
== END 2018-04-12 17:13 | disposition left against medical advice (07) | DRG 543 ==
LOC: C.ER 07:32 → C.9E 10:12 → C.6T 13:50
PROVIDERS: ADMIT Internal Medicine Nephrology; ATTEND Internal Medicine Nephrology
DX: M48.56XA Collapsed vertebra, not elsewhere classified, lumbar region, initial encounter for fracture (principal); N39.0 Urinary tract infection, site not specified; C79.51 Secondary malignant neoplasm of bone; C61 Malignant neoplasm of prostate; M25.561 Pain in right knee; I12.9 Hypertensive chronic kidney disease with stage 1 through stage 4 chronic kidney disease, or unspecified chronic kidney disease; J44.9 Chronic obstructive pulmonary disease, unspecified; E11.22 Type 2 diabetes mellitus with diabetic chronic kidney disease; E03.9 Hypothyroidism, unspecified; N18.9 Chronic kidney disease, unspecified; E78.00 Pure hypercholesterolemia, unspecified; M19.90 Unspecified osteoarthritis, unspecified site; Z86.718 Personal history of other venous thrombosis and embolism

== ENCOUNTER 2018-05-04 12:52 | Observation (INO) | payer MEDICARE, MEDICAID ==
[2018-05-01 12:57] VITALS: BMI 26.9
[2018-05-04] MEDS ORDERED: Midazolam 2 MG/2 ML VIAL ONE (15:20)
[2018-05-04] MEDS ORDERED: Propofol 10 mg/ml Inj (20 ML) ONE (15:20)
[2018-05-04] MEDS ORDERED: cefTRIAXone 1 gm 1 GM/100 ML BAG IVPB ONE (15:33)
[2018-05-04] MEDS ORDERED: Oxycodone/Acetaminophen 5/325 mg Tab PO PRN (16:46)
[2018-05-04] MEDS ORDERED: cefTRIAXone IV 1 gm in Dextros 50 ML IVPB ONE (16:46)
[2018-05-04] MEDS ORDERED: Labetalol 25mg/5ml Syringe IVP PRN (16:52)
[2018-05-04 17:16] LABS: BASO # 0.1 K/uL (0.0-0.2); BASO % 0.8 % (0.0-2.0); EOS # 0.3 K/uL (0.0-0.7); EOS % 5.4 % (0.0-4.0); HEMOGLOBIN 9.1 g/dL (12.0-18.0); LYMPH # 1.5 K/uL (1.0-4.3); LYMPH % 22.8 % (20.0-40.0); MEAN CELL VOLUME 86.4 fL (80.0-94.0); MEAN CORPUSCULAR HEMOGLOBIN 28.7 pg (27.0-31.0); MEAN CORPUSCULAR HGB CONC 33.2 g/dL (33.0-37.0); MEAN PLATELET VOLUME 8.4 fL (7.2-11.7); MONO # 0.9 K/uL (0.0-0.8); MONO % 14.5 % (0.0-10.0); NEUT # 3.6 K/uL (1.8-7.0); NEUT % 56.5 % (50.0-75.0); NRBC % 0.2 % (0.0-2.0); RBC 3.17 Mil/uL (4.40-5.90); RED CELL DISTRIBUTION WIDTH 18.9 % (11.5-14.5); WHITE BLOOD COUNT 6.4 K/uL (4.8-10.8)
[2018-05-04] MEDS: HYDROmorphone 0.5 mg/0.5 ml ISec IVP PRN ×2 (17:20→17:54)
[2018-05-04 17:33] LABS: ALB/GLOB RATIO 1.1 (1.0-2.1); ALBUMIN 3.5 g/dL (3.5-5.0); CALCIUM 8.4 mg/dl (8.6-10.4)
--- NOTE | 2018-05-04 19:25 | CP.PCM.CON ---
History of Present Illness - History of Present Illness History of Present Illness: 68 yo man, well , known to the office, presenting with widely metastatic prostate cancer 2 years ago, started on Lupron and Casodex, then lost to follow up, returned earlier this year, after he presented with increasing bone mets, bulky lymphadenopathy, B/L hydronephrosis, paraspinal mass and cauda equina syndrome, along with extensive lower extremity DVT. He is currently on Lupron, Xgeva and chemotherapy, hopefully can be switched to PO antiandrogen therapy. Past Patient History - Infectious Disease Hx of Infectious Diseases: None - Past Medical History & Family History Past Medical History?: Yes - Past Social History Smoking Status: Never Smoked - CARDIAC Hx Cardiac Disorders: Yes Hx Congestive Heart Failure: Yes Hx Hypercholesterolemia: Yes Hx Hypertension: Yes Hx Peripheral Edema: Yes Hx Peripheral Vascular Disease: Yes - PULMONARY Hx Respiratory Disorders: Yes Hx Chronic Obstructive Pulmonary Disease (COPD): Yes - NEUROLOGICAL Hx Neurological Disorder: No - HEENT Hx HEENT Problems: No - RENAL Hx Chronic Kidney Disease: Yes Other/Comment: mass rt. kidney - ENDOCRINE/METABOLIC Hx Endocrine Disorders: Yes Hx Diabetes Mellitus Type 2: Yes Hx Hypothyroidism: Yes - HEMATOLOGICAL/ONCOLOGICAL Hx Blood Disorders: Yes Hx Anemia: Yes Hx Cancer: Yes (prostatic 7 yrs ago, "BONE CA") Hx Metastesis: Yes - INTEGUMENTARY Hx Dermatological Problems: No - MUSCULOSKELETAL/RHEUMATOLOGICAL Hx Musculoskeletal Disorders: Yes Hx Arthritis: Yes Hx Back Pain: Yes Hx Falls: Yes Hx Fractures: Yes (lower back) Hx Herniated Disk: Yes - GASTROINTESTINAL Hx Gastrointestinal Disorders: Yes Hx Gastroesophageal Reflux: Yes - GENITOURINARY/GYNECOLOGICAL Hx Genitourinary Disorders: Yes Hx Prostate Cancer: Yes Other/Comment: Renal Cancer. Spinal Cancer - PSYCHIATRIC Hx Psychophysiologic Disorder: No Hx Substance Use: No - SURGICAL HISTORY Hx Surgeries: Yes Hx Herniorrhaphy: Yes Hx Vascular Access Device: Yes Other/Comment: Umbilical hernia repair - ANESTHESIA Hx Anesthesia: Yes Hx Anesthesia Reactions: No Hx Malignant Hyperthermia: No Has any member of the family had a problem w/ anesthesia?: No Meds Allergies/Adverse Reactions: Allergies Allergy/AdvReac Type Severity Reaction Status Date / Time No Known Allergies Allergy Verified 05/01/18 12:57 - Medications Medications: Current Medications Apixaban (Eliquis) 5 mg PO BID [facility] Docusate Sodium (Colace) 100 mg PO TID [facility] Last Admin: 05/04/18 18:47 Dose: 100 mg Gentamicin Sulfate 80 mg/ (Sodium Chloride) 102 mls @ 100 mls/hr IVPB Q8H [facility]; Protocol Last Admin: 05/04/18 17:30 Dose: 102 mls Ceftriaxone Sodium 1 gm/ (Sodium Chloride) 100 mls @ 100 mls/hr IVPB DAILY [facility]; Protocol Levothyroxine Sodium (Levothroid) 175 mcg PO DAILY@0630 [facility] Oxycodone/Acetaminophen (Percocet 5/325 Mg Tab) 1 tab PO Q4H PRN PRN Reason: Bladder Spasm Stop: 05/07/18 16:47 Results - Vital Signs Recent Vital Signs: Last Vital Signs Temp 98.9 F 05/04/18 16:50 Pulse 76 05/04/18 18:05 Resp 13 05/04/18 18:05 BP 147/80 05/04/18 18:05 Pulse Ox 100 05/04/18 18:05 - Labs Result Diagrams: 05/04/18 17:13 05/04/18 17:13 Labs: Laboratory Results - last 24 hr 05/04/18 05/04/18 05/04/18 13:36 17:13 17:13 WBC 6.4 RBC 3.17 L Hgb 9.1 L Hct 27.3 L MCV 86.4 MCH 28.7 MCHC 33.2 RDW 18.9 H Plt Count 231 MPV 8.4 Neut % (Auto) 56.5 Lymph % (Auto) 22.8 [place] % (Auto) 14.5 H Eos % (Auto) 5.4 H Baso % (Auto) 0.8 Neut # (Auto) 3.6 Lymph # (Auto) 1.5 [place] # (Auto) 0.9 H Eos # (Auto) 0.3 Baso # (Auto) 0.1 Sodium 145 Potassium 4.6 Chloride 110 H Carbon Dioxide 22 Anion Gap 16 BUN 47 H Creatinine 2.3 H Est GFR ( Amer) 35 Est GFR (Non-Af Amer) 29 POC Glucose (mg/dL) 116 H Random Glucose 99 Calcium 8.4 L Total Bilirubin 0.2 AST 16 L D ALT 20 L Alkaline Phosphatase 90 Total Protein 6.5 Albumin 3.5 Globulin 3.1 Albumin/Globulin Ratio 1.1
[2018-05-04 20:38] VITALS: RESP 20
[2018-05-04] MEDS: (Novolog) Insulin Aspart, Recombinant 100 u/ml 10 ml vial SC SCH (21:37)
--- NOTE | 2018-05-04 22:37 | CP.PCM.HP ---
Past Patient History - Infectious Disease Hx of Infectious Diseases: None - Past Medical History & Family History Past Medical History?: Yes - Past Social History Smoking Status: Never Smoked - CARDIAC Hx Cardiac Disorders: Yes Hx Congestive Heart Failure: Yes Hx Hypercholesterolemia: Yes Hx Hypertension: Yes Hx Peripheral Edema: Yes Hx Peripheral Vascular Disease: Yes - PULMONARY Hx Respiratory Disorders: Yes Hx Chronic Obstructive Pulmonary Disease (COPD): Yes - NEUROLOGICAL Hx Neurological Disorder: No - HEENT Hx HEENT Problems: No - RENAL Hx Chronic Kidney Disease: Yes Other/Comment: mass rt. kidney - ENDOCRINE/METABOLIC Hx Endocrine Disorders: Yes Hx Diabetes Mellitus Type 2: Yes Hx Hypothyroidism: Yes - HEMATOLOGICAL/ONCOLOGICAL Hx Blood Disorders: Yes Hx Anemia: Yes Hx Cancer: Yes (prostatic 7 yrs ago, "BONE CA") Hx Metastesis: Yes - INTEGUMENTARY Hx Dermatological Problems: No - MUSCULOSKELETAL/RHEUMATOLOGICAL Hx Musculoskeletal Disorders: Yes Hx Arthritis: Yes Hx Back Pain: Yes Hx Falls: Yes Hx Fractures: Yes (lower back) Hx Herniated Disk: Yes - GASTROINTESTINAL Hx Gastrointestinal Disorders: Yes Hx Gastroesophageal Reflux: Yes - GENITOURINARY/GYNECOLOGICAL Hx Genitourinary Disorders: Yes Hx Prostate Cancer: Yes Other/Comment: Renal Cancer. Spinal Cancer - PSYCHIATRIC Hx Psychophysiologic Disorder: No Hx Substance Use: No - SURGICAL HISTORY Hx Surgeries: Yes Hx Herniorrhaphy: Yes Hx Vascular Access Device: Yes Other/Comment: Umbilical hernia repair - ANESTHESIA Hx Anesthesia: Yes Hx Anesthesia Reactions: No Hx Malignant Hyperthermia: No Has any member of the family had a problem w/ anesthesia?: No Meds Allergies/Adverse Reactions: Allergies Allergy/AdvReac Type Severity Reaction Status Date / Time No Known Allergies Allergy Verified 05/01/18 12:57 Results - Vital Signs Recent Vital Signs: Last Vital Signs Temp 98.2 F 05/04/18 18:33 Pulse 70 05/04/18 18:33 Resp 20 05/04/18 18:33 BP 138/74 05/04/18 18:33 Pulse Ox 97 05/04/18 18:33 - Labs Result Diagrams: 05/04/18 17:13 05/04/18 17:13 Labs: Laboratory Results - last 24 hr 05/04/18 05/04/18 05/04/18 13:36 17:13 17:13 WBC 6.4 RBC 3.17 L Hgb 9.1 L Hct 27.3 L MCV 86.4 MCH 28.7 MCHC 33.2 RDW 18.9 H Plt Count 231 MPV 8.4 Neut % (Auto) 56.5 Lymph % (Auto) 22.8 [place] % (Auto) 14.5 H Eos % (Auto) 5.4 H Baso % (Auto) 0.8 Neut # (Auto) 3.6 Lymph # (Auto) 1.5 [place] # (Auto) 0.9 H Eos # (Auto) 0.3 Baso # (Auto) 0.1 Sodium 145 Potassium 4.6 Chloride 110 H Carbon Dioxide 22 Anion Gap 16 BUN 47 H Creatinine 2.3 H Est GFR ( Amer) 35 Est GFR (Non-Af Amer) 29 POC Glucose (mg/dL) 116 H Random Glucose 99 Calcium 8.4 L Total Bilirubin 0.2 AST 16 L D ALT 20 L Alkaline Phosphatase 90 Total Protein 6.5 Albumin 3.5 Globulin 3.1 Albumin/Globulin Ratio 1.1 05/04/18 21:21 WBC RBC Hgb Hct MCV MCH MCHC RDW Plt Count MPV Neut % (Auto) Lymph % (Auto) [place] % (Auto) Eos % (Auto) Baso % (Auto) Neut # (Auto) Lymph # (Auto) [place] # (Auto) Eos # (Auto) Baso # (Auto) Sodium Potassium Chloride Carbon Dioxide Anion Gap BUN Creatinine Est GFR ( Amer) Est GFR (Non-Af Amer) POC Glucose (mg/dL) 108 Random Glucose Calcium Total Bilirubin AST ALT Alkaline Phosphatase Total Protein Albumin Globulin Albumin/Globulin Ratio Assessment & Plan - Assessment and Plan (Free Text) Plan: s/p surg heme onc consult bryant same hold eliquis till couple of days or cleared by dr. fan as ordered
[2018-05-05] MEDS ORDERED: Levothyroxine 175 MCG TAB PO SCH (06:30)
[2018-05-05 07:43] VITALS: BP 145/82; PULSE 73; TEMP 98.8; O2SAT 98
[2018-05-05 08:16] LABS: BASO % 0.5 % (0.0-2.0); EOS % 1.3 % (0.0-4.0); LYMPH # 0.7 K/uL (1.0-4.3); LYMPH % 8.5 % (20.0-40.0); MEAN CELL VOLUME 85.8 fL (80.0-94.0); MEAN CORPUSCULAR HEMOGLOBIN 28.4 pg (27.0-31.0); MEAN CORPUSCULAR HGB CONC 33.1 g/dL (33.0-37.0); MONO % 13.5 % (0.0-10.0); NEUT % 76.2 % (50.0-75.0); NRBC % 0.1 % (0.0-2.0); PLATELET COUNT 209 K/uL (130-400); RBC 3.16 Mil/uL (4.40-5.90); RED CELL DISTRIBUTION WIDTH 18.8 % (11.5-14.5)
[2018-05-05 08:17] LABS: EOS # 0.1 K/uL (0.0-0.7); MONO # 1.1 K/uL (0.0-0.8)
[2018-05-05] MEDS: (Novolog) Insulin Aspart, Recombinant 100 u/ml 10 ml vial SC SCH ×2 (08:36→12:28)
[2018-05-05 09:18] LABS: ANISOCYTOSIS SLIGHT; EOSINOPHIL 2 % (0-4); LYMPHOCYTE 7 % (20-40); MONOCYTE 15 % (0-10); MYELOCYTE 1 % (0-0); NEUTROPHIL 75 % (50-75); PLATELET ESTIMATE NORMAL (NORMAL); TOTAL CELLS COUNTED 100
[2018-05-05 09:19] LABS: HYPOCHROMIC SLIGHT; POIKILOCYTOSIS SLIGHT
[2018-05-05] MEDS ORDERED: (Lantus) Insulin Glargine, Recombinant SC SCH (10:00)
[2018-05-05] MEDS ORDERED: Pantoprazole 20 mg EC Tab PO SCH (10:00)
--- NOTE | 2018-05-05 10:45 | CP.PCM.PN ---
Subjective - Date & Time of Evaluation Date of Evaluation: 05/05/18 Time of Evaluation: 11:00 - Subjective Subjective: clinically same Objective - Vital Signs/Intake and Output Vital Signs (last 24 hours): Temp Pulse Resp BP Pulse Ox 98.8 F 73 20 145/82 98 05/05/18 07:42 05/05/18 07:42 05/05/18 07:42 05/05/18 07:42 05/05/18 07:42 Intake and Output: 05/05/18 05/05/18 06:59 18:59 Intake Total 2240 Output Total 4400 Balance -2160 - Medications Medications: Current Medications Amlodipine Besylate (Norvasc) 5 mg PO DAILY [facility] Last Admin: 05/05/18 10:38 Dose: 5 mg Apixaban (Eliquis) 5 mg PO BID [facility] Last Admin: 05/05/18 10:38 Dose: 5 mg Docusate Sodium (Colace) 100 mg PO TID [facility] Last Admin: 05/05/18 10:37 Dose: 100 mg Gabapentin (Neurontin) 300 mg PO TID [facility] Last Admin: 05/05/18 10:38 Dose: 300 mg Gentamicin Sulfate 80 mg/ (Sodium Chloride) 102 mls @ 100 mls/hr IVPB Q8H [facility]; Protocol Last Admin: 05/05/18 10:40 Dose: 100 mls/hr Ceftriaxone Sodium 1 gm/ (Sodium Chloride) 100 mls @ 100 mls/hr IVPB DAILY [facility]; Protocol Insulin Aspart (Novolog) 0 unit SC ACHS [facility]; Protocol Last Admin: 05/05/18 08:36 Dose: 1 units Insulin Glargine (Lantus) 25 unit SC BID [facility] Last Admin: 05/05/18 10:39 Dose: 15 units Levothyroxine Sodium (Synthroid) 175 mcg PO DAILY@0630 [facility] Last Admin: 05/05/18 06:50 Dose: 175 mcg Oxycodone/Acetaminophen (Percocet 5/325 Mg Tab) 1 tab PO Q4H PRN PRN Reason: Bladder Spasm Stop: 05/07/18 16:47 Pantoprazole Sodium (Protonix Ec Tab) 20 mg PO DAILY [facility] Last Admin: 05/05/18 10:38 Dose: 20 mg Rosuvastatin Calcium (Crestor) 10 mg PO HS [facility] Last Admin: 05/04/18 21:11 Dose: 10 mg Sennosides (Senokot Tab) 8.6 mg PO DAILY [facility] Last Admin: 05/05/18 10:38 Dose: 8.6 mg Tamsulosin HCl (Flomax) 0.4 mg PO DAILY [facility] Last Admin: 05/05/18 10:38 Dose: 0.4 mg Zolpidem Tartrate (Ambien) 5 mg PO HS PRN PRN Reason: Insomnia Last Admin: 05/04/18 21:47 Dose: 5 mg - Labs Labs: 05/05/18 07:52 05/05/18 07:52 - Constitutional Appears: Well - Head Exam Head Exam: ATRAUMATIC, NORMAL INSPECTION, NORMOCEPHALIC - Eye Exam Eye Exam: EOMI, Normal appearance, PERRL Pupil Exam: NORMAL ACCOMODATION, PERRL - ENT Exam ENT Exam: Mucous Membranes Moist, Normal Exam - Neck Exam Neck Exam: Full ROM, Normal Inspection. absent: Lymphadenopathy - Respiratory Exam Respiratory Exam: Decreased Breath Sounds - Cardiovascular Exam Cardiovascular Exam: REGULAR RHYTHM, +S1, +S2 - GI/Abdominal Exam GI & Abdominal Exam: Soft, Diminished Bowel Sounds - Rectal Exam Rectal Exam: Deferred
--- NOTE | 2018-05-05 19:48 | PCM.URO ---
Urology Progress Note - General General: No Complaints, Tolerating Diet - Subjective Abdominal Pain: No Flank Pain: No Nausea: No Vomiting: No Voiding Well: No (CATH IN PLACE) Hematuria: No Dsypnea: No Chest Pain: No Fever & Chills: No - Objective Lab Results Last 24 Hours: Laboratory Results - last 24 hr 05/04/18 05/05/18 05/05/18 21:21 06:25 07:52 WBC 8.0 RBC 3.16 L Hgb 9.0 L Hct 27.1 L MCV 85.8 MCH 28.4 MCHC 33.1 RDW 18.8 H Plt Count 209 MPV 9.0 Neut % (Auto) 76.2 H Lymph % (Auto) 8.5 L [place] % (Auto) 13.5 H Eos % (Auto) 1.3 Baso % (Auto) 0.5 Neut # (Auto) 6.0 Lymph # (Auto) 0.7 L [place] # (Auto) 1.1 H Eos # (Auto) 0.1 Baso # (Auto) 0.0 Neutrophils % (Manual) 75 Lymphocytes % (Manual) 7 L Monocytes % (Manual) 15 H Eosinophils % (Manual) 2 Myelocytes % 1 H Platelet Estimate Normal Hypochromasia (manual) Slight Poikilocytosis (manual Slight Anisocytosis (manual) Slight Sodium Potassium Chloride Carbon Dioxide Anion Gap BUN Creatinine Est GFR ( Amer) Est GFR (Non-Af Amer) POC Glucose (mg/dL) 108 162 H Random Glucose Calcium Total Bilirubin AST ALT Alkaline Phosphatase Total Protein Albumin Globulin Albumin/Globulin Ratio Prostate Specific Ag 05/05/18 05/05/18 07:52 11:18 WBC RBC Hgb Hct MCV MCH MCHC RDW Plt Count MPV Neut % (Auto) Lymph % (Auto) [place] % (Auto) Eos % (Auto) Baso % (Auto) Neut # (Auto) Lymph # (Auto) [place] # (Auto) Eos # (Auto) Baso # (Auto) Neutrophils % (Manual) Lymphocytes % (Manual) Monocytes % (Manual) Eosinophils % (Manual) Myelocytes % Platelet Estimate Hypochromasia (manual) Poikilocytosis (manual Anisocytosis (manual) Sodium 142 Potassium 4.4 Chloride 111 H Carbon Dioxide 21 L Anion Gap 15 BUN 43 H Creatinine 2.2 H Est GFR ( Amer) 36 Est GFR (Non-Af Amer) 30 POC Glucose (mg/dL) 253 H Random Glucose 163 H Calcium 8.0 L Total Bilirubin 0.2 AST 16 L ALT 21 Alkaline Phosphatase 79 Total Protein 5.8 L Albumin 3.0 L Globulin 2.8 Albumin/Globulin Ratio 1.0 Prostate Specific Ag 116 H Intake & Output: Intake & Output 05/05/18 05/05/18 05/06/18 06:59 18:59 06:59 Intake Total 2240 2150 Output Total 4800 2800 Balance -2560 -650 Intake: Oral 240 Other 1999 2150 Output: Urine 4800 2800 3-way Urethral 1450 250 Vital Signs: Vital Signs - 24 hr 05/04/18 05/04/18 05/05/18 23:23 23:30 07:42 Temperature 98.6 F 98.8 F Pulse Rate 83 73 Respiratory 20 20 Rate Blood Pressure 162/89 H 145/82 O2 Sat by Pulse 99 99 98 Oximetry - Physical Exam Abdominal Exam: Soft, Non-Tender, Non-Distended Bowel Sounds: Normal Back: No CVA Tenderness Genitalia: Without Inflammation Urinary Catheter Draining Well: Yes Urine Color: Clear, Light Sol Extremities: Normal: Bilateral - Male Phallus: Normal - Plan Catheter Care: Yes Intake & Output: Yes See Orders: Yes Additional Information: IMP: PROGRESSING WELL. REC/P: CATHETER IN PLACE. ANTIBIOTIC RX. TRIAL OF VOIDING T/F. DISCUSSED W PT AND W NURSING STAFF - Date & Time of Note Date: 05/05/18 Time: 12:15
--- NOTE | 2018-05-10 21:28 | OP ---
PROCEDURE DATE: 05/04/2018 PREOPERATIVE DIAGNOSES: Urinary retention, voiding dysfunction, metastatic prostate cancer, possible neurogenic bladder. POSTOPERATIVE DIAGNOSES: Urinary retention, voiding dysfunction, metastatic prostate cancer, possible neurogenic bladder. PROCEDURES: Photovaporization, GreenLight laser energy, transurethral resection of the prostate. SURGEON: Justin Brown MD ESTIMATED BLOOD LOSS: Less than 25 mL. COMPLICATIONS: None. DRAIN: Escamilla catheter. INDICATIONS: See history and physical for further details. A very pleasant gentleman who has advanced metastatic prostate cancer. He is receiving chemotherapy from . From urology standpoint, he is living with an indwelling Escamilla catheter. He wants some other option. Apparently, he does not think he can do intermittent catheterization. We discussed that. He may be having a neurogenic or myogenic component to his bladder, but he wants what we can best do. He has a visually occlusive prostate. He is here now for the above procedure. I explained to the patient in great detail that the procedure is the right to help him to open up the prostate, thereafter he will be able to urinate but will not going to be curing the cancer. I just hoping we make the progress to veru. DESCRIPTION OF PROCEDURE: After obtaining informed consent, the patient placed on the OR table. Routine monitor placed. Timeout was called. Given his Escamilla catheter, I placed the extra antibiotic prophylaxis. We introduced the GreenLight laser scope and we began working. We systematically examined the bladder mucosa. We identified the orifices. There was minimal intravascular component here. We identified the veru. I do want to mention that at the end, the prostate is wide open. The verumontanum is well visualized. The ureteral orifices are intact. The procedure began. We started at the bladder neck between the 5 to 7 o'clock. We worked away methodically, meticulously around the bladder neck from 5 to 7, and we turned our attention to 7 to 11 and 5 to 1, and eventually on the move. Each step by step, we used 80 mays of energy. We worked away meticulously, carefully and opened up the prostate. When it is nicely wide open, we continued to monitor and make sure that there is good hemostasis. As needed, we coagulated. At the termination of procedure, the prostate is wide open. The pictures were included in the chart. The patient tolerated the procedure well without complication. Jutsin Brown MD
== END 2018-05-05 14:33 | disposition home or self-care (01) ==
LOC: C.SDS 12:52 → C.9E 17:12 → INTOOBSV 17:12 → UNDOADMOB 17:12 → C.9S 17:27 → C.6T 18:25
PROVIDERS: ADMIT Urology; ATTEND Urology
DX: R33.9 Retention of urine, unspecified (principal); C61 Malignant neoplasm of prostate; J44.9 Chronic obstructive pulmonary disease, unspecified; I50.9 Heart failure, unspecified; E78.00 Pure hypercholesterolemia, unspecified; I13.0 Hypertensive heart and chronic kidney disease with heart failure and stage 1 through stage 4 chronic kidney disease, or unspecified chronic kidney disease; I82.409 Acute embolism and thrombosis of unspecified deep veins of unspecified lower extremity; E11.51 Type 2 diabetes mellitus with diabetic peripheral angiopathy without gangrene; E03.9 Hypothyroidism, unspecified
CPT/HCPCS: 36415; 52648; 80053; 82948; 84153; 85025; 96365; 96366; 96367; G0378; J0696; J1170; J1580; J2250; J2704; J3010

== ENCOUNTER 2018-11-30 11:40 | Outpatient (CLI) | payer MEDICARE, MEDICAID, OTHER | END 2018-11-30 11:41 | disposition home or self-care (01) | LOC: C.USIC 11:41 | DX: Z85.46 Personal history of malignant neoplasm of prostate (principal) ==

== ENCOUNTER 2018-11-30 13:42 | Inpatient (IN) | payer MEDICARE, MEDICAID ==
[2018-11-30 13:42] VITALS: BMI 26.9
[2018-11-30 15:09] LABS: BASO # 0.1 K/uL (0.0-0.2); BASO % 0.9 % (0.0-2.0); EOS # 0.1 K/uL (0.0-0.7); EOS % 0.5 % (0.0-4.0); LYMPH # 0.8 K/uL (1.0-4.3); LYMPH % 7.9 % (20.0-40.0); MEAN CORPUSCULAR HEMOGLOBIN 26.5 pg (27.0-31.0); MEAN CORPUSCULAR HGB CONC 31.6 g/dL (33.0-37.0); MEAN PLATELET VOLUME 8.6 fL (7.2-11.7); MONO # 0.9 K/uL (0.0-0.8); MONO % 8.6 % (0.0-10.0); NEUT # 8.9 K/uL (1.8-7.0); NEUT % 82.1 % (50.0-75.0); NRBC % 0.1 % (0.0-2.0); PLATELET COUNT 289 K/uL (130-400); RBC 4.73 Mil/uL (4.40-5.90); RED CELL DISTRIBUTION WIDTH 19.9 % (11.5-14.5); WHITE BLOOD COUNT 10.8 K/uL (4.8-10.8)
[2018-11-30 15:12] LABS: HEMOGLOBIN 12.5 g/dL (12.0-18.0); MEAN CELL VOLUME 83.8 fL (80.0-94.0)
[2018-11-30] MEDS ORDERED: Piperacillin/Tazobact 3.375 GM in Sodium Chloride 100 ML IVPB STA (15:16)
[2018-11-30] MEDS ORDERED: Piperacillin/Tazobact 3.375 gm 100 ML IVPB ONE (15:32)
[2018-11-30 16:02] LABS: ALB/GLOB RATIO 1.2 (1.0-2.1); ALBUMIN 3.7 g/dL (3.5-5.0); CALCIUM 9.3 mg/dl (8.6-10.4)
[2018-11-30] MEDS ORDERED: Piperacillin/Tazobact 3.375 gm 100 ML IVPB STA (16:05)
[2018-11-30] MEDS ORDERED: (Novolin R) Insulin Human Regular 100 units/ml vial IVP STA (16:11)
[2018-11-30] MEDS ORDERED: (Novolin R) Insulin Human Regular 100 units/ml vial ONE (17:00)
[2018-11-30 17:24] LABS: LYMPHOCYTE 9 % (20-40); MONOCYTE 3 % (0-10); NEUTROPHIL 88 % (50-75); TOTAL CELLS COUNTED 100
[2018-11-30 17:25] LABS: ANISOCYTOSIS SLIGHT; PLATELET ESTIMATE NORMAL (NORMAL); POIKILOCYTOSIS SLIGHT
--- NOTE | 2018-11-30 17:49 | C.PDOC ---
Time Seen by Provider: 11/30/18 13:51 Chief Complaint (Nursing): ENT Problem Past Medical History Vital Signs: Last Vital Signs Temp 97.9 F 11/30/18 16:46 Pulse 65 11/30/18 16:46 Resp 17 11/30/18 16:46 BP 153/88 H 11/30/18 16:46 Pulse Ox 98 11/30/18 16:46 - Medical History PMH: Anemia, Arthritis, CHF, COPD, Diabetes, Deep Vein Thrombosis, Fractures (lower back), HTN, Hypercholesterolemia, Hypothyroidism, Peripheral Edema, Chronic Kidney Disease Denies: HIV Surgical History: Endoscopy, Hernia Repair - [facility] Procedures INSERT INDWELLING CATH (01/23/13) INTRODUCTION OF SERUM/TOX/VACCINE INTO MUSCLE, PERC APPROACH (11/18/17) MAGNETIC RESONANCE IMAGING (MRI) OF SPINAL CORD (11/18/17) Family History: States: Unknown Family Hx - Social History Hx Tobacco Use: No Hx Alcohol Use: No Hx Substance Use: No - Immunization History Hx Tetanus Toxoid Vaccination: No Hx Influenza Vaccination: Yes Hx Pneumococcal Vaccination: Yes ED Course And Treatment - Laboratory Results Result Diagrams: 11/30/18 14:58 11/30/18 15:44 Lab Results: Total Bilirubin 0.5 mg/dL (0.2-1.3) 11/30/18 15:44 AST 24 U/L (17-59) 11/30/18 15:44 ALT 17 U/L (21-72) L 11/30/18 15:44 Alkaline Phosphatase 67 U/L (38-126) 11/30/18 15:44 Total Protein 6.9 g/dL (6.3-8.3) 11/30/18 15:44 Albumin 3.7 g/dL (3.5-5.0) 11/30/18 15:44 Globulin 3.1 gm/dL (2.2-3.9) 11/30/18 15:44 Albumin/Globulin Ratio 1.2 (1.0-2.1) 11/30/18 15:44 O2 Sat by Pulse Oximetry: 98 Disposition - Disposition Disposition: HOSPITALIZED
--- NOTE | 2018-11-30 17:55 | CP.PCM.CON ---
History of Present Illness - History of Present Illness History of Present Illness: admitted for Malignant Otitis Externa await ENT eval, cultures, bone scan and MRI - Medical History PMH: Anemia, Arthritis, CHF, COPD, Diabetes, Deep Vein Thrombosis, Fractures (lower back), HTN, Hypercholesterolemia, Hypothyroidism, Peripheral Edema, Chronic Kidney Disease Denies: HIV Surgical History: Endoscopy, Hernia Repair - [facility] Procedures INSERT INDWELLING CATH (01/23/13) INTRODUCTION OF SERUM/TOX/VACCINE INTO MUSCLE, PERC APPROACH (11/18/17) MAGNETIC RESONANCE IMAGING (MRI) OF SPINAL CORD (11/18/17) Review of Systems - Constitutional Constitutional: As Per HPI - EENT Eyes: absent: As Per HPI, Blind Spots, Blurred Vision, Change in Vision, Decreased Night Vision, Diplopia, Discharge, Dry Eye, Exophthalmos, Floaters, Irritation, Itchy Eyes, Loss of Peripheral Vision, Pain, Photophobia, Requires Corrective Lenses, Sees Flashes, Spots in Vision, Tunnel Vision, Other Visual Disturbances, Loss of Vision, Other Ears: As Per HPI Nose/Mouth/Throat: absent: As Per HPI, Epistaxis, Nasal Congestion, Nasal Discharge, Nasal Obstruction, Nasal Trauma, Nose Pain, Post Nasal Drip, Sinus Pain, Sinus Pressure, Bleeding Gums, Change in Voice, Dental Pain, Dry Mouth, Dysphagia, Halitosis, Hoarsness, Lip Swelling, Mouth Lesions, Mouth Pain, Odynophagia, Sore Throat, Throat Swelling, Tongue Swelling, Facial Pain, Neck Pain, Neck Mass, Other - Cardiovascular Cardiovascular: absent: As Per HPI, Acrocyanosis, Chest Pain, Chest Pain at Rest, Chest Pain with Activity, Claudication, Diaphoresis, Dyspnea, Dyspnea on Exertion, Edema, Irregular Heart Rhythm, Pain Radiating to Arm/Neck/Jaw, Leg Edema, Leg Ulcers, Lightheadedness, Orthopnea, Palpitations, Paroxysmal Nocturnal Dyspnea, Pedal Edema, Radiating Pain, Rapid Heart Rate, Slow Heart Rate, Syncope, Other - Respiratory Respiratory: absent: As Per HPI, Cough, Dyspnea, Hemoptysis, Dyspnea on Exertion, Wheezing, Snoring, Stridor, Pain on Inspiration, Chest Congestion, Excessive Mucous Production, Change in Mucous Color, Pain with Coughing, Other - Gastrointestinal Gastrointestinal: absent: As Per HPI, Abdominal Pain, Belching, Bloating, Change in Bowel Habits, Change in Stool Character, Coffee Ground Emesis, Constipation, Cramping, Diarrhea, Dyspepsia, Dysphagia, Early Satiety, Excessive Flatus, Fecal Incontinence, Heartburn, Hematemesis, Hematochezia, Loose Stools, Melena, Nausea, Odynophagia, Temesmus, Vomiting, Other - Genitourinary Genitourinary: absent: As Per HPI, Change in Urinary Stream, Difficulty Urinating, Dysuria, Flank Pain, Hematuria, Pyuria, Nocturia, Urinary Incontinence, Urinary Frequency, Urinary Hesitance, Urinary Urgency, Voiding Freq/Small Amts, Freq UTI, Hx Renal/Bladder Calculi, Hx /Renal Surgery, Bladder Distension, Other - Musculoskeletal Musculoskeletal: absent: As Per HPI, Abnormal Gait, Arthralgias, Atrophy, Back Pain, Deformity, Joint Swelling, Limited Range of Motion, Loss of Height, Muscle Cramps, Muscle Weakness, Myalgias, Neck Pain, Numbness, Radiating Pain into Limb , Stiffness, Tingling, Other - Integumentary Integumentary: absent: As Per HPI, Acne, Alopecia, Bleeding Lesions, Change in Hair, Change in Nails, Change in Pigmentation, Changing Lesions, Dry Skin, Erythema, Furuncle, Hirsutism, Lesions, New Lesions, Non-Healing Lesions, Photosensitivity, Pruritus, Rash, Skin Pain, Skin Ulcer, Sores, Striae, Swelling, Unusual Bruising, Wounds, Jaundice, Other - Neurological Neurological: absent: As Per HPI, Abnormal Gait, Abnormal Hearing, Abnormal Movements, Abnormal Speech, Behavioral Changes, Burning Sensations, Confusion, Convulsions, Disequilibrium, Dizziness, Numbness, Focal Weakness, Frequent Falls, Headaches, Lack of Coordination, Loss of Vision, Memory Loss, Paresthesia s, Radicular Pain, Restless Legs, Sensory Deficit, Syncope, Tingling, Tremor, Vertigo, Weakness, Other Visual Disturbances, Other - Psychiatric Psychiatric: absent: As Per HPI, Abnormal Sleep Pattern, Anhedonia, Anxiety, Auditory Hallucinations, Behavioral Changes, Change in Appetite, Change in Libido, Confusion, Depression, Difficulty Concentrating, Hallucinations, Homicidal Ideation, Hopelessness, Irritability, Memory Loss, Mood Swings, Panic Attacks, Paranoia, Suicidal Ideation, Visual Hallucinations, Tactile Hallucinations, Other - Endocrine Endocrine: absent: As Per HPI, Change in Body Appearance, Change in Libido, Cold Intolorance, Deepening of Voice, Excessive Sweating, Fatigue, Flushing, Heat Intolorance, Increase in Ring/Shoe/Hat Size, Palpitations, Polydipsia, Polyphagia, Polyuria, Other - Hematologic/Lymphatic Hematologic: absent: As Per HPI, Easy Bleeding, Easy Bruising, Lymphadenopathy, Other Past Patient History - Infectious Disease Hx of Infectious Diseases: None - Past Medical History & Family History Past Medical History?: Yes - Past Social History Smoking Status: Never Smoked - CARDIAC Hx Congestive Heart Failure: Yes Hx Hypercholesterolemia: Yes Hx Hypertension: Yes Hx Peripheral Edema: Yes - PULMONARY Hx Chronic Obstructive Pulmonary Disease (COPD): Yes - NEUROLOGICAL Hx Neurological Disorder: No - HEENT Hx HEENT Problems: No - RENAL Hx Chronic Kidney Disease: Yes - ENDOCRINE/METABOLIC Hx Hypothyroidism: Yes - HEMATOLOGICAL/ONCOLOGICAL Hx Anemia: Yes Hx Human Immunodeficiency Virus (HIV): No - INTEGUMENTARY Hx Dermatological Problems: No - MUSCULOSKELETAL/RHEUMATOLOGICAL Hx Arthritis: Yes Hx Fractures: Yes (lower back) - GASTROINTESTINAL Hx Gastrointestinal Disorders: Yes Hx Gastroesophageal Reflux: Yes - GENITOURINARY/GYNECOLOGICAL Hx Genitourinary Disorders: Yes Hx Prostate Cancer: Yes Other/Comment: Renal Cancer. Spinal Cancer - PSYCHIATRIC Hx Substance Use: No - SURGICAL HISTORY Hx Surgeries: Yes Hx Herniorrhaphy: Yes Hx Vascular Access Device: Yes Other/Comment: Umbilical hernia repair - ANESTHESIA Hx Anesthesia: Yes Hx Anesthesia Reactions: No Hx Malignant Hyperthermia: No Meds Allergies/Adverse Reactions: Allergies Allergy/AdvReac Type Severity Reaction Status Date / Time No Known Allergies Allergy Verified 11/30/18 13:45 Physical Exam - Constitutional Appears: Non-toxic, No Acute Distress, Chronically Ill - Head Exam Head Exam: ATRAUMATIC, NORMAL INSPECTION, NORMOCEPHALIC - Eye Exam Eye Exam: PERRL. absent: Scleral icterus Pupil Exam: PERRL - ENT Exam ENT Exam: Mucous Membranes Dry. absent: Normal Exam, Normal External Ear Exam Additional comments: exudate left external canal - Neck Exam Neck exam: Positive for: Full Rom - Respiratory Exam Respiratory Exam: Decreased Breath Sounds - Cardiovascular Exam Cardiovascular Exam: REGULAR RHYTHM, +S1, +S2 - GI/Abdominal Exam GI & Abdominal Exam: Distended, Soft - Rectal Exam Rectal Exam: Deferred - Exam External exam: absent: Ecchymosis, Erythema, Lacerations, Lesions, NORMAL EXTERNAL EXAM, Swelling Bimanual exam: absent: Adenexal Mass, Adnexal, Cervical Motion Tendernes, NORMAL BIMANUAL EXAM, Uterine Enlargement, Uterine Tenderness - Extremities Exam Extremities exam: Negative for: pedal edema - Back Exam Back exam: absent: CVA tenderness (L), CVA tenderness (R), paraspinal tenderness - Neurological Exam Neurological exam: Alert, CN II-XII Intact, Oriented x3, Reflexes Normal - Psychiatric Exam Psychiatric exam: Normal Mood - Skin Skin Exam: Dry Results - Vital Signs Recent Vital Signs: Last Vital Signs Temp 97.9 F 11/30/18 16:46 Pulse 65 11/30/18 16:46 Resp 17 11/30/18 16:46 BP 153/88 H 11/30/18 16:46 Pulse Ox 98 11/30/18 17:49 - Labs Result Diagrams: 11/30/18 14:58 11/30/18 15:44 Labs: Laboratory Results - last 24 hr 11/30/18 11/30/18 11/30/18 14:56 14:58 15:44 WBC 10.8 RBC 4.73 Hgb 12.5 D Hct 39.7 MCV 83.8 D MCH 26.5 L MCHC 31.6 L RDW 19.9 H Plt Count 289 MPV 8.6 Neut % (Auto) 82.1 H Lymph % (Auto) 7.9 L [place] % (Auto) 8.6 Eos % (Auto) 0.5 Baso % (Auto) 0.9 Neut # (Auto) 8.9 H Lymph # (Auto) 0.8 L [place] # (Auto) 0.9 H Eos # (Auto) 0.1 Baso # (Auto) 0.1 Neutrophils % (Manual) 88 H Lymphocytes % (Manual) 9 L Monocytes % (Manual) 3 Platelet Estimate Normal Poikilocytosis (manual Slight Anisocytosis (manual) Slight Sodium 131 L Potassium 5.1 Chloride 96 L Carbon Dioxide 27 Anion Gap 14 BUN 78 H Creatinine 3.6 H Est GFR ( Amer) 21 Est GFR (Non-Af Amer) 17 POC Glucose (mg/dL) 362 H Random Glucose 333 H D Calcium 9.3 Total Bilirubin 0.5 AST 24 ALT 17 L Alkaline Phosphatase 67 Total Protein 6.9 Albumin 3.7 Globulin 3.1 Albumin/Globulin Ratio 1.2 Assessment & Plan (1) Malignant otitis externa of right ear Status: Acute - Assessment and Plan (Free Text) Assessment: await cultures, bone scan and MRI may need OR debridement IV rx to cont for min 6 - 8 weeks
--- NOTE | 2018-11-30 18:00 | C.PDOC ---
History Of Present Illness Patient is a 68 year old male who is sent into the ED by Dr. Raymond for admission for malignant otitis externa. Patient is c/o right ear pain. Patient reports that he has been on PO antibiotics for some time with no resolution of symptoms. He denies any fever or other physical complaints. Time Seen by Provider: 11/30/18 13:51 Chief Complaint (Nursing): ENT Problem History Per: Patient History/Exam Limitations: None Current Symptoms Are (Timing): Still Present Past Medical History Reviewed: Historical Data, Nursing Documentation, Vital Signs Vital Signs: Last Vital Signs Temp 97.9 F 11/30/18 16:46 Pulse 65 11/30/18 16:46 Resp 17 11/30/18 16:46 BP 153/88 H 11/30/18 16:46 Pulse Ox 98 11/30/18 17:49 - Medical History PMH: Anemia, Arthritis, CHF, COPD, Diabetes, Deep Vein Thrombosis, Fractures (lower back), HTN, Hypercholesterolemia, Hypothyroidism, Peripheral Edema, Chronic Kidney Disease Denies: HIV Surgical History: Endoscopy, Hernia Repair - [facility] Procedures INSERT INDWELLING CATH (01/23/13) INTRODUCTION OF SERUM/TOX/VACCINE INTO MUSCLE, PERC APPROACH (11/18/17) MAGNETIC RESONANCE IMAGING (MRI) OF SPINAL CORD (11/18/17) Family History: States: Unknown Family Hx - Social History Hx Tobacco Use: No Hx Alcohol Use: No Hx Substance Use: No - Immunization History Hx Tetanus Toxoid Vaccination: No Hx Influenza Vaccination: Yes Hx Pneumococcal Vaccination: Yes Review Of Systems Except As Marked, All Systems Reviewed And Found Negative. Constitutional: Negative for: Fever, Chills ENT: Positive for: Ear Pain (right ear) Cardiovascular: Negative for: Chest Pain Respiratory: Negative for: Shortness of Breath Gastrointestinal: Negative for: Nausea, Vomiting, Abdominal Pain Neurological: Negative for: Dizziness Physical Exam - Physical Exam Appears: Non-toxic, No Acute Distress Skin: Normal Color, Warm, Dry Head: Atraumatic, Normacephalic Ear(s): Right: Other (Right ear canal erythematous. Unable to visualize TM. Pinna tender to touch) Oral Mucosa: Moist Neck: Supple Chest: Symmetrical, No Deformity Cardiovascular: Rhythm Regular Respiratory: Normal Breath Sounds Gastrointestinal/Abdominal: Normal Exam, Soft, No Tenderness Extremity: Normal ROM Neurological/Psych: Oriented x3 ED Course And Treatment - Laboratory Results Result Diagrams: 11/30/18 14:58 11/30/18 15:44 Lab Results: Total Bilirubin 0.5 mg/dL (0.2-1.3) 11/30/18 15:44 AST 24 U/L (17-59) 11/30/18 15:44 ALT 17 U/L (21-72) L 11/30/18 15:44 Alkaline Phosphatase 67 U/L (38-126) 11/30/18 15:44 Total Protein 6.9 g/dL (6.3-8.3) 11/30/18 15:44 Albumin 3.7 g/dL (3.5-5.0) 11/30/18 15:44 Globulin 3.1 gm/dL (2.2-3.9) 11/30/18 15:44 Albumin/Globulin Ratio 1.2 (1.0-2.1) 11/30/18 15:44 O2 Sat by Pulse Oximetry: 98 (on RA) Pulse Ox Interpretation: Normal Medical Decision Making Medical Decision Making: Plan: Labs Serology Procalcitonin Blood Culture Zosyn IVPB Insulin IVP Progress note: Spoke to Dr. Micky WELLS who recommended Zosyn Q8 hours. First dose given in ED. Patient admitted to Dr. Santana Escobar's service. Disposition - Disposition Disposition: HOSPITALIZED Disposition Time: 14:45 Condition: FAIR - Clinical Impression Clinical Impression: Malignant otitis externa of right ear - Scribe Statement The provider has reviewed the documentation as recorded by the Gallo Castillo All medical record entries made by the Gallo were at my direction and personally dictated by me. I have reviewed the chart and agree that the record accurately reflects my personal performance of the history, physical exam, medical decision making, and the department course for this patient. I have also personally directed, reviewed, and agree with the discharge instructions and disposition.
--- NOTE | 2018-11-30 18:05 | CP.PCM.HP ---
Past Patient History - Infectious Disease Hx of Infectious Diseases: None - Past Medical History & Family History Past Medical History?: Yes - Past Social History Smoking Status: Never Smoked - CARDIAC Hx Congestive Heart Failure: Yes Hx Hypercholesterolemia: Yes Hx Hypertension: Yes Hx Peripheral Edema: Yes - PULMONARY Hx Chronic Obstructive Pulmonary Disease (COPD): Yes - NEUROLOGICAL Hx Neurological Disorder: No - HEENT Hx HEENT Problems: No - RENAL Hx Chronic Kidney Disease: Yes - ENDOCRINE/METABOLIC Hx Hypothyroidism: Yes - HEMATOLOGICAL/ONCOLOGICAL Hx Anemia: Yes Hx Human Immunodeficiency Virus (HIV): No - INTEGUMENTARY Hx Dermatological Problems: No - MUSCULOSKELETAL/RHEUMATOLOGICAL Hx Arthritis: Yes Hx Fractures: Yes (lower back) - GASTROINTESTINAL Hx Gastrointestinal Disorders: Yes Hx Gastroesophageal Reflux: Yes - GENITOURINARY/GYNECOLOGICAL Hx Genitourinary Disorders: Yes Hx Prostate Cancer: Yes Other/Comment: Renal Cancer. Spinal Cancer - PSYCHIATRIC Hx Substance Use: No - SURGICAL HISTORY Hx Surgeries: Yes Hx Herniorrhaphy: Yes Hx Vascular Access Device: Yes Other/Comment: Umbilical hernia repair - ANESTHESIA Hx Anesthesia: Yes Hx Anesthesia Reactions: No Hx Malignant Hyperthermia: No Meds Allergies/Adverse Reactions: Allergies Allergy/AdvReac Type Severity Reaction Status Date / Time No Known Allergies Allergy Verified 11/30/18 13:45 Results - Vital Signs Recent Vital Signs: Last Vital Signs Temp 97.9 F 11/30/18 16:46 Pulse 65 11/30/18 16:46 Resp 17 11/30/18 16:46 BP 153/88 H 11/30/18 16:46 Pulse Ox 98 11/30/18 18:03 - Labs Result Diagrams: 11/30/18 14:58 11/30/18 15:44 Labs: Laboratory Results - last 24 hr 11/30/18 11/30/18 11/30/18 14:56 14:58 15:44 WBC 10.8 RBC 4.73 Hgb 12.5 D Hct 39.7 MCV 83.8 D MCH 26.5 L MCHC 31.6 L RDW 19.9 H Plt Count 289 MPV 8.6 Neut % (Auto) 82.1 H Lymph % (Auto) 7.9 L [place] % (Auto) 8.6 Eos % (Auto) 0.5 Baso % (Auto) 0.9 Neut # (Auto) 8.9 H Lymph # (Auto) 0.8 L [place] # (Auto) 0.9 H Eos # (Auto) 0.1 Baso # (Auto) 0.1 Neutrophils % (Manual) 88 H Lymphocytes % (Manual) 9 L Monocytes % (Manual) 3 Platelet Estimate Normal Poikilocytosis (manual Slight Anisocytosis (manual) Slight Sodium 131 L Potassium 5.1 Chloride 96 L Carbon Dioxide 27 Anion Gap 14 BUN 78 H Creatinine 3.6 H Est GFR ( Amer) 21 Est GFR (Non-Af Amer) 17 POC Glucose (mg/dL) 362 H Random Glucose 333 H D Calcium 9.3 Total Bilirubin 0.5 AST 24 ALT 17 L Alkaline Phosphatase 67 Total Protein 6.9 Albumin 3.7 Globulin 3.1 Albumin/Globulin Ratio 1.2
[2018-11-30] MEDS ORDERED: Dextrose 50% SYRINGE Inj (50 ml) IV PRN (18:09)
[2018-11-30] MEDS ORDERED: Glucagon Recombinant 1 mg Inj IM PRN (18:09)
[2018-11-30 19:50] VITALS: RESP 20
[2018-11-30] MEDS: (Novolog) Insulin Aspart, Recombinant 100 u/ml 10 ml vial SC SCH (21:58)
[2018-11-30] MEDS: Piperacill/Tazo 2.25gm in Dex 2.25 GM/50 ML BAG IVPB SCH (21:59)
[2018-12-01] MEDS ORDERED: (Novolin R) Insulin Human Regular 100 units/ml vial SC ONE (02:27)
[2018-12-01] MEDS: Piperacill/Tazo 2.25gm in Dex 2.25 GM/50 ML BAG IVPB SCH ×4 (03:00→21:52)
[2018-12-01] MEDS: (Novolog) Insulin Aspart, Recombinant 100 u/ml 10 ml vial SC SCH ×4 (08:45→21:34)
[2018-12-01] MEDS: Multiple Vitamins Tab PO SCH (10:18)
[2018-12-01] MEDS: (Lantus) Insulin Glargine, Recombinant SC SCH ×2 (10:18→17:38)
[2018-12-01] MEDS: Pantoprazole 40 mg EC Tab PO SCH (10:19)
--- NOTE | 2018-12-01 14:32 | CP.PCM.PN ---
Subjective - Date & Time of Evaluation Date of Evaluation: 12/01/18 Time of Evaluation: 08:00 - Subjective Subjective: seen and examined on rounds no new complaints SABIHA rx in progress labs reviewed orders signed Objective - Vital Signs/Intake and Output Vital Signs (last 24 hours): Temp Pulse Resp BP Pulse Ox 97.6 F 74 20 170/98 H 98 12/01/18 07:46 12/01/18 07:46 12/01/18 07:46 12/01/18 07:46 12/01/18 07:46 Intake and Output: 12/01/18 12/01/18 06:59 18:59 Intake Total 700 Output Total 900 Balance -200 - Medications Medications: Current Medications Amlodipine Besylate (Norvasc) 5 mg PO DAILY [facility] Last Admin: 12/01/18 10:18 Dose: 5 mg Apixaban (Eliquis) 5 mg PO BID [facility] Last Admin: 12/01/18 10:18 Dose: 5 mg Dextrose (Dextrose 50% Inj) 0 ml IV STAT PRN; Protocol PRN Reason: Hypoglycemia Protocol Dextrose (Glutose 15) 0 gm PO ONCE PRN; Protocol PRN Reason: Hypoglycemia Protocol Gabapentin (Neurontin) 300 mg PO TID [facility] Last Admin: 12/01/18 10:18 Dose: 300 mg Glucagon (Glucagen Diagnostic Kit) 0 mg IM STAT PRN; Protocol PRN Reason: Hypoglycemia Protocol Home Med (Ciprofloxacin/Hydrocortisone [Cipro Hc Otic Suspension]) 3 drop OT BID [facility] Piperacillin Sod/Tazobactam Sod (Zosyn 2.25 Gm Iv Premix) 2.25 gm in 50 mls @ 100 mls/hr IVPB Q6H [facility]; Protocol Last Admin: 12/01/18 10:22 Dose: 100 mls/hr Dextrose (Dextrose 5% In Water 1000 Ml) 1,000 mls @ 0 mls/hr IV .Q0M PRN; Protocol PRN Reason: Hypoglycemia Protocol Insulin Aspart (Novolog) 0 unit SC ACHS [facility]; Protocol Last Admin: 12/01/18 08:45 Dose: 3 u Insulin Glargine (Lantus) 25 unit SC BID [facility] Last Admin: 12/01/18 10:18 Dose: 25 units Levothyroxine Sodium (Synthroid) 175 mcg PO DAILY@0630 [facility] Metoprolol Tartrate (Lopressor) 25 mg PO BID [facility] Multivitamins (Hexavitamin) 1 tab PO DAILY [facility] Last Admin: 12/01/18 10:18 Dose: 1 tab Pantoprazole Sodium (Protonix Ec Tab) 40 mg PO DAILY [facility] Last Admin: 12/01/18 10:19 Dose: 40 mg Pneumococcal Polyvalent Vaccine (Pneumovax 23 Vaccine) 0.5 ml IM .ONCE ONE Stop: 12/02/18 10:01 Rosuvastatin Calcium (Crestor) 10 mg PO [facility] Last Admin: 11/30/18 21:59 Dose: 10 mg Sennosides (Senokot Tab) 17.2 mg PO HS [facility] Last Admin: 11/30/18 21:59 Dose: 17.2 mg Tamsulosin HCl (Flomax) 0.4 mg PO DAILY [facility] Last Admin: 12/01/18 10:18 Dose: 0.4 mg Temazepam (Restoril) 15 mg PO HS PRN PRN Reason: Sleep - Labs Labs: 11/30/18 14:58 11/30/18 15:44 - Constitutional Appears: Non-toxic, No Acute Distress, Chronically Ill - Head Exam Head Exam: ATRAUMATIC, NORMAL INSPECTION, NORMOCEPHALIC - Eye Exam Eye Exam: EOMI, Normal appearance, PERRL Pupil Exam: NORMAL ACCOMODATION, PERRL - ENT Exam ENT Exam: Mucous Membranes Moist, Normal Exam Additional comments: exudate right ear - Neck Exam Neck Exam: Full ROM, Normal Inspection. absent: Lymphadenopathy - Respiratory Exam Respiratory Exam: Clear to Ausculation Bilateral, NORMAL BREATHING PATTERN - Cardiovascular Exam Cardiovascular Exam: REGULAR RHYTHM, +S1, +S2. absent: Murmur - GI/Abdominal Exam GI & Abdominal Exam: Soft, Normal Bowel Sounds. absent: Tenderness - Rectal Exam Rectal Exam: Deferred - Exam Exam: NORMAL INSPECTION - Extremities Exam Extremities Exam: Full ROM, Normal Capillary Refill, Normal Inspection. absent: Joint Swelling, Pedal Edema - Back Exam Back Exam: NORMAL INSPECTION - Neurological Exam Neurological Exam: Alert, Awake, CN II-XII Intact, Normal Gait, Oriented x3 - Psychiatric Exam Psychiatric exam: Normal Affect, Normal Mood - Skin Skin Exam: Dry, Intact, Normal Color, Warm Assessment and Plan (1) Malignant otitis externa of right ear Status: Acute - Assessment and Plan (Free Text) Assessment: cont IV rx may need PICC may need 6 weeks IV Rx await ENT consult MRI and bone scan poor prognosis
--- NOTE | 2018-12-01 15:16 | CP.PCM.PN ---
Subjective - Date & Time of Evaluation Date of Evaluation: 12/01/18 Time of Evaluation: 08:25 - Subjective Subjective: patient examined today no nausea no vomiting no fever no dizziness no shortness of breath no diarrhea Objective - Vital Signs/Intake and Output Vital Signs (last 24 hours): Temp Pulse Resp BP Pulse Ox 97.6 F 74 20 170/98 H 98 12/01/18 07:46 12/01/18 07:46 12/01/18 07:46 12/01/18 07:46 12/01/18 07:46 Intake and Output: 12/01/18 12/01/18 06:59 18:59 Intake Total 700 Output Total 900 Balance -200 - Medications Medications: Current Medications Amlodipine Besylate (Norvasc) 5 mg PO DAILY [facility] Last Admin: 12/01/18 10:18 Dose: 5 mg Apixaban (Eliquis) 5 mg PO BID [facility] Last Admin: 12/01/18 10:18 Dose: 5 mg Dextrose (Dextrose 50% Inj) 0 ml IV STAT PRN; Protocol PRN Reason: Hypoglycemia Protocol Dextrose (Glutose 15) 0 gm PO ONCE PRN; Protocol PRN Reason: Hypoglycemia Protocol Gabapentin (Neurontin) 300 mg PO TID [facility] Last Admin: 12/01/18 10:18 Dose: 300 mg Glucagon (Glucagen Diagnostic Kit) 0 mg IM STAT PRN; Protocol PRN Reason: Hypoglycemia Protocol Home Med (Ciprofloxacin/Hydrocortisone [Cipro Hc Otic Suspension]) 3 drop OT BID [facility] Piperacillin Sod/Tazobactam Sod (Zosyn 2.25 Gm Iv Premix) 2.25 gm in 50 mls @ 100 mls/hr IVPB Q6H [facility]; Protocol Last Admin: 12/01/18 10:22 Dose: 100 mls/hr Dextrose (Dextrose 5% In Water 1000 Ml) 1,000 mls @ 0 mls/hr IV .Q0M PRN; Protocol PRN Reason: Hypoglycemia Protocol Insulin Aspart (Novolog) 0 unit SC ACHS [facility]; Protocol Last Admin: 12/01/18 08:45 Dose: 3 u Insulin Glargine (Lantus) 25 unit SC BID [facility] Last Admin: 12/01/18 10:18 Dose: 25 units Levothyroxine Sodium (Synthroid) 175 mcg PO DAILY@0630 [facility] Metoprolol Tartrate (Lopressor) 25 mg PO BID [facility] Multivitamins (Hexavitamin) 1 tab PO DAILY [facility] Last Admin: 12/01/18 10:18 Dose: 1 tab Pantoprazole Sodium (Protonix Ec Tab) 40 mg PO DAILY [facility] Last Admin: 12/01/18 10:19 Dose: 40 mg Pneumococcal Polyvalent Vaccine (Pneumovax 23 Vaccine) 0.5 ml IM .ONCE ONE Stop: 12/02/18 10:01 Rosuvastatin Calcium (Crestor) 10 mg PO HS [facility] Last Admin: 11/30/18 21:59 Dose: 10 mg Sennosides (Senokot Tab) 17.2 mg PO HS [facility] Last Admin: 11/30/18 21:59 Dose: 17.2 mg Tamsulosin HCl (Flomax) 0.4 mg PO DAILY [facility] Last Admin: 12/01/18 10:18 Dose: 0.4 mg Temazepam (Restoril) 15 mg PO HS PRN PRN Reason: Sleep - Labs Labs: 11/30/18 14:58 11/30/18 15:44 - Constitutional Appears: Well - Head Exam Head Exam: ATRAUMATIC, NORMAL INSPECTION, NORMOCEPHALIC - Eye Exam Eye Exam: EOMI, Normal appearance, PERRL Pupil Exam: NORMAL ACCOMODATION, PERRL - ENT Exam ENT Exam: Mucous Membranes Moist, Normal Exam - Neck Exam Neck Exam: Full ROM, Normal Inspection. absent: Lymphadenopathy - Respiratory Exam Respiratory Exam: Decreased Breath Sounds - Cardiovascular Exam Cardiovascular Exam: REGULAR RHYTHM, +S1, +S2 - GI/Abdominal Exam GI & Abdominal Exam: Soft, Diminished Bowel Sounds - Rectal Exam Rectal Exam: Deferred - Neurological Exam Neurological Exam: Oriented x3 Assessment and Plan - Assessment and Plan (Free Text) Plan: Crestor Dextrose 5% Dextrose 50% Eliquis Flomax GlucaGen diagnostic kit Glutose 15 [place] of vitamin Home medications Lantus Lopressor Neurontin Norvasc NovoLog Percocet Protonix EC tab Restoril Senokot Synthroid Tylenol Zosyn Medications reviewed Vitals reviewed Labs reviewed Plan discussed with patient Moderate complexity of care Consultation with Dr. Mcpherson ENT consultation with Dr. maria Status post MRI done which revealed possible erosion of the skull bone IV antibiotic may be for [address] Mcpherson OR ENT TO decide Case discussed with the patient's and the family Plan of care discussed with the patient's family
--- NOTE | 2018-12-01 17:10 | CON ---
DATE: 12/01/2018 REASON FOR CONSULTATION: Malignant otitis externa. REQUESTING PHYSICIAN: Dr. Escobar. HISTORY OF PRESENT ILLNESS: This is a 68-year-old male with few months' history of right ear pain constant mild to moderate in intensity, hearing loss right constant mild to moderate in intensity. The patient was seen in the office by me and directed to go to the emergency room since progressive otitis externa was expected. The patient also has history of diabetes which is poorly controlled. PAST MEDICAL HISTORY: As noted in the chart by me. MEDICATIONS: As noted in the chart by me. ALLERGIES: NOTED IN THE CHART BY ME. PHYSICAL EXAMINATION: HEAD: Atraumatic, normocephalic. FACE: Good facial movements bilaterally. CONSTITUTIONAL: Well fed, well nourished. COMMUNICATION: Communicates well and appropriately. EXTERNAL NOSE AND EARS: No masses, no lesions, no erythema, no edema. INTERNAL NOSE: Deviated septum. No masses, no lesions, no erythema, no edema. EARS: Granulation tissue at the bony cartilaginous junction on the right blocking the ear canal. TM cannot be visualized. Left TM intact with no fluid behind it. ORAL CAVITY AND OROPHARYNX: No masses. No lesions. No erythema. No edema. LIPS AND GUMS: No masses. No lesions. No erythema. No edema. NECK: Supple. THYROID: No thyromegaly. No goiter. LYMPH NODES: No lymphadenopathy of the neck. ASSESSMENT: 1. Possible malignant otitis externa. 2. Deviated septum. 3. Ear pain. 4. Hearing loss. PLAN: Antibiotics as per Infectious Disease. We will follow up MRI and bone scan results. Zohaib Raymond MD
[2018-12-02] MEDS: Piperacill/Tazo 2.25gm in Dex 2.25 GM/50 ML BAG IVPB SCH ×4 (04:00→21:51)
[2018-12-02] MEDS: Levothyroxine 175 MCG TAB PO SCH (05:33)
[2018-12-02] MEDS: (Novolog) Insulin Aspart, Recombinant 100 u/ml 10 ml vial SC SCH ×4 (07:26→22:00)
[2018-12-02] MEDS: Multiple Vitamins Tab PO SCH (09:27)
[2018-12-02] MEDS: Pantoprazole 40 mg EC Tab PO SCH (09:27)
[2018-12-02] MEDS: (Lantus) Insulin Glargine, Recombinant SC SCH ×2 (09:33→17:45)
[2018-12-02] MEDS ORDERED: Pneumococcal 23-Valent Vaccine IM ONE (10:00)
[2018-12-02] MEDS ORDERED: Oxycodone/Acetaminophen 5/325 mg Tab PO PRN (10:59)
--- NOTE | 2018-12-02 20:16 | CP.PCM.PN ---
Subjective - Date & Time of Evaluation Date of Evaluation: 12/02/18 - Subjective Subjective: patient seen and examined at bedside no nausea, no vomiting, no dizziness, no diarrhea, no fever, no shortness of breath Objective - Vital Signs/Intake and Output Vital Signs (last 24 hours): Temp Pulse Resp BP Pulse Ox 97.4 F L 73 20 154/92 H 97 12/02/18 16:00 12/02/18 16:00 12/02/18 16:00 12/02/18 17:45 12/02/18 16:00 Intake and Output: 12/02/18 12/03/18 18:59 06:59 Intake Total 350 Output Total 3 Balance 347 - Medications Medications: Current Medications Acetaminophen (Tylenol 325mg Tab) 650 mg PO Q6 PRN PRN Reason: Pain, moderate (4-7) Last Admin: 12/02/18 14:11 Dose: 650 mg Amlodipine Besylate (Norvasc) 5 mg PO DAILY [facility] Last Admin: 12/02/18 09:27 Dose: 5 mg Apixaban (Eliquis) 5 mg PO BID [facility] Last Admin: 12/02/18 17:41 Dose: 5 mg Dextrose (Dextrose 50% Inj) 0 ml IV STAT PRN; Protocol PRN Reason: Hypoglycemia Protocol Dextrose (Glutose 15) 0 gm PO ONCE PRN; Protocol PRN Reason: Hypoglycemia Protocol Gabapentin (Neurontin) 300 mg PO TID [facility] Last Admin: 12/02/18 17:40 Dose: 300 mg Glucagon (Glucagen Diagnostic Kit) 0 mg IM STAT PRN; Protocol PRN Reason: Hypoglycemia Protocol Home Med (Ciprofloxacin/Hydrocortisone [Cipro Hc Otic Suspension]) 3 drop OT BID [facility] Piperacillin Sod/Tazobactam Sod (Zosyn 2.25 Gm Iv Premix) 2.25 gm in 50 mls @ 100 mls/hr IVPB Q6H [facility]; Protocol Last Admin: 12/02/18 16:35 Dose: 100 mls/hr Dextrose (Dextrose 5% In Water 1000 Ml) 1,000 mls @ 0 mls/hr IV .Q0M PRN; Protocol PRN Reason: Hypoglycemia Protocol Insulin Aspart (Novolog) 0 unit SC ACHS [facility]; Protocol Last Admin: 12/02/18 17:46 Dose: 1 u Insulin Glargine (Lantus) 25 unit SC BID [facility] Last Admin: 12/02/18 17:45 Dose: 25 units Levothyroxine Sodium (Synthroid) 175 mcg PO DAILY@0630 [facility] Last Admin: 12/02/18 05:33 Dose: 175 mcg Metoprolol Tartrate (Lopressor) 25 mg PO BID [facility] Last Admin: 12/02/18 17:45 Dose: 25 mg Multivitamins (Hexavitamin) 1 tab PO DAILY [facility] Last Admin: 12/02/18 09:27 Dose: 1 tab Oxycodone/Acetaminophen (Percocet 5/325 Mg Tab) 1 tab PO Q8 PRN PRN Reason: Pain, severe (8-10) Stop: 12/05/18 14:01 Last Admin: 12/02/18 11:10 Dose: 1 tab Pantoprazole Sodium (Protonix Ec Tab) 40 mg PO DAILY [facility] Last Admin: 12/02/18 09:27 Dose: 40 mg Rosuvastatin Calcium (Crestor) 10 mg PO [facility] Last Admin: 12/01/18 21:52 Dose: 10 mg Sennosides (Senokot Tab) 17.2 mg PO [facility] Last Admin: 12/01/18 21:52 Dose: 17.2 mg Tamsulosin HCl (Flomax) 0.4 mg PO DAILY [facility] Last Admin: 12/02/18 09:27 Dose: 0.4 mg Temazepam (Restoril) 15 mg PO HS PRN PRN Reason: Sleep - Labs Labs: 11/30/18 14:58 11/30/18 15:44 - Constitutional Appears: Well - Head Exam Head Exam: ATRAUMATIC, NORMAL INSPECTION, NORMOCEPHALIC - Eye Exam Eye Exam: EOMI, Normal appearance, PERRL Pupil Exam: NORMAL ACCOMODATION, PERRL - ENT Exam ENT Exam: Mucous Membranes Moist, Normal Exam - Neck Exam Neck Exam: Full ROM, Normal Inspection. absent: Lymphadenopathy - Respiratory Exam Respiratory Exam: Decreased Breath Sounds - Cardiovascular Exam Cardiovascular Exam: REGULAR RHYTHM, +S1, +S2 - GI/Abdominal Exam GI & Abdominal Exam: Soft, Diminished Bowel Sounds - Rectal Exam Rectal Exam: Deferred - Neurological Exam Neurological Exam: Oriented x3 Assessment and Plan - Assessment and Plan (Free Text) Plan: crestor dextrose eliquis flomax glucagen diagnostic kit glutose 15 hexavitamin home meds lantus lopressor neurontin norvasc novolog percocet protonix ec tab senokot synthroid tylenol zosyn labs reviewed vitals reivewed medications reviewed plan discussed with patient and family moderate complexity of care
[2018-12-03] MEDS: Piperacill/Tazo 2.25gm in Dex 2.25 GM/50 ML BAG IVPB SCH ×4 (03:16→21:24)
[2018-12-03] MEDS: Levothyroxine 175 MCG TAB PO SCH (06:13)
[2018-12-03] MEDS: (Novolog) Insulin Aspart, Recombinant 100 u/ml 10 ml vial SC SCH ×4 (07:45→21:26)
[2018-12-03 07:59] LABS: CALCIUM 9.2 mg/dl (8.6-10.4)
[2018-12-03 08:11] LABS: BASO % 0.4 % (0.0-2.0); EOS # 0.3 K/uL (0.0-0.7); EOS % 2.7 % (0.0-4.0); HEMOGLOBIN 11.7 g/dL (12.0-18.0); LYMPH # 1.2 K/uL (1.0-4.3); LYMPH % 10.4 % (20.0-40.0); MEAN CELL VOLUME 84.2 fL (80.0-94.0); MEAN CORPUSCULAR HEMOGLOBIN 26.7 pg (27.0-31.0); MEAN CORPUSCULAR HGB CONC 31.7 g/dL (33.0-37.0); MEAN PLATELET VOLUME 8.5 fL (7.2-11.7); MONO # 1.5 K/uL (0.0-0.8); MONO % 13.4 % (0.0-10.0); NEUT # 8.2 K/uL (1.8-7.0); NEUT % 73.1 % (50.0-75.0); RBC 4.4 Mil/uL (4.40-5.90); RED CELL DISTRIBUTION WIDTH 19.5 % (11.5-14.5); WHITE BLOOD COUNT 11.2 K/uL (4.8-10.8)
[2018-12-03] MEDS: Multiple Vitamins Tab PO SCH (09:27)
[2018-12-03] MEDS: Pantoprazole 40 mg EC Tab PO SCH (09:28)
[2018-12-03] MEDS: (Lantus) Insulin Glargine, Recombinant SC SCH ×2 (09:42→17:55)
--- NOTE | 2018-12-03 13:53 | CT ---
Date of service: 12/03/2018 PROCEDURE: CT OF THE TEMPORAL BONES WITHOUT CONTRAST HISTORY: Possible malignant otitis externa COMPARISON: None available. TECHNIQUE: High resolution axial images of the temporal bones were obtained. Coronal and sagittal reformats were generated. Radiation dose: Total exam DLP = 623.2 mGy-cm. This CT exam was performed using one or more of the following dose reduction techniques: Automated exposure control, adjustment of the mA and/or kV according to patient size, and/or use of iterative reconstruction technique. FINDINGS: RIGHT TEMPORAL BONE: RIGHT MIDDLE EAR: Right middle ear canal patent despite the what appears represent some medial bowing of of the right tympanic membrane RIGHT INNER EAR: Cochlea: Normal. Semicircular canals: Normal. RIGHT MASTOID AIR CELLS: There is opacification of multiple right-sided predominately inferior mastoid air cells consistent with mild-moderate mastoiditis RIGHT INTERNAL AUDITORY CANAL: Normal. RIGHT EXTERNAL AUDITORY CANAL: Soft tissue fills the right external auditory canal. There may also be some be due to cerumen and possibly inflammatory swelling of the subcutaneous tissues lining the external auditory canal. No destructive changes of the adjacent cortical bone seen. These findings may represent a benign external otitis and are not felt to represent a malignant external otitis. There to be edema - swelling of the pinna extending into the ostia of the external auditory canal. RIGHT VESTIBULAR AND COCHLEAR AQUEDUCT: Normal. OTHER FINDINGS: None. LEFT TEMPORAL BONE: LEFT MIDDLE EAR: Normal. LEFT INNER EAR: Cochlea: Normal. Semicircular canals: Normal. LEFT MASTOID AIR CELLS: Normal. LEFT INTERNAL AUDITORY CANAL: Normal. LEFT EXTERNAL AUDITORY CANAL: Normal. LEFT VESTIBULAR AND COCHLEAR AQUEDUCTNORMAL.: Normal OTHER FINDINGS: Mild mucosal thickening right chamber sphenoid sinus. IMPRESSION: Soft tissue fills the right external auditory canal likely representing some combination of cerumen and swelling/edema of the subcutaneous tissues lining the external auditory canal. No bony destructive changes. Collectively these findings likely represent a benign external otitis as above. There appears to be some medial bowing of the right tympanic membrane however the middle ear canal is otherwise patent Partial opacification multiple right predominately inferior right-sided mastoid air cells consistent with a [id number] mastoiditis.
--- NOTE | 2018-12-03 15:10 | CP.PCM.PN ---
Subjective - Date & Time of Evaluation Date of Evaluation: 12/03/18 Time of Evaluation: 09:00 - Subjective Subjective: awake and alert no new complaints interim events noted patient examined entries reviewed labs reviewed orders signed Objective - Vital Signs/Intake and Output Vital Signs (last 24 hours): Temp Pulse Resp BP Pulse Ox 97.9 F 73 20 154/84 H 96 12/03/18 08:19 12/03/18 08:19 12/03/18 08:19 12/03/18 09:27 12/03/18 08:19 Intake and Output: 12/03/18 12/03/18 06:59 18:59 Intake Total 350 350 Output Total 3 1 Balance 347 349 - Medications Medications: Current Medications Acetaminophen (Tylenol 325mg Tab) 650 mg PO Q6 PRN PRN Reason: Pain, moderate (4-7) Last Admin: 12/02/18 14:11 Dose: 650 mg Amlodipine Besylate (Norvasc) 5 mg PO DAILY [facility] Last Admin: 12/03/18 09:28 Dose: 5 mg Apixaban (Eliquis) 5 mg PO BID [facility] Last Admin: 12/03/18 09:28 Dose: 5 mg Dextrose (Dextrose 50% Inj) 0 ml IV STAT PRN; Protocol PRN Reason: Hypoglycemia Protocol Dextrose (Glutose 15) 0 gm PO ONCE PRN; Protocol PRN Reason: Hypoglycemia Protocol Gabapentin (Neurontin) 300 mg PO TID [facility] Last Admin: 12/03/18 13:14 Dose: 300 mg Glucagon (Glucagen Diagnostic Kit) 0 mg IM STAT PRN; Protocol PRN Reason: Hypoglycemia Protocol Home Med (Ciprofloxacin/Hydrocortisone [Cipro Hc Otic Suspension]) 3 drop OT BID [facility] Piperacillin Sod/Tazobactam Sod (Zosyn 2.25 Gm Iv Premix) 2.25 gm in 50 mls @ 100 mls/hr IVPB Q6H [facility]; Protocol Last Admin: 12/03/18 09:32 Dose: 100 mls/hr Dextrose (Dextrose 5% In Water 1000 Ml) 1,000 mls @ 0 mls/hr IV .Q0M PRN; Protocol PRN Reason: Hypoglycemia Protocol Insulin Aspart (Novolog) 0 unit SC ACHS [facility]; Protocol Last Admin: 12/03/18 11:44 Dose: Not Given Insulin Glargine (Lantus) 25 unit SC BID [facility] Last Admin: 12/03/18 09:42 Dose: Not Given Levothyroxine Sodium (Synthroid) 175 mcg PO DAILY@0630 [facility] Last Admin: 12/03/18 06:13 Dose: 175 mcg Metoprolol Tartrate (Lopressor) 25 mg PO BID [facility] Last Admin: 12/03/18 09:27 Dose: 25 mg Multivitamins (Hexavitamin) 1 tab PO DAILY [facility] Last Admin: 12/03/18 09:27 Dose: 1 tab Oxycodone/Acetaminophen (Percocet 5/325 Mg Tab) 1 tab PO Q8 PRN PRN Reason: Pain, severe (8-10) Stop: 12/05/18 14:01 Last Admin: 12/02/18 11:10 Dose: 1 tab Pantoprazole Sodium (Protonix Ec Tab) 40 mg PO DAILY [facility] Last Admin: 12/03/18 09:28 Dose: 40 mg Rosuvastatin Calcium (Crestor) 10 mg PO [facility] Last Admin: 12/02/18 21:51 Dose: 10 mg Sennosides (Senokot Tab) 17.2 mg PO [facility] Last Admin: 12/02/18 21:56 Dose: 17.2 mg Tamsulosin HCl (Flomax) 0.4 mg PO DAILY [facility] Last Admin: 12/03/18 09:28 Dose: 0.4 mg Temazepam (Restoril) 15 mg PO HS PRN PRN Reason: Sleep - Labs Labs: 12/03/18 07:35 12/03/18 07:35 - Constitutional Appears: Non-toxic, No Acute Distress, Chronically Ill - Head Exam Head Exam: ATRAUMATIC, NORMAL INSPECTION, NORMOCEPHALIC - Eye Exam Eye Exam: EOMI, Normal appearance, PERRL Pupil Exam: NORMAL ACCOMODATION, PERRL - ENT Exam ENT Exam: Mucous Membranes Moist, Normal Exam Additional comments: less exudate left ear - Neck Exam Neck Exam: Full ROM, Normal Inspection. absent: Lymphadenopathy - Respiratory Exam Respiratory Exam: Clear to Ausculation Bilateral, NORMAL BREATHING PATTERN - Cardiovascular Exam Cardiovascular Exam: REGULAR RHYTHM, +S1, +S2. absent: Murmur - GI/Abdominal Exam GI & Abdominal Exam: Soft, Normal Bowel Sounds. absent: Tenderness - Rectal Exam Rectal Exam: Deferred - Exam Exam: NORMAL INSPECTION - Extremities Exam Extremities Exam: Full ROM, Normal Capillary Refill, Normal Inspection. absent: Joint Swelling, Pedal Edema - Back Exam Back Exam: NORMAL INSPECTION - Neurological Exam Neurological Exam: Alert, Awake, CN II-XII Intact, Normal Gait, Oriented x3 - Psychiatric Exam Psychiatric exam: Normal Affect, Normal Mood - Skin Skin Exam: Dry, Intact, Normal Color, Warm Assessment and Plan (1) Malignant otitis externa of right ear Status: Acute - Assessment and Plan (Free Text) Assessment: await bone scan' cont IV antibiotics may need ANIL
--- NOTE | 2018-12-03 19:14 | CP.PCM.PN ---
Subjective - Date & Time of Evaluation Date of Evaluation: 12/03/18 Time of Evaluation: 08:55 - Subjective Subjective: No nausea No vomiting No fever bedside Patient was sleeping woke him up patient still have pain on the ER but very little pain Hard of hearing Objective - Vital Signs/Intake and Output Vital Signs (last 24 hours): Temp Pulse Resp BP Pulse Ox 98.6 F 71 20 154/84 H 97 12/03/18 16:00 12/03/18 16:00 12/03/18 16:00 12/03/18 17:39 12/03/18 16:00 Intake and Output: 12/03/18 12/04/18 18:59 06:59 Intake Total 350 Output Total 1 Balance 349 - Medications Medications: Current Medications Acetaminophen (Tylenol 325mg Tab) 650 mg PO Q6 PRN PRN Reason: Pain, moderate (4-7) Last Admin: 12/02/18 14:11 Dose: 650 mg Amlodipine Besylate (Norvasc) 5 mg PO DAILY [facility] Last Admin: 12/03/18 09:28 Dose: 5 mg Apixaban (Eliquis) 5 mg PO BID [facility] Last Admin: 12/03/18 17:39 Dose: 5 mg Dextrose (Dextrose 50% Inj) 0 ml IV STAT PRN; Protocol PRN Reason: Hypoglycemia Protocol Dextrose (Glutose 15) 0 gm PO ONCE PRN; Protocol PRN Reason: Hypoglycemia Protocol Gabapentin (Neurontin) 300 mg PO TID [facility] Last Admin: 12/03/18 17:39 Dose: 300 mg Glucagon (Glucagen Diagnostic Kit) 0 mg IM STAT PRN; Protocol PRN Reason: Hypoglycemia Protocol Home Med (Ciprofloxacin/Hydrocortisone [Cipro Hc Otic Suspension]) 3 drop OT BID [facility] Piperacillin Sod/Tazobactam Sod (Zosyn 2.25 Gm Iv Premix) 2.25 gm in 50 mls @ 100 mls/hr IVPB Q6H [facility]; Protocol Last Admin: 12/03/18 16:22 Dose: 100 mls/hr Insulin Aspart (Novolog) 0 unit SC ACHS [facility]; Protocol Last Admin: 12/03/18 17:39 Dose: Not Given Insulin Glargine (Lantus) 25 unit SC BID [facility] Last Admin: 12/03/18 17:55 Dose: 25 units Levothyroxine Sodium (Synthroid) 175 mcg PO DAILY@0630 [facility] Last Admin: 12/03/18 06:13 Dose: 175 mcg Metoprolol Tartrate (Lopressor) 25 mg PO BID [facility] Last Admin: 12/03/18 17:39 Dose: 25 mg Multivitamins (Hexavitamin) 1 tab PO DAILY [facility] Last Admin: 12/03/18 09:27 Dose: 1 tab Oxycodone/Acetaminophen (Percocet 5/325 Mg Tab) 1 tab PO Q8 PRN PRN Reason: Pain, severe (8-10) Stop: 12/05/18 14:01 Last Admin: 12/02/18 11:10 Dose: 1 tab Pantoprazole Sodium (Protonix Ec Tab) 40 mg PO DAILY [facility] Last Admin: 12/03/18 09:28 Dose: 40 mg Rosuvastatin Calcium (Crestor) 10 mg PO HS [facility] Last Admin: 12/02/18 21:51 Dose: 10 mg Sennosides (Senokot Tab) 17.2 mg PO HS [facility] Last Admin: 12/02/18 21:56 Dose: 17.2 mg Tamsulosin HCl (Flomax) 0.4 mg PO DAILY [facility] Last Admin: 12/03/18 09:28 Dose: 0.4 mg Temazepam (Restoril) 15 mg PO HS PRN PRN Reason: Sleep - Labs Labs: 12/03/18 07:35 12/03/18 07:35 - Constitutional Appears: Well - Head Exam Head Exam: ATRAUMATIC, NORMAL INSPECTION, NORMOCEPHALIC - Eye Exam Eye Exam: EOMI, Normal appearance, PERRL Pupil Exam: NORMAL ACCOMODATION, PERRL - ENT Exam ENT Exam: Mucous Membranes Moist, Normal Exam - Neck Exam Neck Exam: Full ROM, Normal Inspection. absent: Lymphadenopathy - Respiratory Exam Respiratory Exam: Decreased Breath Sounds - Cardiovascular Exam Cardiovascular Exam: REGULAR RHYTHM, +S1, +S2 - GI/Abdominal Exam GI & Abdominal Exam: Soft, Diminished Bowel Sounds - Rectal Exam Rectal Exam: Deferred - Neurological Exam Neurological Exam: Oriented x3 Assessment and Plan - Assessment and Plan (Free Text) Plan: Family bedside Discussed with the family Awake and alert Hemoglobin hematocrit 11.7 and 37 Creatinine six 3.9 31 bicarbonate Follow-up with the doctor but he Renal follow-up with Dr. alia ansari Moderate complexity of care crestor dextrose 50%inj eliquis flomax glucagen diagnostic kit glutose hexavitamin lantus lopressor neurontin norvasc novolog percocet protonix ec tab restoril senokot synthroid tylenol zosyn
[2018-12-04] MEDS: Piperacill/Tazo 2.25gm in Dex 2.25 GM/50 ML BAG IVPB SCH ×4 (03:47→21:39)
[2018-12-04] MEDS: Levothyroxine 175 MCG TAB PO SCH (05:33)
[2018-12-04] MEDS: (Novolog) Insulin Aspart, Recombinant 100 u/ml 10 ml vial SC SCH ×4 (07:37→21:25)
[2018-12-04] MEDS: Multiple Vitamins Tab PO SCH (09:32)
[2018-12-04] MEDS: Pantoprazole 40 mg EC Tab PO SCH (09:33)
[2018-12-04] MEDS: (Lantus) Insulin Glargine, Recombinant SC SCH ×2 (09:35→17:31)
--- NOTE | 2018-12-04 10:50 | NM ---
Date of service: 12/02/2018 PROCEDURE: Three-phase bone Scan HISTORY: rule out malignant otitis externa COMPARISON: 12/03/2018. CT temporal bones.Summary of findings on the comparison examination: Collectively these findings likely represent a benign external otitis as above. There appears to be some medial bowing of the right tympanic membrane however the middle ear canal is otherwise patent 12/31/2017 whole-body bone scan. TECHNIQUE: Following administration of 25.0 miCu of Tc MDP three-phase bone scan with SPECT imaging performed attention right temporal bone. FINDINGS: Flow component: Normal and symmetrical flow to the skull base. Blood pool component: No focal osseous abnormalities detected. Delayed images at 3:00: Accumulation of radionuclide left skull base Other findings: Intense uptake in the shoulders bilaterally right humeral head and left glenoid consistent with metastatic disease seen previously. IMPRESSION: 1. No evidence of acute osseous process. Specifically no evidence to indicate acute osseous pathology/acute malignant otitis. 2. Focal increased uptake left skull base. In an individual with known widely disseminated osseous metastatic disease, the findings are suspicious for neoplastic process. 3. Osseous metastatic disease to both shoulders a finding seen previously. Concordant findings (preliminary report) provided by [facility].
--- NOTE | 2018-12-04 12:37 | CP.PCM.PN ---
Subjective - Date & Time of Evaluation Date of Evaluation: 12/04/18 Time of Evaluation: 09:00 - Subjective Subjective: bone scan neg for infection POSITIVE FOR BONE METS has Hx of prostate CA less drainage from ears no fever Objective - Vital Signs/Intake and Output Vital Signs (last 24 hours): Temp Pulse Resp BP Pulse Ox 98.1 F 73 20 153/81 H 97 12/04/18 07:00 12/04/18 07:00 12/04/18 07:00 12/04/18 09:32 12/04/18 07:00 Intake and Output: 12/04/18 12/04/18 06:59 18:59 Intake Total 300 Output Total 250 Balance 50 - Medications Medications: Current Medications Acetaminophen (Tylenol 325mg Tab) 650 mg PO Q6 PRN PRN Reason: Pain, moderate (4-7) Last Admin: 12/02/18 14:11 Dose: 650 mg Amlodipine Besylate (Norvasc) 5 mg PO DAILY [facility] Last Admin: 12/04/18 09:33 Dose: 5 mg Apixaban (Eliquis) 5 mg PO BID [facility] Last Admin: 12/04/18 09:33 Dose: 5 mg Dextrose (Dextrose 50% Inj) 0 ml IV STAT PRN; Protocol PRN Reason: Hypoglycemia Protocol Dextrose (Glutose 15) 0 gm PO ONCE PRN; Protocol PRN Reason: Hypoglycemia Protocol Gabapentin (Neurontin) 300 mg PO TID [facility] Last Admin: 12/04/18 09:32 Dose: 300 mg Glucagon (Glucagen Diagnostic Kit) 0 mg IM STAT PRN; Protocol PRN Reason: Hypoglycemia Protocol Home Med (Ciprofloxacin/Hydrocortisone [Cipro Hc Otic Suspension]) 3 drop OT BID [facility] Piperacillin Sod/Tazobactam Sod (Zosyn 2.25 Gm Iv Premix) 2.25 gm in 50 mls @ 100 mls/hr IVPB Q6H [facility]; Protocol Last Admin: 12/04/18 10:02 Dose: 100 mls/hr Insulin Aspart (Novolog) 0 unit SC ACHS [facility]; Protocol Last Admin: 12/04/18 11:43 Dose: 2 u Insulin Glargine (Lantus) 25 unit SC BID [facility] Last Admin: 12/04/18 09:35 Dose: Not Given Levothyroxine Sodium (Synthroid) 175 mcg PO DAILY@0630 [facility] Last Admin: 12/04/18 05:33 Dose: 175 mcg Metoprolol Tartrate (Lopressor) 25 mg PO BID [facility] Last Admin: 12/04/18 09:32 Dose: 25 mg Multivitamins (Hexavitamin) 1 tab PO DAILY [facility] Last Admin: 12/04/18 09:32 Dose: 1 tab Oxycodone/Acetaminophen (Percocet 5/325 Mg Tab) 1 tab PO Q8 PRN PRN Reason: Pain, severe (8-10) Stop: 12/05/18 14:01 Last Admin: 12/02/18 11:10 Dose: 1 tab Pantoprazole Sodium (Protonix Ec Tab) 40 mg PO DAILY [facility] Last Admin: 12/04/18 09:33 Dose: 40 mg Rosuvastatin Calcium (Crestor) 10 mg PO HS [facility] Last Admin: 12/03/18 21:25 Dose: 10 mg Sennosides (Senokot Tab) 17.2 mg PO HS [facility] Last Admin: 12/03/18 21:27 Dose: Not Given Tamsulosin HCl (Flomax) 0.4 mg PO DAILY [facility] Last Admin: 12/04/18 09:32 Dose: 0.4 mg Temazepam (Restoril) 15 mg PO HS PRN PRN Reason: Sleep - Labs Labs: 12/03/18 07:35 12/03/18 07:35 - Constitutional Appears: Non-toxic, No Acute Distress, Chronically Ill - Head Exam Head Exam: ATRAUMATIC, NORMAL INSPECTION, NORMOCEPHALIC - Eye Exam Eye Exam: EOMI, Normal appearance, PERRL Pupil Exam: NORMAL ACCOMODATION, PERRL - ENT Exam ENT Exam: Mucous Membranes Moist, Normal Exam - Neck Exam Neck Exam: Full ROM, Normal Inspection. absent: Lymphadenopathy - Respiratory Exam Respiratory Exam: Clear to Ausculation Bilateral, NORMAL BREATHING PATTERN - Cardiovascular Exam Cardiovascular Exam: REGULAR RHYTHM, +S1, +S2. absent: Murmur - GI/Abdominal Exam GI & Abdominal Exam: Soft, Normal Bowel Sounds. absent: Tenderness - Rectal Exam Rectal Exam: Deferred - Exam Exam: NORMAL INSPECTION - Extremities Exam Extremities Exam: Full ROM, Normal Capillary Refill, Normal Inspection. absent: Joint Swelling, Pedal Edema - Back Exam Back Exam: NORMAL INSPECTION - Neurological Exam Neurological Exam: Alert, Awake, CN II-XII Intact, Normal Gait, Oriented x3 - Psychiatric Exam Psychiatric exam: Depressed - Skin Skin Exam: Dry, Intact, Normal Color, Warm Assessment and Plan (1) Malignant otitis externa of right ear Status: Acute (2) Prostate CA Status: Acute (3) Bone metastasis Status: Acute (4) Otitis externa of right ear Status: Acute (5) Prostate cancer metastatic to bone Status: Acute (6) DM type 2 (diabetes mellitus, type 2) Status: Chronic (7) History of DVT (deep vein thrombosis) Status: Chronic (8) Hypertension Status: Chronic - Assessment and Plan (Free Text) Assessment: cont IV then PO rx as well as topical antibiotics for otitis externa
[2018-12-04] MEDS: Ofloxacin 0.3% Otic Soln AD SCH (14:10)
--- NOTE | 2018-12-04 18:37 | CP.PCM.PN ---
Subjective - Date & Time of Evaluation Date of Evaluation: 12/04/18 - Subjective Subjective: patient examined today no nausea no vomiting no dizziness no fever no shortness of breath Objective - Vital Signs/Intake and Output Vital Signs (last 24 hours): Temp Pulse Resp BP Pulse Ox 98.3 F 69 20 136/75 99 12/04/18 16:00 12/04/18 16:00 12/04/18 16:00 12/04/18 17:29 12/04/18 16:00 Intake and Output: 12/04/18 12/04/18 06:59 18:59 Intake Total 300 Output Total 250 Balance 50 - Medications Medications: Current Medications Acetaminophen (Tylenol 325mg Tab) 650 mg PO Q6 PRN PRN Reason: Pain, moderate (4-7) Last Admin: 12/02/18 14:11 Dose: 650 mg Amlodipine Besylate (Norvasc) 5 mg PO DAILY [facility] Last Admin: 12/04/18 09:33 Dose: 5 mg Apixaban (Eliquis) 5 mg PO BID [facility] Last Admin: 12/04/18 17:29 Dose: 5 mg Dextrose (Dextrose 50% Inj) 0 ml IV STAT PRN; Protocol PRN Reason: Hypoglycemia Protocol Dextrose (Glutose 15) 0 gm PO ONCE PRN; Protocol PRN Reason: Hypoglycemia Protocol Gabapentin (Neurontin) 300 mg PO TID [facility] Last Admin: 12/04/18 17:29 Dose: 300 mg Glucagon (Glucagen Diagnostic Kit) 0 mg IM STAT PRN; Protocol PRN Reason: Hypoglycemia Protocol Piperacillin Sod/Tazobactam Sod (Zosyn 2.25 Gm Iv Premix) 2.25 gm in 50 mls @ 100 mls/hr IVPB Q6H [facility]; Protocol Last Admin: 12/04/18 16:30 Dose: 100 mls/hr Insulin Aspart (Novolog) 0 unit SC ACHS [facility]; Protocol Last Admin: 12/04/18 17:30 Dose: 2 u Insulin Glargine (Lantus) 25 unit SC BID [facility] Last Admin: 12/04/18 17:31 Dose: 25 units Levothyroxine Sodium (Synthroid) 175 mcg PO DAILY@0630 [facility] Last Admin: 12/04/18 05:33 Dose: 175 mcg Metoprolol Tartrate (Lopressor) 25 mg PO BID [facility] Last Admin: 12/04/18 17:29 Dose: 25 mg Multivitamins (Hexavitamin) 1 tab PO DAILY [facility] Last Admin: 12/04/18 09:32 Dose: 1 tab Ofloxacin (Floxin 0.3% Otic Soln) 0 ml AD DAILY [facility] Last Admin: 12/04/18 14:10 Dose: 10 drop Oxycodone/Acetaminophen (Percocet 5/325 Mg Tab) 1 tab PO Q8 PRN PRN Reason: Pain, severe (8-10) Stop: 12/05/18 14:01 Last Admin: 12/02/18 11:10 Dose: 1 tab Pantoprazole Sodium (Protonix Ec Tab) 40 mg PO DAILY [facility] Last Admin: 12/04/18 09:33 Dose: 40 mg Rosuvastatin Calcium (Crestor) 10 mg PO HS [facility] Last Admin: 12/03/18 21:25 Dose: 10 mg Sennosides (Senokot Tab) 17.2 mg PO HS [facility] Last Admin: 12/03/18 21:27 Dose: Not Given Tamsulosin HCl (Flomax) 0.4 mg PO DAILY [facility] Last Admin: 12/04/18 09:32 Dose: 0.4 mg Temazepam (Restoril) 15 mg PO HS PRN PRN Reason: Sleep - Labs Labs: 12/03/18 07:35 12/03/18 07:35 - Constitutional Appears: Well - Head Exam Head Exam: ATRAUMATIC, NORMAL INSPECTION, NORMOCEPHALIC - Eye Exam Eye Exam: EOMI, Normal appearance, PERRL Pupil Exam: NORMAL ACCOMODATION, PERRL - ENT Exam ENT Exam: Mucous Membranes Moist, Normal Exam - Neck Exam Neck Exam: Full ROM, Normal Inspection. absent: Lymphadenopathy - Respiratory Exam Respiratory Exam: Decreased Breath Sounds - Cardiovascular Exam Cardiovascular Exam: REGULAR RHYTHM, +S1, +S2 - GI/Abdominal Exam GI & Abdominal Exam: Soft, Diminished Bowel Sounds - Rectal Exam Rectal Exam: Deferred
--- NOTE | 2018-12-04 21:48 | CP.PCM.CON ---
Past Patient History - Infectious Disease Hx of Infectious Diseases: None - Past Medical History & Family History Past Medical History?: Yes - Past Social History Smoking Status: Never Smoked - CARDIAC Hx Congestive Heart Failure: Yes Hx Hypercholesterolemia: Yes Hx Hypertension: Yes Hx Peripheral Edema: Yes - PULMONARY Hx Chronic Obstructive Pulmonary Disease (COPD): Yes - NEUROLOGICAL Hx Neurological Disorder: No - HEENT Hx HEENT Problems: No - RENAL Hx Chronic Kidney Disease: Yes - ENDOCRINE/METABOLIC Hx Hypothyroidism: Yes - HEMATOLOGICAL/ONCOLOGICAL Hx Anemia: Yes Hx Human Immunodeficiency Virus (HIV): No - INTEGUMENTARY Hx Dermatological Problems: No - MUSCULOSKELETAL/RHEUMATOLOGICAL Hx Arthritis: Yes Hx Fractures: Yes (lower back) - GASTROINTESTINAL Hx Gastrointestinal Disorders: Yes Hx Gastroesophageal Reflux: Yes - GENITOURINARY/GYNECOLOGICAL Hx Genitourinary Disorders: Yes Hx Prostate Cancer: Yes Other/Comment: Renal Cancer. Spinal Cancer - PSYCHIATRIC Hx Substance Use: No - SURGICAL HISTORY Hx Surgeries: Yes Hx Herniorrhaphy: Yes Hx Vascular Access Device: Yes Other/Comment: Umbilical hernia repair - ANESTHESIA Hx Anesthesia: Yes Hx Anesthesia Reactions: No Hx Malignant Hyperthermia: No Meds Allergies/Adverse Reactions: Allergies Allergy/AdvReac Type Severity Reaction Status Date / Time No Known Allergies Allergy Verified 11/30/18 13:45 - Medications Medications: Current Medications Acetaminophen (Tylenol 325mg Tab) 650 mg PO Q6 PRN PRN Reason: Pain, moderate (4-7) Last Admin: 12/02/18 14:11 Dose: 650 mg Amlodipine Besylate (Norvasc) 5 mg PO DAILY [facility] Last Admin: 12/04/18 09:33 Dose: 5 mg Apixaban (Eliquis) 5 mg PO BID [facility] Last Admin: 12/04/18 17:29 Dose: 5 mg Dextrose (Dextrose 50% Inj) 0 ml IV STAT PRN; Protocol PRN Reason: Hypoglycemia Protocol Dextrose (Glutose 15) 0 gm PO ONCE PRN; Protocol PRN Reason: Hypoglycemia Protocol Gabapentin (Neurontin) 300 mg PO TID [facility] Last Admin: 12/04/18 17:29 Dose: 300 mg Glucagon (Glucagen Diagnostic Kit) 0 mg IM STAT PRN; Protocol PRN Reason: Hypoglycemia Protocol Piperacillin Sod/Tazobactam Sod (Zosyn 2.25 Gm Iv Premix) 2.25 gm in 50 mls @ 100 mls/hr IVPB Q6H [facility]; Protocol Last Admin: 12/04/18 21:39 Dose: 100 mls/hr Insulin Aspart (Novolog) 0 unit SC ACHS [facility]; Protocol Last Admin: 12/04/18 21:25 Dose: Not Given Insulin Glargine (Lantus) 25 unit SC BID [facility] Last Admin: 12/04/18 17:31 Dose: 25 units Levothyroxine Sodium (Synthroid) 175 mcg PO DAILY@0630 [facility] Last Admin: 12/04/18 05:33 Dose: 175 mcg Metoprolol Tartrate (Lopressor) 25 mg PO BID [facility] Last Admin: 12/04/18 17:29 Dose: 25 mg Multivitamins (Hexavitamin) 1 tab PO DAILY [facility] Last Admin: 12/04/18 09:32 Dose: 1 tab Ofloxacin (Floxin 0.3% Otic Soln) 0 ml AD DAILY [facility] Last Admin: 12/04/18 14:10 Dose: 10 drop Oxycodone/Acetaminophen (Percocet 5/325 Mg Tab) 1 tab PO Q8 PRN PRN Reason: Pain, severe (8-10) Stop: 12/05/18 14:01 Last Admin: 12/02/18 11:10 Dose: 1 tab Pantoprazole Sodium (Protonix Ec Tab) 40 mg PO DAILY [facility] Last Admin: 12/04/18 09:33 Dose: 40 mg Rosuvastatin Calcium (Crestor) 10 mg PO HS [facility] Last Admin: 12/04/18 21:39 Dose: 10 mg Sennosides (Senokot Tab) 17.2 mg PO HS [facility] Last Admin: 12/04/18 21:38 Dose: 17.2 mg Tamsulosin HCl (Flomax) 0.4 mg PO DAILY [facility] Last Admin: 12/04/18 09:32 Dose: 0.4 mg Temazepam (Restoril) 15 mg PO HS PRN PRN Reason: Sleep Results - Vital Signs Recent Vital Signs: Last Vital Signs Temp 98.3 F 12/04/18 16:00 Pulse 69 12/04/18 16:00 Resp 20 12/04/18 16:00 BP 136/75 12/04/18 17:29 Pulse Ox 99 12/04/18 16:00 - Labs Result Diagrams: 12/03/18 07:35 12/03/18 07:35 Labs: Laboratory Results - last 24 hr 12/04/18 12/04/18 12/04/18 07:10 11:18 13:48 POC Glucose (mg/dL) 86 202 H Prostate Specific Ag 40.3 H 12/04/18 12/04/18 16:22 21:09 POC Glucose (mg/dL) 224 H 319 H Prostate Specific Ag
[2018-12-05] MEDS: Piperacill/Tazo 2.25gm in Dex 2.25 GM/50 ML BAG IVPB SCH ×3 (04:30→21:31)
[2018-12-05] MEDS: Levothyroxine 175 MCG TAB PO SCH (05:43)
[2018-12-05] MEDS: (Novolog) Insulin Aspart, Recombinant 100 u/ml 10 ml vial SC SCH ×3 (07:43→18:00)
[2018-12-05] MEDS: Ofloxacin 0.3% Otic Soln AD SCH ×2 (09:13→09:48)
[2018-12-05] MEDS: (Lantus) Insulin Glargine, Recombinant SC SCH ×2 (09:13→17:59)
[2018-12-05] MEDS: Multiple Vitamins Tab PO SCH ×2 (09:13→09:51)
[2018-12-05] MEDS: Pantoprazole 40 mg EC Tab PO SCH ×2 (09:14→09:51)
--- NOTE | 2018-12-05 10:14 | CP.PCM.PN ---
Subjective - Date & Time of Evaluation Date of Evaluation: 12/05/18 - Subjective Subjective: patient examined today no nausea no vomiting no dizziness no diarrhea no fever no shortness of breath Objective - Vital Signs/Intake and Output Vital Signs (last 24 hours): Temp Pulse Resp BP Pulse Ox 97.6 F 73 20 150/70 96 12/05/18 07:38 12/05/18 07:38 12/05/18 07:38 12/05/18 09:48 12/05/18 07:38 - Medications Medications: Current Medications Acetaminophen (Tylenol 325mg Tab) 650 mg PO Q6 PRN PRN Reason: Pain, moderate (4-7) Last Admin: 12/02/18 14:11 Dose: 650 mg Amlodipine Besylate (Norvasc) 5 mg PO DAILY [facility] Last Admin: 12/05/18 09:49 Dose: 5 mg Apixaban (Eliquis) 5 mg PO BID [facility] Last Admin: 12/05/18 09:12 Dose: Not Given Dextrose (Dextrose 50% Inj) 0 ml IV STAT PRN; Protocol PRN Reason: Hypoglycemia Protocol Dextrose (Glutose 15) 0 gm PO ONCE PRN; Protocol PRN Reason: Hypoglycemia Protocol Gabapentin (Neurontin) 300 mg PO TID [facility] Last Admin: 12/05/18 09:51 Dose: 300 mg Glucagon (Glucagen Diagnostic Kit) 0 mg IM STAT PRN; Protocol PRN Reason: Hypoglycemia Protocol Piperacillin Sod/Tazobactam Sod (Zosyn 2.25 Gm Iv Premix) 2.25 gm in 50 mls @ 100 mls/hr IVPB Q6H [facility]; Protocol Last Admin: 12/05/18 09:51 Dose: 100 mls/hr Insulin Aspart (Novolog) 0 unit SC ACHS [facility]; Protocol Last Admin: 12/05/18 07:43 Dose: 2 u Insulin Glargine (Lantus) 25 unit SC BID [facility] Last Admin: 12/05/18 09:13 Dose: Not Given Levothyroxine Sodium (Synthroid) 175 mcg PO DAILY@0630 [facility] Last Admin: 12/05/18 05:43 Dose: Not Given Metoprolol Tartrate (Lopressor) 25 mg PO BID [facility] Last Admin: 12/05/18 09:48 Dose: 25 mg Multivitamins (Hexavitamin) 1 tab PO DAILY [facility] Last Admin: 12/05/18 09:51 Dose: 1 tab Ofloxacin (Floxin 0.3% Otic Soln) 0 ml AD DAILY [facility] Last Admin: 12/05/18 09:48 Dose: 1 drop Oxycodone/Acetaminophen (Percocet 5/325 Mg Tab) 1 tab PO Q8 PRN PRN Reason: Pain, severe (8-10) Stop: 12/05/18 14:01 Last Admin: 12/02/18 11:10 Dose: 1 tab Pantoprazole Sodium (Protonix Ec Tab) 40 mg PO DAILY [facility] Last Admin: 12/05/18 09:51 Dose: 40 mg Rosuvastatin Calcium (Crestor) 10 mg PO HS [facility] Last Admin: 12/04/18 21:39 Dose: 10 mg Sennosides (Senokot Tab) 17.2 mg PO HS [facility] Last Admin: 12/04/18 21:38 Dose: 17.2 mg Tamsulosin HCl (Flomax) 0.4 mg PO DAILY [facility] Last Admin: 12/05/18 09:51 Dose: 0.4 mg Temazepam (Restoril) 15 mg PO HS PRN PRN Reason: Sleep - Labs Labs: 12/03/18 07:35 12/03/18 07:35 - Constitutional Appears: Well - Head Exam Head Exam: ATRAUMATIC, NORMAL INSPECTION, NORMOCEPHALIC - Eye Exam Eye Exam: EOMI, Normal appearance, PERRL Pupil Exam: NORMAL ACCOMODATION, PERRL - ENT Exam ENT Exam: Mucous Membranes Moist, Normal Exam - Neck Exam Neck Exam: Full ROM, Normal Inspection. absent: Lymphadenopathy - Respiratory Exam Respiratory Exam: Decreased Breath Sounds - Cardiovascular Exam Cardiovascular Exam: REGULAR RHYTHM, +S1, +S2 - GI/Abdominal Exam GI & Abdominal Exam: Soft, Diminished Bowel Sounds - Rectal Exam Rectal Exam: Deferred - Neurological Exam Neurological Exam: Oriented x3 Assessment and Plan - Assessment and Plan (Free Text) Plan: plan discussed with patient Moderate complexity of care crestor dextrose 50%inj eliquis flomax glucagen diagnostic kit glutose hexavitamin lantus lopressor neurontin norvasc novolog percocet protonix ec tab restoril senokot synthroid tylenol zosyn
--- NOTE | 2018-12-05 12:59 | CP.PCM.PN ---
Subjective - Date & Time of Evaluation Date of Evaluation: 12/05/18 Time of Evaluation: 09:00 - Subjective Subjective: Patient seen on rounds Chart reviewed patient examined labs and imaging studies reviewed 12 point ROS negative for new complaints Objective - Vital Signs/Intake and Output Vital Signs (last 24 hours): Temp Pulse Resp BP Pulse Ox 97.6 F 73 20 150/70 96 12/05/18 07:38 12/05/18 07:38 12/05/18 07:38 12/05/18 09:48 12/05/18 07:38 - Medications Medications: Current Medications Acetaminophen (Tylenol 325mg Tab) 650 mg PO Q6 PRN PRN Reason: Pain, moderate (4-7) Last Admin: 12/02/18 14:11 Dose: 650 mg Amlodipine Besylate (Norvasc) 5 mg PO DAILY [facility] Last Admin: 12/05/18 09:49 Dose: 5 mg Apixaban (Eliquis) 5 mg PO BID [facility] Last Admin: 12/05/18 09:12 Dose: Not Given Dextrose (Dextrose 50% Inj) 0 ml IV STAT PRN; Protocol PRN Reason: Hypoglycemia Protocol Dextrose (Glutose 15) 0 gm PO ONCE PRN; Protocol PRN Reason: Hypoglycemia Protocol Gabapentin (Neurontin) 100 mg PO TID [facility] Glucagon (Glucagen Diagnostic Kit) 0 mg IM STAT PRN; Protocol PRN Reason: Hypoglycemia Protocol Piperacillin Sod/Tazobactam Sod (Zosyn 2.25 Gm Iv Premix) 2.25 gm in 50 mls @ 100 mls/hr IVPB Q6H [facility]; Protocol Last Admin: 12/05/18 09:51 Dose: 100 mls/hr Insulin Aspart (Novolog) 0 unit SC ACHS [facility]; Protocol Last Admin: 12/05/18 11:34 Dose: Not Given Insulin Glargine (Lantus) 25 unit SC BID [facility] Last Admin: 12/05/18 09:13 Dose: Not Given Levothyroxine Sodium (Synthroid) 175 mcg PO DAILY@0630 [facility] Last Admin: 12/05/18 05:43 Dose: Not Given Metoprolol Tartrate (Lopressor) 25 mg PO BID [facility] Last Admin: 12/05/18 09:48 Dose: 25 mg Multivitamins (Hexavitamin) 1 tab PO DAILY [facility] Last Admin: 04/30/19 09:51 Dose: 1 tab Ofloxacin (Floxin 0.3% Otic Soln) 0 ml AD DAILY [facility] Last Admin: 12/05/18 09:48 Dose: 1 drop Oxycodone/Acetaminophen (Percocet 5/325 Mg Tab) 1 tab PO Q8 PRN PRN Reason: Pain, severe (8-10) Stop: 12/05/18 14:01 Last Admin: 12/02/18 11:10 Dose: 1 tab Pantoprazole Sodium (Protonix Ec Tab) 40 mg PO DAILY [facility] Last Admin: 12/05/18 09:51 Dose: 40 mg Rosuvastatin Calcium (Crestor) 10 mg PO HS [facility] Last Admin: 12/04/18 21:39 Dose: 10 mg Sennosides (Senokot Tab) 17.2 mg PO HS [facility] Last Admin: 12/04/18 21:38 Dose: 17.2 mg Tamsulosin HCl (Flomax) 0.4 mg PO DAILY [facility] Last Admin: 12/05/18 09:51 Dose: 0.4 mg Temazepam (Restoril) 15 mg PO HS PRN PRN Reason: Sleep - Labs Labs: 12/03/18 07:35 12/03/18 07:35 - Constitutional Appears: Non-toxic, No Acute Distress, Chronically Ill - Head Exam Head Exam: ATRAUMATIC, NORMAL INSPECTION, NORMOCEPHALIC - Eye Exam Eye Exam: EOMI, Normal appearance, PERRL Pupil Exam: NORMAL ACCOMODATION, PERRL - ENT Exam ENT Exam: Mucous Membranes Moist, Normal Exam - Neck Exam Neck Exam: Full ROM, Normal Inspection. absent: Lymphadenopathy - Respiratory Exam Respiratory Exam: Clear to Ausculation Bilateral, NORMAL BREATHING PATTERN - Cardiovascular Exam Cardiovascular Exam: REGULAR RHYTHM, +S1, +S2. absent: Murmur - GI/Abdominal Exam GI & Abdominal Exam: Soft, Normal Bowel Sounds. absent: Tenderness - Rectal Exam Rectal Exam: Deferred - Exam Exam: NORMAL INSPECTION - Extremities Exam Extremities Exam: Full ROM, Normal Capillary Refill, Normal Inspection. absent: Joint Swelling, Pedal Edema - Back Exam Back Exam: NORMAL INSPECTION - Neurological Exam Neurological Exam: Alert, Awake, CN II-XII Intact, Normal Gait, Oriented x3 - Psychiatric Exam Psychiatric exam: Normal Affect, Normal Mood - Skin Skin Exam: Dry, Intact, Normal Color, Warm Assessment and Plan (1) Prostate CA Status: Acute (2) Bone metastasis Status: Acute (3) Otitis externa of right ear Status: Acute (4) Prostate cancer metastatic to bone Status: Acute (5) DM type 2 (diabetes mellitus, type 2) Status: Chronic (6) History of DVT (deep vein thrombosis) Status: Chronic (7) Hypertension Status: Chronic (8) Otitis externa in other diseases classified elsewhere, right ear Status: Acute - Assessment and Plan (Free Text) Assessment: otitis externa improving Bone scan + for mets CA prostate + Cont rx as per Aldo Escobar MD
[2018-12-05] MEDS: Sodium Chloride 0.9% 1,000 ML IV SCH (16:00)
--- NOTE | 2018-12-05 16:23 | RAD ---
Date of service: 12/05/2018 HISTORY: pre-op COMPARISON: 04/12/2018 TECHNIQUE: Chest PA and lateral views FINDINGS: LUNGS: No consolidation. Lung volumes within normal limits. PLEURA: No significant pleural effusion identified. No pneumothorax apparent. CARDIOVASCULAR: There is presence of aortic atherosclerotic calcification on x-ray. Mild cardiomegaly. Prior pulmonary venous congestion appears less now. Port-A-Cath inserted tip in cavoatrial junction as before. OSSEOUS STRUCTURES: Thoracic spondylosis. VISUALIZED UPPER ABDOMEN: Normal. OTHER FINDINGS: None. IMPRESSION: The prior pulmonary venous congestion appears less now than before. No interval pathology findings noted.
[2018-12-05 17:59] LABS: CALCIUM 9.3 mg/dl (8.6-10.4)
[2018-12-06] MEDS: Levothyroxine 175 MCG TAB PO SCH (05:50)
[2018-12-06] MEDS: Piperacill/Tazo 2.25gm in Dex 2.25 GM/50 ML BAG IVPB SCH ×2 (05:50→14:21)
[2018-12-06] MEDS: Sodium Chloride 0.9% 1,000 ML IV SCH (05:53)
[2018-12-06 07:36] LABS: BASO # 0.1 K/uL (0.0-0.2); BASO % 0.7 % (0.0-2.0); EOS # 0.3 K/uL (0.0-0.7); EOS % 3.2 % (0.0-4.0); HEMOGLOBIN 10.4 g/dL (12.0-18.0); LYMPH # 0.9 K/uL (1.0-4.3); LYMPH % 9.5 % (20.0-40.0); MEAN CELL VOLUME 83.7 fL (80.0-94.0); MEAN CORPUSCULAR HEMOGLOBIN 26.3 pg (27.0-31.0); MEAN CORPUSCULAR HGB CONC 31.4 g/dL (33.0-37.0); MEAN PLATELET VOLUME 8.5 fL (7.2-11.7); MONO % 10.9 % (0.0-10.0); NEUT # 6.7 K/uL (1.8-7.0); NEUT % 75.7 % (50.0-75.0); PLATELET COUNT 263 K/uL (130-400); RBC 3.94 Mil/uL (4.40-5.90); RED CELL DISTRIBUTION WIDTH 19.4 % (11.5-14.5); WHITE BLOOD COUNT 8.9 K/uL (4.8-10.8)
[2018-12-06 07:43] LABS: INR 1.1; PROTHROMBIN TIME 12.3 SECONDS (9.7-12.2)
[2018-12-06 08:17] LABS: CALCIUM 8.8 mg/dl (8.6-10.4)
[2018-12-06] MEDS: (Novolog) Insulin Aspart, Recombinant 100 u/ml 10 ml vial SC SCH ×2 (08:49→12:19)
[2018-12-06 09:07] LABS: ANISOCYTOSIS SLIGHT; EOSINOPHIL 3 % (0-4); HYPOCHROMIC SLIGHT; LYMPHOCYTE 11 % (20-40); MONOCYTE 9 % (0-10); NEUTROPHIL 77 % (50-75); PLATELET ESTIMATE NORMAL (NORMAL); POIKILOCYTOSIS SLIGHT; TOTAL CELLS COUNTED 100
[2018-12-06] MEDS: Multiple Vitamins Tab PO SCH (09:51)
[2018-12-06] MEDS: Pantoprazole 40 mg EC Tab PO SCH (09:52)
[2018-12-06] MEDS: (Lantus) Insulin Glargine, Recombinant SC SCH (10:03)
[2018-12-06] MEDS: Ofloxacin 0.3% Otic Soln AD SCH (10:56)
[2018-12-06 12:55] LABS: SQUAMOUS EPITHIAL 1 /hpf (0-5); URINE BILIRUBIN NEGATIVE (NEGATIVE); URINE BLOOD 2+ (NEGATIVE); URINE CLARITY Hazy (Clear); URINE COLOR Yellow (YELLOW); URINE GLUCOSE (UA) 3+ mg/dL (Normal); URINE LEUKOCYTE ESTERASE 3+ Leu/uL (Negative); URINE PROTEIN 2+ mg/dL (NEGATIVE); URINE UROBILINOGEN NORMAL mg/dL (0.2-1.0); WBC CLUMPS FEW /hpf
--- NOTE | 2018-12-06 13:27 | CP.PCM.PN ---
Subjective - Date & Time of Evaluation Date of Evaluation: 12/06/18 Time of Evaluation: 08:00 - Subjective Subjective: discussed on rounds plan is to d/c on PO rx with ENT follow up Objective - Vital Signs/Intake and Output Vital Signs (last 24 hours): Temp Pulse Resp BP Pulse Ox 98.4 F 76 20 146/86 98 12/06/18 07:35 12/06/18 07:35 12/06/18 07:35 12/06/18 09:50 12/06/18 07:35 Intake and Output: 12/06/18 12/06/18 06:59 18:59 Intake Total 1400 Balance 1400 - Medications Medications: Current Medications Acetaminophen (Tylenol 325mg Tab) 650 mg PO Q6 PRN PRN Reason: Pain, moderate (4-7) Last Admin: 12/02/18 14:11 Dose: 650 mg Amlodipine Besylate (Norvasc) 5 mg PO DAILY [facility] Last Admin: 12/06/18 09:51 Dose: 5 mg Apixaban (Eliquis) 5 mg PO BID [facility] Last Admin: 12/05/18 09:12 Dose: Not Given Dextrose (Dextrose 50% Inj) 0 ml IV STAT PRN; Protocol PRN Reason: Hypoglycemia Protocol Dextrose (Glutose 15) 0 gm PO ONCE PRN; Protocol PRN Reason: Hypoglycemia Protocol Gabapentin (Neurontin) 100 mg PO TID [facility] Last Admin: 12/06/18 09:51 Dose: 100 mg Glucagon (Glucagen Diagnostic Kit) 0 mg IM STAT PRN; Protocol PRN Reason: Hypoglycemia Protocol Piperacillin Sod/Tazobactam Sod (Zosyn 2.25 Gm Iv Premix) 2.25 gm in 50 mls @ 100 mls/hr IVPB Q8H [facility]; Protocol Last Admin: 12/06/18 05:50 Dose: 100 mls/hr Sodium Chloride (Sodium Chloride 0.9%) 1,000 mls @ 70 mls/hr IV .[id number] [facility] Last Admin: 12/06/18 05:53 Dose: 70 mls/hr Insulin Aspart (Novolog) 0 unit SC ACHS [facility]; Protocol Last Admin: 12/06/18 12:19 Dose: 3 u Insulin Glargine (Lantus) 25 unit SC BID [facility] Last Admin: 12/06/18 10:03 Dose: 25 units Levothyroxine Sodium (Synthroid) 175 mcg PO DAILY@0630 [facility] Last Admin: 12/06/18 05:50 Dose: 175 mcg Metoprolol Tartrate (Lopressor) 25 mg PO BID [facility] Last Admin: 12/06/18 09:50 Dose: 25 mg Multivitamins (Hexavitamin) 1 tab PO DAILY [facility] Last Admin: 12/06/18 09:51 Dose: 1 tab Ofloxacin (Floxin 0.3% Otic Soln) 0 ml AD DAILY [facility] Last Admin: 12/06/18 10:56 Dose: 10 drop Pantoprazole Sodium (Protonix Ec Tab) 40 mg PO DAILY [facility] Last Admin: 12/06/18 09:52 Dose: 40 mg Rosuvastatin Calcium (Crestor) 10 mg PO HS [facility] Last Admin: 12/05/18 21:30 Dose: 10 mg Sennosides (Senokot Tab) 17.2 mg PO HS [facility] Last Admin: 12/05/18 21:30 Dose: 17.2 mg Tamsulosin HCl (Flomax) 0.4 mg PO DAILY [facility] Last Admin: 12/06/18 09:51 Dose: 0.4 mg Temazepam (Restoril) 15 mg PO HS PRN PRN Reason: Sleep - Labs Labs: 12/06/18 07:23 12/06/18 07:23 PT 12.3 SECONDS (9.7-12.2) H 12/06/18 07:23 INR 1.1 12/06/18 07:23 - Constitutional Appears: Non-toxic, Chronically Ill - Head Exam Head Exam: ATRAUMATIC, NORMAL INSPECTION, NORMOCEPHALIC - Eye Exam Eye Exam: EOMI, Normal appearance, PERRL Pupil Exam: NORMAL ACCOMODATION, PERRL - ENT Exam ENT Exam: Mucous Membranes Moist, Normal Exam - Neck Exam Neck Exam: Full ROM, Normal Inspection. absent: Lymphadenopathy - Respiratory Exam Respiratory Exam: Clear to Ausculation Bilateral, NORMAL BREATHING PATTERN - Cardiovascular Exam Cardiovascular Exam: REGULAR RHYTHM, +S1, +S2. absent: Murmur - GI/Abdominal Exam GI & Abdominal Exam: Soft, Normal Bowel Sounds. absent: Tenderness - Rectal Exam Rectal Exam: Deferred - Extremities Exam Extremities Exam: Full ROM, Normal Capillary Refill, Normal Inspection. absent: Joint Swelling, Pedal Edema - Back Exam Back Exam: NORMAL INSPECTION - Neurological Exam Neurological Exam: Alert, Awake, CN II-XII Intact, Normal Gait, Oriented x3 - Psychiatric Exam Psychiatric exam: Normal Affect, Normal Mood - Skin Skin Exam: Dry, Intact, Normal Color, Warm Assessment and Plan (1) Prostate CA Status: Acute (2) Bone metastasis Status: Acute (3) Otitis externa of right ear Status: Acute (4) Prostate cancer metastatic to bone Status: Acute (5) DM type 2 (diabetes mellitus, type 2) Status: Chronic (6) History of DVT (deep vein thrombosis) Status: Chronic (7) Hypertension Status: Chronic (8) Otitis externa in other diseases classified elsewhere, right ear Status: Acute - Assessment and Plan (Free Text) Assessment: switch to po rx follow up as out pt
--- NOTE | 2018-12-06 15:26 | CP.PCM.PN ---
Subjective - Date & Time of Evaluation Date of Evaluation: 12/06/18 Time of Evaluation: 15:27 - Subjective Subjective: Pt seen today, states and feels better. Pt alert and oriented x3 denies any chest pain, SOB, dizziness. VSS. Labs reviewed. Pt stable. Objective - Vital Signs/Intake and Output Vital Signs (last 24 hours): Temp Pulse Resp BP Pulse Ox 98.4 F 76 20 146/86 98 12/06/18 07:35 12/06/18 07:35 12/06/18 07:35 12/06/18 09:50 12/06/18 07:35 Intake and Output: 12/06/18 12/06/18 06:59 18:59 Intake Total 1400 910 Balance 1400 910 - Medications Medications: Current Medications Acetaminophen (Tylenol 325mg Tab) 650 mg PO Q6 PRN PRN Reason: Pain, moderate (4-7) Last Admin: 12/02/18 14:11 Dose: 650 mg Amlodipine Besylate (Norvasc) 5 mg PO DAILY [facility] Last Admin: 12/06/18 09:51 Dose: 5 mg Apixaban (Eliquis) 5 mg PO BID [facility] Last Admin: 12/05/18 09:12 Dose: Not Given Dextrose (Dextrose 50% Inj) 0 ml IV STAT PRN; Protocol PRN Reason: Hypoglycemia Protocol Dextrose (Glutose 15) 0 gm PO ONCE PRN; Protocol PRN Reason: Hypoglycemia Protocol Gabapentin (Neurontin) 100 mg PO TID [facility] Last Admin: 12/06/18 14:21 Dose: 100 mg Glucagon (Glucagen Diagnostic Kit) 0 mg IM STAT PRN; Protocol PRN Reason: Hypoglycemia Protocol Piperacillin Sod/Tazobactam Sod (Zosyn 2.25 Gm Iv Premix) 2.25 gm in 50 mls @ 100 mls/hr IVPB Q8H [facility]; Protocol Last Admin: 12/06/18 14:21 Dose: 100 mls/hr Sodium Chloride (Sodium Chloride 0.9%) 1,000 mls @ 70 mls/hr IV .[id number] [facility] Last Admin: 12/06/18 05:53 Dose: 70 mls/hr Insulin Aspart (Novolog) 0 unit SC ACHS [facility]; Protocol Last Admin: 12/06/18 12:19 Dose: 3 u Insulin Glargine (Lantus) 25 unit SC BID [facility] Last Admin: 12/06/18 10:03 Dose: 25 units Levothyroxine Sodium (Synthroid) 175 mcg PO DAILY@0630 [facility] Last Admin: 12/06/18 05:50 Dose: 175 mcg Metoprolol Tartrate (Lopressor) 25 mg PO BID [facility] Last Admin: 12/06/18 09:50 Dose: 25 mg Multivitamins (Hexavitamin) 1 tab PO DAILY [facility] Last Admin: 12/06/18 09:51 Dose: 1 tab Ofloxacin (Floxin 0.3% Otic Soln) 0 ml AD DAILY [facility] Last Admin: 12/06/18 10:56 Dose: 10 drop Pantoprazole Sodium (Protonix Ec Tab) 40 mg PO DAILY [facility] Last Admin: 12/06/18 09:52 Dose: 40 mg Rosuvastatin Calcium (Crestor) 10 mg PO HS [facility] Last Admin: 12/05/18 21:30 Dose: 10 mg Sennosides (Senokot Tab) 17.2 mg PO HS [facility] Last Admin: 12/05/18 21:30 Dose: 17.2 mg Tamsulosin HCl (Flomax) 0.4 mg PO DAILY [facility] Last Admin: 12/06/18 09:51 Dose: 0.4 mg Temazepam (Restoril) 15 mg PO HS PRN PRN Reason: Sleep - Labs Labs: 12/06/18 07:23 12/06/18 07:23 PT 12.3 SECONDS (9.7-12.2) H 12/06/18 07:23 INR 1.1 12/06/18 07:23 Assessment and Plan - Assessment and Plan (Free Text) Assessment: Patient is a 68 year old male who is sent into the ED by Dr. Raymond for admission for malignant otitis externa. Patient is c/o right ear pain. Patient reports that he has been on PO antibiotics for some time with no resolution of symptoms. Pt seen and examined. VSS. Pt alert and oriented with no acute complaints at this time. Resp even and easy. Pt continues to complain of Right ear pain. CT il lustrated mild-moderate mastoiditis, IV antibiotics course completed and pt will continue PO Augmentin and Cipro otic drops at home as per Dr. Mccoy. Pt is also to follow up with Dr. Santana Escobar to schedule biopsy. Discussed with Santana Escobar BUN 63 and CR 4.2, Dr. Santana Escobar aware and will manage as outpatient for CKD. Activity as tolerated. Discharge discussed with patient, , and Dr. Santana Escobar. INSTRUCTIONS GIVEN AND EXPLAINED TO PATIENT AND . FOLLOW-UP WITH DR. Santana ESCOBAR ON TUESDAY: -MANAGE HIGH BUN AND HIGH CR OUTPATIENT DR. Santana ESCOBAR AWARE -DR. Santana ESCOBAR WILL DISCUSS & SCHEDULE FOR THE BIOPSY FOLLOW-UP WITH DR. MCCOY 2-4 WEEKS -START AUGMENTIN 500MG BID X 5DAYS: RX GIVEN -RESUME CIPRO 3 DROPS BID 1 WEEK EAR DROPS: RX GIVEN FOLLOW-UP WITH ENT IN 1 WEEK (FOLLOW-UP VISIT CALL AND MAKE APPOINTMENT) ACTIVITY TOLERATED HOLD ELIQUIS FOR BIOPSY PER DR. Santana ESCOBAR RESUME ALL HOME MEDICATIONS CALL DR. Santana ESCOBAR OR GO TO THE EMERGENCY ROOM IF SYMPTOMS RETURN OR GET WORSE.
[2018-12-06 16:17] VITALS: BP 144/66; PULSE 65; TEMP 98.3; O2SAT 96
--- NOTE | 2018-12-07 08:57 | CP.PCM.DIS ---
Provider - Provider Date of Admission: 11/30/18 16:05 Attending physician: Cameron Escobar MD Consults: 11/30/18 16:10 Infectious Disease Consult Routine Comment: Consulting Provider: Weston Mccoy Consulting Physician: Weston Mccoy Reason for Consult: otitis externa 12/01/18 16:48 Physician Consult Routine Comment: Consulting Provider: Zohaib Raymond Consulting Physician: Zohaib Raymond Reason for Consult: otitis externa 12/04/18 22:01 Physician Consult Routine Comment: Consulting Provider: Claire Balderas Consulting Physician: Claire Balderas Reason for Consult: metastatic disease/new Hospital Course - Lab Results Lab Results: Micro Results 11/30/18 15:29 Blood Blood Culture - Final NO GROWTH AFTER 5 DAYS 11/30/18 15:29 Blood Gram Stain - Final TEST NOT PERFORMED 11/30/18 14:50 Blood Blood Culture - Final NO GROWTH AFTER 5 DAYS 11/30/18 14:50 Blood Gram Stain - Final TEST NOT PERFORMED Most Recent Lab Values WBC 8.9 K/uL (4.8-10.8) 12/06/18 07:23 RBC 3.94 Mil/uL (4.40-5.90) L 12/06/18 07:23 Hgb 10.4 g/dL (12.0-18.0) L 12/06/18 07:23 Hct 32.9 % (35.0-51.0) L 12/06/18 07:23 MCV 83.7 fL (80.0-94.0) 12/06/18 07:23 MCH 26.3 pg (27.0-31.0) L 12/06/18 07:23 MCHC 31.4 g/dL (33.0-37.0) L 12/06/18 07:23 RDW 19.4 % (11.5-14.5) H 12/06/18 07:23 Plt Count 263 K/uL (130-400) 12/06/18 07:23 MPV 8.5 fL (7.2-11.7) 12/06/18 07:23 Neut % (Auto) 75.7 % (50.0-75.0) H 12/06/18 07:23 Lymph % (Auto) 9.5 % (20.0-40.0) L 12/06/18 07:23 Meagher % (Auto) 10.9 % (0.0-10.0) H 12/06/18 07:23 Eos % (Auto) 3.2 % (0.0-4.0) 12/06/18 07:23 Baso % (Auto) 0.7 % (0.0-2.0) 12/06/18 07:23 Neut # (Auto) 6.7 K/uL (1.8-7.0) 12/06/18 07:23 Lymph # (Auto) 0.9 K/uL (1.0-4.3) L 12/06/18 07:23 Meagher # (Auto) 1.0 K/uL (0.0-0.8) H 12/06/18 07:23 Eos # (Auto) 0.3 K/uL (0.0-0.7) 12/06/18 07:23 Baso # (Auto) 0.1 K/uL (0.0-0.2) 12/06/18 07:23 Neutrophils % (Manual) 77 % (50-75) H 12/06/18 07:23 Lymphocytes % (Manual) 11 % (20-40) L 12/06/18 07:23 Monocytes % (Manual) 9 % (0-10) 12/06/18 07:23 Eosinophils % (Manual) 3 % (0-4) 12/06/18 07:23 Platelet Estimate Normal (NORMAL) 12/06/18 07:23 Hypochromasia (manual) Slight 12/06/18 07:23 Poikilocytosis (manual Slight 12/06/18 07:23 Anisocytosis (manual) Slight 12/06/18 07:23 ESR 45 mm/hr (0-15) H 12/01/18 07:25 PT 12.3 SECONDS (9.7-12.2) H 12/06/18 07:23 INR 1.1 12/06/18 07:23 Sodium 139 mmol/L (132-148) 12/06/18 07:23 Potassium 4.6 mmol/L (3.6-5.2) 12/06/18 07:23 Chloride 102 mmol/L (98-107) 12/06/18 07:23 Carbon Dioxide 27 mmol/L (22-30) 12/06/18 07:23 Anion Gap 14 (10-20) 12/06/18 07:23 BUN 63 mg/dL (9-20) H 12/06/18 07:23 Creatinine 4.2 mg/dL (0.8-1.5) H 12/06/18 07:23 Est GFR ( Amer) 17 12/06/18 07:23 Est GFR (Non-Af Amer) 14 12/06/18 07:23 POC Glucose (mg/dL) 269 mg/dL (65-110) H 12/06/18 11:29 Random Glucose 267 mg/dL (75-110) H D 12/06/18 07:23 Calcium 8.8 mg/dl (8.6-10.4) 12/06/18 07:23 Total Bilirubin 0.5 mg/dL (0.2-1.3) 11/30/18 15:44 AST 24 U/L (17-59) 11/30/18 15:44 ALT 17 U/L (21-72) L 11/30/18 15:44 Alkaline Phosphatase 67 U/L (38-126) 11/30/18 15:44 C-React Prot High Sens 8.94 mg/L (1.00-3.00) H 12/01/18 07:20 Total Protein 6.9 g/dL (6.3-8.3) 11/30/18 15:44 Albumin 3.7 g/dL (3.5-5.0) 11/30/18 15:44 Globulin 3.1 gm/dL (2.2-3.9) 11/30/18 15:44 Albumin/Globulin Ratio 1.2 (1.0-2.1) 11/30/18 15:44 Prostate Specific Ag 40.3 ng/mL (0.00-4.0) H 12/04/18 13:48 Procalcitonin 0.61 NG/ML (0.19-0.49) H 12/01/18 07:20 Urine Color Yellow (YELLOW) 12/06/18 12:41 Urine Clarity Hazy (Clear) 12/06/18 12:41 Urine pH 6.0 (5.0-8.0) 12/06/18 12:41 Ur Specific Eaton 1.013 (1.003-1.030) 12/06/18 12:41 Urine Protein 2+ mg/dL (NEGATIVE) H 12/06/18 12:41 Urine Glucose (UA) 3+ mg/dL (Normal) H 12/06/18 12:41 Urine Ketones Negative mg/dL (NEGATIVE) 12/06/18 12:41 Urine Blood 2+ (NEGATIVE) H 12/06/18 12:41 Urine Nitrate Negative (NEGATIVE) 12/06/18 12:41 Urine Bilirubin Negative (NEGATIVE) 12/06/18 12:41 Urine Urobilinogen Normal mg/dL (0.2-1.0) 12/06/18 12:41 Ur Leukocyte Esterase 3+ Lawrence/uL (Negative) H 12/06/18 12:41 Urine WBC (Auto) 262 /hpf (0-5) H 12/06/18 12:41 Urine RBC (Auto) 57 /hpf (0-3) H 12/06/18 12:41 Urine WBC Clumps (Auto) Few /hpf (NONE) H 12/06/18 12:41 Ur Squamous Epith Cells 1 /hpf (0-5) 12/06/18 12:41 Urine Yeast (Budding) Occ /hpf (NEGATIVE) H 12/06/18 12:41 Discharge Exam - Head Exam Head Exam: ATRAUMATIC, NORMAL INSPECTION, NORMOCEPHALIC Discharge Plan - Discharge Medications Prescriptions: Amoxicillin/Clavulanate [Augmentin 500 MG-125 MG] 1 tab PO BID 5 Days #10 tab Ciprofloxacin/Hydrocortisone [Cipro Hc Otic Suspension] 3 drop OT BID 7 Days #1 drops.susp Metoprolol Tartrate [Lopressor] 25 mg PO BID 30 Days tab - Follow Up Plan Condition: FAIR Disposition: HOME/ ROUTINE Instructions: Ciprofloxacin (Systemic), Heart Failure, Adult (DC), Outer Ear Infection (DC), Amoxicillin and Clavulanate, Metoprolol Additional Instructions: FOLLOW-UP WITH DR. Santana ESCOBAR ON TUESDAY: -MANAGE HIGH BUN AND HIGH CR OUTPATIENT DR. Santana ESCOBAR AWARE -DR. Santana ESCOBAR WILL DISCUSS & SCHEDULE FOR THE BIOPSY FOLLOW-UP WITH DR. MCCOY 2-4 WEEKS -START AUGMENTIN 500MG BID X 5DAYS: RX GIVEN -RESUME CIPRO 3 DROPS BID 1 WEEK EAR DROPS: RX GIVEN FOLLOW-UP WITH ENT IN 1 WEEK (FOLLOW-UP VISIT CALL AND MAKE APPOINTMENT) ACTIVITY TOLERATED HOLD ELIQUIS FOR BIOPSY PER DR. Santana ESCOBAR RESUME ALL HOME MEDICATIONS CALL DR. Santana ESCOBAR OR GO TO THE EMERGENCY ROOM IF SYMPTOMS RETURN OR GET WORSE. Referrals: Weston Mccoy MD [Staff Provider] - Vick Escobar MD [Staff Provider] -
== END 2018-12-06 16:40 | disposition home health service (06) | DRG 155 ==
LOC: C.ER 13:42 → C.9E 16:05 → C.3T 17:11
PROVIDERS: ADMIT Internal Medicine Nephrology; ATTEND Internal Medicine Nephrology
DX: H60.21 Malignant otitis externa, right ear (principal); H70.91 Unspecified mastoiditis, right ear; C79.51 Secondary malignant neoplasm of bone; C61 Malignant neoplasm of prostate; I13.0 Hypertensive heart and chronic kidney disease with heart failure and stage 1 through stage 4 chronic kidney disease, or unspecified chronic kidney disease; E11.22 Type 2 diabetes mellitus with diabetic chronic kidney disease; E11.65 Type 2 diabetes mellitus with hyperglycemia; I50.9 Heart failure, unspecified; N18.9 Chronic kidney disease, unspecified; J34.2 Deviated nasal septum; E03.9 Hypothyroidism, unspecified; J44.9 Chronic obstructive pulmonary disease, unspecified; K21.9 Gastro-esophageal reflux disease without esophagitis; E78.00 Pure hypercholesterolemia, unspecified; H91.91 Unspecified hearing loss, right ear; Z85.528 Personal history of other malignant neoplasm of kidney; Z86.718 Personal history of other venous thrombosis and embolism; Z79.84 Long term (current) use of oral hypoglycemic drugs